=== PATIENT | female | born 1960 | race Caucasian/White ===

== ENCOUNTER 2016-08-24 07:17 | Inpatient (IN) | payer MEDICARE, BC ==
[~2016-08-24] VITALS: Ht 165.1 cm; Wt 105.0 kg
[2016-08-24] VITALS (8 sets, daily range): BP systolic 145–194; BP diastolic 75–90; PULSE 83–110; RESP 17–25; TEMP 98–98.5; O2SAT 92–99
[~2016-08-24 07:17] MED LIST: ALLO100T PO; AMLO5TAB22 PO; CINA30 PO; EZET10 PO; FOSR1000 CHEW; FURO10S PO; LEVEMIR SQ; LISI-363 PO; METO100T PO; NOVOLOGP2 SQ; SIMV40 PO; SULF500T35 PO
[2016-08-24] MEDS ORDERED: SODIUM CHLOR 0.9% 1000 ML INJ 1,000 ML IV ONE (08:09)
[2016-08-24] MEDS ORDERED: CUSTODIOL HTK IRR SOLN 2,000 ML IRRIGATION SCH (08:15)
[2016-08-24] MEDS ORDERED: MYCOPHENOLATE MOFETIL 500 MG TAB PO SCH (08:15)
[2016-08-24] MEDS ORDERED: SODIUM CHLOR 0.9% IV SCH (08:15)
[2016-08-24] MEDS ORDERED: ceFAZolin 2 GM PREMIX 50 ML IV SCH (08:15)
[2016-08-24] MEDS ORDERED: ANTITHYMOCYTE GLOB IV SCH (08:15)
--- NOTE | 2016-08-24 08:23 | HHI.HP ---
History of Present Illness [facility] Primary Care Physician Non-Staff Admission Diagnosis End Stage Renal Disease Diagnoses: History of Present Illness 56 yo female with ESRD from DM and HTN; Complications of her diabetes include gastropathy, enteropathy, and peripheral neuropathy; She hemodialyzes via a RUE AVF; She is here for a possible kidney transplant Review of Systems Constitutional: DENIES: Diaphoretic episodes, Fatigue, Fever, Weight gain, Weight loss, Chills, Dizziness, Change in appetite, Night Sweats Endocrine: DENIES: Abnorml menstrual pattern, Heat/cold intolerance, Polydipsia , Polyuria, Polyphagia Eyes: DENIES: Blurred vision, Diplopia, Eye inflammation, Eye pain, Vision loss , Photosensitivity, Double Vision Ears, nose, mouth, throat: DENIES: Tinnitus, Hearing loss, Vertigo, Nasal discharge, Oral lesions, Throat pain, Hoarseness, Ear Pain, Running Nose, Epistaxis, Sinus Pain, Toothache, Odynophagia Respiratory: DENIES: Apneas, Cough, Snoring, Wheezing, Hemoptysis, Sputum production, Shortness of breath Cardiovascular: DENIES: Chest pain, Palpitations, Syncope, Dyspnea on Exertion , PND, Lower Extremity Edema, Orthopnea, Claudication Gastrointestinal: DENIES: Abdominal pain, Black stools, Bloody stools, Constipation, Diarrhea, Nausea, Vomiting, Difficulty Swallowing, Anorexia Genitourinary: DENIES: Abnormal vaginal bleeding, Dysmenorrhea, Dyspareunia, Sexual dysfunction, Urinary frequency, Urinary incontinence, Urgency, Hematuria , Dysuria, Nocturia, Vaginal discharge Musculoskeletal: DENIES: Joint pain, Muscle aches, Stiffness, Joint Swelling, Back pain, Neck pain Integumentary: DENIES: Abnormal pigmentation, Pruritus, Rash, Nail changes, Breast masses, Breast skin changes, Nipple discharge Hematologic/lymphatic: DENIES: Bruising, Lymphadenopathy Immunologic/allergic: DENIES: Eczema, Urticaria Neurologic: DENIES: Abnormal gait, Headache, Localized weakness, Paresthesias, Seizures, Speech Problems, Tremor, Poor Balance Psychiatric: DENIES: Anxiety, Confusion, Mood changes, Depression, Hallucinations, Agitation, Suicidal Ideation, Homicidal Ideation, Delusions Past Family Social History Allergies: Uncoded Allergies: Tape (Allergy, 08/24/16) Past Medical History Obstructive Sleep Apnea, uses CPAP at home hiatal hernia hip and knee arthritis hx of CHF hx of pneumonia gastritis Past Surgical History PD cath x 2 in 2013 C sexn 1993 Reported Medications ASA (stopped 2 weeks ago) Insulin Simvastatin Aleve (last dose 2 days ago) Family History Father with ESRD Social History < 30 pack year smoker Physical Exam Vital Signs BP 194/90 (did not take AM meds) HR 90 Afebrile Physical Exam GENERAL: This is a well-developed patient, in no apparent distress. SKIN: No rashes, ecchymoses or lesions. Cool and dry. HEAD: Atraumatic. Normocephalic. No temporal or scalp tenderness. EYES: Pupils equal round and reactive. Extraocular motions intact. No scleral icterus. No injection or drainage. ENT: Nose without bleeding, purulent drainage or septal hematoma. Airway patent. NECK: Trachea midline. No JVD or lymphadenopathy. Supple, nontender, no meningeal signs. CARDIOVASCULAR: Regular rate and rhythm without murmurs, gallops, or rubs. RESPIRATORY: Clear to auscultation. Breath sounds equal bilaterally. No wheezes , rales, or rhonchi. GASTROINTESTINAL: Abdomen soft, non-tender, protuberant. All incisions well healed, no hernias. No hepato-splenomegaly, or palpable masses. No guarding. MUSCULOSKELETAL: Extremities without clubbing, cyanosis, or edema. No joint tenderness, effusion, or edema noted. NEUROLOGICAL: Awake and alert. Motor and sensory grossly within normal limits.Normal speech. Assessment and Plan Assessment and Plan Pending labs, ok for transplant this AM. She denied exposure to or symptoms of acute illnesses. I mentioned the increased risk of wound complications, including infection, fluid collections, and delayed healing as a result of her pannus. I explained the nature of the high risk for the donor. She and her family understand and agree to proceed with the transplant. Alvaro Patten MD August 24, 2016 08:23
[2016-08-24] MEDS ORDERED: BUPIVACAINE HCL PF 0.5% 30 ML VIAL ONE (08:50)
[2016-08-24] MEDS ORDERED: methylPREDNISolone SOD SUCC 125 MG/2 ML VIAL ONE (08:50)
[2016-08-24] MEDS ORDERED: LIDOCAINE HCL 2% 50 ML VIAL ONE (08:50)
[2016-08-24] MEDS ORDERED: SODIUM BICARBONATE 8.4% INJ 50 ML ONE (08:50)
[2016-08-24] MEDS ORDERED: HEPARIN SODIUM - IV 10,000 UNITS/10 ML VIAL ONE (08:50)
[2016-08-24] MEDS ORDERED: diphenhydrAMINE HCL 50 MG/ML VIAL ONE (08:50)
[2016-08-24] MEDS ORDERED: ceFAZolin INJ 1,000 MG VIAL ONE (08:50)
[2016-08-24] MEDS ORDERED: MINERAL OIL 10 ML VIAL ONE (08:51)
[2016-08-24] MEDS ORDERED: PAPAVERINE INJ 60 MG/2 ML VIAL ONE (08:51)
[2016-08-24] MEDS: ceFAZolin INJ 1,000 MG VIAL ONE ×2 (09:12→10:20)
[2016-08-24] MEDS ORDERED: PROPOFOL 200 MG/20 ML AMP IV ONE (09:24)
[2016-08-24] MEDS ORDERED: [UNRECOGNIZED DRUG - OTHER] IV ONE (09:24)
[2016-08-24] MEDS ORDERED: PHENYLEPH/NS 1000 MCG/10 ML SYR IV ONE (09:24)
[2016-08-24] MEDS ORDERED: ePHEDrine/NS 25 MG/5 ML SYR IV ONE (09:24)
[2016-08-24] MEDS ORDERED: CISATRACURIUM BESYLATE 200 MG/20 ML VIAL IV ONE (09:24)
[2016-08-24] MEDS ORDERED: ONDANSETRON HCL 4 MG/2 ML VIAL IV PUSH ONE (09:24)
[2016-08-24] MEDS ORDERED: CALCIUM CHLORIDE 10% SOLN 1 GRAM/10 ML SYR IV ONE (09:24)
[2016-08-24] MEDS ORDERED: DEXTROSE 5% IV ONE (09:24)
[2016-08-24 09:34] LABS: AUTOMATED NEUTROPHIL # 7.4 TH/MM3 (1.8-7.7); BASOPHIL % 0.5 % (0.0-2.0); EOSINOPHIL # 0.2 TH/MM3 (0-0.4); EOSINOPHIL % 2.3 % (0.0-4.0); HEMATOCRIT 31.2 % (35.0-46.0); HEMO FLAGS DIFF FINAL; LYMPH % 18.8 % (9.0-44.0); MEAN CELL VOLUME 97.6 FL (80.0-100.0); MEAN CORPUSCULAR HEMOGLOBIN 31.5 PG (27.0-34.0); MEAN CORPUSCULAR HGB CONC 32.3 % (32.0-36.0); MONO % 8.7 % (0.0-8.0); NEUT % 69.7 % (16.0-70.0); PLATELET COUNT 294 TH/MM3 (150-450); RED BLOOD COUNT 3.19 MIL/MM3 (4.00-5.30); RED CELL DISTRIBUTION WIDTH 14.7 % (11.6-17.2); WHITE BLOOD COUNT 10.7 TH/MM3 (4.0-11.0)
[2016-08-24 09:44] LABS: APTT (PATIENT) 25.3 SEC (24.3-30.1); PROTHROMBIN TIME - PATIENT 10.9 SEC (9.8-11.6)
[2016-08-24 10:03] LABS: ALKALINE PHOSPHATASE 161 U/L (45-117); ALT (GPT) 15 U/L (10-53); ANION GAP 13 MEQ/L (5-15); AST (GOT) 16 U/L (15-37); BICARBONATE 27.7 MEQ/L (21.0-32.0); BLOOD UREA NITROGEN 45 MG/DL (7-18); CHLORIDE 100 MEQ/L (98-107); GLOMERULAR FILTRATION RATE 4 ML/MIN (>89); POTASSIUM 4.5 MEQ/L (3.5-5.1); SODIUM (NA) 141 MEQ/L (136-145); TOTAL BILIRUBIN ADULT 0.3 MG/DL (0.2-1.0)
[2016-08-24] MEDS ORDERED: SODIUM CHLORIDE 0.9% IRRIGATION ONE (10:15)
[2016-08-24] MEDS ORDERED: BACITRACIN IRRIGATION ONE (10:15)
[2016-08-24] MEDS ORDERED: IRR IRRIGATION ONE (10:15)
--- NOTE | 2016-08-24 10:21 | RADRPT ---
EXAM DATE/TIME: 08/24/2016 10:08 [facility] COMPARISON: No previous studies available for comparison. INDICATIONS : Evaluate for pneumonia, pneumothorax, or communicable disease. Pre-op, kidney transplant. MEDICAL HISTORY : Renal disease, end stage. Congestive heart failure. SURGICAL HISTORY : Dialysis catheter ENCOUNTER: Initial ACUITY: 1 day PAIN SCORE: 0/10 LOCATION: Bilateral chest FINDINGS: A single AP erect view of the chest was obtained it demonstrates mild cardiomegaly. There is mild str eaky opacity in left perihilar region with no focal consolidation or effusion. There is a metal stent catheter in place projected over the right scapula. There are multiple overlying electrocardiogram l william. The bony thorax is otherwise intact. CONCLUSION: 1. Mild cardiomegaly 2. Minimal streaky opacity in the left perihilar region with no definite pulmonary edema. Alon Rosales MD on August 24, 2016 at 10:18 Board Certified Radiologist. This report was verified electronically.
[2016-08-24] MEDS ORDERED: ACETAMINOPHEN 1000 MG/100 ML VIAL IV ONE (10:25)
[2016-08-24] MEDS ORDERED: fentaNYL CITRATE 250 MCG/5 ML AMP ONE ×2 (10:25→18:34)
[2016-08-24] MEDS ORDERED: MIDAZOLAM HCL 5 MG/5 ML VIAL ONE (10:25)
[2016-08-24] MEDS ORDERED: FAMOTIDINE 20 MG/2 ML VIAL ONE (10:26)
[2016-08-24] MEDS ORDERED: HYDROmorphone HCL PF 2 MG/ML VIAL ONE (10:26)
[2016-08-24] MEDS ORDERED: ceFAZolin INJ 1,000 MG VIAL IV ONE (14:22)
[2016-08-24] MEDS ORDERED: PROPOFOL 1000 MG/100 ML INJ 100 ML ONE (17:28)
--- NOTE | 2016-08-24 17:40 | PD.OP ---
Operative Report Date of Surgery: August 24, 2016 Preoperative Diagnosis: (1) ESRD (end stage renal disease) on dialysis Postoperative Diagnosis: (1) ESRD (end stage renal disease) on dialysis Procedure: Diseased Donor Kidney Transplant Anesthesia: GETA Local with Lidocaine, Marcaine Surgeon: Alvaro Patten Fitness Management Director(s): Valeriano Operation and Findings: INDICATIONS FOR THE PROCEDURE The patient is a 56-year-old female with end-stage renal disease from Diabetes and Hypertension. She is here to receive a donor kidney transplant. INTRAOPERATIVE FINDINGS 1. Morbid obesity with large overhanging pannus 2. Normal relationship between the internal iliac artery and the left external iliac vein. 3. Round ligament identified and divided 4. Previous Pfannenstiel incisions in line with intended Transplant incision 5. Fibrotic tissue on medial aspect of incision 6. Dense adhesions in musculofascial layers of median abdominal wall and tissue surrounding external iliac vessels DESCRIPTION OF THE PROCEDURE The patient received prophylactic intravenous antibiotics followed by inhalational and intravenous anesthetic agents prior to endotracheal intubation. She had previously received Solu-Medrol and Thymoglobulin for induction. She was then positioned, prepped and draped in a sterile fashion. After local anesthesia with Marcaine and Lidocaine was infiltrated into the intended incision site, a right lower quadrant hockey stick incision was then performed in order to avoid an ischemic skin pedicle, with division of the external and internal oblique muscles and division of the lateral edge of the rectus. En route, the inferior epigastrics were divided, but the round ligament was identified, isolated and ligated. Once the peritoneum was visualized, it was mobilized medially so as to expose the retroperitoneum. A Bookwalter retractor was placed for optimal exposure. The lymphatics in the tissue overlying the iliac vessels were carefully dissected and ligated using silk ties and surgical clips. A Satinsky clamp was placed on the external iliac vein and a longitudinal venotomy was performed. The renal vein to the external iliac vein and anastomosis was performed using a continuous 5-0 Prolene suture. Similarly, two angled pedicle clamps were used to vascularly isolate the external iliac artery. An arteriotomy was performed using dual punches from a 4-0 arterial punch. The arterial anastomosis was performed using continuous 6-0 Prolene suture. Prior to completion of each anastomosis, the vessels were irrigated with heparinized saline. With completion of the arterial anastomosis, the vascular clamps are released with a good perfusion of allograft. The bladder was then filled with antibiotic solution and the mucosa was exposed for implantation. The ureter was trimmed to size, spatulated, and with the mucosa opened, a ureteroneocystostomy was performed using a continuous 6-0 PDS suture. The anastomosis was then placed under vascularized tissue using the runner suture. Hemostasis in the dissected area was achieved. Urine was not yet produced by the allograft prior to implantation of the ureter. A 19-Qatari Francis drain was placed in the wound cavity and the incision was then closed using a two-layered closure with #1 PDS in the superficial layer and #1 Prolene in the deep layer. The skin was approximated using ricarda with intermittent 3-0 nylon vertical mattress sutures. There were no complications during the case and the patient was brought to PACU intubated in HD stable condition. Alvaro Patten MD August 24, 2016 17:40
[2016-08-24] MEDS ORDERED: AMLO5TAB2 PO (17:44)
[2016-08-24] MEDS ORDERED: LISI40TA PO (17:44)
[2016-08-24] MEDS ORDERED: NOVOLOGP2 SQ (17:44)
[2016-08-24] MEDS ORDERED: METO100T PO (17:44)
[2016-08-24] MEDS ORDERED: CINA30 PO (17:44)
[2016-08-24] MEDS ORDERED: ZETI10TA5 PO (17:44)
[2016-08-24] MEDS ORDERED: SULF500T3 PO (17:44)
[2016-08-24] MEDS ORDERED: FOSR1000 CHEW (17:44)
[2016-08-24] MEDS ORDERED: ALLO100T PO (17:44)
[2016-08-24] MEDS ORDERED: SIMV40TA PO (17:44)
[2016-08-24] MEDS ORDERED: LEVEMIR SQ (17:44)
[2016-08-24] MEDS ORDERED: FURO40TA PO (17:44)
[2016-08-24] MEDS ORDERED: NALOXONE HCL 0.4 MG/ML AMP IV PRN (17:45)
[2016-08-24] MEDS ORDERED: diphenhydrAMINE HCL 25 MG CAP PO PRN (17:45)
[2016-08-24] MEDS ORDERED: MORPHINE SULFATE 30 MG/30 ML PCA IV SCH (17:45)
[2016-08-24] MEDS ORDERED: GLUCAGON 1 MG/ML VIAL OTHER PRN (17:45)
[2016-08-24] MEDS ORDERED: DEXTROSE 50% IN WATER 50 ML VIAL(D50) IV PRN (17:45)
[2016-08-24] MEDS ORDERED: ONDANSETRON INJ 8 MG in DEXTROSE 5% IN WATER INJ 50 ML IV PRN ×2 (17:45)
[2016-08-24] MEDS ORDERED: diphenhydrAMINE HCL 50 MG/ML VIAL IV PRN (17:45)
[2016-08-24] MEDS ORDERED: LABETALOL HCL 100 MG/20 ML VIAL ONE (18:02)
[2016-08-24] MEDS ORDERED: DO NOT ADM ANY ANTICOAGULANT DRUGS PRN (18:10)
[2016-08-24] MEDS: DEXT 5%-NACL 0.45% 1000 ML INJ 1,000 ML IV SCH ×2 (18:20→20:32)
[2016-08-24 18:23] LABS: AUTOMATED NEUTROPHIL # 15.3 TH/MM3 (1.8-7.7); BASOPHIL # 0.1 TH/MM3 (0-0.2); BASOPHIL % 0.4 % (0.0-2.0); HEMATOCRIT 29.4 % (35.0-46.0); HEMO FLAGS DIFF FINAL; LYMPH % 0.3 % (9.0-44.0); MEAN CELL VOLUME 99.3 FL (80.0-100.0); MEAN CORPUSCULAR HEMOGLOBIN 31.8 PG (27.0-34.0); MONO % 1.2 % (0.0-8.0); NEUT % 98.1 % (16.0-70.0); PLATELET COUNT 236 TH/MM3 (150-450); RED BLOOD COUNT 2.96 MIL/MM3 (4.00-5.30); RED CELL DISTRIBUTION WIDTH 14.7 % (11.6-17.2); WHITE BLOOD COUNT 15.6 TH/MM3 (4.0-11.0)
[2016-08-24] MEDS ORDERED: *morphine SULFATE 8 MG/ML PERIprocedure ONLY ONE (18:24)
--- NOTE | 2016-08-24 18:30 | PD.CONS ---
HPI Service Nephrology Consult Requested By Dr. Patten Reason for Consult Kidney transplant Primary Care Physician Non-Staff History of Present Illness Patient is a 56-year-old female with history of end-stage renal disease, diabetes, hypertension who received the kidney transplant earlier , patient is passing small amount of urine, she was extubated and placed on oxygen she denies any chest pains or shortness of breath. Her last dialysis was on Wednesday. Review of Systems Constitutional: COMPLAINS OF: Fatigue Gastrointestinal: COMPLAINS OF: Abdominal pain Past Family Social History Allergies: Uncoded Allergies: Tape (Allergy, Unknown, 08/24/16) Past Medical History Hypertension Diabetes End-stage renal disease Failed the peritoneal dialysis Hyperlipidemia Obstructive Sleep Apnea, uses CPAP at home Hiatal hernia Hips knee arthritis CHF Pneumonia Past Surgical History PD catheter placement and removal 2 AV fistula right arm Reported Medications Reported Meds & Active Scripts Active Reported Allopurinol 100 Mg Tab 100 Mg PO DAILY Sensipar (Cinacalcet) 30 Mg Tab 30 Mg PO BID Amlodipine (Amlodipine Besylate) 5 Mg Tab 5 Mg PO DAILY Zetia (Ezetimibe) 10 Mg Tab 10 Mg PO DAILY Furosemide 40 Mg Tab 40 Mg PO BID Novolog Inj (Insulin Aspart) 1,000 Unit/10 Ml Vial 20 Units SQ TID Levemir Inj (Insulin Detemir) 1,000 unit/ 10 ML Vial 40 Units SQ DIRECTED Do not mix with any other Insulin. Fosrenol (Lanthanum Carbonate) 1,000 Mg Tab 1,000 Mg CHEW TIDPC Lisinopril 40 Mg Tab 40 Mg PO DAILY Metoprolol Tartrate 100 Mg Tab 100 Mg PO BID Simvastatin 40 Mg Tab 40 Mg PO HS Sulfasalazine 500 Mg Tab 500 Mg PO Q12HR Active Ordered Medications Current Medications Medications (Trade) Dose Ordered Sig/Lynsey Route Start Time Stop Time Status Last Admin Sodium Chloride 1,000 ml @ 40 mls/hr Q24H ONCE IV 08/24/16 08:09 08/25/16 08:08 08/24/16 08:09 Dextrose/Sodium Chloride 1,000 ml @ 40 mls/hr Q24H IV 08/24/16 17:42 UNV (1/2 NS 1000 ml Inj) 1,000 ml @ 0 mls/hr Q0M IV 08/24/16 17:42 UNV Mycophenolate Mofetil 1000 mg 1,000 mg BID@06,18 PO 08/25/16 06:00 UNV (Cellcept Inj/ D5W 150 ml Inj) 150 ml @ 75 mls/hr BID@ IV 08/25/16 06:00 UNV (Mycostatin Liq) 5 ml TID@,, SWISH-SWAL 08/24/16 21:00 UNV (Bactrim Ds 800-160 Mg) 1 tab MoWeFr@ PO 08/26/16 09:00 UNV Valganciclovir 900 mg 900 mg DAILY PO 08/25/16 09:00 UNV (Ancef Inj/NS Inj) 100 ml @ 200 mls/hr Q8H IV 08/24/16 17:45 08/25/16 02:14 UNV (Protonix Inj) 40 mg DAILY IV PUSH 08/25/16 09:00 UNV (Tums Chew) 500 mg BID@, CHEW 08/25/16 09:00 UNV (Colace) 100 mg BID PO 08/24/16 21:00 UNV (Dulcolax Ec) 10 mg UNSCH PRN PO 08/27/16 17:45 08/27/16 17:46 UNV (Dulcolax Supp) 10 mg UNSCH PRN RECTAL 08/27/16 17:45 08/27/16 17:46 UNV Ondansetron HCl 4 mg 4 mg Q6H PRN IV 08/24/16 17:45 UNV (Zofran Inj/D5W Inj) 54 ml @ 200 mls/hr Q6H PRN IV 08/24/16 17:45 UNV (Benadryl) 25 mg Q6H PRN PO 08/24/16 17:45 UNV (Benadryl Inj) 25 mg Q6H PRN IV 08/24/16 17:45 UNV (Narcan Inj) 0.4 mg UNSCH PRN IV 08/24/16 17:45 UNV (Morphine 1 Mg/ ml [employer]) 30 mg UNSCH IV 08/24/16 17:45 UNV [employer] Dosage Infused (Pha) 1 Q8HR .XX 08/24/16 17:45 UNV (D50w (Vial) Inj) 50 ml UNSCH PRN IV 08/24/16 17:45 UNV (Glucagon Inj) 1 mg UNSCH PRN OTHER 08/24/16 17:45 UNV Family History Noncontributory Social History Denies smoking or alcohol use Physical Exam Vital Signs Vital Signs Date Time Temp Pulse Resp B/P Pulse Ox O2 Delivery O2 Flow Rate FiO2 08/24/16 18:07 99 50 08/24/16 17:50 98 50 08/24/16 09:30 83 08/24/16 09:00 98.5 85 17 194/90 98 Physical Exam GENERAL: Well-nourished, well-developed patient. SKIN: Warm and dry. HEAD: Normocephalic. EYES: No scleral icterus. No injection or drainage. NECK: Supple, trachea midline. No JVD or lymphadenopathy. CARDIOVASCULAR: Regular rate and rhythm without murmurs, gallops, or rubs. RESPIRATORY: Breath sounds equal bilaterally. No accessory muscle use. GASTROINTESTINAL: Abdomen soft, non-tender, nondistended. EXTREMITIES: No cyanosis, or edema. AV fistula right arm NEUROLOGICAL: Awake, alert, and oriented x 3. Non-focal. Laboratory Laboratory Tests Test 08/24/16 08/24/16 09:00 18:05 White Blood Count 10.7 15.6 Red Blood Count 3.19 2.96 Hemoglobin 10.0 9.4 Hematocrit 31.2 29.4 Mean Corpuscular Volume 97.6 99.3 Mean Corpuscular Hemoglobin 31.5 31.8 Mean Corpuscular Hemoglobin 32.3 32.0 Concent Red Cell Distribution Width 14.7 14.7 Platelet Count 294 236 Mean Platelet Volume 9.7 9.6 Neutrophils (%) (Auto) 69.7 98.1 Lymphocytes (%) (Auto) 18.8 0.3 Monocytes (%) (Auto) 8.7 1.2 Eosinophils (%) (Auto) 2.3 0.0 Basophils (%) (Auto) 0.5 0.4 Neutrophils # (Auto) 7.4 15.3 Lymphocytes # (Auto) 2.0 0.0 Monocytes # (Auto) 0.9 0.2 Eosinophils # (Auto) 0.2 0.0 Basophils # (Auto) 0.0 0.1 CBC Comment DIFF FINAL DIFF FINAL Differential Comment Prothrombin Time 10.9 Prothromb Time International 1.0 Ratio Activated Partial 25.3 Thromboplast Time Sodium Level 141 Potassium Level 4.5 Chloride Level 100 Carbon Dioxide Level 27.7 Anion Gap 13 Blood Urea Nitrogen 45 Creatinine 9.20 Estimat Glomerular Filtration 4 Rate Random Glucose 78 Calcium Level 8.8 Total Bilirubin 0.3 Aspartate Amino Transf 16 (AST/SGOT) Alanine Aminotransferase 15 (ALT/SGPT) Alkaline Phosphatase 161 Total Protein 7.7 Albumin 3.3 Blood Type A POSITIVE Antibody Screen NEGATIVE Crossmatch Leukocyte-Reduced Red Blood Cells Blood Bank Comment Result Diagram: 08/24/16 1805 08/24/16 0900 Imaging Last Impressions Chest X-Ray 08/24/16 0000 Signed Impressions: Service Date/Time: Wednesday, August 24, 2016 10:08 - CONCLUSION: 1. Mild cardiomegaly 2. Minimal streaky opacity in the left perihilar region with no definite pulmonary edema. Alon Rosales MD Assessment and Plan Problem List: (1) ESRD (end stage renal disease) on dialysis Plan: Patient has received for a cadaveric kidney transplant and recovering, her blood pressure is stable she is extubated placed on oxygen she is tolerating it well making progress small amount of urine is coming out of the Hou catheter will continue to monitor her while she is in the hospital Follow labs in the a.m. (2) Hypertension Plan: Continue monitor place her on hydralazine as needed (3) Diabetes Plan: Continue monitoring on sliding scale insulin Miles Alvarez MD August 24, 2016 18:30
[2016-08-24 18:44] LABS: BICARBONATE 22.4 MEQ/L (21.0-32.0); MAGNESIUM 2.3 MG/DL (1.5-2.5); POTASSIUM 5.9 MEQ/L (3.5-5.1)
[2016-08-24] MEDS ORDERED: INSULIN HUMAN REGULAR 1,000 UNITS/10 ML VIAL ONE (18:55)
--- NOTE | 2016-08-24 19:21 | RADRPT ---
EXAM DATE/TIME: 08/24/2016 18:03 [facility] COMPARISON: CHEST SINGLE AP, August 24, 2016, 10:08. INDICATIONS : Central line placement. MEDICAL HISTORY : Renal disease, end stage. Congestive heart failure. SURGICAL HISTORY : Dialysis catheter ENCOUNTER: Subsequent ACUITY: 1 day PAIN SCORE: Non-responsive. LOCATION: Bilateral chest FINDINGS: Right central line in superior vena cava. Mild bilateral airspace disease slightly increased from ear lier examination. Finding may represent mild edema. Cardiomegaly CONCLUSION: 1. Slight increase in edema pattern. Right central line in superior vena cava without pneumothorax. Rudy Ansari MD on August 24, 2016 at 19:18 Board Certified Radiologist. This report was verified electronically.
[2016-08-24] MEDS: SODIUM CHLOR 0.45% 1000 ML INJ 1,000 ML IV SCH (20:32)
[2016-08-24] MEDS: DOCUSATE SODIUM 100 MG CAP PO SCH (21:00)
[2016-08-24] MEDS: NYSTATIN SUSP 500,000 U/5 ML CUP SWISH-SWAL SCH (21:23)
[2016-08-24] MEDS: INSULIN NovoLIN REGULAR SUPPLEMENTAL SCALE SQ SCH (21:30)
[2016-08-24] MEDS: PCA - TOTAL MG MORPHINE DELIVERED PER SHIFT SCH (22:00)
[2016-08-24 22:29] LABS: BLOOD GAS CARBOXYHEMOGLOBIN 1.4 % (0-4); BLOOD GAS HCO3 19 mmol/L (22-26); BLOOD GAS METHEMOGLOBIN 1.4 % (0-2); BLOOD GAS O2 HGB SATURATION 93 % (90-100); BLOOD GAS OXYGEN CONTENT 13.2 Vol % (12.0-20.0); BLOOD GAS PCO2 36 mmHg (38-42); BLOOD GAS PO2 94 mmHg (61-120); BLOOD GAS TOTAL HGB 9.9 G/DL (12.0-16.0); CRITICAL VALUE NO; FIO2 50 %; OXYGEN DEVICE BIPAP; TEMP CORR TO 98.6; VENT SETTINGS IPAP18/EPAP8/PS10
[2016-08-24 22:30] LABS: DRAW SITE LT RADIAL; NUMBER OF ARTERIAL PUNCTURES 1; STAT YES; ULNAR PULSE PRESENT
[2016-08-24] MEDS: RESP: ALBUTEROL 2.5 MG/IPRATROPIUM 0.5 MG NEB (PRN) INH (22:33)
--- NOTE | 2016-08-24 22:43 | PD.CONS ---
HPI Service Critical Care Medicine Consult Requested By [facility] Reason for Consult Hypoxemia respiratory failure Primary Care Physician Non-Staff History of Present Illness 56 y/o woman with longstanding diabetes and renal failure progressing to ESRD received a cadaveric kidney transplant today. Her breathing is mildly labored and has required increased FiO2 for maintenance of O2 sdat > 90%. She is on home CPAP for obstructive sleep apnea, and I suspect obesity hypoventilation syndrome. The kidney is functioning and fluid balance is slightly ahead. CXR is benign. Review of Systems ROS No chest pain but moderate SOB. Has incisional pain as expected. Past Family Social History Allergies: Uncoded Allergies: Tape (Allergy, Unknown, 08/24/16) Past Medical History Allergies: Uncoded Allergies: Tape (Allergy, Unknown, 08/24/16) Past Medical History Hypertension Diabetes End-stage renal disease Failed the peritoneal dialysis Hyperlipidemia Obstructive Sleep Apnea, uses CPAP at home Hiatal hernia Hips knee arthritis CHF Pneumonia Past Surgical History PD catheter placement and removal 2 AV fistula right arm Reported Medications Reported Meds & Active Scripts Active Reported Allopurinol 100 Mg Tab 100 Mg PO DAILY Sensipar (Cinacalcet) 30 Mg Tab 30 Mg PO BID Amlodipine (Amlodipine Besylate) 5 Mg Tab 5 Mg PO DAILY Zetia (Ezetimibe) 10 Mg Tab 10 Mg PO DAILY Furosemide 40 Mg Tab 40 Mg PO BID Novolog Inj (Insulin Aspart) 1,000 Unit/10 Ml Vial 20 Units SQ TID Levemir Inj (Insulin Detemir) 1,000 unit/ 10 ML Vial 40 Units SQ DIRECTED Do not mix with any other Insulin. Fosrenol (Lanthanum Carbonate) 1,000 Mg Tab 1,000 Mg CHEW TIDPC Lisinopril 40 Mg Tab 40 Mg PO DAILY Metoprolol Tartrate 100 Mg Tab 100 Mg PO BID Simvastatin 40 Mg Tab 40 Mg PO HS Sulfasalazine 500 Mg Tab 500 Mg PO Q12HR Physical Exam Vital Signs Vital Signs Date Time Temp Pulse Resp B/P Pulse Ox O2 Delivery O2 Flow Rate FiO2 08/24/16 22:00 22 08/24/16 20:29 22 08/24/16 20:24 18 08/24/16 19:37 98.3 98 22 145/75 92 08/24/16 19:15 96 19 135/64 96 Nasal Cannula 2 08/24/16 19:15 08/24/16 19:00 98 08/24/16 19:00 98.1 97 19 140/65 97 Nasal Cannula 2 08/24/16 18:45 93 19 135/62 96 Nasal Cannula 4 08/24/16 18:30 92 18 125/60 99 Nasal Cannula 4 08/24/16 18:15 91 18 135/61 97 Bi-Pap 50 08/24/16 18:07 99 50 08/24/16 18:00 99 18 174/74 100 Mechanical Ventilator 08/24/16 17:50 98 50 08/24/16 17:45 98.7 89 22 109/53 100 Mechanical Ventilator 50 08/24/16 17:45 50 08/24/16 09:30 83 08/24/16 09:00 98.5 85 17 194/90 98 Physical Exam P 87, BP 130s - 140s / 60s - 70s, R 22, Sats 88% Head: Normal. Neck: Airway widely patent. Lungs: Clear, no wheezes or crackles. Mild tachypnea. Heart: RRR, NL S1S2, No m,r. Neck veins are full. Abdomen: Large, soft. Minimal lower guarding. Extremities: Warm, well perfused. Neuro: Sleepy but easily alert and responsive conversant. Moves 4 limbs to command. O X 3. Laboratory Laboratory Tests Test 08/24/16 08/24/16 08/24/16 09:00 18:05 22:00 White Blood Count 10.7 15.6 Red Blood Count 3.19 2.96 Hemoglobin 10.0 9.4 Hematocrit 31.2 29.4 Mean Corpuscular Volume 97.6 99.3 Mean Corpuscular Hemoglobin 31.5 31.8 Mean Corpuscular Hemoglobin 32.3 32.0 Concent Red Cell Distribution Width 14.7 14.7 Platelet Count 294 236 Mean Platelet Volume 9.7 9.6 Neutrophils (%) (Auto) 69.7 98.1 Lymphocytes (%) (Auto) 18.8 0.3 Monocytes (%) (Auto) 8.7 1.2 Eosinophils (%) (Auto) 2.3 0.0 Basophils (%) (Auto) 0.5 0.4 Neutrophils # (Auto) 7.4 15.3 Lymphocytes # (Auto) 2.0 0.0 Monocytes # (Auto) 0.9 0.2 Eosinophils # (Auto) 0.2 0.0 Basophils # (Auto) 0.0 0.1 CBC Comment DIFF FINAL DIFF FINAL Differential Comment Prothrombin Time 10.9 Prothromb Time International 1.0 Ratio Activated Partial 25.3 Thromboplast Time Sodium Level 141 141 Potassium Level 4.5 5.9 Chloride Level 100 105 Carbon Dioxide Level 27.7 22.4 Anion Gap 13 14 Blood Urea Nitrogen 45 43 Creatinine 9.20 8.65 Estimat Glomerular Filtration 4 5 Rate Random Glucose 78 177 Calcium Level 8.8 8.0 Total Bilirubin 0.3 Aspartate Amino Transf 16 (AST/SGOT) Alanine Aminotransferase 15 (ALT/SGPT) Alkaline Phosphatase 161 Total Protein 7.7 Albumin 3.3 Blood Type A POSITIVE Antibody Screen NEGATIVE Crossmatch Leukocyte-Reduced Red Blood Cells Blood Bank Comment Phosphorus Level 6.3 Magnesium Level 2.3 Blood Gas Puncture Site LT RADIAL Blood Gas Patient Temperature 98.6 Blood Gas HCO3 19 Blood Gas Base Excess -6.0 Blood Gas Oxygen Saturation 93 Arterial Blood pH 7.34 Arterial Blood Partial 36 Pressure CO2 Arterial Blood Partial 94 Pressure O2 Arterial Blood Oxygen Content 13.2 Arterial Blood 1.4 Carboxyhemoglobin Arterial Blood Methemoglobin 1.4 Blood Gas Hemoglobin 9.9 Oxygen Delivery Device BIPAP Blood Gas Ventilator Setting IPAP18/EPAP8/PS10 Blood Gas Inspired Oxygen 50 Result Diagram: 08/24/16180408/24/161804 Assessment and Plan Assessment and Plan Assessment: 1. Hypoxemic Respiratory Failure 2. S/P cadaveric renal transplant for ESRD. 3. DM, Type 2 4. Obesity. Plan: 1. BiPAP 18/5. 2. Confirm no CO2 retention. 3. Minimal analgesia. 4. CXR a.m. 5. Follow I&O closely. Overall impression: Patient is critically ill following renal transplant. Her hypoxemia is compounded by body habitus and analgesia. Though on home CPAP she is requiring BiPAP NIV now and may well require intubation and mechanical ventilation. By neck veins she is full but we'll err on that side considering the importance of renal perfusion. I don't want to resort to diuretics at this time but we may need to decrease total iv fluid. Critical care 44 mins Ezekiel Schuler MD August 24, 2016 22:43
[2016-08-25] VITALS (16 sets, daily range): BP systolic 108–137; BP diastolic 54–82; PULSE 85–105; RESP 20–23; TEMP 97.9–99; O2SAT 92–96
[2016-08-25] MEDS ORDERED: LABETALOL HCL 100 MG/20 ML VIAL ONE (00:22)
[2016-08-25] MEDS: LABETALOL HCL 100 MG/20 ML VIAL IV PUSH PRN (01:04)
[2016-08-25] MEDS: RESP: ALBUTEROL 2.5 MG/IPRATROPIUM 0.5 MG NEB (PRN) INH ×3 (04:10→21:20)
[2016-08-25 05:48] LABS: BICARBONATE 21.6 MEQ/L (21.0-32.0); POTASSIUM 5.9 MEQ/L (3.5-5.1)
[2016-08-25 05:50] LABS: AUTOMATED NEUTROPHIL # 22.9 TH/MM3 (1.8-7.7); BASOPHIL # 0.1 TH/MM3 (0-0.2); BASOPHIL % 0.6 % (0.0-2.0); EOSINOPHIL % 0.1 % (0.0-4.0); HEMATOCRIT 27.4 % (35.0-46.0); HEMO FLAGS DIFF FINAL; LYMPH % 0.3 % (9.0-44.0); LYMPHOCYTE # 0.1 TH/MM3 (1.0-4.8); MEAN CELL VOLUME 99.1 FL (80.0-100.0); MEAN CORPUSCULAR HEMOGLOBIN 32.4 PG (27.0-34.0); MEAN CORPUSCULAR HGB CONC 32.7 % (32.0-36.0); MONO % 2.6 % (0.0-8.0); NEUT % 96.4 % (16.0-70.0); PLATELET COUNT 231 TH/MM3 (150-450); RED BLOOD COUNT 2.76 MIL/MM3 (4.00-5.30); RED CELL DISTRIBUTION WIDTH 14.8 % (11.6-17.2); WHITE BLOOD COUNT 23.8 TH/MM3 (4.0-11.0)
[2016-08-25] MEDS: MYCOPHENOLATE MOFETIL INJ 1,000 MG in DEXTROSE 5% IN WATE 150 ML INJ 150 ML IV SCH ×4 (06:00→16:17)
[2016-08-25] MEDS: PCA - TOTAL MG MORPHINE DELIVERED PER SHIFT SCH ×3 (06:00→22:00)
[2016-08-25] MEDS: MYCOPHENOLATE MOFETIL 500 MG TAB PO SCH ×2 (06:04→17:07)
[2016-08-25] MEDS: INSULIN NovoLIN REGULAR SUPPLEMENTAL SCALE SQ SCH ×4 (06:14→20:39)
[2016-08-25] MEDS: NYSTATIN SUSP 500,000 U/5 ML CUP SWISH-SWAL SCH ×3 (08:29→20:35)
[2016-08-25] MEDS: CALCIUM CARBONATE 500 MG CHEWABLE TAB CHEW SCH ×2 (08:30→16:06)
[2016-08-25] MEDS: DOCUSATE SODIUM 100 MG CAP PO SCH ×2 (08:32→20:35)
[2016-08-25] MEDS: PANTOPRAZOLE SODIUM 40 MG VIAL IV PUSH SCH (08:32)
--- NOTE | 2016-08-25 08:41 | HHI.PR ---
Subjective Remarks Sleeping , but easily awakened this AM. On CPAP mask, sats over 95%; after awakwening, c/o dry mouth and thirst; denies incisional discomfort, responds appropriately to questions, interacting well with staff. Objective Vital Signs Date Time Temp Pulse Resp B/P Pulse Ox O2 Delivery O2 Flow Rate FiO2 08/25/16 07:39 98.9 96 20 108/54 94 08/25/16 07:00 93 Bi-Pap 45 08/25/16 07:00 96 08/25/16 06:00 25 08/25/16 04:03 93 45 08/25/16 03:32 99.0 105 22 125/59 95 08/25/16 03:18 95 Bi-Pap 45 08/25/16 03:18 103 08/25/16 00:36 96 45 08/24/16 23:24 106 08/24/16 23:24 94 Bi-Pap 45 08/24/16 23:24 98.0 110 25 161/77 98 08/24/16 22:00 22 08/24/16 21:57 93 45 08/24/16 21:45 95 Bi-Pap 50 08/24/16 20:29 22 08/24/16 20:24 18 08/24/16 20:00 92 Nasal Cannula 5.00 08/24/16 19:37 98.3 98 22 145/75 92 08/24/16 19:15 96 19 135/64 96 Nasal Cannula 2 08/24/16 19:15 08/24/16 19:00 98 08/24/16 19:00 98.1 97 19 140/65 97 Nasal Cannula 2 08/24/16 18:45 93 19 135/62 96 Nasal Cannula 4 08/24/16 18:30 92 18 125/60 99 Nasal Cannula 4 08/24/16 18:15 91 18 135/61 97 Bi-Pap 50 08/24/16 18:07 99 50 08/24/16 18:00 99 18 174/74 100 Mechanical Ventilator 08/24/16 17:50 98 50 08/24/16 17:45 98.7 89 22 109/53 100 Mechanical Ventilator 50 08/24/16 17:45 50 08/24/16 09:30 83 08/24/16 09:00 98.5 85 17 194/90 98 I/O 508/24/16 08/24/16 08/25/16 08/25/16 08/25/16 07:00 15:00 23:00 07:00 15:00 23:00 Intake Total 3647 ml 505 ml Output Total 782 ml 265 ml Balance 2865 ml 240 ml Intake IV Total 447 ml 505 ml Other 3200 ml Output Urine Total 462 ml 225 ml Drainage Total 20 ml 40 ml Estimated Blood Loss 300 ml Result Diagram: 08/25/16 04508/25/16 045 Objective Remarks HN; dry mucous membranes Abd; non-distended; dressing with dry soilage Drain: serosang drainage Ext: mild edema Assessment and Plan Assessment and Plan Recovering well. A-line d/c'd last night. Starting to produce urine, but may require dialysis today; ok to start on ice chips and water; Will sit up in bed or possibly OOB to chair by end of day. Alvaro Patten MD August 25, 2016 08:41
[2016-08-25] MEDS ORDERED: SODIUM CHLOR 0.9% 1000 ML INJ 1,000 ML IV PRN ×2 (10:09)
[2016-08-25] MEDS ORDERED: NITROGLYCERIN 0.4 MG SL 25 TABS/BTL SL PRN (10:15)
[2016-08-25] MEDS ORDERED: MANNITOL 12.5 GM/50 ML VIAL IV PRN (10:15)
[2016-08-25] MEDS ORDERED: ALBUMIN HUMAN 25% 25 GM/100 ML BAGP IV PRN (10:15)
[2016-08-25] MEDS ORDERED: diphenhydrAMINE HCL 50 MG CAP PO ONE (10:15)
[2016-08-25] MEDS ORDERED: ACETAMINOPHEN 325 MG TAB PO ONE (10:15)
[2016-08-25] MEDS ORDERED: methylPREDNISolone SOD SUCC 125 MG/2 ML VIAL IV PUSH ONE (10:15)
[2016-08-25] MEDS ORDERED: diphenhydrAMINE HCL 25 MG CAP PO PRN (10:15)
[2016-08-25] MEDS ORDERED: THYMOGLOBULIN ANAPYLAXIS KIT MISC XX PRN (10:15)
[2016-08-25] MEDS ORDERED: ONDANSETRON HCL 4 MG/2 ML VIAL IV PRN (10:15)
--- NOTE | 2016-08-25 10:36 | HHI.NPPN ---
Subjective History of Present Illness Hx of kidney transplant 08/24/16 Interval History stable Review of Systems General Constitutional: Fatigue Objective Data Data 08/24/16 08/25/16 18:59 06:59 Intake Total 3200 ml 952 ml Output Total 550 ml 497 ml Balance 2650 ml 455 ml Intake IV Total 952 ml Other 3200 ml Output Urine Total 250 ml 437 ml Drainage Total 60 ml Estimated Blood Loss 300 ml Vital Signs Date Time Temp Pulse Resp B/P Pulse Ox O2 Delivery O2 Flow Rate FiO2 08/25/16 09:00 95 Nasal Cannula 5.00 08/25/16 08:38 96 Nasal Cannula 6.00 08/25/16 08:00 96 Nasal Cannula 4.00 08/25/16 07:39 98.9 96 20 108/54 94 08/25/16 07:00 93 Bi-Pap 45 08/25/16 07:00 96 08/25/16 06:00 25 08/25/16 04:03 93 45 08/25/16 03:32 99.0 105 22 125/59 95 08/25/16 03:18 95 Bi-Pap 45 08/25/16 03:18 103 08/25/16 00:36 96 45 08/24/16 23:24 106 08/24/16 23:24 94 Bi-Pap 45 08/24/16 23:24 98.0 110 25 161/77 98 08/24/16 22:00 22 08/24/16 21:57 93 45 08/24/16 21:45 95 Bi-Pap 50 08/24/16 20:29 22 08/24/16 20:24 18 08/24/16 20:00 92 Nasal Cannula 5.00 08/24/16 19:37 98.3 98 22 145/75 92 08/24/16 19:15 96 19 135/64 96 Nasal Cannula 2 08/24/16 19:15 08/24/16 19:00 98 08/24/16 19:00 98.1 97 19 140/65 97 Nasal Cannula 2 08/24/16 18:45 93 19 135/62 96 Nasal Cannula 4 08/24/16 18:30 92 18 125/60 99 Nasal Cannula 4 08/24/16 18:15 91 18 135/61 97 Bi-Pap 50 08/24/16 18:07 99 50 08/24/16 18:00 99 18 174/74 100 Mechanical Ventilator 08/24/16 17:50 98 50 08/24/16 17:45 98.7 89 22 109/53 100 Mechanical Ventilator 50 08/24/16 17:45 50 -: 08/25/16 0452 08/25/16 0452 Physical Exam General Appearance: Well Developed Neck Neck Exam: Neck Supple Pulmonary Resp Exam: Clear Bilaterally, Breath Sounds Equal Cardiology CV Exam: Regular, Normal Sinus Rhythm Gastrointestinal/Abdomen GI Exam: Soft GI Remarks surgical incision clean dressing Extremeties Extremities Exam: No Edema Assessment/Plan Problem List: (1) ESRD (end stage renal disease) on dialysis Plan: Patient has received for a cadaveric kidney transplant and recovering, hemodialysis planned this afternoon Thymoglobulin to be given follow labs K 5.9 to be corrected with HD monitor labs BP l lower change Labetalol parameters (2) Hypertension Plan: Continue monitor (3) Diabetes Plan: Continue monitoring on sliding scale insulin Miles Alvarez MD August 25, 2016 10:36
[2016-08-25] MEDS ORDERED: SODIUM CHLORID 0.9% IV-CENTRAL ONE (12:00)
[2016-08-25] MEDS ORDERED: ANTITHYMOCYTE GLOB IV-CENTRAL ONE (12:00)
--- NOTE | 2016-08-25 12:39 | MP ---
cc: ALVARO PATTEN MD DATE OF SURGERY 08/24/2016 PREOPERATIVE DIAGNOSIS End-stage renal disease. POSTOPERATIVE DIAGNOSIS End-stage renal disease. PROCEDURE PERFORMED donor kidney allograft back-table preparation. SURGEON Fabien Patten MD [employer] Rachel Edward RN PROCEDURE The allograft was removed from its preservative solution for examination and transferred to the dissecting basin. Care was used to ensure the allograft was fully submerged in the cold preservative solution. 4-0 Silk Stay sutures were placed on the corners of the vein as well as the aortic patch. The ureter was exposed by retracting perpendicular to the Stay Sutures. Excess fat was trimmed in the regions of the cortex of the kidney. Exposed vessels near the exposed lymphatics from the hilum were ligated with 3-0 Silk. The tissue pedicle to the inferior portion of the ureter was preserved and trimmed to size using sharp dissection and ligature. The hilar dissection proceeded with separation of the artery and the vein followed by dissecting off excess adventitial and lymphatic tissue surrounding the cava and the renal vein. This was done for exposure without undue skeletonization of the renal vein. Similar process was used to identify, dissect and expose the renal artery. Once fully both vascular structures were tested for leaks. Once the vessels were tested with no leaks confirmed, the graft was then returned to the preservative solution until the need for surgical anastomosis on the operating field. A sizeable wedge biopsy was performed on the kidney during evaluation. The defect was closed using a vein patch to provide some structural support to the #6 Prolene continuous sutures that were used to close the defect. In essence they were used as vein pledgets on each side and the closure. In addition, a 45-mm vascular stapler was used to perform a venoplasty on the caval cuff in order to fashion and extend the right renal vein. Alvaro Patten MD R[facility]/WERNER /9:40 AM /12:35 PM [facility]ITALSalvatore
[2016-08-25] MEDS ORDERED: EPINEPHrine HCL (1:10,000) 1 MG/10 ML SYRINGE ONE (13:05)
[2016-08-25] MEDS ORDERED: HYDROCORTISONE SOD SUCCINATE 100 MG VIAL ONE (13:06)
[2016-08-25] MEDS: GELATIN 12 MM/7 MM FOAM TOP PRN (13:08)
[2016-08-25] MEDS: SODIUM CHLOR 0.9% 1000 ML INJ 1,000 ML IV PRN (13:08)
[2016-08-25] MEDS: EPOETIN ALFA 10,000 UNITS/ML VIAL IV PRN (13:09)
--- NOTE | 2016-08-25 15:10 | EKG ---
Date Performed: 08/24/2016 Time Performed: 18:12:23 PTAGE: 56 years EKG: Sinus rhythm POSSIBLE LEFT ATRIAL ENLARGEMENT BORDERLINE ECG Compared to prior tracing no significant change PREVIOUS TRACING : 08/24/2016 09.00 DOCTOR: Mono Martinez Interpretating Date/Time 08/25/2016 15:09:19
--- NOTE | 2016-08-25 15:10 | EKG ---
Date Performed: 08/24/2016 Time Performed: 09:00:20 PTAGE: 56 years EKG: Sinus rhythm . Possible left atrial abnormality Poor R wave progression - probable normal variant Borderline ECG NO PREVIOUS TRACING DOCTOR: Mono Martinez Interpretating Date/Time 08/25/2016 15:09:04
--- NOTE | 2016-08-25 20:28 | HHI.CCPN ---
Subjective Remarks/Hospital Course Hospital Course: 56 y/o woman with longstanding diabetes and renal failure progressing to ESRD received a cadaveric kidney transplant today. Her breathing is mildly labored and has required increased FiO2 for maintenance of O2 sdat > 90%. She is on home CPAP for obstructive sleep apnea, and I suspect obesity hypoventilation syndrome. The kidney is functioning and fluid balance is slightly ahead. CXR is benign. Subjective: 08/25: doing well, on BiPAP. being dialyzed on my evaluation. uop > 600cc/12h. Objective Vital Signs Date Time Temp Pulse Resp B/P Pulse Ox O2 Delivery O2 Flow Rate FiO2 08/25/16 19:32 97.9 96 22 137/67 94 08/25/16 19:32 Nasal Cannula 6.00 Humidified 08/25/16 07:00 45 Intake and Output 08/24/16 08/24/16 08/24/16 07:59 15:59 23:59 Intake Total 3647 ml Output Total 782 ml Balance 2865 ml Result Diagram: 08/25/16 0452 08/25/16 0452 Other Results Laboratory Tests Test 08/24/16 22:00 Blood Gas Puncture Site LT RADIAL Blood Gas Patient Temperature 98.6 Blood Gas HCO3 19 mmol/L (22-26) Blood Gas Base Excess -6.0 mmol/L (-2-2) Blood Gas Oxygen Saturation 93 % (90-100) Arterial Blood pH 7.34 (7.380-7.420) Arterial Blood Partial 36 mmHg (38-42) Pressure CO2 Arterial Blood Partial 94 mmHg Pressure O2 (61-120) Arterial Blood Oxygen Content 13.2 Vol % (12.0-20.0) Arterial Blood 1.4 % (0-4) Carboxyhemoglobin Arterial Blood Methemoglobin 1.4 % (0-2) Blood Gas Hemoglobin 9.9 G/DL (12.0-16.0) Oxygen Delivery Device BIPAP Blood Gas Ventilator Setting IPAP18/EPAP8/PS10 Blood Gas Inspired Oxygen 50 % Objective Remarks Head: Normal. Neck: Airway widely patent. Lungs: Clear, no wheezes or crackles. Mild tachypnea. Heart: RRR, NL S1S2, No m,r. Neck veins are full. Abdomen: Large, soft. Minimal lower guarding. Extremities: Warm, well perfused. Neuro: RASS -1. arousable. Moves 4 limbs to command. O X 3. A/P Assessment and Plan Assessment: 1. pulmonary insufficiency 2. S/P cadaveric renal transplant for ESRD. 3. DM, Type 2 4. Obesity. 5. Delayed Graft Function 6. Hyperkalemia 7. BC Plan: 1. BiPAP 18/5 nightly for BC 2. Minimal analgesia. 3. Follow I&O closely. 4. AM BMP. Overall impression: Clinically improving. awaiting full return of graft function, but uop is adequate. continue nightly BiPAP for BC. would anticipate her continuing to improve on pathway. Robert Stahl MD August 25, 2016 20:28
[2016-08-26] VITALS (18 sets, daily range): BP systolic 125–158; BP diastolic 69–75; PULSE 81–109; RESP 17–30; TEMP 97.9–101.8; O2SAT 89–97
[2016-08-26 04:28] LABS: AUTOMATED NEUTROPHIL # 13.6 TH/MM3 (1.8-7.7); BASOPHIL # 0.1 TH/MM3 (0-0.2); BASOPHIL % 0.8 % (0.0-2.0); EOSINOPHIL % 0.3 % (0.0-4.0); HEMATOCRIT 26.4 % (35.0-46.0); HEMO FLAGS DIFF FINAL; LYMPH % 0.4 % (9.0-44.0); LYMPHOCYTE # 0.1 TH/MM3 (1.0-4.8); MEAN CELL VOLUME 97.9 FL (80.0-100.0); MEAN CORPUSCULAR HEMOGLOBIN 31.6 PG (27.0-34.0); MEAN CORPUSCULAR HGB CONC 32.3 % (32.0-36.0); MONO % 2.2 % (0.0-8.0); NEUT % 96.3 % (16.0-70.0); PLATELET COUNT 181 TH/MM3 (150-450); RED CELL DISTRIBUTION WIDTH 14.5 % (11.6-17.2); WHITE BLOOD COUNT 14.1 TH/MM3 (4.0-11.0)
[2016-08-26 04:57] LABS: BICARBONATE 27.2 MEQ/L (21.0-32.0); MAGNESIUM 2.1 MG/DL (1.5-2.5); POTASSIUM 4.6 MEQ/L (3.5-5.1)
[2016-08-26] MEDS: MYCOPHENOLATE MOFETIL 500 MG TAB PO SCH ×2 (05:44→17:30)
[2016-08-26] MEDS: INSULIN NovoLIN REGULAR SUPPLEMENTAL SCALE SQ SCH ×5 (05:45→21:40)
[2016-08-26] MEDS: PCA - TOTAL MG MORPHINE DELIVERED PER SHIFT SCH ×3 (05:49→22:00)
[2016-08-26] MEDS: MYCOPHENOLATE MOFETIL INJ 1,000 MG in DEXTROSE 5% IN WATE 150 ML INJ 150 ML IV SCH ×4 (05:50→17:30)
[2016-08-26] MEDS ORDERED: DEXTROSE 50% IN WATER 50 ML VIAL(D50) IV PUSH PRN (06:00)
[2016-08-26] MEDS: RESP: ALBUTEROL 2.5 MG/IPRATROPIUM 0.5 MG NEB (PRN) INH (07:51)
[2016-08-26] MEDS: SULFAMETHOXAZOLE-TRIMETHOPRIM DS 800-160 MG TAB PO SCH (08:37)
[2016-08-26] MEDS: DOCUSATE SODIUM 100 MG CAP PO SCH ×2 (08:37→21:34)
[2016-08-26] MEDS: CALCIUM CARBONATE 500 MG CHEWABLE TAB CHEW SCH ×2 (08:37→16:12)
[2016-08-26] MEDS: NYSTATIN SUSP 500,000 U/5 ML CUP SWISH-SWAL SCH ×3 (08:37→21:34)
[2016-08-26] MEDS: PANTOPRAZOLE SODIUM 40 MG VIAL IV PUSH SCH (08:37)
[2016-08-26] MEDS: INSULIN DETEMIR 100 UNITS/ML VIAL SQ SCH (08:39)
--- NOTE | 2016-08-26 08:40 | HHI.PR ---
Subjective Remarks Easily arousable this AM, sitting up in bed. On BiPAP mask, sats over 95% was trialed on O2 MC and FM but sats dropped and became tachycardic so returned to BiPAP; tolerated ice chips, denies incisional discomfort, responds appropriately to questions, interacting well with staff. received dialysis yesterday with removal of 1L Objective Vital Signs Date Time Temp Pulse Resp B/P Pulse Ox O2 Delivery O2 Flow Rate FiO2 08/26/16 07:53 99.1 105 20 142/74 89 08/26/16 07:52 94 50 08/26/16 07:48 91 Bi-Pap 50 08/26/16 07:42 87 Simple Mask 10.00 08/26/16 07:28 85 Simple Mask 6.00 08/26/16 07:20 89 Nasal Cannula 6.00 08/26/16 05:49 21 08/26/16 04:00 93 08/26/16 03:41 95 08/26/16 03:41 95 Nasal Cannula 6.00 Humidified 08/26/16 03:41 98.2 91 21 148/72 95 08/26/16 02:15 95 50 08/25/16 23:41 98.9 97 23 125/63 95 08/25/16 23:41 95 Bi-Pap 60 08/25/16 23:41 97 08/25/16 22:00 22 08/25/16 21:58 92 50 08/25/16 21:21 92 Nasal Cannula 6.00 08/25/16 19:32 97.9 96 22 137/67 94 08/25/16 19:32 94 Nasal Cannula 6.00 Humidified 08/25/16 19:00 96 08/25/16 16:00 98.4 93 20 129/82 94 08/25/16 16:00 96 Nasal Cannula 5.00 08/25/16 15:00 85 08/25/16 13:47 20 08/25/16 11:37 96 Nasal Cannula 5.00 08/25/16 11:36 99.0 91 20 115/57 94 08/25/16 11:00 91 08/25/16 09:00 95 Nasal Cannula 5.00 08/25/16 08:38 96 Nasal Cannula 6.00 I/O 08/25/16 08/25/16 08/25/16 08/26/16 08/26/1608/26/17 07:00 15:00 23:00 07:00 15:00 23:00 Intake Total 505 ml 1404 ml 743 ml Output Total 265 ml 1123 ml 188 ml Balance 240 ml 281 ml 555 ml Intake Oral 480 ml 100 ml IV Total 505 ml 924 ml 643 ml Output Urine Total 225 ml 113 ml 178 ml Drainage Total 40 ml 10 ml 10 ml Hemodialysis 1000 ml # Bowel Movements 0 0 Result Diagram: 08/26/1640908/26/16409 Objective Remarks HN; moist mucous membranes Abd; non-distended; incision C/D/I with ricarda in place, no drainage; mild tenderness to deep palpation Drain: serosang drainage Ext: mild edema Assessment and Plan Assessment and Plan Doing well. Urine output about 20 cc/hr, ok to start on Clear diet; OOB to chair 2X's day. will monitor respiratory status and check CXR, redress wound to keep dry and get ultrasound to r/o fluid collection Alvaro Patten MD August 26, 2016 08:40
--- NOTE | 2016-08-26 09:41 | RADRPT ---
EXAM DATE/TIME: 08/26/2016 08:55 [facility] COMPARISON: CHEST SINGLE AP, August 24, 2016, 18:03. INDICATIONS : Short of breath. MEDICAL HISTORY : Renal disease, end stage. Congestive heart failure. SURGICAL HISTORY : Dialysis catheter ENCOUNTER: Subsequent ACUITY: 3 days PAIN SCORE: Non-responsive. LOCATION: Bilateral chest FINDINGS: A single view of the chest demonstrates cardiomegaly with bibasilar airspace disease. Right jugular c entral line in stable position. Osseous structures are intact. CONCLUSION: Cardiomegaly with interval development of bibasilar airspace disease. Dannie Lynn MD on August 26, 2016 at 9:38 Board Certified Radiologist. This report was verified electronically.
--- NOTE | 2016-08-26 11:29 | RADRPT ---
EXAM DATE/TIME: 08/26/2016 10:16 [facility] COMPARISON: No previous studies available for comparison. INDICATIONS : Perinephric wound collection. MEDICAL HISTORY : Hypertension. Sleep apnea. Hiatal hernia. Renal disease. Diabetes. CHF. SURGICAL HISTORY : section. Right kidney transplant. ENCOUNTER: Initial ACUITY: 1 day PAIN SCORE: 0/10 LOCATION: Right lower quadrant MEASUREMENTS: TRANSPLANT KIDNEY: 10.9 x 5.4 x 5.5 cm LOCATION: Right lower quadrant. ARCUATE ARTERIES RESISTIVE INDEX: Upper - 0.7 Mid - 0.7 Lower - 0.7 MAIN RENAL ARTERY VELOCITY: (cm/sec): 105.8 MAIN RENAL VEIN: Patent EXTERNAL ILIAC ARTERY VELOCITY (cm/sec): 127.3 * NORMAL DOPPLER FINDINGS Arcuate arteries - RI = 0.6 - 0.8 Renal artery = under 200 cm/sec Renal vein = May be monophasic with continuous flow or demonstrate some pulsatility with cardiac cycl e FINDINGS: Tiny fluid collection in the subcutaneous tissues deep to the incision site measuring about 5 x 1.5 c m (long axis by short axis). TRANSPLANT KIDNEY: Normal cortical thickness and echotexture. No hydronephrosis, stone, or mass. Minimal fluid adjacent to the lateral aspect of the transplant kidney. URINARY BLADDER: Decompressed CONCLUSION: Small subcutaneous fluid collection and minimal peritransplant fluid. Andrés Anderson MD on August 26, 2016 at 11:22 Board Certified Radiologist. This report was verified electronically.
[2016-08-26] MEDS: ACETAMINOPHEN 325 MG TAB PO PRN (11:34)
--- NOTE | 2016-08-26 13:58 | HHI.NPPN ---
Subjective History of Present Illness Hx of kidney transplant 08/24/16 Additional Remarks has fever and shortness of breath post Thymoglobulin Review of Systems General Constitutional: Fatigue Respiratory Lungs: SOB Objective Data Data 08/25/16 08/26/16 19:00 07:00 Intake Total 1404 ml 743 ml Output Total 1123 ml 188 ml Balance 281 ml 555 ml Intake Oral 480 ml 100 ml IV Total 924 ml 643 ml Output Urine Total 113 ml 178 ml Drainage Total 10 ml 10 ml Hemodialysis 1000 ml # Bowel Movements 0 0 Vital Signs Date Time Temp Pulse Resp B/P Pulse Ox O2 Delivery O2 Flow Rate FiO2 08/26/16 13:20 95 Partial Non-Rebreather 10.00 08/26/16 13:03 92 Venturi Mask 6.00 50 08/26/16 12:20 98 Bi-Pap 50 08/26/16 12:02 100.2 08/26/16 11:40 101.8 109 30 125/69 92 08/26/16 11:40 95 Bi-Pap 60 08/26/16 11:00 107 08/26/16 10:22 91 Bi-Pap 60 08/26/16 10:00 90 Nasal Cannula 6.00 08/26/16 07:53 99.1 105 20 142/74 89 08/26/16 07:52 94 50 08/26/16 07:48 91 Bi-Pap 50 08/26/16 07:42 87 Simple Mask 10.00 08/26/16 07:28 85 Simple Mask 6.00 08/26/16 07:20 89 Nasal Cannula 6.00 08/26/16 07:00 109 08/26/16 05:49 21 08/26/16 04:00 93 08/26/16 03:41 95 08/26/16 03:41 95 Nasal Cannula 6.00 Humidified 08/26/16 03:41 98.2 91 21 148/72 95 08/26/16 02:15 95 50 08/25/16 23:41 98.9 97 23 125/63 95 08/25/16 23:41 95 Bi-Pap 60 08/25/16 23:41 97 08/25/16 22:00 22 08/25/16 21:58 92 50 08/25/16 21:21 92 Nasal Cannula 6.00 08/25/16 19:32 97.9 96 22 137/67 94 08/25/16 19:32 94 Nasal Cannula 6.00 Humidified 08/25/16 19:00 96 08/25/16 16:00 98.4 93 20 129/82 94 08/25/16 16:00 96 Nasal Cannula 5.00 08/25/16 15:00 85 -: 08/26/16 0410 08/26/16 0410 Physical Exam General Appearance: Well Developed Neck Neck Exam: Neck Supple Pulmonary Resp Exam: Decreased Bases Cardiology CV Exam: Regular, Normal Sinus Rhythm Gastrointestinal/Abdomen GI Exam: Soft GI Remarks surgical incision clean dressing Extremeties Extremities Exam: No Edema Assessment/Plan Problem List: (1) ESRD (end stage renal disease) on dialysis Plan: Patient has received for a cadaveric kidney transplant and recovering, Thymoglobulin postponed due to fever, SOB give SoluMedrol start Prograf 5 mg q 12 follow labs K better post dialysis UOP Low give Bumex 3 mg IV today monitor labs BP may need more dialysis as DGF (2) Hypertension Plan: Continue monitor (3) Diabetes Plan: Continue monitoring on sliding scale insulin Miles Alvarez MD August 26, 2016 13:57
[2016-08-26] MEDS ORDERED: methylPREDNISolone SOD SUCC 125 MG/2 ML VIAL IV PUSH ONE (14:00)
[2016-08-26] MEDS ORDERED: BUMETANIDE INJ 1 MG/4 ML VIAL IV PUSH ONE (14:00)
[2016-08-26] MEDS: DEXT 5%-NACL 0.45% 1000 ML INJ 1,000 ML IV SCH (17:28)
[2016-08-26] MEDS: TACROLIMUS 5 MG CAP PO SCH (17:47)
--- NOTE | 2016-08-26 19:33 | HHI.CCPN ---
Subjective Remarks/Hospital Course Hospital Course: 56 y/o woman with longstanding diabetes and renal failure progressing to ESRD received a cadaveric kidney transplant today. Her breathing is mildly labored and has required increased FiO2 for maintenance of O2 sdat > 90%. She is on home CPAP for obstructive sleep apnea, and I suspect obesity hypoventilation syndrome. The kidney is functioning and fluid balance is slightly ahead. CXR is benign. Subjective: 08/25: doing well, on BiPAP. being dialyzed on my evaluation. uop > 600cc/12h. 08/26: uop much less than yesterday. net+. delayed graft function. on partial NRB on my evaluation. not tachypneic or in distress. sitting in chair. patient states she is using I.S. Objective Vital Signs Date Time Temp Pulse Resp B/P Pulse Ox O2 Delivery O2 Flow Rate FiO2 08/26/16 15:08 98.4 100 24 142/73 97 08/26/16 15:08 Partial Non-Rebreather 10.00 08/26/16 13:03 50 Intake and Output 08/25/16 08/25/16 08/26/16 08:00 16:00 00:00 Intake Total 505 ml 1404 ml Output Total 265 ml 1000 ml 123 ml Balance 240 ml -1000 ml 1281 ml Result Diagram: 08/26/16 0410 08/26/16 0410 Objective Remarks Head: Normal. Neck: Airway widely patent. Lungs: not labored or tachypneic. partial NRB. spo2 94%. Heart: RRR, Neck veins are full. Abdomen: Large, soft. Minimal lower guarding. Extremities: Warm, well perfused. Neuro: RASS 0. Moves 4 limbs to command. O X 3. A/P Assessment and Plan Assessment: 1. pulmonary insufficiency 2. S/P cadaveric renal transplant for ESRD. 3. DM, Type 2 4. Obesity. 5. Delayed Graft Function 6. Hyperkalemia 7. BC 8. intravascular volume overload Plan: 1. BiPAP 18/5 nightly for BC 2. Minimal analgesia. 3. Follow I&O closely. 4. AM BMP. 5. agree with bumex iv 6. may require repeat HD if volume overload still a problem 7. will allow renal to guide fluids, but would recommend minimizing further iv fluids. Overall impression: volume overloaded, delayed graft function. pulmonary function tenuous given BC and volume overload. close monitoring. agree with remaining in CVICU. Robert Stahl MD August 26, 2016 19:33
[2016-08-26] MEDS: LABETALOL HCL 100 MG/20 ML VIAL IV PUSH PRN (21:34)
[2016-08-27] VITALS (11 sets, daily range): BP systolic 142–163; BP diastolic 78–86; PULSE 72–88; RESP 16–23; TEMP 97.7–97.9; O2SAT 90–99
[2016-08-27] MEDS: INSULIN NovoLIN REGULAR SUPPLEMENTAL SCALE SQ SCH ×5 (03:16→21:33)
[2016-08-27 05:21] LABS: AUTOMATED NEUTROPHIL # 12.5 TH/MM3 (1.8-7.7); BASOPHIL # 0.1 TH/MM3 (0-0.2); BASOPHIL % 0.4 % (0.0-2.0); HEMATOCRIT 24.1 % (35.0-46.0); HEMO FLAGS DIFF FINAL; LYMPH % 0.6 % (9.0-44.0); LYMPHOCYTE # 0.1 TH/MM3 (1.0-4.8); MEAN CELL VOLUME 97.4 FL (80.0-100.0); MEAN CORPUSCULAR HEMOGLOBIN 31.9 PG (27.0-34.0); MEAN CORPUSCULAR HGB CONC 32.7 % (32.0-36.0); MONO % 1.8 % (0.0-8.0); NEUT % 97.2 % (16.0-70.0); PLATELET COUNT 154 TH/MM3 (150-450); RED BLOOD COUNT 2.48 MIL/MM3 (4.00-5.30); RED CELL DISTRIBUTION WIDTH 14.8 % (11.6-17.2); WHITE BLOOD COUNT 12.9 TH/MM3 (4.0-11.0)
[2016-08-27 05:50] LABS: BICARBONATE 25.7 MEQ/L (21.0-32.0); MAGNESIUM 2.3 MG/DL (1.5-2.5); POTASSIUM 5.3 MEQ/L (3.5-5.1)
[2016-08-27] MEDS: PCA - TOTAL MG MORPHINE DELIVERED PER SHIFT SCH ×2 (06:00→15:00)
[2016-08-27] MEDS: MYCOPHENOLATE MOFETIL INJ 1,000 MG in DEXTROSE 5% IN WATE 150 ML INJ 150 ML IV SCH ×4 (06:00→18:00)
[2016-08-27] MEDS: MYCOPHENOLATE MOFETIL 500 MG TAB PO SCH ×2 (06:17→18:17)
[2016-08-27] MEDS: TACROLIMUS 5 MG CAP PO SCH ×2 (06:17→18:16)
[2016-08-27] MEDS: LABETALOL HCL 100 MG/20 ML VIAL IV PUSH PRN ×2 (07:21→21:31)
--- NOTE | 2016-08-27 08:40 | HHI.PR ---
Subjective Remarks More awake this AM, sitting up in bed. On BiPAP mask, sats over 95%. Tolerating clears, denies incisional discomfort, responds appropriately to questions, interacting well with staff. Had single febrile episode after Thymoglobulin, d/c 'd and started on Tacrolimus, Solumedrol included. UO remains about 20 cc/h. Tolerated OOB to chair well. Objective Vital Signs Date Time Temp Pulse Resp B/P Pulse Ox O2 Delivery O2 Flow Rate FiO2 08/27/16 07:43 98 Partial Rebreather 15.00 08/27/16 06:00 12 08/27/16 03:23 74 08/27/16 03:23 99 Bi-Pap 70 08/27/16 03:23 97.9 74 23 142/78 96 08/27/16 03:14 98 70 08/27/16 03:00 99 85 08/26/16 23:53 95 100 08/26/16 23:08 99 Bi-Pap 70 08/26/16 23:08 81 08/26/16 23:08 98.0 81 21 141/75 96 08/26/16 22:00 22 08/26/16 21:35 96 Non-Rebreather 15.00 08/26/16 21:20 96 08/26/16 19:21 94 Partial Non-Rebreather 15.00 08/26/16 19:21 97.9 94 17 158/70 93 08/26/16 19:00 94 08/26/16 15:08 98.4 100 24 142/73 97 08/26/16 15:08 97 Partial Non-Rebreather 10.00 08/26/16 15:00 100 08/26/16 14:12 94 Non-Rebreather 15.00 08/26/16 14:00 26 08/26/16 13:20 95 Partial Non-Rebreather 10.00 08/26/16 13:03 92 Venturi Mask 6.00 50 08/26/16 12:20 98 Bi-Pap 50 08/26/16 12:02 100.2 08/26/16 11:40 101.8 109 30 125/69 92 08/26/16 11:40 95 Bi-Pap 60 08/26/16 11:00 107 08/26/16 10:22 91 Bi-Pap 60 08/26/16 10:00 90 Nasal Cannula 6.00 I/O 08/26/16 08/26/16 08/26/16 08/27/16 08/27/16 08/27/16 07:00 15:00 23:00 07:00 15:00 23:00 Intake Total 743 ml 885 ml 960 ml Output Total 188 ml 160 ml 340 ml Balance 555 ml 725 ml 620 ml Intake Oral 100 ml 240 ml 240 ml IV Total 643 ml 645 ml 720 ml Output Urine Total 178 ml 135 ml 300 ml Drainage Total 10 ml 25 ml 40 ml # Bowel Movements 0 0 0 Result Diagram: 08/27/16 0446 08/27/16 0446 Imaging Last Impressions Renal Ultrasound 08/26/16 0000 Signed Impressions: Service Date/Time: Friday, August 26, 2016 10:16 - CONCLUSION: Small subcutaneous fluid collection and minimal peritransplant fluid. Andrés Anderson MD Chest X-Ray 08/26/16 0000 Signed Impressions: Service Date/Time: Friday, August 26, 2016 08:55 - CONCLUSION: Cardiomegaly with interval development of bibasilar airspace disease. Dannie Lynn MD Objective Remarks HN; moist mucous membranes Abd; non-distended; incision dry drainage, with ricarda in place, Drain: serosang drainage Ext: mild edema Medications and IVs received Bumex last night Assessment and Plan Assessment and Plan Handled well. Urine output about 20 cc/hr, remain on Clear diet; OOB to ambulate 2X's day. will continue to monitor respiratory status; CXR with no pulmonary edema; redress wound q 2 days to keep dry; ultrasound shows minimal fluid collection under wound, good allograft perfusion; Continue in ICU due to respiratory needs, will probably need dialysis again today Alvaro Patten MD August 27, 2016 08:40
[2016-08-27] MEDS: PANTOPRAZOLE SODIUM 40 MG VIAL IV PUSH SCH (09:05)
[2016-08-27] MEDS: DOCUSATE SODIUM 100 MG CAP PO SCH ×2 (09:06→21:30)
[2016-08-27] MEDS: CALCIUM CARBONATE 500 MG CHEWABLE TAB CHEW SCH ×2 (09:06→17:16)
[2016-08-27] MEDS: NYSTATIN SUSP 500,000 U/5 ML CUP SWISH-SWAL SCH ×3 (09:06→21:30)
[2016-08-27] MEDS: INSULIN DETEMIR 100 UNITS/ML VIAL SQ SCH (09:07)
[2016-08-27] MEDS: ONDANSETRON HCL 4 MG/2 ML VIAL IV PRN (09:11)
[2016-08-27] MEDS ORDERED: THYMOGLOBULIN ANAPYLAXIS KIT MISC XX PRN (10:30)
--- NOTE | 2016-08-27 10:30 | HHI.NPPN ---
Subjective History of Present Illness Hx of kidney transplant 08/24/16 Additional Remarks doing better Review of Systems General Constitutional: Fatigue Respiratory Lungs: SOB Objective Data Data 08/26/16 08/27/16 19:00 07:00 Intake Total 885 ml 960 ml Output Total 160 ml 340 ml Balance 725 ml 620 ml Intake Oral 240 ml 240 ml IV Total 645 ml 720 ml Output Urine Total 135 ml 300 ml Drainage Total 25 ml 40 ml # Bowel Movements 0 0 Vital Signs Date Time Temp Pulse Resp B/P Pulse Ox O2 Delivery O2 Flow Rate FiO2 08/27/16 07:43 98 Partial Rebreather 15.00 08/27/16 07:10 97.9 72 18 163/86 97 08/27/16 07:10 72 08/27/16 07:10 97 Partial Non-Rebreather 15.00 08/27/16 06:00 12 08/27/16 03:23 74 08/27/16 03:23 99 Bi-Pap 70 08/27/16 03:23 97.9 74 23 142/78 96 08/27/16 03:14 98 70 08/27/16 03:00 99 85 08/26/16 23:53 95 100 08/26/16 23:08 99 Bi-Pap 70 08/26/16 23:08 81 08/26/16 23:08 98.0 81 21 141/75 96 08/26/16 22:00 22 08/26/16 21:35 96 Non-Rebreather 15.00 08/26/16 21:20 96 08/26/16 19:21 94 Partial Non-Rebreather 15.00 08/26/16 19:21 97.9 94 17 158/70 93 08/26/16 19:00 94 08/26/16 15:08 98.4 100 24 142/73 97 08/26/16 15:08 97 Partial Non-Rebreather 10.00 08/26/16 15:00 100 08/26/16 14:12 94 Non-Rebreather 15.00 08/26/16 14:00 26 08/26/16 13:20 95 Partial Non-Rebreather 10.00 08/26/16 13:03 92 Venturi Mask 6.00 50 08/26/16 12:20 98 Bi-Pap 50 08/26/16 12:02 100.2 08/26/16 11:40 101.8 109 30 125/69 92 08/26/16 11:40 95 Bi-Pap 60 08/26/16 11:00 107 -: 08/27/16 0446 08/27/16445 Physical Exam General Appearance: Well Developed Neck Neck Exam: Neck Supple Pulmonary Resp Exam: Decreased Bases Cardiology CV Exam: Regular, Normal Sinus Rhythm Gastrointestinal/Abdomen GI Exam: Soft GI Remarks surgical incision clean dressing Extremeties Extremities Exam: No Edema Assessment/Plan Problem List: (1) ESRD (end stage renal disease) on dialysis Plan: Patient has received for a cadaveric kidney transplant and recovering, Thymoglobulin today, SOB give SoluMedrol start Prograf 5 mg q 12 follow labs dialysis today UOP Low monitor labs BP DGF continue to monitor (2) Hypertension Plan: Continue monitor (3) Diabetes Plan: Continue monitoring on sliding scale insulin Miles Alvarez MD August 27, 2016 10:30
[2016-08-27] MEDS ORDERED: methylPREDNISolone SOD SUCC 125 MG/2 ML VIAL IV PUSH ONE (11:30)
[2016-08-27] MEDS ORDERED: diphenhydrAMINE HCL 50 MG CAP PO ONE (11:30)
[2016-08-27] MEDS ORDERED: ACETAMINOPHEN 325 MG TAB PO ONE (11:30)
[2016-08-27] MEDS ORDERED: ANTITHYMOCYTE GLOB IV-CENTRAL ONE (12:00)
[2016-08-27] MEDS ORDERED: SODIUM CHLORID 0.9% IV-CENTRAL ONE (12:00)
--- NOTE | 2016-08-27 13:25 | HHI.CCPN ---
Subjective Remarks/Hospital Course Hospital Course: 56 y/o woman with longstanding diabetes and renal failure progressing to ESRD received a cadaveric kidney transplant today. Her breathing is mildly labored and has required increased FiO2 for maintenance of O2 sdat > 90%. She is on home CPAP for obstructive sleep apnea, and I suspect obesity hypoventilation syndrome. The kidney is functioning and fluid balance is slightly ahead. CXR is benign. Subjective: 08/25: doing well, on BiPAP. being dialyzed on my evaluation. uop > 600cc/12h. 08/26: uop much less than yesterday. net+. delayed graft function. on partial NRB on my evaluation. not tachypneic or in distress. sitting in chair. patient states she is using I.S. 08/27: uop still borderline. on partial NRB overnight but now on NC o2. plan for HD today per nephrology. very volume overloaded. may need to consider d/c 1:1 replacement. Objective Vital Signs Date Time Temp Pulse Resp B/P Pulse Ox O2 Delivery O2 Flow Rate FiO2 08/27/16 11:47 90 Nasal Cannula 6.00 08/27/16 11:00 97.9 73 18 143/79 08/27/16 03:23 70 Intake and Output 08/26/16 08/26/16 08/27/16 08:00 16:00 00:00 Intake Total 743 ml 885 ml Output Total 188 ml 160 ml Balance 555 ml 725 ml Result Diagram: 08/27/16 0446 08/27/16 0446 Objective Remarks Head: Normal. Neck: Airway widely patent. Lungs: not labored or tachypneic. partial NRB. spo2 94%. Heart: RRR, Neck veins are full. Abdomen: Large, soft. Minimal lower guarding. Extremities: Warm, well perfused. Neuro: RASS 0. Moves 4 limbs to command. O X 3. A/P Assessment and Plan Assessment: 1. pulmonary insufficiency 2. S/P cadaveric renal transplant for ESRD. 3. DM, Type 2 4. Obesity. 5. Delayed Graft Function 6. Hyperkalemia 7. BC 8. intravascular volume overload Plan: 1. prn nightly BiPAP 2. Minimal analgesia. 3. Follow I&O closely. 4. AM BMP. 5. per transplant nephrology, HD today. 6. will allow renal to guide fluids, but would recommend minimizing further iv fluids. Overall impression: volume overloaded, delayed graft function. pulmonary function slowly improving. close monitoring. could consider downgrade to [facility]IC in near future. Robert Stahl MD August 27, 2016 13:25
[2016-08-27] MEDS: EPOETIN ALFA 10,000 UNITS/ML VIAL IV PRN (13:42)
[2016-08-27] MEDS: GELATIN 12 MM/7 MM FOAM TOP PRN (13:42)
[2016-08-27] MEDS: SODIUM CHLOR 0.9% 1000 ML INJ 1,000 ML IV PRN (13:42)
[2016-08-27] MEDS ORDERED: BISACODYL EC 5 MG TABEC PO PRN (17:45)
[2016-08-27] MEDS ORDERED: BISACODYL 10 MG SUPP RECTAL PRN (17:45)
[2016-08-27] MEDS: DEXT 5%-NACL 0.45% 1000 ML INJ 1,000 ML IV SCH (18:16)
[2016-08-27] MEDS: RESP: ALBUTEROL 2.5 MG/IPRATROPIUM 0.5 MG NEB (PRN) INH (21:41)
[2016-08-28] VITALS (12 sets, daily range): BP systolic 131–167; BP diastolic 63–87; PULSE 76–106; RESP 16–22; TEMP 98–101.4; O2SAT 91–98
[2016-08-28] MEDS: INSULIN NovoLIN REGULAR SUPPLEMENTAL SCALE SQ SCH ×5 (03:00→21:00)
[2016-08-28 05:45] LABS: AUTOMATED NEUTROPHIL # 4.4 TH/MM3 (1.8-7.7); BASOPHIL % 0.8 % (0.0-2.0); EOSINOPHIL % 0.2 % (0.0-4.0); HEMATOCRIT 26.1 % (35.0-46.0); HEMO FLAGS DIFF FINAL; LYMPH % 0.5 % (9.0-44.0); MEAN CELL VOLUME 96.8 FL (80.0-100.0); MEAN CORPUSCULAR HEMOGLOBIN 31.5 PG (27.0-34.0); MEAN CORPUSCULAR HGB CONC 32.5 % (32.0-36.0); MONO % 4.2 % (0.0-8.0); NEUT % 94.3 % (16.0-70.0); PLATELET COUNT 167 TH/MM3 (150-450); RED BLOOD COUNT 2.69 MIL/MM3 (4.00-5.30); RED CELL DISTRIBUTION WIDTH 14.5 % (11.6-17.2); WHITE BLOOD COUNT 4.7 TH/MM3 (4.0-11.0)
[2016-08-28] MEDS: TACROLIMUS 5 MG CAP PO SCH ×2 (05:57→18:08)
[2016-08-28] MEDS: MYCOPHENOLATE MOFETIL INJ 1,000 MG in DEXTROSE 5% IN WATE 150 ML INJ 150 ML IV SCH ×2 (05:57)
[2016-08-28] MEDS: MYCOPHENOLATE MOFETIL 500 MG TAB PO SCH (05:57)
[2016-08-28 06:04] LABS: BICARBONATE 30.1 MEQ/L (21.0-32.0); POTASSIUM 4.4 MEQ/L (3.5-5.1)
--- NOTE | 2016-08-28 08:21 | HHI.PR ---
Subjective Remarks Much more awake this AM, sitting up in chair. Overnight on BiPAP mask, sats over 95%, on NC to eat. Tolerating clears, wants more to eat, denies incisional discomfort, responds appropriately to questions, interacting well with staff. No febrile episode overnight. UO remains about 20 cc/h, after yesterday's dialysis of 3L. Tolerated ambulation well. Objective Vital Signs Date Time Temp Pulse Resp B/P Pulse Ox O2 Delivery O2 Flow Rate FiO2 08/28/16 07:30 98.2 90 20 167/85 91 08/28/16 07:29 90 08/28/16 07:28 91 Partial Non-Rebreather 70 08/28/16 07:17 95 Partial Rebreather 15.00 08/28/16 04:00 96 Non-Rebreather 100 08/28/16 04:00 76 08/28/16 04:00 98.1 76 18 160/87 96 08/28/16 00:05 96 70 08/28/16 00:00 90 08/28/16 00:00 98.0 89 16 161/82 98 08/28/16 00:00 94 Bi-Pap 70 08/27/16 22:03 97 Partial Rebreather 15.00 08/27/16 21:52 98 Venturi Mask 8.00 50 08/27/16 20:00 97.8 88 18 156/80 94 08/27/16 20:00 94 Non-Rebreather 100 08/27/16 20:00 88 08/27/16 15:00 80 08/27/16 15:00 97.7 80 16 147/82 92 08/27/16 15:00 92 Partial Non-Rebreather 15.00 08/27/16 15:00 18 08/27/16 11:47 90 Nasal Cannula 6.00 08/27/16 11:00 97.9 73 18 143/79 92 08/27/16 11:00 92 Nasal Cannula 6.00 08/27/16 11:00 73 I/O 08/27/16 08/27/16 08/27/16 08/28/16 08/28/16 08/28/16 07:00 15:00 23:00 07:00 15:00 23:00 Intake Total 960 ml 2662 ml 1261 ml Output Total 340 ml 3207 ml 157 ml Balance 620 ml -545 ml 1104 ml Intake Oral 240 ml 1480 ml 640 ml IV Total 720 ml 1182 ml 621 ml Output Urine Total 300 ml 177 ml 157 ml Drainage Total 40 ml 30 ml Hemodialysis 3000 ml # Bowel Movements 0 0 0 Result Diagram: 08/28/1652408/28/16524 Objective Remarks HN; moist mucous membranes Abd; non-distended; incision dry drainage, with ricarda in place, Drain: serosang drainage Ext: mild edema MS; A&A X3 Assessment and Plan Assessment and Plan Afebrile overnight with Thymo.. Advance to full liquid diet; OOB to ambulate 4X' s day. will continue to monitor respiratory status; Continue in ICU due to respiratory , but improving needs, will monitor UO rate. Tolerating PO analgesics well. Alvaro Patten MD August 28, 2016 08:21
[2016-08-28] MEDS: SODIUM CHLORIDE 0.9% FLUSH 10 ML FLUSH IV FLUSH PRN (08:40)
[2016-08-28] MEDS: NYSTATIN SUSP 500,000 U/5 ML CUP SWISH-SWAL SCH ×3 (09:05→21:41)
[2016-08-28] MEDS: PANTOPRAZOLE SODIUM 40 MG VIAL IV PUSH SCH (09:05)
[2016-08-28] MEDS: DOCUSATE SODIUM 100 MG CAP PO SCH ×2 (09:05→21:00)
[2016-08-28] MEDS: CALCIUM CARBONATE 500 MG CHEWABLE TAB CHEW SCH ×2 (09:05→16:00)
[2016-08-28] MEDS: SULFAMETHOXAZOLE-TRIMETHOPRIM DS 800-160 MG TAB PO SCH (09:06)
[2016-08-28] MEDS: INSULIN DETEMIR 100 UNITS/ML VIAL SQ SCH (09:07)
--- NOTE | 2016-08-28 11:03 | HHI.NPPN ---
Subjective History of Present Illness Hx of kidney transplant 08/24/16 Additional Remarks c/o nausea Review of Systems General Constitutional: Fatigue Objective Data Data 08/27/16 08/28/16 19:00 07:00 Intake Total 2662 ml 1261 ml Output Total 3207 ml 157 ml Balance -545 ml 1104 ml Intake Oral 1480 ml 640 ml IV Total 1182 ml 621 ml Output Urine Total 177 ml 157 ml Drainage Total 30 ml Hemodialysis 3000 ml # Bowel Movements 0 0 Vital Signs Date Time Temp Pulse Resp B/P Pulse Ox O2 Delivery O2 Flow Rate FiO2 08/28/16 07:30 98.2 90 20 167/85 91 08/28/16 07:29 90 08/28/16 07:28 91 Partial Non-Rebreather 70 08/28/16 07:17 95 Partial Rebreather 15.00 08/28/16 04:00 96 Non-Rebreather 100 08/28/16 04:00 76 08/28/16 04:00 98.1 76 18 160/87 96 08/28/16 00:05 96 70 08/28/16 00:00 90 08/28/16 00:00 98.0 89 16 161/82 98 08/28/16 00:00 94 Bi-Pap 70 08/27/16 22:03 97 Partial Rebreather 15.00 08/27/16 21:52 98 Venturi Mask 8.00 50 08/27/16 20:00 97.8 88 18 156/80 94 08/27/16 20:00 94 Non-Rebreather 100 08/27/16 20:00 88 08/27/16 15:00 80 08/27/16 15:00 97.7 80 16 147/82 92 08/27/16 15:00 92 Partial Non-Rebreather 15.00 08/27/16 15:00 18 08/27/16 11:47 90 Nasal Cannula 6.00 -: 08/28/16 0525 08/28/16 0525 Physical Exam General Appearance: Well Developed Neck Neck Exam: Neck Supple Pulmonary Resp Exam: Decreased Bases Cardiology CV Exam: Regular, Normal Sinus Rhythm Gastrointestinal/Abdomen GI Exam: Soft GI Remarks surgical incision clean dressing Extremeties Extremities Exam: No Edema Assessment/Plan Problem List: (1) ESRD (end stage renal disease) on dialysis Plan: Patient has received for a cadaveric kidney transplant and recovering, Prograf 5 mg q 12 and CellCept 1000 mg q 12 follow labs UOP Low monitor labs BP DGF continue to monitor (2) Hypertension Plan: Continue monitor (3) Diabetes Plan: Continue monitoring on sliding scale insulin was high earlier Miles Alvarez MD August 28, 2016 11:03
[2016-08-28] MEDS: DEXT 5%-NACL 0.45% 1000 ML INJ 1,000 ML IV SCH (13:05)
[2016-08-28] MEDS: hydrALAZINE HCL 20 MG/ML VIAL IV PUSH PRN (14:13)
[2016-08-28] MEDS: ACETAMINOPHEN 325 MG TAB PO PRN ×2 (15:07→21:41)
--- NOTE | 2016-08-28 15:21 | PHATRASOAP ---
Date/Time: 08/28/16 1519 Pharmacist daily assessment of kidney transplant patient: Pharmacist daily assessment of kidney transplant patient: S: Post op renal transplant day #4 O: Ht: 5 ft 7 in Wt: 103.7 kg Allergies: NKA SCR = 6.51 A: Vitals: BP = 160s/80s Electrolytes: Na= 136, K=4.4, Ca=7.9, Phosphorus=6.7, Mg=2 Albumin = 3.3 WBC=4.7 H/H=8.5/26.1 QM=948 EXZ=971 mL BM = None Tacrolimus level 08/27=4.6 Hospital Medications: Thymoglobulin 4.4 mg/kg as 3 divided doses since admission) Cellcept 1000 mg po bid Prograf 5 mg po BID Valganciclovir 900 mg po daily Insulin Accuchecks ACHS AND AT 3am Calcium 500 mg po bid Percocet 5mg po q6h prn Home Medications: Zocor 40mg po hs Nocolog 20sq tid Levemir 40mg qd Norvasc 5mg daily Sulfasalazine 500mg bid Lopressor 100mg bid Allopurinol 100mg daily -Patient had received 3 doses of Thymoglobulin with total dose to date 4.4 mg/kg reflected with appropriate drop in WBC. -BG remains elevated over past 24 hours,might benefit from elevating levmir dose to 20mg sq daily - H/H stabilized , previous drop might be dilutional since patient had continued IV fluid and is having oral liquids as well. -No bowel movement yet, might need to administer dulcolax suppository. - Pain is well controlled with Percocet. P: -Continue Cellcept /tacrolimus / Valganciclovir /bactrim -Monitor and reassess H/H. -Might consider administering dulcolax. -Encourage ambulation Pharmacist: Moy GargD Signature on file Consulting Physician:
--- NOTE | 2016-08-28 15:23 | PHATRANEDU ---
Date/Time: 08/28/16 1522 Pharmacist Patient Education: Education on medication compliance: Counseled patient on the crucial importance of compliance with all her medication especially her anti-rejection medication. Educated patient on the different frequency of her different medication and how to take her medication in regards to meals to minimize side effects and maximize benefits. Education on medication side effects: Counseled on various side effects of her anti-rejection and anti-infective medications: Educated patient on the tendency of anti-rejection medications to increase her blood pressure and blood sugars, educated patient to continue to monitor blood pressure and notify physician if she noticed increase in blood pressure above her normal value. Educated patients on side effects associated with Tacrolimus, Mycophenolate. Moreover educated patient of side effects of Bactrim, Valganciclovir and Nystatin. Educated patient on the action plan needed when any side effects occurs. Education on signs and symptoms of rejection/ Infection: Educated patient on different signs and symptoms of rejection that include: -Decreased urine output. -A temperature above 100* F (37.8* C). -Tenderness in the area of your new kidney. -Bloody or foul smelling urine. -Flu-like feelings. -Weight gain (more than 5 pounds in two days). Educated patient on signs and symptoms of infection that include: -A fever above 100* F (37.8* C). -Drainage or bad odor of drainage from your surgical scar. -Burning when you pass your urine. -A cold or cough that will not go away. -Flu-like feelings. Action plan needed in situation of rejection Infection or medications side effects: Educated patient on need to contact his physician if he noticed any of the above symptoms. Educated patient to follow with his physician on time for labs and follow ups. Pharmacist: Moy Hilliard PharmD Signature on file Pharmacist: Moy Hilliard PharmD Signature on file
[2016-08-28] MEDS: MYCOPHENOLATE SODIUM 360 MG DELAYED RELEASE TAB PO SCH (18:08)
--- NOTE | 2016-08-28 21:33 | HHI.CCPN ---
Subjective Remarks/Hospital Course Hospital Course: 56 y/o woman with longstanding diabetes and renal failure progressing to ESRD received a cadaveric kidney transplant today. Her breathing is mildly labored and has required increased FiO2 for maintenance of O2 sdat > 90%. She is on home CPAP for obstructive sleep apnea, and I suspect obesity hypoventilation syndrome. The kidney is functioning and fluid balance is slightly ahead. CXR is benign. Subjective: 08/25: doing well, on BiPAP. being dialyzed on my evaluation. uop > 600cc/12h. 08/26: uop much less than yesterday. net+. delayed graft function. on partial NRB on my evaluation. not tachypneic or in distress. sitting in chair. patient states she is using I.S. 08/27: uop still borderline. on partial NRB overnight but now on NC o2. plan for HD today per nephrology. very volume overloaded. may need to consider d/c 1:1 replacement. 08/28: made 300cc urine today. still intermittently on high fio2. feels more comfortable. Objective Vital Signs Date Time Temp Pulse Resp B/P Pulse Ox O2 Delivery O2 Flow Rate FiO2 08/28/16 21:26 96 Partial Rebreather 15.00 08/28/16 15:09 50 08/28/16 15:09 104 08/28/16 15:08 101.4 21 160/63 Intake and Output 08/27/16 08/27/16 08/28/16 08:00 16:00 00:00 Intake Total 960 ml 2662 ml Output Total 340 ml 3000 ml 207 ml Balance 620 ml -3000 ml 2455 ml Result Diagram: 08/28/16 0525 08/28/16 0525 Objective Remarks Head: Normal. Neck: Airway widely patent. Lungs: not labored or tachypneic. partial NRB. spo2 92%. Heart: RRR, Neck veins are full. Abdomen: Large, soft. minimally tender. Extremities: Warm, well perfused. Neuro: RASS 0. Moves 4 limbs to command. O X 3. A/P Assessment and Plan Assessment: 1. pulmonary insufficiency 2. S/P cadaveric renal transplant for ESRD. 3. DM, Type 2 4. Obesity. 5. Delayed Graft Function 6. Hyperkalemia 7. BC 8. intravascular volume overload Plan: 1. prn nightly BiPAP 2. Minimal analgesia. 3. Follow I&O closely. 4. AM BMP. 5. per transplant nephrology, HD today. 6. will allow renal to guide fluids, but still recommend minimizing further iv fluids, and may need to consider a net negative fluid balance to improve oxygenation. Overall impression: volume overloaded, delayed graft function. Robert Stahl MD August 28, 2016 21:33
[2016-08-29] VITALS (11 sets, daily range): BP systolic 124–179; BP diastolic 51–90; PULSE 88–98; RESP 18; TEMP 98.1–98.9; O2SAT 96–99
[2016-08-29] MEDS: INSULIN NovoLIN REGULAR SUPPLEMENTAL SCALE SQ SCH ×5 (03:00→21:00)
[2016-08-29 05:51] LABS: AUTOMATED NEUTROPHIL # 7.8 TH/MM3 (1.8-7.7); BASOPHIL % 0.4 % (0.0-2.0); EOSINOPHIL % 0.2 % (0.0-4.0); HEMATOCRIT 25.9 % (35.0-46.0); LYMPH % 0.6 % (9.0-44.0); MEAN CELL VOLUME 96.3 FL (80.0-100.0); MEAN CORPUSCULAR HEMOGLOBIN 32.5 PG (27.0-34.0); MEAN CORPUSCULAR HGB CONC 33.7 % (32.0-36.0); MONO % 1.8 % (0.0-8.0); PLATELET COUNT 160 TH/MM3 (150-450); RED BLOOD COUNT 2.69 MIL/MM3 (4.00-5.30); RED CELL DISTRIBUTION WIDTH 14.8 % (11.6-17.2); WHITE BLOOD COUNT 8.1 TH/MM3 (4.0-11.0)
[2016-08-29 05:56] LABS: HEMO FLAGS AUTO DIFF
[2016-08-29 06:15] LABS: MAGNESIUM 1.9 MG/DL (1.5-2.5); POTASSIUM 4.1 MEQ/L (3.5-5.1)
[2016-08-29] MEDS: MYCOPHENOLATE SODIUM 360 MG DELAYED RELEASE TAB PO SCH ×2 (06:33→17:11)
[2016-08-29] MEDS: TACROLIMUS 5 MG CAP PO SCH ×2 (06:34→17:11)
[2016-08-29 07:29] LABS: BANDS 17 % (0-6); CORRECTED NUCLEATED RBC 1 /100 WBC (0-0); MYELOCYTES 1 % (0-0); NEUTROPHIL # MANUAL DIFF 7.9 TH/MM3 (1.8-7.7); POLYS (SEG NEUTROPHILS) 80 % (16-70); WBC DIFF SAMPLE 100
[2016-08-29 07:30] LABS: PLATELET ESTIMATE SMEAR NORMAL (NORMAL); PLATELET MORPHOLOGY NORMAL (NORMAL); SCAN/DIFF FINAL DIFF MANUAL
--- NOTE | 2016-08-29 07:55 | HHI.PR ---
Subjective Remarks Awake and on bedside commode this AM,. Overnight on BiPAP after some dips in sats. Febrile overnight, with episodes of vomiting and diarrhea. Tolerated fulls but not much PO intake. Continues to deny incisional discomfort, responds appropriately to questions, interacting well with staff. UO decreased to 10-15 cc/h, ambulated only once.Reports that 2 nights ago, she did not get much sleep , and was very fatigued yesterday.. She was up in a chair but was not very active. Also, she states she gets nauseated when taking pills on an empty stomach. lastly, she normally has runny stools at home, and takes an Imodium every morning, and PRN later in each day. Objective Vital Signs Date Time Temp Pulse Resp B/P Pulse Ox O2 Delivery O2 Flow Rate FiO2 08/29/16 03:00 97 Non-Rebreather 15.00 08/29/16 03:00 90 08/29/16 03:00 98.9 96 18 124/51 97 08/28/16 23:00 99.3 96 18 131/66 98 08/28/16 23:00 98 Non-Rebreather 15.00 08/28/16 23:00 96 08/28/16 21:26 96 Partial Rebreather 15.00 08/28/16 19:00 106 08/28/16 19:00 100.6 106 18 149/72 94 08/28/16 19:00 94 Non-Rebreather 15.00 08/28/16 15:09 91 Venturi Mask 6.00 50 08/28/16 15:09 104 08/28/16 15:08 101.4 91 21 160/63 91 08/28/16 11:03 98.2 87 22 159/66 91 08/28/16 11:03 87 08/28/16 11:02 91 Nasal Cannula 6.00 I/O 08/28/16 08/28/16 08/28/16 08/29/16 08/29/16 08/29/16 07:00 15:00 23:00 07:00 15:00 23:00 Intake Total 1261 ml 780 ml 973 ml Output Total 157 ml 399 ml 144 ml Balance 1104 ml 381 ml 829 ml Intake Oral 640 ml 200 ml 328 ml IV Total 621 ml 580 ml 645 ml Output Urine Total 157 ml 149 ml 104 ml Emesis 200 ml Drainage Total 50 ml 40 ml # Bowel Movements 0 2 1 Result Diagram: 08/29/16 0520 08/29/16 0520 Other Results Laboratory Tests Test 08/29/16 05:20 White Blood Count 8.1 Red Blood Count 2.69 Hemoglobin 8.7 Hematocrit 25.9 Mean Corpuscular Volume 96.3 Mean Corpuscular Hemoglobin 32.5 Mean Corpuscular Hemoglobin 33.7 Concent Red Cell Distribution Width 14.8 Platelet Count 160 Mean Platelet Volume 10.1 Neutrophils (%) (Auto) 97.0 Lymphocytes (%) (Auto) 0.6 Monocytes (%) (Auto) 1.8 Eosinophils (%) (Auto) 0.2 Basophils (%) (Auto) 0.4 Neutrophils # (Auto) 7.8 Lymphocytes # (Auto) 0.0 Monocytes # (Auto) 0.1 Eosinophils # (Auto) 0.0 Basophils # (Auto) 0.0 CBC Comment AUTO DIFF Sodium Level 138 Potassium Level 4.1 Chloride Level 98 Carbon Dioxide Level 27.0 Anion Gap 13 Blood Urea Nitrogen 63 Creatinine 7.47 Estimat Glomerular Filtration 6 Rate Random Glucose 114 Calcium Level 7.7 Phosphorus Level 6.1 Magnesium Level 1.9 Date/Time Procedure Status Source Growth 08/28/16 20:25 Aerobic Blood Culture Received Blood Peripheral Pending 08/28/16 20:25 Anaerobic Blood Culture Received Blood Peripheral Pending Objective Remarks HN; moist mucous membranes Abd; non-distended; incision clean, dry, intact; no seeping of fluid;ricarda in place; no erythema, no fullness or tenderness, no fluctuance Drain: serous drainage Ext: mild edema MS; A&A X3 Hou: clear carmela urine Assessment and Plan Assessment and Plan Febrile episode occured midafternoon, possibly due to atelectasis when OOB with poor inspiratory effort. WIll provide snack prior to administering PO meds; Will restart Imodium once cultures and C Diff results back. Return to full liquid diet; OOB to ambulate 4X's day. will continue to monitor respiratory status; Continue in ICU due to respiratory and shifting fluids. Alvaro Patten MD August 29, 2016 07:54
[2016-08-29] MEDS: DOCUSATE SODIUM 100 MG CAP PO SCH ×2 (08:12→21:00)
[2016-08-29] MEDS: CALCIUM CARBONATE 500 MG CHEWABLE TAB CHEW SCH ×2 (08:12→16:58)
[2016-08-29] MEDS: PANTOPRAZOLE SODIUM 40 MG VIAL IV PUSH SCH (08:12)
[2016-08-29] MEDS: INSULIN DETEMIR 100 UNITS/ML VIAL SQ SCH (08:13)
[2016-08-29] MEDS: NYSTATIN SUSP 500,000 U/5 ML CUP SWISH-SWAL SCH ×3 (08:13→22:54)
[2016-08-29 08:42] LABS: BACTERIA, URINE MANY /hpf; BLOOD, URINE MOD (NEG); GLUCOSE,URINE 150 mg/dL (NEG); GRANULAR CAST, URINE 2 /lpf; KETONE, URINE NEG (NEG); NITRITE,URINE NEG (NEG); SQUAMOUS EPITHELIAL CELL URINE 3 /hpf (0-5); TRANSITIONAL EPI CELLS, URINE <1 /hpf; URINE COLOR YELLOW (YELLW/STRAW)
[2016-08-29 08:47] LABS: COMMENT (UR) CULTURE INDICATED; CULTURE IF INDICATED CULTURE INDICATED
[2016-08-29 11:49] LABS: C. DIFF EPI 027 PRESUMPTIVE NEGATIVE (NEGATIVE); C. DIFF TOXIN PCR NEGATIVE (NEGATIVE)
--- NOTE | 2016-08-29 13:09 | HHI.CCPN ---
Subjective Remarks/Hospital Course Hospital Course: 56 y/o woman with longstanding diabetes and renal failure progressing to ESRD received a cadaveric kidney transplant today. Her breathing is mildly labored and has required increased FiO2 for maintenance of O2 sdat > 90%. She is on home CPAP for obstructive sleep apnea, and I suspect obesity hypoventilation syndrome. The kidney is functioning and fluid balance is slightly ahead. CXR is benign. Subjective: 08/25: doing well, on BiPAP. being dialyzed on my evaluation. uop > 600cc/12h. 08/26: uop much less than yesterday. net+. delayed graft function. on partial NRB on my evaluation. not tachypneic or in distress. sitting in chair. patient states she is using I.S. 08/27: uop still borderline. on partial NRB overnight but now on NC o2. plan for HD today per nephrology. very volume overloaded. may need to consider d/c 1:1 replacement. 08/28: made 300cc urine today. still intermittently on high fio2. feels more comfortable. 08/29: Walked in baca X 2. OK on 6 liters but requires NRBM when sleeping. BiPAP prn. Objective Vital Signs Date Time Temp Pulse Resp B/P Pulse Ox O2 Delivery O2 Flow Rate FiO2 08/29/16 11:17 97 Nasal Cannula 6.00 08/29/16 11:16 98.4 95 18 164/75 08/28/16 15:09 50 Intake and Output 08/28/16 08/28/16 08/29/16 08:00 16:00 00:00 Intake Total 1261 ml 780 ml Output Total 157 ml 399 ml Balance 1104 ml 381 ml Result Diagram: 08/29/16 0520 08/29/16 0520 Objective Remarks Head: Normal. Neck: Airway widely patent. Lungs: not labored or tachypneic. partial NRB. spo2 92-93%. Heart: RRR, Neck veins remain full. Abdomen: Large, soft. minimally tender. BS active. Extremities: Warm, well perfused. Neuro: Moves 4 limbs to command. O X 3. Walks with assistance. A/P Assessment and Plan Assessment: 1. pulmonary insufficiency 2. S/P cadaveric renal transplant for ESRD. 3. DM, Type 2 4. Obesity. 5. Delayed Graft Function 6. Hyperkalemia 7. BC 8. intravascular volume overload Plan: 1. prn nightly BiPAP 2. Minimal analgesia. 3. Follow I&O closely. 4. AM BMP. 5. per transplant nephrology, HD today. Overall impression: Volume overloaded, delayed graft function. May benefit from removing some fluid. Ezekiel Schuler MD August 29, 2016 13:09
--- NOTE | 2016-08-29 13:30 | HHI.NPPN ---
Subjective History of Present Illness Hx of kidney transplant 08/24/16 Additional Remarks c/o nausea had diarrhea and fever yesterday c diff negative Review of Systems General Constitutional: Fatigue Objective Data Data 08/28/16 08/29/16 19:00 07:00 Intake Total 780 ml 973 ml Output Total 399 ml 144 ml Balance 381 ml 829 ml Intake Oral 200 ml 328 ml IV Total 580 ml 645 ml Output Urine Total 149 ml 104 ml Emesis 200 ml Drainage Total 50 ml 40 ml # Bowel Movements 2 1 Vital Signs Date Time Temp Pulse Resp B/P Pulse Ox O2 Delivery O2 Flow Rate FiO2 08/29/16 11:17 97 Nasal Cannula 6.00 08/29/16 11:16 98.4 95 18 164/75 97 08/29/16 11:00 95 08/29/16 09:23 96 Nasal Cannula 6.00 08/29/16 08:10 98 Nasal Cannula 6.00 08/29/16 07:56 98 Non-Rebreather 15.00 08/29/16 07:52 98.1 91 18 171/82 98 08/29/16 07:00 91 08/29/16 03:00 97 Non-Rebreather 15.00 08/29/16 03:00 90 08/29/16 03:00 98.9 96 18 124/51 97 08/28/16 23:00 99.3 96 18 131/66 98 08/28/16 23:00 98 Non-Rebreather 15.00 08/28/16 23:00 96 08/28/16 21:26 96 Partial Rebreather 15.00 08/28/16 19:00 106 08/28/16 19:00 100.6 106 18 149/72 94 08/28/16 19:00 94 Non-Rebreather 15.00 08/28/16 15:09 91 Venturi Mask 6.00 50 08/28/16 15:09 104 08/28/16 15:08 101.4 91 21 160/63 91 -: 08/29/16 0520 08/29/16 0520 Microbiology 08/28/16 Aerobic Blood Culture - Preliminary, Resulted NO GROWTH IN 1 DAY 08/28/16 Anaerobic Blood Culture - Preliminary, Resulted NO GROWTH IN 1 DAY 08/28/16 Aerobic Blood Culture - Preliminary, Resulted NO GROWTH IN 1 DAY 08/28/16 Anaerobic Blood Culture - Preliminary, Resulted NO GROWTH IN 1 DAY 08/29/16 , Received Pending 08/29/16 Urine Culture, Received Pending Physical Exam General Appearance: Well Developed Neck Neck Exam: Neck Supple Pulmonary Resp Exam: Decreased Bases Cardiology CV Exam: Regular, Normal Sinus Rhythm Gastrointestinal/Abdomen GI Exam: Soft GI Remarks surgical incision clean dressing Extremeties Extremities Exam: No Edema Assessment/Plan Problem List: (1) ESRD (end stage renal disease) on dialysis Plan: Patient has received for a cadaveric kidney transplant and recovering, Prograf 5 mg q 12 and Myfortic 720 mg q 12 follow labs UOP Low had episode of fever went away Tacrolimus level 9.7 diarrhea better changed to Myfortic on hemodialysis 1.5 L UF today DGF continue to monitor (2) Hypertension Plan: Continue monitor (3) Diabetes Plan: Continue monitoring on sliding scale insulin was high earlier Miles Alvarez MD August 29, 2016 13:30
[2016-08-29] MEDS: ACETAMINOPHEN 325 MG TAB PO PRN (15:17)
[2016-08-29] MEDS: LOPERAMIDE HCL 2 MG CAP PO PRN (15:17)
[2016-08-29] MEDS: EPOETIN ALFA 10,000 UNITS/ML VIAL IV PRN (15:44)
[2016-08-29] MEDS: DEXT 5%-NACL 0.45% 1000 ML INJ 1,000 ML IV SCH (17:12)
[2016-08-29] MEDS: RESP: ALBUTEROL 2.5 MG/IPRATROPIUM 0.5 MG NEB (PRN) INH (21:14)
[2016-08-29] MEDS: LABETALOL HCL 100 MG/20 ML VIAL IV PUSH PRN (22:54)
[2016-08-29] MEDS: SODIUM CHLORIDE 0.9% FLUSH 10 ML FLUSH IV FLUSH PRN (22:55)
[2016-08-30] VITALS (13 sets, daily range): BP systolic 152–163; BP diastolic 68–77; PULSE 81–98; RESP 18; TEMP 98.3–98.7; O2SAT 90–97
[2016-08-30] MEDS: INSULIN NovoLIN REGULAR SUPPLEMENTAL SCALE SQ SCH ×5 (03:00→21:00)
[2016-08-30] MEDS: oxyCODONE/ACETAMINOPHEN 5 MG/325 MG TAB PO PRN ×2 (04:26→18:05)
[2016-08-30 04:42] LABS: AUTOMATED NEUTROPHIL # 10.6 TH/MM3 (1.8-7.7); BASOPHIL # 0.1 TH/MM3 (0-0.2); BASOPHIL % 0.6 % (0.0-2.0); EOSINOPHIL # 0.1 TH/MM3 (0-0.4); EOSINOPHIL % 0.7 % (0.0-4.0); HEMATOCRIT 26.4 % (35.0-46.0); LYMPH % 0.3 % (9.0-44.0); MEAN CELL VOLUME 96.3 FL (80.0-100.0); MEAN CORPUSCULAR HEMOGLOBIN 31.6 PG (27.0-34.0); MEAN CORPUSCULAR HGB CONC 32.8 % (32.0-36.0); MONO % 1.4 % (0.0-8.0); PLATELET COUNT 180 TH/MM3 (150-450); RED BLOOD COUNT 2.74 MIL/MM3 (4.00-5.30); RED CELL DISTRIBUTION WIDTH 14.3 % (11.6-17.2); WHITE BLOOD COUNT 10.9 TH/MM3 (4.0-11.0)
[2016-08-30 04:45] LABS: HEMO FLAGS AUTO DIFF
[2016-08-30 05:10] LABS: BICARBONATE 28.7 MEQ/L (21.0-32.0); MAGNESIUM 1.9 MG/DL (1.5-2.5); POTASSIUM 4.1 MEQ/L (3.5-5.1)
[2016-08-30] MEDS: MYCOPHENOLATE SODIUM 360 MG DELAYED RELEASE TAB PO SCH ×2 (06:19→17:36)
[2016-08-30] MEDS: TACROLIMUS 5 MG CAP PO SCH ×2 (06:19→17:35)
[2016-08-30] MEDS: INSULIN DETEMIR 100 UNITS/ML VIAL SQ SCH (08:37)
[2016-08-30] MEDS: CALCIUM CARBONATE 500 MG CHEWABLE TAB CHEW SCH ×2 (08:37→15:56)
[2016-08-30] MEDS: NYSTATIN SUSP 500,000 U/5 ML CUP SWISH-SWAL SCH ×3 (08:37→21:22)
[2016-08-30] MEDS: PANTOPRAZOLE SODIUM 40 MG VIAL IV PUSH SCH (08:38)
[2016-08-30] MEDS: DOCUSATE SODIUM 100 MG CAP PO SCH ×2 (08:38→21:00)
[2016-08-30 08:41] LABS: BANDS 8 % (0-6); EOSINOPHILS 1 % (0-4); MYELOCYTES 1 % (0-0); NEUTROPHIL # MANUAL DIFF 10.4 TH/MM3 (1.8-7.7); POLYS (SEG NEUTROPHILS) 86 % (16-70); WBC DIFF SAMPLE 100
[2016-08-30 08:43] LABS: PLATELET ESTIMATE SMEAR NORMAL (NORMAL); PLATELET MORPHOLOGY NORMAL (NORMAL); SCAN/DIFF FINAL DIFF MANUAL
--- NOTE | 2016-08-30 09:04 | HHI.PR ---
Subjective Remarks In chair eating breakfast this AM,. Afebrile overnight, with no episodes of vomiting or diarrhea. Imodium started yesterday. Tolerating fulls well. No c/o incisional discomfort, responds appropriately to questions, interacting well with staff. UO increased to 20-40 cc/h, ambulated four times. Clearing sinuses well. Objective Vital Signs Date Time Temp Pulse Resp B/P Pulse Ox O2 Delivery O2 Flow Rate FiO2 08/30/16 07:46 98.6 98 18 152/70 97 08/30/16 07:41 98 Partial Non-Rebreather 15.00 08/30/16 07:00 81 08/30/16 05:30 20 08/30/16 04:40 95 Venturi Mask 6.00 50 08/30/16 03:00 98.4 98 18 161/76 97 08/30/16 03:00 97 Non-Rebreather 15.00 08/30/16 03:00 91 08/29/16 23:00 98 08/29/16 23:00 98 Non-Rebreather 15.00 08/29/16 23:00 98.6 98 18 170/82 97 08/29/16 21:14 96 Non-Rebreather 15.00 08/29/16 19:00 97 08/29/16 19:00 99 Non-Rebreather 15.00 08/29/16 19:00 98.7 97 18 179/80 99 08/29/16 16:17 18 08/29/16 15:33 98 Partial Non-Rebreather 15.00 08/29/16 15:32 98.6 95 18 157/90 98 08/29/16 15:00 88 08/29/16 11:17 97 Nasal Cannula 6.00 08/29/16 11:16 98.4 95 18 164/75 97 08/29/16 11:00 95 08/29/16 09:23 96 Nasal Cannula 6.00 I/O 08/29/16 08/29/16 08/29/16 08/30/16 08/30/16 08/30/16 07:00 15:00 23:00 07:00 15:00 23:00 Intake Total 973 ml 1680 ml 954 ml Output Total 144 ml 1680 ml 186 ml Balance 829 ml 0 ml 768 ml Intake Oral 328 ml 1200 ml 310 ml IV Total 645 ml 480 ml 644 ml Output Urine Total 104 ml 150 ml 166 ml Drainage Total 40 ml 30 ml 20 ml Hemodialysis 1500 ml # Bowel Movements 1 1 0 Result Diagram: 08/30/1641908/30/16419 Objective Remarks HN; moist mucous membranes Abd; non-distended; dressing clean, dry, intact; no seeping of fluid; no fullness or tenderness, no fluctuance Drain: serous drainage Ext: mild edema MS; A&A X3 Hou: clear carmela urine Assessment and Plan Assessment and Plan Afebrile for over 24 hrs. Keep on full liquid diet; OOB to ambulate 4X's again today. Renal function improving; Continue in ICU until Hou out and adequate autoregulation of fluids. Alvaro Patten MD August 30, 2016 09:03
[2016-08-30] MEDS: LOPERAMIDE HCL 2 MG CAP PO PRN (09:15)
[2016-08-30] MEDS: ACETAMINOPHEN 325 MG TAB PO PRN (10:09)
--- NOTE | 2016-08-30 13:41 | HHI.NPPN ---
Subjective History of Present Illness Hx of kidney transplant 08/24/16 Additional Remarks c/o tiredness Review of Systems General Constitutional: Fatigue Objective Data Data 08/29/16 08/30/16 19:00 07:00 Intake Total 1680 ml 954 ml Output Total 1680 ml 186 ml Balance 0 ml 768 ml Intake Oral 1200 ml 310 ml IV Total 480 ml 644 ml Output Urine Total 150 ml 166 ml Drainage Total 30 ml 20 ml Hemodialysis 1500 ml # Bowel Movements 1 0 Vital Signs Date Time Temp Pulse Resp B/P Pulse Ox O2 Delivery O2 Flow Rate FiO2 08/30/16 11:15 94 Nasal Cannula 6.00 08/30/16 11:13 98.4 93 18 158/74 90 08/30/16 11:00 93 08/30/16 09:59 94 Nasal Cannula 6.00 08/30/16 07:46 98.6 98 18 152/70 97 08/30/16 07:41 98 Partial Non-Rebreather 15.00 08/30/16 07:00 81 08/30/16 05:30 20 08/30/16 04:40 95 Venturi Mask 6.00 50 08/30/16 03:00 98.4 98 18 161/76 97 08/30/16 03:00 97 Non-Rebreather 15.00 08/30/16 03:00 91 08/29/16 23:00 98 08/29/16 23:00 98 Non-Rebreather 15.00 08/29/16 23:00 98.6 98 18 170/82 97 08/29/16 21:14 96 Non-Rebreather 15.00 08/29/16 19:00 97 08/29/16 19:00 99 Non-Rebreather 15.00 08/29/16 19:00 98.7 97 18 179/80 99 08/29/16 16:17 18 08/29/16 15:33 98 Partial Non-Rebreather 15.00 08/29/16 15:32 98.6 95 18 157/90 98 08/29/16 15:00 88 -: 08/30/16 0420 08/30/16 0420 Physical Exam General Appearance: Well Developed Neck Neck Exam: Neck Supple Pulmonary Resp Exam: Decreased Bases Cardiology CV Exam: Regular, Normal Sinus Rhythm Gastrointestinal/Abdomen GI Exam: Soft GI Remarks surgical incision clean dressing Extremeties Extremities Exam: No Edema Assessment/Plan Problem List: (1) ESRD (end stage renal disease) on dialysis Plan: Patient has received for a cadaveric kidney transplant and recovering, Prograf 5 mg q 12 and Myfortic 720 mg q 12 follow labs Tacrolimus 6 UOP slowly improving try to get Hou out diarrhea stopped changed to Myfortic on hemodialysis 1.5 L UF yesterday DGF continue to monitor (2) Hypertension Plan: Continue monitor (3) Diabetes Plan: Continue monitoring on sliding scale insulin was high earlier Miles Alvarez MD August 30, 2016 13:41
--- NOTE | 2016-08-30 17:53 | HHI.CCPN ---
Subjective Remarks/Hospital Course Hospital Course: 56 y/o woman with longstanding diabetes and renal failure progressing to ESRD received a cadaveric kidney transplant today. Her breathing is mildly labored and has required increased FiO2 for maintenance of O2 sdat > 90%. She is on home CPAP for obstructive sleep apnea, and I suspect obesity hypoventilation syndrome. The kidney is functioning and fluid balance is slightly ahead. CXR is benign. Subjective: 08/25: doing well, on BiPAP. being dialyzed on my evaluation. uop > 600cc/12h. 08/26: uop much less than yesterday. net+. delayed graft function. on partial NRB on my evaluation. not tachypneic or in distress. sitting in chair. patient states she is using I.S. 08/27: uop still borderline. on partial NRB overnight but now on NC o2. plan for HD today per nephrology. very volume overloaded. may need to consider d/c 1:1 replacement. 08/28: made 300cc urine today. still intermittently on high fio2. feels more comfortable. 08/29: Walked in baca X 2. OK on 6 liters but requires NRBM when sleeping. BiPAP prn. 08/30: Walked again today. Breathing comfortably. Objective Vital Signs Date Time Temp Pulse Resp B/P Pulse Ox O2 Delivery O2 Flow Rate FiO2 08/30/16 16:12 93 Nasal Cannula 3.00 08/30/16 15:26 98.7 86 18 163/77 08/30/16 04:40 50 Intake and Output 08/29/16 08/29/16 08/30/16 08:00 16:00 00:00 Intake Total 973 ml 1680 ml Output Total 144 ml 1680 ml Balance 829 ml 0 ml Result Diagram: 08/30/16 0420 08/30/16 0420 Other Results Microbiology Date/Time Procedure Status Source Growth 08/29/16 07:34 - Final Complete Stool Stool NO ENTERIC PATHOGENS DETECTED BY PCR... Objective Remarks Head: Normal. Neck: Airway widely patent. Lungs: Not labored or tachypneic. Good air movement. spo2 92-93%. 6L Heart: RRR, No JVD. Abdomen: Large, soft. BS active. Extremities: Warm, well perfused. Neuro: Moves 4 limbs to command. O X 3. Walks with assistance. Conversant. A/P Assessment and Plan Assessment: 1. Pulmonary insufficiency 2. S/P cadaveric renal transplant for ESRD. 3. DM, Type 2 4. Obesity. 5. Delayed Graft Function 6. Hyperkalemia 7. BC Plan: 1. prn nightly BiPAP 2. Minimize analgesia. 3. Follow I&O closely. 4. AM BMP. 5. per transplant nephrology HD. Overall impression: Stable, will sign off. Please call if needed. Ezekiel Schuler MD August 30, 2016 17:53
[2016-08-30] MEDS: RESP: ALBUTEROL 2.5 MG/IPRATROPIUM 0.5 MG NEB (PRN) INH (21:15)
[2016-08-31] VITALS (9 sets, daily range): BP systolic 141–183; BP diastolic 65–83; PULSE 79–94; RESP 18; TEMP 97.9–98.6; O2SAT 91–100
[2016-08-31] MEDS: INSULIN NovoLIN REGULAR SUPPLEMENTAL SCALE SQ SCH ×5 (03:00→21:35)
[2016-08-31 04:18] LABS: AUTOMATED NEUTROPHIL # 12.6 TH/MM3 (1.8-7.7); BASOPHIL # 0.1 TH/MM3 (0-0.2); BASOPHIL % 0.5 % (0.0-2.0); EOSINOPHIL # 0.1 TH/MM3 (0-0.4); EOSINOPHIL % 0.8 % (0.0-4.0); HEMATOCRIT 25.3 % (35.0-46.0); HEMO FLAGS AUTO DIFF; LYMPH % 0.2 % (9.0-44.0); MEAN CELL VOLUME 96.4 FL (80.0-100.0); MEAN CORPUSCULAR HEMOGLOBIN 31.4 PG (27.0-34.0); MEAN CORPUSCULAR HGB CONC 32.6 % (32.0-36.0); MONO % 1.4 % (0.0-8.0); NEUT % 97.1 % (16.0-70.0); PLATELET COUNT 212 TH/MM3 (150-450); RED BLOOD COUNT 2.62 MIL/MM3 (4.00-5.30); RED CELL DISTRIBUTION WIDTH 14.4 % (11.6-17.2)
[2016-08-31 04:40] LABS: BICARBONATE 26.3 MEQ/L (21.0-32.0); MAGNESIUM 1.9 MG/DL (1.5-2.5); POTASSIUM 3.8 MEQ/L (3.5-5.1)
[2016-08-31 05:09] LABS: BANDS 4 % (0-6); EOSINOPHILS 2 % (0-4); METAMYELOCYTES 1 % (0-1); NEUTROPHIL # MANUAL DIFF 12.5 TH/MM3 (1.8-7.7); POLYS (SEG NEUTROPHILS) 91 % (16-70); SCAN/DIFF FINAL DIFF MANUAL; WBC DIFF SAMPLE 100
[2016-08-31 05:10] LABS: DOHLE BODIES PRESENT (NONE SEEN); PLATELET ESTIMATE SMEAR NORMAL (NORMAL); PLATELET MORPHOLOGY NORMAL (NORMAL)
[2016-08-31] MEDS: MYCOPHENOLATE SODIUM 360 MG DELAYED RELEASE TAB PO SCH ×2 (05:44→17:54)
[2016-08-31] MEDS: oxyCODONE/ACETAMINOPHEN 5 MG/325 MG TAB PO PRN (05:44)
[2016-08-31] MEDS: TACROLIMUS 5 MG CAP PO SCH (05:44)
[2016-08-31] MEDS: INSULIN DETEMIR 100 UNITS/ML VIAL SQ SCH (08:44)
[2016-08-31] MEDS: PANTOPRAZOLE SODIUM 40 MG VIAL IV PUSH SCH (08:45)
[2016-08-31] MEDS: DOCUSATE SODIUM 100 MG CAP PO SCH ×2 (08:45→21:28)
[2016-08-31] MEDS: NYSTATIN SUSP 500,000 U/5 ML CUP SWISH-SWAL SCH ×3 (08:45→21:27)
[2016-08-31] MEDS: CALCIUM CARBONATE 500 MG CHEWABLE TAB CHEW SCH ×2 (08:45→16:24)
[2016-08-31] MEDS: SULFAMETHOXAZOLE-TRIMETHOPRIM DS 800-160 MG TAB PO SCH (08:45)
--- NOTE | 2016-08-31 08:45 | HHI.PR ---
Subjective Remarks In chair this AM, c/o L middle toe pain, Afebrile overnight, with no episodes of vomiting or diarrhea.Continues to tolerate fulls well, asking for more food. No c/o incisional discomfort, responds appropriately to questions, interacting well with staff. UO increased, ambulated three or four times. O2 sats > 95% on RA. Objective Vital Signs Date Time Temp Pulse Resp B/P Pulse Ox O2 Delivery O2 Flow Rate FiO2 08/31/16 07:20 98.4 81 18 156/71 91 08/31/16 07:19 90 Nasal Cannula 4.00 08/31/16 07:00 79 08/31/16 07:00 22 08/31/16 03:00 94 Nasal Cannula 4.00 08/31/16 03:00 97.9 92 18 141/65 94 08/31/16 03:00 94 08/30/16 23:00 92 08/30/16 23:00 91 Nasal Cannula 4.00 08/30/16 23:00 98.4 92 18 161/77 91 08/30/16 21:15 94 Nasal Cannula 4.00 08/30/16 19:00 87 08/30/16 19:00 98.3 87 18 154/68 92 08/30/16 19:00 92 Nasal Cannula 4.00 08/30/16 16:12 93 Nasal Cannula 3.00 08/30/16 15:28 92 Nasal Cannula 6.00 08/30/16 15:26 98.7 86 18 163/77 97 08/30/16 15:00 86 08/30/16 11:15 94 Nasal Cannula 6.00 08/30/16 11:13 98.4 93 18 158/74 90 08/30/16 11:00 93 08/30/16 09:59 94 Nasal Cannula 6.00 I/O 08/30/16 08/30/16 08/30/16 08/31/16 08/31/16 08/31/16 07:00 15:00 23:00 07:00 15:00 23:00 Intake Total 954 ml 1615 ml 1182 ml Output Total 186 ml 345 ml 950 ml Balance 768 ml 1270 ml 232 ml Intake Oral 310 ml 1200 ml 240 ml IV Total 644 ml 415 ml 942 ml Output Urine Total 166 ml 335 ml 930 ml Drainage Total 20 ml 10 ml 20 ml # Bowel Movements 0 0 0 Result Diagram: 08/31/1634908/31/16349 Objective Remarks HN; moist mucous membranes Abd; non-distended; incision clean, dry, intact; no seeping of fluid; no fullness or tenderness, no fluctuance, no erythema Drain: minimal serous drainage Ext: mild edema; L middle toe w/ slight swelling, none erythematous, tender to touch and movement, non-discolored MS; A&A X3 Hou: clear carmela urine Assessment and Plan Assessment and Plan Afebrile overnight. Advance to soft diet; OOB to ambulate 4X's again today. Renal function improving; Check x ray of toe, else appears to be gout flare up as cuase of WBC elev. May likely need corticosteroids as NSAIDS and colchicine may present with renal toxicities.Transfer to CICU when Hou out. Alvaro Patten MD August 31, 2016 08:45
--- NOTE | 2016-08-31 09:51 | RADRPT ---
EXAM DATE/TIME: 08/31/2016 08:32 [facility] COMPARISON: No previous studies available for comparison. INDICATIONS : Left foot, 1st-5th toes pain. MEDICAL HISTORY : Gout. SURGICAL HISTORY : None. ENCOUNTER: Initial ACUITY: 4 - 6 days PAIN SCORE: 7/10 LOCATION: Left foot FINDINGS: 2 views of the left foot demonstrate no fracture or dislocation. Lisfranc joint appears intact. No si gnificant degenerative changes are present. There is an enthesophyte at the plantar aspect of the fermin caneus. Clips are present along the medial aspect of the left mid foot. There is relatively diffuse s oft tissue swelling most prominent medially and dorsally. CONCLUSION: Dorsal and medial foot soft tissue swelling. No acute osseous abnormality is identified. Surgical cli ps are present along the medial aspect of the midfoot. Andrés Sidhu MD on August 31, 2016 at 9:47 Board Certified Radiologist. This report was verified electronically.
[2016-08-31] MEDS: SODIUM CHLOR 0.45% 1000 ML INJ 1,000 ML IV SCH (09:54)
[2016-08-31] MEDS: ONDANSETRON HCL 4 MG/2 ML VIAL IV PRN (09:54)
--- NOTE | 2016-08-31 13:25 | HHI.NPPN ---
Subjective History of Present Illness Hx of kidney transplant 08/24/16 Additional Remarks c/o left foot pain at bases and middle toe Review of Systems General Constitutional: Fatigue Objective Data Data 08/30/16 08/31/16 19:00 07:00 Intake Total 1615 ml 1182 ml Output Total 345 ml 950 ml Balance 1270 ml 232 ml Intake Oral 1200 ml 240 ml IV Total 415 ml 942 ml Output Urine Total 335 ml 930 ml Drainage Total 10 ml 20 ml # Bowel Movements 0 0 Vital Signs Date Time Temp Pulse Resp B/P Pulse Ox O2 Delivery O2 Flow Rate FiO2 08/31/16 11:21 94 Nasal Cannula 4.00 08/31/16 11:18 98.2 92 18 163/76 93 08/31/16 11:00 83 08/31/16 07:20 98.4 81 18 156/71 91 08/31/16 07:19 90 Nasal Cannula 4.00 08/31/16 07:00 79 08/31/16 07:00 22 08/31/16 03:00 94 Nasal Cannula 4.00 08/31/16 03:00 97.9 92 18 141/65 94 08/31/16 03:00 94 08/30/16 23:00 92 08/30/16 23:00 91 Nasal Cannula 4.00 08/30/16 23:00 98.4 92 18 161/77 91 08/30/16 21:15 94 Nasal Cannula 4.00 08/30/16 19:00 87 08/30/16 19:00 98.3 87 18 154/68 92 08/30/16 19:00 92 Nasal Cannula 4.00 08/30/16 16:12 93 Nasal Cannula 3.00 08/30/16 15:28 92 Nasal Cannula 6.00 08/30/16 15:26 98.7 86 18 163/77 97 08/30/16 15:00 86 -: 08/31/16 0350 08/31/16 0350 Physical Exam General Appearance: Well Developed Neck Neck Exam: Neck Supple Pulmonary Resp Exam: Decreased Bases Cardiology CV Exam: Regular, Normal Sinus Rhythm Gastrointestinal/Abdomen GI Exam: Soft GI Remarks surgical incision clean dressing Extremeties Extremities Exam: Moderate Edema Assessment/Plan Problem List: (1) ESRD (end stage renal disease) on dialysis Plan: Patient has received for a cadaveric kidney transplant and recovering, Prograf 5 mg q 12 and Myfortic 720 mg q 12 follow labs Tacrolimus 5.8 inc dose to 6 mg q 12 UOP improving try to get Hou out DGF continue to monitor Pain left foot due to old pin buried in her foot causing edema d/w Dr. Patten use Keflex 500 mg q 8 (2) Hypertension Plan: Continue monitor (3) Diabetes Plan: Continue monitoring on sliding scale insulin was high earlier Miles Alvarez MD August 31, 2016 13:25
[2016-08-31] MEDS: CEPHALEXIN MONOHYDRATE 500 MG CAP PO SCH ×2 (14:40→21:27)
[2016-08-31] MEDS: TACROLIMUS 1 MG CAP PO SCH (17:54)
[2016-08-31] MEDS: cloNIDine HCL 0.1 MG TAB PO PRN (21:27)
[2016-09-01] VITALS (13 sets, daily range): BP systolic 130–176; BP diastolic 60–72; PULSE 81–99; RESP 16–25; TEMP 98.1–98.5; O2SAT 94–100
[2016-09-01] MEDS ORDERED: SODIUM CHLOR 0.45% 1000 ML INJ 1,000 ML IV SCH (00:45)
[2016-09-01] MEDS: INSULIN NovoLIN REGULAR SUPPLEMENTAL SCALE SQ SCH ×6 (03:00→21:32)
[2016-09-01 05:27] LABS: AUTOMATED NEUTROPHIL # 7.6 TH/MM3 (1.8-7.7); BASOPHIL # 0.1 TH/MM3 (0-0.2); BASOPHIL % 0.9 % (0.0-2.0); EOSINOPHIL # 0.2 TH/MM3 (0-0.4); EOSINOPHIL % 2.5 % (0.0-4.0); HEMATOCRIT 22.7 % (35.0-46.0); LYMPH % 0.9 % (9.0-44.0); LYMPHOCYTE # 0.1 TH/MM3 (1.0-4.8); MEAN CELL VOLUME 95.2 FL (80.0-100.0); MEAN CORPUSCULAR HEMOGLOBIN 31.9 PG (27.0-34.0); MEAN CORPUSCULAR HGB CONC 33.5 % (32.0-36.0); MONO % 1.4 % (0.0-8.0); NEUT % 94.3 % (16.0-70.0); PLATELET COUNT 233 TH/MM3 (150-450); RED BLOOD COUNT 2.39 MIL/MM3 (4.00-5.30); RED CELL DISTRIBUTION WIDTH 14.3 % (11.6-17.2); WHITE BLOOD COUNT 8.1 TH/MM3 (4.0-11.0)
[2016-09-01 05:34] LABS: BICARBONATE 26.8 MEQ/L (21.0-32.0); MAGNESIUM 1.8 MG/DL (1.5-2.5); POTASSIUM 3.8 MEQ/L (3.5-5.1)
[2016-09-01 05:39] LABS: HEMO FLAGS AUTO DIFF
[2016-09-01] MEDS: CEPHALEXIN MONOHYDRATE 500 MG CAP PO SCH ×3 (06:09→21:26)
[2016-09-01] MEDS: MYCOPHENOLATE SODIUM 360 MG DELAYED RELEASE TAB PO SCH ×2 (06:09→18:13)
[2016-09-01] MEDS: TACROLIMUS 1 MG CAP PO SCH ×2 (06:10→18:13)
[2016-09-01 07:46] LABS: PLATELET ESTIMATE SMEAR NORMAL (NORMAL); PLATELET MORPHOLOGY ENLARGED (NORMAL); SCAN/DIFF AUTO DIFF CONFIRMED
[2016-09-01] MEDS: INSULIN DETEMIR 100 UNITS/ML VIAL SQ SCH (09:00)
[2016-09-01] MEDS: NYSTATIN SUSP 500,000 U/5 ML CUP SWISH-SWAL SCH ×3 (09:13→21:25)
[2016-09-01] MEDS: DOCUSATE SODIUM 100 MG CAP PO SCH ×2 (09:13→21:25)
[2016-09-01] MEDS: CALCIUM CARBONATE 500 MG CHEWABLE TAB CHEW SCH ×2 (09:13→16:37)
--- NOTE | 2016-09-01 09:13 | HHI.PR ---
Subjective Remarks Hou removed this AM, Afebrile overnight, started on ABx; had BM and voided this morning, standing up without assistance.no episodes of vomiting, tolerating diet well.No c/o incisional discomfort, responds appropriately to questions, interacting well with staff. UO much increased, ambulated three or four times. O2 sats irregular, on O2 NC; Will check a Walk Test, transfer out of CVICU, d/c replacement IVF's Objective Vital Signs Date Time Temp Pulse Resp B/P Pulse Ox O2 Delivery O2 Flow Rate FiO2 09/01/16 07:24 94 Nasal Cannula 4.00 09/01/16 07:00 Nasal Cannula 4.00 09/01/16 07:00 86 09/01/16 07:00 98.3 86 18 159/63 09/01/16 04:15 96 Nasal Cannula 6.00 09/01/16 04:00 86 Nasal Cannula 4.00 09/01/16 04:00 90 09/01/16 04:00 98.2 90 18 150/72 96 09/01/16 00:00 92 09/01/16 00:00 95 Nasal Cannula 4.00 09/01/16 00:00 92 18 155/67 08/31/16 22:06 Nasal Cannula 4.00 08/31/16 20:00 94 08/31/16 20:00 100 Nasal Cannula 4.00 08/31/16 20:00 98.1 94 18 183/83 100 08/31/16 16:00 98.6 92 18 168/78 94 08/31/16 16:00 92 Nasal Cannula 4.00 08/31/16 15:00 90 08/31/16 11:21 94 Nasal Cannula 4.00 08/31/16 11:18 98.2 92 18 163/76 93 08/31/16 11:00 83 I/O 08/31/16 08/31/16 08/31/16 09/01/16 09/01/16 09/01/16 07:00 15:00 23:00 07:00 15:00 23:00 Intake Total 1182 ml 2720 ml 2019 ml Output Total 950 ml 1650 ml 1610 ml Balance 232 ml 1070 ml 409 ml Intake Oral 240 ml 1080 ml 480 ml IV Total 942 ml 1640 ml 1539 ml Output Urine Total 930 ml 1640 ml 1610 ml Drainage Total 20 ml 10 ml # Bowel Movements 0 1 0 Result Diagram: 09/01/16 0500 09/01/16 0500 Objective Remarks HN; moist mucous membranes Abd; non-distended; incision clean, dry, intact; no seeping of fluid; no fullness or tenderness, no fluctuance, no erythema Drain: minimal serous drainage Ext: mild edema; L middle toe w/ slight swelling, none erythematous, tender to touch and movement, non-discolored MS; A&A X3 Hou: clear carmela urine Assessment and Plan Assessment and Plan Afebrile overnight. Advance to soft diet; OOB to ambulate 4X's again today. Renal function improving; Check x ray of toe, else appears to be gout flare up as cuase of WBC elev. May likely need corticosteroids as NSAIDS and colchicine may present with renal toxicities.Transfer to CICU when Hou out. Alvaro Patten MD September 01, 2016 09:13
[2016-09-01] MEDS: PANTOPRAZOLE SODIUM 40 MG VIAL IV PUSH SCH (09:14)
[2016-09-01] MEDS: cloNIDine HCL 0.1 MG TAB PO PRN (09:48)
[2016-09-01] MEDS: hydrALAZINE HCL 20 MG/ML VIAL IV PUSH PRN (10:39)
--- NOTE | 2016-09-01 11:47 | HHI.NPPN ---
Subjective History of Present Illness Hx of kidney transplant 08/24/16 Additional Remarks c/o abdominal distension Review of Systems General Constitutional: Fatigue Objective Data Data 08/31/16 09/01/16 19:00 07:00 Intake Total 2720 ml 2019 ml Output Total 1650 ml 1610 ml Balance 1070 ml 409 ml Intake Oral 1080 ml 480 ml IV Total 1640 ml 1539 ml Output Urine Total 1640 ml 1610 ml Drainage Total 10 ml # Bowel Movements 1 0 Vital Signs Date Time Temp Pulse Resp B/P Pulse Ox O2 Delivery O2 Flow Rate FiO2 09/01/16 11:08 98.1 95 16 137/60 97 09/01/16 11:08 95 09/01/16 11:08 3.00 09/01/16 09:46 3.00 09/01/16 07:24 94 Nasal Cannula 4.00 09/01/16 07:00 Nasal Cannula 4.00 09/01/16 07:00 86 09/01/16 07:00 98.3 86 18 159/63 09/01/16 04:15 96 Nasal Cannula 6.00 09/01/16 04:00 86 Nasal Cannula 4.00 09/01/16 04:00 90 09/01/16 04:00 98.2 90 18 150/72 96 09/01/16 00:00 92 09/01/16 00:00 95 Nasal Cannula 4.00 09/01/16 00:00 92 18 155/67 08/31/16 22:06 Nasal Cannula 4.00 08/31/16 20:00 94 08/31/16 20:00 100 Nasal Cannula 4.00 08/31/16 20:00 98.1 94 18 183/83 100 08/31/16 16:00 98.6 92 18 168/78 94 08/31/16 16:00 92 Nasal Cannula 4.00 08/31/16 15:00 90 -: 09/01/16 0500 09/01/16 0500 Physical Exam General Appearance: Well Developed Neck Neck Exam: Neck Supple Pulmonary Resp Exam: Decreased Bases Cardiology CV Exam: Regular, Normal Sinus Rhythm Gastrointestinal/Abdomen GI Exam: Soft, Distended GI Remarks surgical incision clean dressing Extremeties Extremities Exam: Moderate Edema Assessment/Plan Problem List: (1) ESRD (end stage renal disease) on dialysis Plan: Patient has received for a cadaveric kidney transplant and recovering, move to floor possible dc in 1 day off hemodialysis Prograf 6 mg q 12 and Myfortic 720 mg q 12 follow labs Tacrolimus pnd UOP improving try to get Hou out DGF improved Pain left foot due to old pin buried in her foot causing edema on Keflex 500 mg q 8 improved (2) Hypertension Plan: Continue monitor was high given Hydralazine resume Metoprolol and Norvasc I will continue with Sensipar as well (3) Diabetes Plan: Continue monitoring on sliding scale insulin was high earlier Miles Alvarez MD September 01, 2016 11:47
[2016-09-01] MEDS: amLODIPine BESYLATE 5 MG TAB PO SCH (13:42)
[2016-09-01] MEDS: METOPROLOL TARTRATE 100 MG TAB PO SCH ×2 (13:42→21:26)
[2016-09-01] MEDS: oxyCODONE/ACETAMINOPHEN 5 MG/325 MG TAB PO PRN (18:19)
[2016-09-01] MEDS: CINACALCET HYDROCHLORIDE 30 MG TAB PO SCH (21:26)
[2016-09-02] VITALS (19 sets, daily range): BP systolic 148–159; BP diastolic 67–72; PULSE 71–85; RESP 16–19; TEMP 97.9–99; O2SAT 97–100
[2016-09-02] MEDS: INSULIN NovoLIN REGULAR SUPPLEMENTAL SCALE SQ SCH ×4 (03:00→17:43)
[2016-09-02] MEDS: MYCOPHENOLATE SODIUM 360 MG DELAYED RELEASE TAB PO SCH ×2 (06:09→17:38)
[2016-09-02] MEDS: TACROLIMUS 1 MG CAP PO SCH ×2 (06:09→17:38)
[2016-09-02] MEDS: CEPHALEXIN MONOHYDRATE 500 MG CAP PO SCH ×2 (06:09→14:24)
[2016-09-02 06:56] LABS: AUTOMATED NEUTROPHIL # 7.5 TH/MM3 (1.8-7.7); BASOPHIL # 0.1 TH/MM3 (0-0.2); BASOPHIL % 0.8 % (0.0-2.0); EOSINOPHIL # 0.2 TH/MM3 (0-0.4); HEMATOCRIT 25.1 % (35.0-46.0); LYMPH % 2.8 % (9.0-44.0); LYMPHOCYTE # 0.2 TH/MM3 (1.0-4.8); MEAN CELL VOLUME 96.3 FL (80.0-100.0); MEAN CORPUSCULAR HEMOGLOBIN 31.5 PG (27.0-34.0); MEAN CORPUSCULAR HGB CONC 32.8 % (32.0-36.0); MONO % 1.4 % (0.0-8.0); PLATELET COUNT 300 TH/MM3 (150-450); RED BLOOD COUNT 2.61 MIL/MM3 (4.00-5.30); RED CELL DISTRIBUTION WIDTH 14.1 % (11.6-17.2); WHITE BLOOD COUNT 8.2 TH/MM3 (4.0-11.0)
[2016-09-02 07:04] LABS: HEMO FLAGS AUTO DIFF
[2016-09-02 07:06] LABS: ALT (GPT) 8 U/L (10-53); ANION GAP 13 MEQ/L (5-15); AST (GOT) 20 U/L (15-37); BICARBONATE 25.4 MEQ/L (21.0-32.0); BLOOD UREA NITROGEN 45 MG/DL (7-18); CHLORIDE 97 MEQ/L (98-107); GLOMERULAR FILTRATION RATE 9 ML/MIN (>89); MAGNESIUM 1.9 MG/DL (1.5-2.5); POTASSIUM 3.6 MEQ/L (3.5-5.1); SODIUM (NA) 135 MEQ/L (136-145)
[2016-09-02 07:08] LABS: ALKALINE PHOSPHATASE 85 U/L (45-117); TOTAL BILIRUBIN ADULT 0.4 MG/DL (0.2-1.0)
[2016-09-02 08:03] LABS: PLATELET ESTIMATE SMEAR NORMAL (NORMAL); PLATELET MORPHOLOGY ENLARGED (NORMAL); SCAN/DIFF AUTO DIFF CONFIRMED
--- NOTE | 2016-09-02 08:36 | HHI.DS ---
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, enteropathy, and peripheral neuropathy; She hemodialyzes via a RUE AVF; She is here for a possible kidney transplant CBC/BMP: 09/02/16 0540 09/02/16 0540 Significant Findings Laboratory Tests Test 08/31/16 09/01/16 09/02/16 03:50 05:00 05:40 White Blood Count 13.0 TH/MM3 (4.0-11.0) Red Blood Count 2.62 MIL/MM3 2.39 MIL/MM3 2.61 MIL/MM3 (4.00-5.30) (4.00-5.30) (4.00-5.30) Hemoglobin 8.2 GM/DL 7.6 GM/DL 8.2 GM/DL (11.6-15.3) (11.6-15.3) (11.6-15.3) Hematocrit 25.3 % 22.7 % 25.1 % (35.0-46.0) (35.0-46.0) (35.0-46.0) Neutrophils (%) (Auto) 97.1 % 94.3 % 92.0 % (16.0-70.0) (16.0-70.0) (16.0-70.0) Lymphocytes (%) (Auto) 0.2 % 0.9 % 2.8 % (9.0-44.0) (9.0-44.0) (9.0-44.0) Neutrophils # (Auto) 12.6 TH/MM3 (1.8-7.7) Lymphocytes # (Auto) 0.0 TH/MM3 0.1 TH/MM3 0.2 TH/MM3 (1.0-4.8) (1.0-4.8) (1.0-4.8) Neutrophils % (Manual) 91 % (16-70) Neutrophils # (Manual) 12.5 TH/MM3 (1.8-7.7) Dohle Bodies PRESENT (NONE SEEN) Sodium Level 135 MEQ/L 135 MEQ/L (136-145) (136-145) Chloride Level 96 MEQ/L 97 MEQ/L 97 MEQ/L (98-107) (98-107) (98-107) Blood Urea Nitrogen 46 MG/DL (7-18) 45 MG/DL (7-18) 45 MG/DL (7-18) Creatinine 6.12 MG/DL 5.49 MG/DL 4.93 MG/DL (0.50-1.00) (0.50-1.00) (0.50-1.00) Estimat Glomerular Filtration 7 ML/MIN (>89) 8 ML/MIN (>89) 9 ML/MIN (>89) Rate Random Glucose 126 MG/DL (74-106) Phosphorus Level 5.3 MG/DL 5.1 MG/DL (2.5-4.9) (2.5-4.9) Platelet Morphology Comment ENLARGED ENLARGED (NORMAL) (NORMAL) Calcium Level 8.2 MG/DL (8.5-10.1) Alanine Aminotransferase 8 U/L (10-53) (ALT/SGPT) Total Protein 6.2 GM/DL (6.4-8.2) Albumin 2.3 GM/DL (3.4-5.0) PE at Discharge HN; moist mucous membranes Abd; non-distended; incision clean, dry, intact; minimal seeping of fluid; no fullness or tenderness, no fluctuance, no erythema Drain: minimal serous drainage Ext: mild edema; no toe swelling MS; A&A X3 Hou: clear carmela urine Hospital Course Recovered well from Anesthesia, but easily fatigued from previous travel and lack of sleep; Oxygen dependant throughout day due to fluid retention; required slow BiPAP wean due to DGF of allograft, with dialysis to assist on fluid management. Diarrhea controlled to maintain stable Tacrolimus levels. Francis drain output monitored subsequent to removal of Hou. Pt Condition on Discharge: Good Discharge Disposition: Discharge Home Discharge Instructions DIET: Follow Instructions for: Diabetic Diet, Soft Diet, High Protein Diet Activities you can perform: Regular-No Restrictions, Weight Bearing as Miranda, Shower Only-No Bath Activities to avoid: Contact Sports, Lifting/Bending, Strenuous Activity, Bathing, Driving Additional Activity Instructio: Keep incision dry with towels or feminine pads. Need to void no later that every two hours Monitor Francis drain output every 4 hours, [facility] if > 15 cc every 4 hr Alvaro Patten MD September 02, 2016 08:36
[2016-09-02] MEDS: DOCUSATE SODIUM 100 MG CAP PO SCH (08:45)
[2016-09-02] MEDS: METOPROLOL TARTRATE 100 MG TAB PO SCH (08:45)
[2016-09-02] MEDS: CINACALCET HYDROCHLORIDE 30 MG TAB PO SCH (08:45)
[2016-09-02] MEDS: SULFAMETHOXAZOLE-TRIMETHOPRIM DS 800-160 MG TAB PO SCH (08:45)
[2016-09-02] MEDS: PANTOPRAZOLE SODIUM 40 MG VIAL IV PUSH SCH (08:45)
[2016-09-02] MEDS: amLODIPine BESYLATE 5 MG TAB PO SCH (08:45)
[2016-09-02] MEDS: CALCIUM CARBONATE 500 MG CHEWABLE TAB CHEW SCH ×2 (08:46→17:38)
[2016-09-02] MEDS: INSULIN DETEMIR 100 UNITS/ML VIAL SQ SCH (08:46)
[2016-09-02] MEDS: NYSTATIN SUSP 500,000 U/5 ML CUP SWISH-SWAL SCH ×2 (08:46→14:24)
[2016-09-02] MEDS: ACETAMINOPHEN 325 MG TAB PO PRN (08:56)
[2016-09-02] MEDS ORDERED: EZETIMIBE 10 MG TAB PO SCH (09:00)
[2016-09-02] MEDS ORDERED: VALG450 PO (13:05)
[2016-09-02] MEDS ORDERED: Calcium Carbonate Chew CHEW (13:05)
[2016-09-02] MEDS ORDERED: TACR1CAP PO (13:05)
[2016-09-02] MEDS ORDERED: PROT40TA PO (13:05)
[2016-09-02] MEDS ORDERED: OXYC1TAB63 PO (13:05)
[2016-09-02] MEDS ORDERED: NYST1000 SWISH-SWAL (13:05)
[2016-09-02] MEDS ORDERED: MYCO360 PO (13:05)
[2016-09-02] MEDS ORDERED: SULF1TAB23 PO (13:05)
[2016-09-02] MEDS ORDERED: OXYGENDME NAS.CANULA (13:05)
--- NOTE | 2016-09-02 13:08 | HHI.NPPN ---
Subjective History of Present Illness Hx of kidney transplant 08/24/16 Additional Remarks Doing well Review of Systems General Constitutional: Fatigue Objective Data Data 09/01/16 09/02/16 19:00 07:00 Intake Total 940 ml 240 ml Output Total 1550 ml 885 ml Balance -610 ml -645 ml Intake Oral 940 ml 240 ml Output Urine Total 1500 ml 850 ml Drainage Total 50 ml 35 ml # Bowel Movements 2 1 Vital Signs Date Time Temp Pulse Resp B/P Pulse Ox O2 Delivery O2 Flow Rate FiO2 09/02/16 12:00 73 09/02/16 11:27 98 Nasal Cannula 2.00 09/02/16 11:00 72 09/02/16 11:00 97.9 71 19 159/72 98 09/02/16 10:43 17 09/02/16 10:04 98 Nasal Cannula 2.00 09/02/16 10:00 74 09/02/16 09:00 78 09/02/16 08:00 82 09/02/16 07:50 83 09/02/16 07:30 99.0 82 19 159/72 100 09/02/16 07:30 100 Nasal Cannula 2.00 Humidified 09/02/16 06:00 81 09/02/16 05:00 76 09/02/16 04:00 74 09/02/16 03:00 97 Nasal Cannula 2.00 09/02/16 03:00 98.6 81 16 148/67 98 09/02/16 03:00 82 09/02/16 02:00 77 09/02/16 01:00 80 09/02/16 00:00 85 09/01/16 23:30 94 Nasal Cannula 2.00 09/01/16 23:30 98.5 88 16 130/60 94 09/01/16 23:00 83 09/01/16 22:00 88 09/01/16 21:00 86 09/01/16 20:21 97 Nasal Cannula 3.00 09/01/16 20:00 82 09/01/16 19:45 98.4 81 16 149/70 100 09/01/16 19:45 100 Nasal Cannula 5.00 Humidified 09/01/16 19:00 82 09/01/16 15:00 84 09/01/16 15:00 98.4 99 25 176/72 97 09/01/16 15:00 97 Nasal Cannula 5.00 Humidified -: 09/02/16 0540 09/02/16539 Physical Exam General Appearance: Well Developed Neck Neck Exam: Neck Supple Pulmonary Resp Exam: Clear Bilaterally Cardiology CV Exam: Regular, Normal Sinus Rhythm Gastrointestinal/Abdomen GI Exam: Soft, Bowel Sounds Present GI Remarks surgical incision clean dressing Extremeties Extremities Exam: Trace Edema Assessment/Plan Problem List: (1) ESRD (end stage renal disease) on dialysis Plan: Patient has received for a cadaveric kidney transplant and recovering, dc today Prograf 6 mg q 12 and Myfortic 720 mg q 12 follow labs cr 4.93 Tacrolimus 6 mg q 12 UOP improving try to get Hou out d/w dr. Patten tacrolimus 7.4 yesterday and 9.9 today (2) Hypertension Plan: Continue monitor was high given Hydralazine resume Metoprolol and Norvasc I will continue with Sensipar as well (3) Diabetes Plan: Continue monitoring on sliding scale insulin was high earlier Miles Alvarez MD September 02, 2016 13:08
[2016-09-02] MEDS ORDERED: [UNRECOGNIZED DRUG - OTHER] (13:16)
[2016-09-02] MEDS ORDERED: [UNRECOGNIZED DRUG - OTHER] NAS.CANULA (13:53)
== END 2016-09-02 18:14 | disposition home or self-care (01) | DRG 652 ==
LOC: HCIN 08:07 → HCVR 19:32 → HCIN 09-01 14:36
PROVIDERS: ADMIT Surgery; ATTEND Surgery
PROC: 5A09357 Assistance with Respiratory Ventilation, Less than 24 Consecutive Hours, Continuous Positive Airway Pressure (ICD-10-PCS; 2016-08-24)
PROC: 0TY00Z0 Transplantation of Right Kidney, Allogeneic, Open Approach (ICD-10-PCS; principal; 2016-08-24 10:42)
PROC: 5A1D60Z (ICD-10-PCS; 2016-08-25)
DX: E11.22 Type 2 diabetes mellitus with diabetic chronic kidney disease (principal); J96.91 Respiratory failure, unspecified with hypoxia; I13.2 Hypertensive heart and chronic kidney disease with heart failure and with stage 5 chronic kidney disease, or end stage renal disease; E66.2 Morbid (severe) obesity with alveolar hypoventilation; J98.11 Atelectasis; T84.84XA Pain due to internal orthopedic prosthetic devices, implants and grafts, initial encounter; N18.6 End stage renal disease; E11.42 Type 2 diabetes mellitus with diabetic polyneuropathy; K31.9 Disease of stomach and duodenum, unspecified; I50.9 Heart failure, unspecified; E65 Localized adiposity; K66.0 Peritoneal adhesions (postprocedural) (postinfection); E78.5 Hyperlipidemia, unspecified; M16.10 Unilateral primary osteoarthritis, unspecified hip; M17.10 Unilateral primary osteoarthritis, unspecified knee; E87.5 Hyperkalemia; R50.9 Fever, unspecified; R19.7 Diarrhea, unspecified; R11.2 Nausea with vomiting, unspecified; Y83.4 Other reconstructive surgery as the cause of abnormal reaction of the patient, or of later complication, without mention of misadventure at the time of the procedure; Z68.38 Body mass index [BMI] 38.0-38.9, adult; Z79.4 Long term (current) use of insulin; Z87.891 Personal history of nicotine dependence; Z99.2 Dependence on renal dialysis
CPT/HCPCS: 36430; 36600; 71010; 73620; 76776; 80048; 80053; 80197; 81001; 82805; 82948; 83735; 84100; 85007; 85025; 85027; 85610; 85730; 86850; 86900; 86901; 86920; 87040; 87086; 87493; 87506; 88305; 90935; 93005; 94002; 94003; 94150; 94620; 94640; 94664; 96374; C9113; J0131; J0171; J0360; J0690; J1170; J1200; J1644; J1720; J1815; J2250; J2270; J2370; J2405; J2440; J2930; J3010; J7030; J7040; J7507; J7511; J7517; J7518; P9016; Q0163; Q4081

== ENCOUNTER → 2016-09-28 | Outpatient (CLI) | payer MEDICARE, BC ==
[~2016-09-28] MED LIST changes: -ALLO100T PO; +AMLO5TAB2 PO; -AMLO5TAB22 PO; +Calcium Carbonate Chew CHEW; -EZET10 PO; -FOSR1000 CHEW; -FURO10S PO; -LISI-363 PO; +MYCO360 PO; +NYST1000 SWISH-SWAL; +OXYC1TAB63 PO; +OXYGENDME NAS.CANULA; +PROT40TA PO; -SIMV40 PO; +SIMV40TA PO; +SULF1TAB23 PO; -SULF500T35 PO; +TACR1CAP PO; +VALG450 PO; +ZETI10TA5 PO; +[UNRECOGNIZED DRUG - OTHER] NAS.CANULA
--- NOTE | 2016-09-28 15:21 | RADRPT ---
EXAM DATE/TIME: 09/28/2016 12:27 [facility] COMPARISON: US KIDNEY / TRANSPLANT, August 26, 2016, 10:16. INDICATIONS : Follow up for history of fluid collection. MEDICAL HISTORY : Hypertension. Sleep apnea. Hiatal hernia. Renal disease. Diabetes. SURGICAL HISTORY : Renal transplant. ENCOUNTER: Subsequent ACUITY: 1 month PAIN SCORE: 6/10 LOCATION: Right lower quadrant AREA EVALUATED: Right lower quadrant renal transplant and incision site. FINDINGS: The previously described small subcutaneous fluid collection noted just deep to the incision site has enlarged in the interval now measuring 7.4 x 12.1 x 1.8 cm in comparison to a 5.22 x 1.4 cm on prior exam. Trace free fluid adjacent to the right lower quadrant transplant kidney which appears unchange d. Transplanted right lower quadrant kidney demonstrates blood flow without significant hydronephrosi s. CONCLUSION: 1. Interval enlargement of arden-incisional subcutaneous fluid collection now measuring 7.4 x 12.1 x 1 .8 cm in comparison to 5.2 x 1.4 cm on prior exam. 2. Stable trace right lower quadrant transplant kidney perinephric fluid. Nasir Mariscal MD on September 28, 2016 at 15:13 Board Certified Radiologist. This report was verified electronically.
== END ==
LOC: HRAD 12:02
PROVIDERS: ATTEND Surgery
DX: N18.9 Chronic kidney disease, unspecified (principal); Z94.0 Kidney transplant status
CPT/HCPCS: 76705

== ENCOUNTER 2016-10-05 12:36 | Inpatient (IN) | payer MEDICARE, BC ==
[2016-10-05] VITALS (12 sets, daily range): BP systolic 148–151; BP diastolic 74–81; PULSE 78–100; RESP 16–17; TEMP 98–98.1; O2SAT 99–100
[2016-10-05] MEDS: SODIUM CHLOR 0.9% 1000 ML INJ 1,000 ML IV SCH ×2 (13:08→23:55)
[2016-10-05] MEDS ORDERED: BISACODYL 10 MG SUPP RECTAL PRN (13:15)
[2016-10-05] MEDS ORDERED: SODIUM CHLORIDE 0.9% FLUSH 10 ML FLUSH IV FLUSH PRN (13:15)
[2016-10-05] MEDS ORDERED: SENNOSIDES 8.6 MG TAB PO PRN (13:15)
[2016-10-05] MEDS ORDERED: LACTULOSE SYRUP 20 GM/30 ML CUP PO PRN (13:15)
[2016-10-05] MEDS ORDERED: ZOLPIDEM TARTRATE 5 MG TAB PO PRN (13:15)
[2016-10-05] MEDS ORDERED: ACETAMINOPHEN 325 MG TAB PO PRN (13:15)
[2016-10-05] MEDS ORDERED: MAGNESIUM HYDROXIDE SUSP 30 ML CUP PO PRN (13:15)
[2016-10-05] MEDS ORDERED: NALOXONE HCL 0.4 MG/ML AMP IV PRN (13:15)
--- NOTE | 2016-10-05 13:33 | HHI.HP ---
HPI Service Transplant Medicine Primary Care Physician Non-Staff Admission Diagnosis Acute renal failure status post kidney transplant Diagnoses: (1) Acute renal failure Diagnosis: Principal (2) S/P kidney transplant Diagnosis: Secondary (3) Diabetes Diagnosis: Secondary (4) Hypertension Diagnosis: Secondary Chief Complaint: Abdominal pain, surgical wound International Travel<30 Days: No Contact w/Intl Traveler<30days: No Known Affected Area: No History of Present Illness Patient is a 56-year-old female who received a cadaveric kidney transplant in Aug 24 2016 #postoperative course was complicated by partial wound dehiscence and fluid collection, patient has increased pain over the weekend and her appetite is low, she began with the these complaint to the clinic and found to have acute renal failure with elevation in the creatinine, a wound culture showed light growth of Enterococcus faecalis and she has been admitted for further care in the hospital. She denies any fever or chills she does have low appetite and has nausea present. Review of Systems Constitutional: COMPLAINS OF: Fatigue Gastrointestinal: COMPLAINS OF: Abdominal pain, Nausea Psychiatric: COMPLAINS OF: Anxiety Past Family Social History Past Medical History Kidney transplant ESRD Anemia Diabetes Hypertension CHF Past Surgical History Recent kidney transplant surgery in August 2016 AV fistula PD catheter 2 in 2013 Reported Medications Reported Meds & Active Scripts Active [O2 Concentrator] Liter NORMA.CANULA CONTINUOUS PRN 2L/min via nasal Cannula continous Tacrolimus 1 Mg Cap 6 Mg PO Q12H Oxygen (O2) Device 2 Liter NORMA.CANULA CONTINUOUS PRN Oxygen Concentrator Portable Gaseous 2 L/min via Nasal Canula Continuous For 99 months Protonix (Pantoprazole Sodium) 40 Mg Tab 40 Mg PO DAILY Valcyte (Valganciclovir) 450 Mg Tab 900 Mg PO DAILY 30 Days Sulfamethoxazole-Trimethoprim 800-160 Mg Tab 1 Tab PO MOWEFR@09 30 Days Oxycodone-Acetaminophen 5-325 mg Tab 1 Tab PO Q6H PRN Nystatin Liq 100,000 unit/ml Susp 5 Ml SWISH-SWAL TID@,,21 30 Days Myfortic (Mycophenolate Sodium) 360 Mg Tab 720 Mg PO BID@06,18 30 Days [Calcium Carbonate Chew] 500 MG Chew 500 Mg CHEW BID@,16 Reported Sensipar (Cinacalcet) 30 Mg Tab 30 Mg PO BID Amlodipine (Amlodipine Besylate) 5 Mg Tab 5 Mg PO DAILY Zetia (Ezetimibe) 10 Mg Tab 10 Mg PO DAILY Novolog Inj (Insulin Aspart) 1,000 Unit/10 Ml Vial 20 Units SQ TID Levemir Inj (Insulin Detemir) 1,000 unit/ 10 ML Vial 40 Units SQ DIRECTED Do not mix with any other Insulin. Metoprolol Tartrate 100 Mg Tab 100 Mg PO BID Simvastatin 40 Mg Tab 40 Mg PO HS Allergies: Uncoded Allergies: Tape (Allergy, Unknown, 08/24/16) Active Ordered Medications Current Medications Medications (Trade) Dose Ordered Sig/Lynsey Route Start Time Stop Time Status Last Admin (NS 1000 ml Inj) 1,000 ml @ 150 mls/hr Q6H40M IV 10/05/16 13:08 (NS Flush) 2 ml UNSCH PRN IV FLUSH 10/05/16 13:15 (NS Flush) 2 ml BID IV FLUSH 10/05/16 21:00 (Tylenol) 650 mg Q4H PRN PO 10/05/16 13:15 UNV (Zofran Inj) 4 mg Q6H PRN IVP 10/05/16 13:15 (Ambien) 5 mg HS PRN PO 10/05/16 13:15 (Narcan Inj) 0.4 mg UNSCH PRN IV 10/05/16 13:15 UNV (Jaquelin-Colace) 1 tab BID PO 10/05/16 21:00 (Milk Of Magnesia Liq) 30 ml Q12H PRN PO 10/05/16 13:15 UNV (Senokot) 17.2 mg Q12H PRN PO 10/05/16 13:15 (Dulcolax Supp) 10 mg DAILY PRN RECTAL 10/05/16 13:15 (Lactulose Liq) 30 ml DAILY PRN PO 10/05/16 13:15 UNV (Norvasc) 5 mg DAILY PO 10/06/16 09:00 UNV (Zetia) 10 mg DAILY PO 10/06/16 09:00 (NovoLOG INJ) 20 units TID SQ 10/05/16 18:00 UNV (Levemir Inj) 40 units HS SQ 10/05/16 21:00 UNV (Lopressor) 100 mg BID PO 10/05/16 21:00 (Myfortic Dr) 720 mg BID@06,18 PO 10/05/16 18:00 UNV (Mycostatin Liq) 5 ml TID@,, SWISH-SWAL 10/05/16 21:00 UNV (Percocet 5-325 Mg) 1 tab Q6H PRN PO 10/05/16 13:15 UNV (Protonix) 40 mg DAILY PO 10/06/16 09:00 UNV (Bactrim Ds 800-160 Mg) 1 tab MoWeFr@09 PO 10/07/16 09:00 UNV (Prograf) 6 mg Q12H PO 10/05/16 13:15 UNV (Valcyte) 900 mg DAILY PO 10/06/16 09:00 UNV Non-Formulary Medication 40 mg HS PO 10/05/16 21:00 UNV Non-Formulary Medication 500 mg BID@09,16 CHEW 10/05/16 16:00 UNV Family History Noncontributory Social History Denies smoking or alcohol use Physical Exam Vital Signs Vital Signs Date Time Temp Pulse Resp B/P Pulse Ox O2 Delivery O2 Flow Rate FiO2 10/05/16 18:00 92 10/05/16 15:00 98.0 17 151/81 100 Vital signs stable Physical Exam GENERAL: This is a well-nourished, well-developed patient, in no apparent distress. SKIN: No rashes, ecchymoses or lesions. Cool and dry. HEAD: Atraumatic. Normocephalic. No temporal or scalp tenderness. EYES: Pupils equal round and reactive. Extraocular motions intact. No scleral icterus. No injection or drainage. ENT: Nose without bleeding, purulent drainage or septal hematoma. Throat without erythema, tonsillar hypertrophy or exudate. Uvula midline. Airway patent. NECK: Trachea midline. No JVD or lymphadenopathy. Supple, nontender, no meningeal signs. CARDIOVASCULAR: Regular rate and rhythm without murmurs, gallops, or rubs. RESPIRATORY: Clear to auscultation. Breath sounds equal bilaterally. No wheezes , rales, or rhonchi. GASTROINTESTINAL: Abdomen soft, there is an open wound on the right lower abdomen with slight drainage ricarda in place it is tender to touch MUSCULOSKELETAL: Extremities without clubbing, cyanosis, or edema. No joint tenderness, effusion, or edema noted. No calf tenderness. Negative Homans sign bilaterally. NEUROLOGICAL: Awake and alert. Cranial nerves II through XII intact. Motor and sensory grossly within normal limits. Five out of 5 muscle strength in all muscle groups. Normal speech. Assessment and Plan Problem List: (1) Acute renal failure Status: Acute Plan: I will hydrate her and cover her with the antibiotics if necessary , the wound culture as well as light growth of Enterococcus faecalis could be a skin contaminant, I will repeat her kidney ultrasound followed this, follow labs, followed Prograf and its level Rule out rejection (2) S/P kidney transplant Status: Acute Plan: Complications include the delayed wound healing (3) Diabetes Status: Acute Plan: Continue to monitor (4) Hypertension Status: Acute Plan: Follow blood glucose Physician Certification 2 Midnight Certification Type: Admission for Inpatient Services Order for Inpatient Services The services are ordered in accordance with Medicare regulations or non- Medicare payer requirements, as applicable. In the case of services not specified as inpatient-only, they are appropriately provided as inpatient services in accordance with the 2-midnight benchmark. Estimated LOS (days): 3 3 days is the estimated time the patient will need to remain in the hospital, assuming treatment plan goals are met and no additional complications. Post-Hospital Plan: Home Problem Qualifiers (1) Acute renal failure: Qualified Code: N17.9 - Acute renal failure, unspecified acute renal failure type (2) Diabetes: Miles Alvarez MD Oct 05, 2016 13:33
[2016-10-05] MEDS ORDERED: DEXTROSE 50% IN WATER 50 ML VIAL(D50) IV PRN (13:45)
[2016-10-05] MEDS ORDERED: GLUCAGON 1 MG/ML VIAL OTHER PRN (13:45)
[2016-10-05] MEDS: oxyCODONE/ACETAMINOPHEN 5 MG/325 MG TAB PO PRN (14:20)
[2016-10-05] MEDS: TACROLIMUS 1 MG CAP PO SCH (16:00)
[2016-10-05] MEDS: INSULIN ASPART SUPPLEMENTAL SCALE SQ SCH ×2 (16:00→20:59)
[2016-10-05] MEDS: CALCIUM CARBONATE 500 MG CHEWABLE TAB CHEW SCH (17:32)
[2016-10-05] MEDS: MYCOPHENOLATE SODIUM 360 MG DELAYED RELEASE TAB PO SCH (17:32)
[2016-10-05] MEDS: INSULIN ASPART 1,000 UNITS/10 ML VIAL SQ SCH (17:35)
[2016-10-05] MEDS: MORPHINE SULFATE 4 MG/ML INJ IV PUSH PRN (17:52)
[2016-10-05 17:53] LABS: BLOOD, URINE NEG (NEG); COMMENT (UR) CULT NOT INDICATED; CULTURE IF INDICATED CULT NOT INDICATED; GLUCOSE,URINE 1000 mg/dL (NEG); HYALINE CAST, URINE 1 /lpf (RARE); KETONE, URINE NEG (NEG); NITRITE,URINE NEG (NEG); PH, URINE 5.5 (5.0-8.5); SQUAMOUS EPITHELIAL CELL URINE 5 /hpf (0-5); URINE COLOR YELLOW (YELLW/STRAW)
--- NOTE | 2016-10-05 18:25 | RADRPT ---
EXAM DATE/TIME: 10/05/2016 15:22 [facility] COMPARISON: US KIDNEY / TRANSPLANT, August 26, 2016, 10:16. INDICATIONS : ARF post transplant. MEDICAL HISTORY : Hypertension. Hiatal hernia. Renal disease. Diabetes. Anxiety. SURGICAL HISTORY : Renal transplant. Orthopedic surgery. ENCOUNTER: Initial ACUITY: 2 months PAIN SCORE: 8/10 LOCATION: Right lower quadrant MEASUREMENTS: TRANSPLANT KIDNEY: 9.9 x 4.6 x 5.1 cm LOCATION: Right lower quadrant. ARCUATE ARTERIES RESISTIVE INDEX: Upper - 0.7 Mid - 0.8 Lower - 0.8 MAIN RENAL ARTERY VELOCITY: (cm/sec): 197.2 MAIN RENAL VEIN: Patent EXTERNAL ILIAC ARTERY VELOCITY (cm/sec): 125.2 * NORMAL DOPPLER FINDINGS Arcuate arteries - RI = 0.6 - 0.8 Renal artery = under 200 cm/sec Renal vein = May be monophasic with continuous flow or demonstrate some pulsatility with cardiac cycl e FINDINGS: TRANSPLANT KIDNEY: Normal cortical thickness and echotexture. No hydronephrosis, stone, or mass. No peritransplant flu id collection. URINARY BLADDER: Not imaged. CONCLUSION: No evidence of hydronephrosis. Doppler parameters are within normal limits. Dominguez Tena MD on October 05, 2016 at 18:20 Board Certified Radiologist. This report was verified electronically.
[2016-10-05] MEDS: SODIUM CHLORIDE 0.9% FLUSH 10 ML FLUSH IV FLUSH SCH (20:57)
[2016-10-05] MEDS: DOCUSATE SODIUM 50 MG/SENNA 8.6 MG TAB PO SCH (20:58)
[2016-10-05] MEDS: METOPROLOL TARTRATE 100 MG TAB PO SCH (20:58)
[2016-10-05] MEDS: NYSTATIN SUSP 500,000 U/5 ML CUP SWISH-SWAL SCH (20:58)
[2016-10-05] MEDS: PRAVASTATIN SOD 80 MG TAB PO SCH (20:58)
[2016-10-05] MEDS: INSULIN DETEMIR 100 UNITS/ML VIAL SQ SCH (20:59)
[2016-10-06] VITALS (26 sets, daily range): BP systolic 138–159; BP diastolic 73–81; PULSE 74–98; RESP 16–17; TEMP 98–98.5; O2SAT 99–100
[2016-10-06] MEDS: oxyCODONE/ACETAMINOPHEN 5 MG/325 MG TAB PO PRN ×3 (03:09→21:17)
[2016-10-06] MEDS: TACROLIMUS 1 MG CAP PO SCH ×2 (04:13→16:02)
[2016-10-06] MEDS: MORPHINE SULFATE 4 MG/ML INJ IV PUSH PRN ×3 (04:14→16:49)
[2016-10-06 04:36] LABS: AUTOMATED NEUTROPHIL # 5.1 TH/MM3 (1.8-7.7); BASOPHIL # 0.2 TH/MM3 (0-0.2); BASOPHIL % 2.6 % (0.0-2.0); EOSINOPHIL # 0.1 TH/MM3 (0-0.4); EOSINOPHIL % 1.9 % (0.0-4.0); HEMATOCRIT 28.4 % (35.0-46.0); LYMPH % 12.5 % (9.0-44.0); LYMPHOCYTE # 0.9 TH/MM3 (1.0-4.8); MEAN CORPUSCULAR HEMOGLOBIN 31.6 PG (27.0-34.0); MEAN CORPUSCULAR HGB CONC 32.2 % (32.0-36.0); MONO % 10.7 % (0.0-8.0); NEUT % 72.3 % (16.0-70.0); PLATELET COUNT 314 TH/MM3 (150-450); RED CELL DISTRIBUTION WIDTH 16.7 % (11.6-17.2)
[2016-10-06 04:40] LABS: HEMO FLAGS AUTO DIFF
[2016-10-06 05:34] LABS: ALKALINE PHOSPHATASE 159 U/L (45-117); ALT (GPT) 10 U/L (10-53); ANION GAP 10 MEQ/L (5-15); AST (GOT) 9 U/L (15-37); BICARBONATE 21.1 MEQ/L (21.0-32.0); BLOOD UREA NITROGEN 21 MG/DL (7-18); CHLORIDE 107 MEQ/L (98-107); GLOMERULAR FILTRATION RATE 28 ML/MIN (>89); MAGNESIUM 1.5 MG/DL (1.5-2.5); POTASSIUM 4.2 MEQ/L (3.5-5.1); SODIUM (NA) 138 MEQ/L (136-145); TOTAL BILIRUBIN ADULT 0.2 MG/DL (0.2-1.0)
[2016-10-06] MEDS: MYCOPHENOLATE SODIUM 360 MG DELAYED RELEASE TAB PO SCH ×2 (06:09→17:03)
[2016-10-06] MEDS: ONDANSETRON HCL 4 MG/2 ML VIAL IVP PRN ×2 (06:09→18:07)
[2016-10-06] MEDS: SODIUM CHLOR 0.9% 1000 ML INJ 1,000 ML IV SCH ×3 (06:10→23:17)
[2016-10-06] MEDS: INSULIN ASPART SUPPLEMENTAL SCALE SQ SCH ×4 (06:12→21:00)
[2016-10-06 07:20] LABS: ACANTHOCYTES OCC (NORMAL); BANDS 1 % (0-6); BASOPHILS 5 % (0-2); EOSINOPHILS 2 % (0-4); MYELOCYTES 1 % (0-0); NEUTROPHIL # MANUAL DIFF 4.8 TH/MM3 (1.8-7.7); POLYS (SEG NEUTROPHILS) 66 % (16-70); SCAN/DIFF FINAL DIFF MANUAL; WBC DIFF SAMPLE 100
[2016-10-06] MEDS: INSULIN ASPART 1,000 UNITS/10 ML VIAL SQ SCH ×3 (08:39→17:09)
[2016-10-06] MEDS: NYSTATIN SUSP 500,000 U/5 ML CUP SWISH-SWAL SCH ×2 (08:40→11:53)
[2016-10-06] MEDS: CALCIUM CARBONATE 500 MG CHEWABLE TAB CHEW SCH ×2 (08:40→16:02)
[2016-10-06] MEDS: amLODIPine BESYLATE 5 MG TAB PO SCH (08:40)
[2016-10-06] MEDS: METOPROLOL TARTRATE 100 MG TAB PO SCH ×2 (08:41→21:12)
[2016-10-06] MEDS: PANTOPRAZOLE SOD 40 MG DELAYED RELEASE TAB PO SCH (08:41)
[2016-10-06] MEDS: EZETIMIBE 10 MG TAB PO SCH (08:42)
[2016-10-06] MEDS: DOCUSATE SODIUM 50 MG/SENNA 8.6 MG TAB PO SCH ×2 (08:42→21:12)
[2016-10-06] MEDS: SODIUM CHLORIDE 0.9% FLUSH 10 ML FLUSH IV FLUSH SCH ×2 (08:43→21:00)
--- NOTE | 2016-10-06 14:47 | HHI.NPPN ---
Subjective History of Present Illness S/P Kidney Txp with wound dehiscence and pain ARF Review of Systems General Constitutional: Fatigue Objective Data Data 10/05/16 10/06/16 19:00 07:00 Intake Total 600 ml 2165 ml Output Total 200 ml 1250 ml Balance 400 ml 915 ml Intake Oral 450 ml 480 ml IV Total 150 ml 1685 ml Output Urine Total 200 ml 1250 ml # Voids 1 # Bowel Movements 0 Vital Signs Date Time Temp Pulse Resp B/P Pulse Ox O2 Delivery O2 Flow Rate FiO2 10/06/16 14:00 77 10/06/16 13:00 84 10/06/16 12:00 79 10/06/16 11:00 98.1 77 17 155/79 100 10/06/16 11:00 78 10/06/16 10:00 79 10/06/16 09:00 74 10/06/16 08:00 76 10/06/16 07:30 98.0 79 17 149/77 100 10/06/16 07:00 81 10/06/16 06:00 81 10/06/16 05:00 82 10/06/16 04:00 82 10/06/16 03:00 98.2 83 16 138/73 99 10/06/16 03:00 83 10/06/16 02:00 86 10/06/16 01:00 81 10/06/16 00:00 98.4 81 16 151/74 100 10/06/16 00:00 80 10/05/16 23:00 78 10/05/16 22:00 84 10/05/16 21:00 100 10/05/16 20:00 98.1 97 16 148/74 99 10/05/16 20:00 98 10/05/16 19:00 92 10/05/16 18:00 92 10/05/16 17:00 82 10/05/16 16:00 80 10/05/16 15:00 98.0 82 17 151/81 100 10/05/16 15:00 80 -: 10/06/16 0310 10/06/16 0310 Additional Information FK 10.5 Physical Exam General Appearance: Well Developed, Well Nourished Neck Neck Exam: Neck Supple Pulmonary Resp Exam: Clear Bilaterally, Breath Sounds Equal Cardiology CV Exam: Regular, Normal Sinus Rhythm Gastrointestinal/Abdomen GI Exam: Soft, Non-Tender, Bowel Sounds Present GI Remarks Abdominal surgical wound has clean opening superior aspect Extremeties Extremities Exam: No Edema Assessment/Plan Problem List: (1) S/P kidney transplant Plan: Cr declined to 1.8 with IVF continue to hydrate US kidney negative maintained on Tacrolimus 6 mg bid and Myfortic 720 mg bid dc Nystatin pain is controlled on MS follow labs arrange Vacuum dressing dc plans for tomorrow 1540 pm nurse reports V tach asymptomatic Few beats and resolved given Mg SO4 start ASA check CPK/Troponin (2) Hypertension Plan: stable (3) Diabetes Plan: maintained (4) Acute renal failure Plan: resolved with hydration Problem Qualifiers (1) Diabetes: (2) Acute renal failure: Qualified Code: N17.9 - Acute renal failure, unspecified acute renal failure type Miles Alvarez MD Oct 06, 2016 14:47
[2016-10-06] MEDS ORDERED: ASPIRIN EC 81 MG TABEC PO ONE (15:45)
[2016-10-06] MEDS ORDERED: MAGNESIUM SULFATE 1 GM PREMIX 100 ML IV SCH (16:00)
[2016-10-06 17:34] LABS: CREATINE KINASE 32 U/L (26-192)
[2016-10-06] MEDS: INSULIN DETEMIR 100 UNITS/ML VIAL SQ SCH (21:11)
[2016-10-06] MEDS: PRAVASTATIN SOD 80 MG TAB PO SCH (21:12)
[2016-10-06] MEDS: MAGNESIUM OXIDE 400 MG TAB PO SCH (21:12)
[2016-10-06 23:05] LABS: CREATINE KINASE 32 U/L (26-192)
[2016-10-07] VITALS (28 sets, daily range): BP systolic 145–179; BP diastolic 72–94; PULSE 76–96; RESP 12–20; TEMP 97.8–99.1; O2SAT 97–100
[2016-10-07] MEDS: MORPHINE SULFATE 4 MG/ML INJ IV PUSH PRN ×2 (04:46→22:52)
[2016-10-07] MEDS: MYCOPHENOLATE SODIUM 360 MG DELAYED RELEASE TAB PO SCH ×2 (05:35→17:03)
[2016-10-07] MEDS: TACROLIMUS 1 MG CAP PO SCH ×2 (05:36→16:00)
[2016-10-07] MEDS: INSULIN ASPART SUPPLEMENTAL SCALE SQ SCH ×4 (06:32→21:00)
[2016-10-07 06:45] LABS: AUTOMATED NEUTROPHIL # 5.2 TH/MM3 (1.8-7.7); BASOPHIL # 0.2 TH/MM3 (0-0.2); BASOPHIL % 2.3 % (0.0-2.0); EOSINOPHIL # 0.1 TH/MM3 (0-0.4); EOSINOPHIL % 1.8 % (0.0-4.0); HEMATOCRIT 25.5 % (35.0-46.0); LYMPHOCYTE # 0.9 TH/MM3 (1.0-4.8); MEAN CELL VOLUME 97.6 FL (80.0-100.0); MEAN CORPUSCULAR HGB CONC 32.8 % (32.0-36.0); MONO % 9.5 % (0.0-8.0); NEUT % 73.4 % (16.0-70.0); PLATELET COUNT 296 TH/MM3 (150-450); RED BLOOD COUNT 2.61 MIL/MM3 (4.00-5.30); RED CELL DISTRIBUTION WIDTH 16.6 % (11.6-17.2); WHITE BLOOD COUNT 7.1 TH/MM3 (4.0-11.0)
[2016-10-07 06:53] LABS: HEMO FLAGS AUTO DIFF
[2016-10-07 07:17] LABS: BICARBONATE 21.4 MEQ/L (21.0-32.0); MAGNESIUM 1.6 MG/DL (1.5-2.5); POTASSIUM 4.6 MEQ/L (3.5-5.1)
[2016-10-07] MEDS: CALCIUM CARBONATE 500 MG CHEWABLE TAB CHEW SCH ×2 (08:10→16:00)
[2016-10-07] MEDS: ASPIRIN EC 81 MG TABEC PO SCH (08:10)
[2016-10-07] MEDS: SODIUM CHLORIDE 0.9% FLUSH 10 ML FLUSH IV FLUSH SCH ×2 (08:10→22:51)
[2016-10-07] MEDS: PANTOPRAZOLE SOD 40 MG DELAYED RELEASE TAB PO SCH (08:11)
[2016-10-07] MEDS: METOPROLOL TARTRATE 100 MG TAB PO SCH ×2 (08:11→22:50)
[2016-10-07] MEDS: MAGNESIUM OXIDE 400 MG TAB PO SCH ×2 (08:11→22:51)
[2016-10-07] MEDS: amLODIPine BESYLATE 5 MG TAB PO SCH (08:11)
[2016-10-07] MEDS: INSULIN ASPART 1,000 UNITS/10 ML VIAL SQ SCH ×3 (08:12→17:05)
[2016-10-07] MEDS: EZETIMIBE 10 MG TAB PO SCH (08:13)
[2016-10-07] MEDS: ONDANSETRON HCL 4 MG/2 ML VIAL IVP PRN (08:14)
[2016-10-07] MEDS: DOCUSATE SODIUM 50 MG/SENNA 8.6 MG TAB PO SCH ×2 (08:23→22:51)
[2016-10-07 08:35] LABS: BANDS 1 % (0-6); BASOPHILS 3 % (0-2); EOSINOPHILS 3 % (0-4); MYELOCYTES 1 % (0-0); NEUTROPHIL # MANUAL DIFF 5.4 TH/MM3 (1.8-7.7); PLATELET ESTIMATE SMEAR NORMAL (NORMAL); PLATELET MORPHOLOGY NORMAL (NORMAL); POLYS (SEG NEUTROPHILS) 74 % (16-70); SCAN/DIFF FINAL DIFF MANUAL; WBC DIFF SAMPLE 100
[2016-10-07] MEDS ORDERED: SULFAMETHOXAZOLE-TRIMETHOPRIM DS 800-160 MG TAB PO SCH (09:00)
[2016-10-07] MEDS: SODIUM CHLOR 0.9% 1000 ML INJ 1,000 ML IV SCH ×4 (11:10→23:31)
[2016-10-07] MEDS: oxyCODONE/ACETAMINOPHEN 5 MG/325 MG TAB PO PRN ×2 (11:15→22:51)
[2016-10-07] MEDS ORDERED: MIDAZOLAM HCL 5 MG/5 ML VIAL ONE (12:54)
[2016-10-07] MEDS ORDERED: fentaNYL CITRATE 250 MCG/5 ML AMP ONE (12:55)
--- NOTE | 2016-10-07 14:47 | HHI.NPPN ---
Subjective History of Present Illness S/P Kidney Txp with wound dehiscence and pain ARF Additional Remarks had V tach yesterday short run no symptoms Review of Systems General Constitutional: Fatigue Objective Data Data 10/06/16 10/07/16 19:00 07:00 Intake Total 1700 ml 1280 ml Output Total 1200 ml 1200 ml Balance 500 ml 80 ml Intake Oral 600 ml 240 ml IV Total 1100 ml 1040 ml Output Urine Total 1200 ml 1200 ml # Bowel Movements 0 Vital Signs Date Time Temp Pulse Resp B/P Pulse Ox O2 Delivery O2 Flow Rate FiO2 10/07/16 13:00 80 10/07/16 12:00 80 10/07/16 11:04 98.3 80 18 148/78 98 10/07/16 11:00 86 10/07/16 10:00 79 10/07/16 09:00 80 10/07/16 08:19 97.8 78 18 179/94 100 10/07/16 08:00 78 10/07/16 07:00 78 10/07/16 06:00 79 10/07/16 05:00 77 10/07/16 04:00 76 10/07/16 03:00 78 10/07/16 03:00 98.6 80 12 147/77 100 10/07/16 02:00 81 10/07/16 01:00 82 10/07/16 00:00 82 10/06/16 23:00 98.5 82 16 143/76 100 10/06/16 23:00 80 10/06/16 22:00 86 10/06/16 21:00 98 10/06/16 20:00 80 10/06/16 20:00 98.0 85 16 159/81 100 10/06/16 19:00 84 10/06/16 18:00 83 10/06/16 17:12 79 10/06/16 16:00 79 10/06/16 15:01 98.2 80 17 151/81 100 10/06/16 15:00 83 -: 10/07/16 0440 10/07/16 0440 Physical Exam General Appearance: Well Developed, Well Nourished Neck Neck Exam: Neck Supple Pulmonary Resp Exam: Clear Bilaterally, Breath Sounds Equal Cardiology CV Exam: Regular, Normal Sinus Rhythm Gastrointestinal/Abdomen GI Exam: Soft, Non-Tender, Bowel Sounds Present GI Remarks Abdominal surgical wound has clean opening superior aspect Extremeties Extremities Exam: No Edema Assessment/Plan Problem List: (1) S/P kidney transplant Plan: Cr declined to 1.7 with IVF continue to hydrate FK 6.1 US kidney negative maintained on Tacrolimus 6 mg bid and Myfortic 720 mg bid Mg 1.6 pain is controlled on MS V tach asymptomatic yesterday no recurrence Mg was given Troponin neg follow labs arrange dressing wound care advice against Vacuum Dr. Patten to address this dc plans for tomorrow 1454 PM Nurse reports another episode of V Tach looked at strip 14 beat it do not look a V Tach on strip she was moving she was in bathroom,no CP, No symptoms I have checked her CPK/Troponin all negative may get Cardiology to see her (2) Hypertension Plan: stable (3) Diabetes Plan: maintained (4) Acute renal failure Plan: resolved with hydration Problem Qualifiers (1) Diabetes: (2) Acute renal failure: Qualified Code: N17.9 - Acute renal failure, unspecified acute renal failure type Miles Alvarez MD Oct 07, 2016 14:47
--- NOTE | 2016-10-07 14:55 | PD.WCN.NOT ---
Wound Consult Description: Patient seen on [facility] for evaluation of wound to R lower abdomen. Patient is s/p Kidney Transplant. Removed ABD pad dressing and packing strip in place to reveal R lower Abdominal surgical wound.Open wound measures 1.8cm x 1cm x 6.2cm. Periwound noted with ricarda at 3 o'clock but is otherwise unremarkable. Wound is a dehisced surgical wound. 13 ricarda noted starting at 3 o'clock and extending to medial abdomen. Also to assessed 1 suture and 3 steri strips in between ricarda. Small amount of serous drainage noted from incision line with ricarda to medial abdomen. Wound bed that is visible to open wound on R lower abdomen presents with ~ 70% red granulation tissue and ~30% adipose tissue . Unable to assess wound bed at the base due to depth. Wound has minimal active sero-sanguinous drainage that is without odor.Cleansed open wound with 30 cc normal saline irrigation and slightly moistened 1 inch plain packing strip. Loosely packed wound with saline moistened plain packing strip and covered with dry 4x4 gauze and ABD pad. Skin prep applied to periwound and arden incision line before applying dry 4 x4 gauze over oozing incision line. Secured ABD pad with paper tape. Communicated with: JULIO Chand [facility] Recommendation: Please continue dressing changes as ordered by Doctor Patten. Do not recommend wound VAC at this time due to wound location, and measurements Philomena Warren [facility] Oct 07, 2016 14:55
--- NOTE | 2016-10-07 18:16 | MB ---
cc: COLETTE MILLER DATE OF CONSULTATION 10/07/2016 REASON FOR CONSULTATION Cardiac consultation performed on 10/07/2016. INDICATION Ventricular tachycardia. HISTORY OF THE PRESENT ILLNESS This is a very nice 56-year-old -[place] female with history of diabetes, hypertension, CHF. She had received a cadaveric kidney transplant back on August 24 of this year, had a postoperative course complicated by partial wound dehiscence. She ended up growing out Enterococcus faecalis out of the wound and was admitted to hospital. She had acute renal failure upon initial presentation, was given IV hydration, antibiotic therapy. She had a couple strips noted by the nurse with wide complex tachycardia and we are consulted for consideration of ventricular tachycardia. The patient was asymptomatic. PAST MEDICAL HISTORY 1. Kidney transplant. 2. End-stage renal disease. 3. Diabetes. 4. Hypertension. 5. Congestive heart failure. MEDICATIONS Reported: 1. Sensipar. 2. Amlodipine. 3. Zetia. 4. NovoLog. 5. Levemir. 6. Metoprolol. 7. Simvastatin. ALLERGIES TAPE. REVIEW OF SYSTEMS A 12 point review of symptoms was performed and negative unless otherwise noted in the history of present illness. SOCIAL HISTORY Denies alcohol, tobacco or drug use. FAMILY HISTORY Denies any family history of early coronary artery disease or sudden cardia . PHYSICAL EXAMINATION VITAL SIGNS: Temperature is 98, pulse is 80, blood pressure 148/78 mmHg. GENERAL: Alert and oriented times three, no acute distress. HEENT: Examination shows pupils reactive to light and accommodation. Extraocular movements are intact. NECK: No elevation or jugular venous distention. No thyromegaly. No lymphadenopathy. No carotid bruits. LUNGS: Clear to auscultation bilaterally. CARDIOVASCULAR: Regular rate and rhythm without murmurs, rubs, or gallops. ABDOMEN: Nontender, nondistended. Good bowel sounds. No hepatosplenomegaly. EXTREMITIES: No clubbing, cyanosis, or edema. Good peripheral pulses. NEUROLOGICAL: Cranial nerves intact. Motor strengths are grossly intact. LABORATORY DATA WBC 7.1, hemoglobin 8.4, platelet count 296. Sodium 143, potassium 4.6. ASSESSMENT 1. Wide complex tachycardia. 2. Acute renal failure. 3. Status post cadaveric kidney transplant. 4. Hypertension. 5. Diabetes. PLAN Telemetry strip reviewed. There is a 6-beat run of wide complex tachycardia on October 06, at 1533 that does look consistent with ventricular tachycardia. Otherwise there is underlying sinus rhythm. There is also noted on October 07 at 1122 that there was what looked like a wide complex tachycardia, but it is clearly artifact due to the fact that QRS march through. The patient is asymptomatic through both. There is slight electrolyte abnormality which I suspect is a major contributing factor. This should increase after . We will check an ejection fraction with a 2-D echocardiogram. We will monitor telemetry for any recurrence. She is already on metoprolol, we will continue with that. No need for any ischemic workup at this point given her renal issues, I would not want to unnecessarily proceed with any invasive strategy due to risk of contrast-induced nephropathy. If she has any recurrence after electrolyte correction then we may need to consider a Lexiscan. MD ENRIQUE Richards/RYLEY /4:14 PM /5:56 PM
[2016-10-07] MEDS: INSULIN DETEMIR 100 UNITS/ML VIAL SQ SCH (21:00)
[2016-10-07] MEDS: PRAVASTATIN SOD 80 MG TAB PO SCH (22:50)
[2016-10-08] VITALS (16 sets, daily range): BP systolic 152–167; BP diastolic 76–89; PULSE 70–90; RESP 16–18; TEMP 97–99.3; O2SAT 98–100
[2016-10-08] MEDS: TACROLIMUS 1 MG CAP PO SCH (05:00)
[2016-10-08 06:10] LABS: AUTOMATED NEUTROPHIL # 5.1 TH/MM3 (1.8-7.7); BASOPHIL # 0.2 TH/MM3 (0-0.2); BASOPHIL % 3.2 % (0.0-2.0); EOSINOPHIL # 0.2 TH/MM3 (0-0.4); EOSINOPHIL % 2.4 % (0.0-4.0); HEMATOCRIT 26.2 % (35.0-46.0); HEMO FLAGS DIFF FINAL; LYMPH % 11.9 % (9.0-44.0); LYMPHOCYTE # 0.8 TH/MM3 (1.0-4.8); MEAN CELL VOLUME 98.4 FL (80.0-100.0); MEAN CORPUSCULAR HEMOGLOBIN 31.9 PG (27.0-34.0); MEAN CORPUSCULAR HGB CONC 32.4 % (32.0-36.0); MONO % 7.7 % (0.0-8.0); NEUT % 74.8 % (16.0-70.0); PLATELET COUNT 291 TH/MM3 (150-450); RED BLOOD COUNT 2.67 MIL/MM3 (4.00-5.30); RED CELL DISTRIBUTION WIDTH 16.8 % (11.6-17.2); WHITE BLOOD COUNT 6.9 TH/MM3 (4.0-11.0)
[2016-10-08 06:26] LABS: ALKALINE PHOSPHATASE 140 U/L (45-117); ALT (GPT) 10 U/L (10-53); ANION GAP 9 MEQ/L (5-15); AST (GOT) 12 U/L (15-37); BICARBONATE 21.6 MEQ/L (21.0-32.0); BLOOD UREA NITROGEN 10 MG/DL (7-18); CHLORIDE 108 MEQ/L (98-107); GLOMERULAR FILTRATION RATE 37 ML/MIN (>89); MAGNESIUM 1.5 MG/DL (1.5-2.5); POTASSIUM 4.6 MEQ/L (3.5-5.1); SODIUM (NA) 139 MEQ/L (136-145); TOTAL BILIRUBIN ADULT 0.1 MG/DL (0.2-1.0)
[2016-10-08] MEDS: MYCOPHENOLATE SODIUM 360 MG DELAYED RELEASE TAB PO SCH (06:58)
[2016-10-08] MEDS: INSULIN ASPART SUPPLEMENTAL SCALE SQ SCH ×2 (07:04→10:57)
[2016-10-08] MEDS: SODIUM CHLOR 0.9% 1000 ML INJ 1,000 ML IV SCH (07:33)
[2016-10-08] MEDS: CALCIUM CARBONATE 500 MG CHEWABLE TAB CHEW SCH (08:00)
[2016-10-08] MEDS: amLODIPine BESYLATE 5 MG TAB PO SCH (08:00)
[2016-10-08] MEDS: MAGNESIUM OXIDE 400 MG TAB PO SCH (08:00)
[2016-10-08] MEDS: PANTOPRAZOLE SOD 40 MG DELAYED RELEASE TAB PO SCH (08:01)
[2016-10-08] MEDS: DOCUSATE SODIUM 50 MG/SENNA 8.6 MG TAB PO SCH (08:01)
[2016-10-08] MEDS: METOPROLOL TARTRATE 100 MG TAB PO SCH (08:01)
[2016-10-08] MEDS: ASPIRIN EC 81 MG TABEC PO SCH (08:02)
[2016-10-08] MEDS: SODIUM CHLORIDE 0.9% FLUSH 10 ML FLUSH IV FLUSH SCH (08:02)
[2016-10-08] MEDS: EZETIMIBE 10 MG TAB PO SCH (08:02)
[2016-10-08] MEDS: INSULIN ASPART 1,000 UNITS/10 ML VIAL SQ SCH ×2 (08:07→11:15)
--- NOTE | 2016-10-08 11:10 | PD.CARD.PN ---
Subjective Subjective Remarks no events tele reviewed Objective Medications Active Medications Fentanyl Citrate (fentaNYL INJ) 250 mcg STK-MED ONCE .ROUTE; Start 10/07/16 at 12 :55; Stop 10/07/16 at 12:56; Status DC Midazolam HCl (Versed Inj) 5 mg STK-MED ONCE .ROUTE; Start 10/07/16 at 12:54; Stop 10/07/16 at 12:55; Status DC Vital Signs / I&O Vital Signs Date Time Temp Pulse Resp B/P Pulse Ox O2 Delivery O2 Flow Rate FiO2 10/08/16 08:00 99.3 77 16 155/76 100 10/08/16 08:00 79 10/08/16 06:01 80 10/08/16 05:56 80 10/08/16 04:00 78 10/08/16 03:20 81 10/08/16 03:20 98.5 86 18 152/89 98 10/08/16 02:00 81 10/08/16 01:11 81 10/08/16 00:40 84 10/07/16 23:15 98.8 85 20 152/86 100 10/07/16 23:00 86 10/07/16 22:00 86 10/07/16 21:00 82 10/07/16 20:00 80 10/07/16 19:59 96 10/07/16 19:59 99.1 80 16 145/72 97 10/07/16 18:01 84 10/07/16 17:00 86 10/07/16 16:00 82 10/07/16 15:30 98.7 78 18 154/72 100 10/07/16 15:00 86 10/07/16 14:00 78 10/07/16 13:00 80 10/07/16 12:00 80 I/O 10/07/16 10/07/16 10/07/16 10/08/16 10/08/16 10/08/16 07:00 15:00 23:00 07:00 15:00 23:00 Intake Total 1280 ml 2032 ml 1327 ml Output Total 1200 ml 1400 ml 2400 ml Balance 80 ml 632 ml -1073 ml Intake Oral 240 ml 850 ml 360 ml IV Total 1040 ml 1182 ml 967 ml Output Urine Total 1200 ml 1400 ml 2400 ml # Voids 4 # Bowel Movements 0 0 Physical Exam GENERAL: SKIN: Warm and dry. HEAD: Normocephalic. EYES: No scleral icterus. No injection or drainage. NECK: Supple, trachea midline. No JVD or lymphadenopathy. CARDIOVASCULAR: Regular rate and rhythm without murmurs, gallops, or rubs. RESPIRATORY: Breath sounds equal bilaterally. No accessory muscle use. GASTROINTESTINAL: Abdomen soft, non-tender, nondistended. MUSCULOSKELETAL: No cyanosis, or edema. BACK: Nontender without obvious deformity. No CVA tenderness. Laboratory Laboratory Tests Test 10/08/16 04:53 White Blood Count 6.9 TH/MM3 Red Blood Count 2.67 MIL/MM3 Hemoglobin 8.5 GM/DL Hematocrit 26.2 % Mean Corpuscular Volume 98.4 FL Mean Corpuscular Hemoglobin 31.9 PG Mean Corpuscular Hemoglobin 32.4 % Concent Red Cell Distribution Width 16.8 % Platelet Count 291 TH/MM3 Mean Platelet Volume 9.2 FL Neutrophils (%) (Auto) 74.8 % Lymphocytes (%) (Auto) 11.9 % Monocytes (%) (Auto) 7.7 % Eosinophils (%) (Auto) 2.4 % Basophils (%) (Auto) 3.2 % Neutrophils # (Auto) 5.1 TH/MM3 Lymphocytes # (Auto) 0.8 TH/MM3 Monocytes # (Auto) 0.5 TH/MM3 Eosinophils # (Auto) 0.2 TH/MM3 Basophils # (Auto) 0.2 TH/MM3 CBC Comment DIFF FINAL Differential Comment Sodium Level 139 MEQ/L Potassium Level 4.6 MEQ/L Chloride Level 108 MEQ/L Carbon Dioxide Level 21.6 MEQ/L Anion Gap 9 MEQ/L Blood Urea Nitrogen 10 MG/DL Creatinine 1.46 MG/DL Estimat Glomerular Filtration 37 ML/MIN Rate Random Glucose 169 MG/DL Calcium Level 9.4 MG/DL Phosphorus Level 3.2 MG/DL Magnesium Level 1.5 MG/DL Total Bilirubin 0.1 MG/DL Aspartate Amino Transf 12 U/L (AST/SGOT) Alanine Aminotransferase 10 U/L (ALT/SGPT) Alkaline Phosphatase 140 U/L Total Protein 7.0 GM/DL Albumin 2.9 GM/DL Assessment and Plan Assessment and Plan NSVT - no recurrence. await 2d echo. cont bb Harry Farmer MD Oct 08, 2016 11:09
--- NOTE | 2016-10-08 14:51 | ECHRPT ---
Indication: Other cardiomyopathies CONCLUSIONS The left ventricular systolic function is normal with an estimated ejection fraction in the range of 55-60%. Wall thickness is measured at the upper limits of normal. Normal left ventricular size BP: 152 / 89 HR: 86 Rhythm: Sinus MEASUREMENTS (Male / Female) Normal Values Technical Quality:Fair 2D ECHO LV Diastolic Diameter PLAX 3.8 cm 4.2 - 5.9 / 3.9 - 5.3 cm LV Systolic Diameter PLAX 2.9 cm IVS Diastolic Thickness 1.1 cm 0.6 - 1.0 / 0.6 - 0.9 cm LVPW Diastolic Thickness 1.1 cm 0.6 - 1.0 / 0.6 - 0.9 cm LV Relative Wall Thickness 0.6 LVOT Diameter 2.0 cm M-MODE Aortic Root Diameter MM 2.4 cm LA Systolic Diameter MM 4.4 cm LA Ao Ratio MM 1.8 AV Cusp Separation MM 1.5 cm DOPPLER AV Peak Velocity 155.0 cm/s AV Peak Gradient 9.6 mmHg LVOT Peak Velocity 88.8 cm/s LVOT Peak Gradient 3.2 mmHg AV Area Cont Eq pk 1.8 cm Mitral E Point Velocity 92.8 cm/s Mitral A Point Velocity 116.0 cm/s Mitral E to A Ratio 0.8 LV E' Lateral Velocity 6.8 cm/s Mitral E to LV E' Lateral Ratio 13.6 LV E' Septal Velocity 5.7 cm/s Mitral E to LV E' Septal Ratio 16.4 TR Peak Velocity 346.0 cm/s TR Peak Gradient 47.9 mmHg PV Peak Velocity 114.0 cm/s PV Peak Gradient 5.2 mmHg FINDINGS LEFT VENTRICLE The left ventricular systolic function is normal with an estimated ejection fraction in the range of 55-60%. Wall thickness is measured at the upper limits of normal. Normal left ventricular size. There is mild tricuspid valve regurgitation. The estimated pulmonary arterial pressure is 58 mmHg. RIGHT VENTRICLE Normal right ventricular size and systolic function. LEFT ATRIUM The left atrial size is normal. RIGHT ATRIUM The right atrial size is normal. ATRIAL SEPTUM Normal atrial septal thickness without atrial level shunting by limited color doppler interrogation. AORTA The aortic root and proximal ascending aorta are normal in size on limited imaging. MITRAL VALVE Structurally normal mitral valve. No mitral valve stenosis or regurgitation. AORTIC VALVE Trileaflet aortic valve. No aortic valve stenosis or regurgitation. TRICUSPID VALVE Structurally normal tricuspid valve. There is mild tricuspid valve regurgitation. The estimated pulmonary arterial pressure is 58 mmHg. PULMONARY VALVE The pulmonary valve is not well visualized. VESSELS The inferior vena cava is normal in size. PERICARDIUM No pericardial effusion. Harry Farmer MD, FACC (Electronically Signed) Final Date:08 October 2016 14:50
--- NOTE | 2016-10-08 15:35 | HHI.FF ---
Face to Face Verification Diagnosis: (1) S/P kidney transplant Home Health Nursing Order: Wound care and dressing changes Instructions: NEED DRESSING CHANGES CLEAN WITH NS ABDOMINAL WOUND AND APPLY STERILE DRESSING DAILY I have seen patient Teagan Hackett on 10/08/16. My clinical findings support the need for the requested home health care services because: Deconditioned w/ increased weakness I certify that my clinical findings support that this patient is homebound because: Post-op weakness (WOUND ABDOMEN) Miles Alvarez MD Oct 08, 2016 15:35
[2016-10-08] MEDS ORDERED: TACR1 PO (15:36)
[2016-10-08] MEDS ORDERED: AMLO5 PO (15:36)
[2016-10-08] MEDS ORDERED: ASPI-99 PO (15:36)
[2016-10-08] MEDS ORDERED: VALG450 PO (15:36)
--- NOTE | 2016-10-08 15:40 | HHI.DS ---
Discharge Summary Admission Date Oct 05, 2016 at 12:41 Admitting Diagnosis Acute renal failure status post kidney transplant (1) Acute renal failure Diagnosis: Principal Plan: I will hydrate her and cover her with the antibiotics if necessary , the wound culture as well as light growth of Enterococcus faecalis could be a skin contaminant, I will repeat her kidney ultrasound followed this, follow labs, followed Prograf and its level Rule out rejection (2) S/P kidney transplant Diagnosis: Secondary Plan: Complications include the delayed wound healing (3) Diabetes Diagnosis: Secondary Plan: Continue to monitor (4) Hypertension Diagnosis: Secondary Plan: Follow blood glucose Brief History Patient is a 56-year-old female who received a cadaveric kidney transplant in Aug 24 2016 #postoperative course was complicated by partial wound dehiscence and fluid collection, patient has increased pain over the weekend and her appetite is low, she began with the these complaint to the clinic and found to have acute renal failure with elevation in the creatinine, a wound culture showed light growth of Enterococcus faecalis and she has been admitted for further care in the hospital. She denies any fever or chills she does have low appetite and has nausea present. CBC/BMP: 10/08/16 0453 10/08/16 0453 Significant Findings Laboratory Tests Test 10/05/16 10/06/16 10/06/16 10/06/16 17:04 03:10 16:41 21:38 Urine Glucose (UA) 1000 mg/dL (NEG) Red Blood Count 2.90 MIL/MM3 (4.00-5.30) Hemoglobin 9.2 GM/DL (11.6-15.3) Hematocrit 28.4 % (35.0-46.0) Neutrophils (%) (Auto) 72.3 % (16.0-70.0) Monocytes (%) (Auto) 10.7 % (0.0-8.0) Basophils (%) (Auto) 2.6 % (0.0-2.0) Lymphocytes # (Auto) 0.9 TH/MM3 (1.0-4.8) Monocytes % 11 % (0-8) Basophils % 5 % (0-2) Myelocytes 1 % (0-0) Acanthocytes OCC (NORMAL) Blood Urea Nitrogen 21 MG/DL (7-18) Creatinine 1.84 MG/DL (0.50-1.00) Estimat Glomerular Filtration 28 ML/MIN (>89) Rate Random Glucose 170 MG/DL (74-106) Aspartate Amino Transf 9 U/L (15-37) (AST/SGOT) Alkaline Phosphatase 159 U/L (45-117) Albumin 2.8 GM/DL (3.4-5.0) Troponin I LESS THAN 0.02 LESS THAN 0.02 NG/ML NG/ML (0.02-0.05) (0.02-0.05) Test 10/07/16 10/08/16 04:40 04:53 Red Blood Count 2.61 MIL/MM3 2.67 MIL/MM3 (4.00-5.30) (4.00-5.30) Hemoglobin 8.4 GM/DL 8.5 GM/DL (11.6-15.3) (11.6-15.3) Hematocrit 25.5 % 26.2 % (35.0-46.0) (35.0-46.0) Neutrophils (%) (Auto) 73.4 % 74.8 % (16.0-70.0) (16.0-70.0) Monocytes (%) (Auto) 9.5 % (0.0-8.0) Basophils (%) (Auto) 2.3 % (0.0-2.0) 3.2 % (0.0-2.0) Lymphocytes # (Auto) 0.9 TH/MM3 0.8 TH/MM3 (1.0-4.8) (1.0-4.8) Neutrophils % (Manual) 74 % (16-70) Basophils % 3 % (0-2) Myelocytes 1 % (0-0) Chloride Level 113 MEQ/L 108 MEQ/L (98-107) (98-107) Creatinine 1.78 MG/DL 1.46 MG/DL (0.50-1.00) (0.50-1.00) Estimat Glomerular Filtration 30 ML/MIN (>89) 37 ML/MIN (>89) Rate Random Glucose 157 MG/DL 169 MG/DL (74-106) (74-106) Calcium Level 8.3 MG/DL (8.5-10.1) Total Bilirubin 0.1 MG/DL (0.2-1.0) Aspartate Amino Transf 12 U/L (15-37) (AST/SGOT) Alkaline Phosphatase 140 U/L (45-117) Albumin 2.9 GM/DL (3.4-5.0) PE at Discharge GENERAL: Well-nourished, well-developed patient. SKIN: Warm and dry. HEAD: Normocephalic. EYES: No scleral icterus. No injection or drainage. NECK: Supple, trachea midline. No JVD or lymphadenopathy. CARDIOVASCULAR: Regular rate and rhythm without murmurs, gallops, or rubs. RESPIRATORY: Breath sounds equal bilaterally. No accessory muscle use. GASTROINTESTINAL: Abdomen soft, non-tender, nondistended. EXTREMITIES: No cyanosis, or edema. NEUROLOGICAL: Awake, alert, and oriented x 3. Non-focal. Hospital Course She was hydrated and had improved renal functions developed short asymptomatic V Tach , next day an artifact noted, Cardiology consulted she had ECHO showed TR and moderate Pulmonary artery pressure increase, follow up as out patient, Amlodipine increased to [address] Farmer help was appreciated. US transplant Kidney did not showed fluid collection, case d/w Dr. Patten. Pt Condition on Discharge: Good Discharge Disposition: Discharge Home Discharge Instructions DIET: Follow Instructions for: Diabetic Diet Additional Diet Instructions: low salt diet Activities you can perform: Weight Bearing as Miranda Activities to Avoid: Bathing, Shower, Driving Other Activity Instructions: use wet towels to clean New Medications: Amlodipine (Norvasc) 5 Mg Tab 5 MG PO BID HTN Days 30 Ref [address] (Adult Aspirin EC Low Strength) 81 Mg Tabec 81 MG PO DAILY bLOOD THIN #30 Ref 6 TAB Tacrolimus (Prograf) 1 Mg Cap 6 MG PO Q12H txp #60 Ref 5 CAP Valganciclovir (Valcyte) 450 Mg Tab 450 MG PO DAILY txp #30 Ref 5 TAB Continued Medications: Ezetimibe (Zetia) 10 Mg Tab 10 MG PO DAILY Ref 0 TAB Insulin Aspart Inj (Novolog Inj) 1,000 Unit/10 Ml Vial 20 UNITS SQ TID Blood Sugar Management Ref 0 ML Insulin Detemir Inj (Levemir Inj) 1,000 unit/ 10 ML Vial 40 UNITS SQ DIRECTED Do not mix with any other Insulin. Blood Sugar Management Ref 0 VIAL Metoprolol Tartrate (Metoprolol Tartrate) 100 Mg Tab 100 MG PO BID Ref 0 TAB Mycophenolate (Myfortic) 360 Mg Tab 720 MG PO BID@06,18 TXP Days 30 Ref 11 TAB Oxycodone-Acetaminophen (Oxycodone-Acetaminophen) 5-325 mg Tab 1 TAB PO Q6H PRN PAIN SCALE 1 TO 10 #30 TAB Pantoprazole (Protonix) 40 Mg Tab 40 MG PO DAILY Reflux #30 Ref 0 TAB Simvastatin (Simvastatin) 40 Mg Tab 40 MG PO HS Cholesterol Management Ref 0 TAB Sulfamethoxazole-Trimethoprim (Sulfamethoxazole-Trimethoprim) 800-160 Mg Tab 1 TAB PO MoWeFr@09 TXP Days 30 Ref 5 TAB ([Calcium Carbonate Chew]) 500 MG CHEW 500 MG CHEW BID@09,16 bone #60 Ref 3 TAB.CHEW Discontinued Medications: Amlodipine (Amlodipine) 5 Mg Tab 5 MG PO DAILY Blood Pressure Management Ref 0 TAB Cinacalcet (Sensipar) 30 Mg Tab 30 MG PO BID Ref 0 TAB Nystatin Liq (Nystatin Liq) 100,000 unit/ml Susp 5 ML SWISH-SWAL TID@09,13,21 TXP Days 30 BOTTLE Tacrolimus (Tacrolimus) 1 Mg Cap 6 MG PO Q12H Prevent Transplant Reject #60 Ref 0 CAP Valganciclovir (Valcyte) 450 Mg Tab 900 MG PO DAILY TXP Days 30 Ref 3 TAB Miles Alvarez MD Oct 08, 2016 15:40
[2016-10-08] MEDS ORDERED: amLODIPine BESYLATE 5 MG TAB PO SCH (21:00)
[2016-10-08] MEDS ORDERED: MAGNESIUM OXIDE 400 MG TAB PO SCH (21:00)
== END 2016-10-08 16:12 | disposition home health service (06) | DRG 683 ==
LOC: HCIN 12:41
PROVIDERS: ADMIT Internal Medicine Nephrology; ATTEND Internal Medicine Nephrology
DX: N17.9 Acute kidney failure, unspecified (principal); T81.31XA Disruption of external operation (surgical) wound, not elsewhere classified, initial encounter; I47.2 Ventricular tachycardia; Z94.0 Kidney transplant status; I13.2 Hypertensive heart and chronic kidney disease with heart failure and with stage 5 chronic kidney disease, or end stage renal disease; I07.1 Rheumatic tricuspid insufficiency; N18.9 Chronic kidney disease, unspecified; E11.22 Type 2 diabetes mellitus with diabetic chronic kidney disease; I50.9 Heart failure, unspecified; Z79.4 Long term (current) use of insulin
CPT/HCPCS: 76776; 76937; 80048; 80053; 80197; 81001; 82550; 82948; 83735; 84100; 84484; 85007; 85025; 85027; 93306; J1815; J2250; J2270; J2405; J3010; J3475; J7030; J7507; J7518

== ENCOUNTER 2016-12-31 12:38 | Observation (INO) | payer MEDICARE, BC ==
[2016-12-31] VITALS (11 sets, daily range): BP systolic 138–189; BP diastolic 68–83; PULSE 80–102; RESP 16–20; TEMP 98.5–99.3; O2SAT 97–100
[~2016-12-31] VITALS: Ht 165.1 cm; Wt 89.4 kg
[~2016-12-31 12:38] MED LIST changes: +AMLO5 PO; -AMLO5TAB2 PO; +ASPI-99 PO; -CINA30 PO; -NYST1000 SWISH-SWAL; +TACR1 PO; -TACR1CAP PO
[2016-12-31] MEDS ORDERED: SODIUM CHLORIDE 0.9% FLUSH 10 ML FLUSH IV FLUSH PRN (14:45)
[2016-12-31] MEDS ORDERED: NALOXONE HCL 0.4 MG/ML AMP IV PUSH PRN (14:45)
[2016-12-31] MEDS ORDERED: ONDANSETRON HCL 4 MG/2 ML VIAL IVP PRN (14:45)
--- NOTE | 2016-12-31 15:12 | HHI.HP ---
[facility] Service [place] [facility] Primary Care Physician Unknown Admission Diagnosis Diagnoses: Chief Complaint: Fevers and chills. Lower abdominal discomfort. Travel History International Travel<30 Days: No Contact w/Intl Traveler <30 Da: No Traveled to Known Affected Are: No History of Present Illness 56-year-old female with a history of insulin-dependent diabetes mellitus , hypertension, end-stage renal disease status post kidney transplant in August 2016, chronic anemia who was seen by Dr. Eugene De La Vega at the outpatient transplant clinic and presented with one-day history of lower abdominal pain and cramps along with fevers and chills. She denies having associated diarrhea with these symptoms. She has not had any nausea or vomiting. She reports no symptoms of dysuria frequency urgency nor any hematuria. She states that she had a recent travel on vacation in [facility] and has been eating out more often. In addition, she continues to take her immunosuppressant although may have different timings due to the 3 hour difference in Ish during the past week. She reports no complete or chest pain or shortness of breath. Review of Systems Constitutional: COMPLAINS OF: Fever, Chills, DENIES: Fatigue, Change in appetite Endocrine: DENIES: Heat/cold intolerance Eyes: DENIES: Blurred vision, Eye pain, Vision loss Ears, nose, mouth, throat: DENIES: Hearing loss, Nasal discharge, Throat pain, Ear Pain, Sinus Pain Respiratory: DENIES: Cough, Shortness of breath Cardiovascular: DENIES: Chest pain, Palpitations, Dyspnea on Exertion, Lower Extremity Edema Gastrointestinal: COMPLAINS OF: Abdominal pain, DENIES: Black stools, Bloody stools, Constipation, Diarrhea, Nausea, Vomiting, Difficulty Swallowing, Anorexia Genitourinary: DENIES: Dysuria Musculoskeletal: DENIES: Joint pain, Muscle aches, Stiffness Integumentary: DENIES: Rash Hematologic/lymphatic: DENIES: Bruising, Lymphadenopathy Immunologic/allergic: DENIES: Eczema Neurologic: DENIES: Headache, Localized weakness, Paresthesias Psychiatric: DENIES: Anxiety, Depression, Suicidal Ideation Past Family Social History Past Medical History End-stage renal disease with kidney transplant in August 2016 Chronic anemia Diabetes mellitus, insulin-dependent hypertension congestive heart failure Past Surgical History Kidney transplant AV fistula PD catheter Reported Medications Amlodipine 5 mg by mouth twice a day Aspirin 81 mg by mouth daily prednisone 5 mg by mouth daily regular insulin 30 units subcutaneous before every meal 3 times a day Long-acting insulin 50 units subcutaneous daily at bedtime Add metoprolol 100 minutes by mouth twice a day Myfortic 720 mg by mouth twice a day Percocet 5/325 one by mouth every 6 hours when necessary for pain Prilosec 20 mg by mouth daily Simvastatin 40 mg by mouth daily Bactrim 1 tablet Wednesday Prograf 7 mg by mouth twice a day Tums as needed Allergies: Uncoded Allergies: Tape (Allergy, Unknown, 08/24/16) Family History Mother hypertension, diabetes End-stage renal disease Physical Exam Vital Signs Vital Signs Date Time Temp Pulse Resp B/P (MAP) Pulse Ox O2 Delivery O2 Flow Rate FiO2 12/31/16 13:30 98.9 88 20 189/82 (117) 100 Physical Exam GENERAL: This is a well-nourished, well-developed patient, in no apparent distress. SKIN: No rashes, ecchymoses or lesions. Cool and dry. HEAD: Atraumatic. Normocephalic. No temporal or scalp tenderness. EYES: Pupils equal round and reactive. Extraocular motions intact. No scleral icterus. No injection or drainage. ENT: Nose without bleeding, purulent drainage or septal hematoma. Throat without erythema, tonsillar hypertrophy or exudate. Uvula midline. Airway patent. NECK: Trachea midline. No JVD or lymphadenopathy. Supple, nontender, no meningeal signs. CARDIOVASCULAR: Regular rate and rhythm RESPIRATORY: Clear to auscultation. Breath sounds equal bilaterally. No wheezes , rales, or rhonchi. GASTROINTESTINAL: Abdomen soft, suprapubic and left lower quadrant tenderness with no rebound guarding normoactive bowel sounds, nondistended. No hepato- splenomegaly, or palpable masses. No guarding. Right lower quadrant surgical scar MUSCULOSKELETAL: Extremities without clubbing, cyanosis, or edema. No joint tenderness, effusion, or edema noted. No calf tenderness. Negative Homans sign bilaterally. NEUROLOGICAL: Awake and alert to person place time and situation. Cranial nerves II through XII intact. Motor and sensory grossly within normal limits. Five out of 5 muscle strength in all muscle groups. Normal speech. Caprini VTE Risk Assessment Caprini VTE Risk Assessment: Mod/High Risk (score >= 2) Caprini Risk Assessment Model Point Value = 1 Point Value = 2 Point Value = 3 Point Value = 5 Age 41-60 Minor surgery BMI > 25 kg/m2 Swollen legs Varicose veins or History of unexplained or recurrent spontaneous Oral contraceptives or hormone replacement Sepsis (< 1 month) Serious lung disease, including pneumonia (< 1 month) Abnormal pulmonary function Acute myocardial infarction Congestive heart failure (< 1 month) History of inflammatory bowel disease Medical patient at bed rest Age 61-74 Arthroscopic surgery Major open surgery (> 45 min) Laparoscopic surgery (> 45 min) Malignancy Confined to bed (> 72 hours) Immobilizing plaster cast Central venous access Age >= 75 History of VTE Family history of VTE Factor V Leiden Prothrombin [id number] Lupus anticoagulant Anticardiolipin antibodies Elevated serum homocysteine Heparin-induced thrombocytopenia Other congenital or acquired thrombophilia Stroke (< 1 month) Elective arthroplasty Hip, pelvis, or leg fracture Acute spinal cord injury (< 1 month) Prophylaxis Regimen Total Risk Factor Score Risk Level Prophylaxis Regimen 0-1 Low Early ambulation 2 Moderate Order ONE of the following: *Sequential Compression Device (SCD) *Heparin 5000 units SQ BID 3-4 Higher Order ONE of the following medications: *Heparin 5000 units SQ TID *Enoxaparin/Lovenox 40 mg SQ daily (WT < 150 kg, CrCl > 30 mL/min) *Enoxaparin/Lovenox 30 mg SQ daily (WT < 150 kg, CrCl > 10-29 mL/min) *Enoxaparin/Lovenox 30 mg SQ BID (WT < 150 kg, CrCl > 30 mL/min) AND/OR *Sequential Compression Device (SCD) 5 or more Highest Order ONE of the following medications: *Heparin 5000 units SQ TID (Preferred with Epidurals) *Enoxaparin/Lovenox 40 mg SQ daily (WT < 150 kg, CrCl > 30 mL/min) *Enoxaparin/Lovenox 30 mg SQ daily (WT < 150 kg, CrCl > 10-29 mL/min) *Enoxaparin/Lovenox 30 mg SQ BID (WT < 150 kg, CrCl > 30 mL/min) AND *Sequential Compression Device (SCD) Assessment and Plan Assessment and Plan 1. Lower abdominal pain in a patient with a history of being on immunosuppressants due to kidney transplant this time placed in observation for further evaluation workup after rule out underlying infection. Urinalysis has been negative. Renal ultrasound has been negative for any abscess or fluid collection. Discussed with Dr. De La Vega, transplant surgeon who recommended CT abdomen pelvis. He did advise if CT abdomen pelvis is negative to consider discharge to home in the morning if patient continues tolerate by mouth with continue outpatient workup and follow-up. 2. Diabetes mellitus, insulin-dependent - continue with home basal insulin, sliding scale insulin for now until oral intake is consistent to restart scheduled before meals Regular Insulin. 3. History of end-stage renal disease status post kidney transplant back in August 2016resume immunosuppressants, tacrolimus levels slightly low, will consult Dr. Alvarez nephrology for evaluation to determine if an immunosuppressant dosing needs to be adjusted. 4. Hypertension, essential resume home antihypertensives, 5. DVT prophylaxis- heparin Traci Gregg MD Dec 31, 2016 15:12
[2016-12-31] MEDS ORDERED: DEXTROSE 50% IN WATER 50 ML VIAL(D50) IV PUSH PRN (15:15)
[2016-12-31] MEDS ORDERED: GLUCAGON 1 MG/ML VIAL OTHER PRN (15:15)
--- NOTE | 2016-12-31 15:41 | RADRPT ---
EXAM DATE/TIME: 12/31/2016 14:08 [facility] COMPARISON: US KIDNEY / TRANSPLANT, October 05, 2016, 15:22. INDICATIONS : Hydronephrosis. MEDICAL HISTORY : Hypertension. Hernia, hiatal. Sleep apnea. Renal disease. Diabetes. Anxiety. SURGICAL HISTORY : Right kidney transplant. Orthopedic surgery. ENCOUNTER: Subsequent ACUITY: 4-6 months PAIN SCORE: 0/10 LOCATION: Right lower quadrant MEASUREMENTS: TRANSPLANT KIDNEY: 12.4 x 6.6 x 6.1 cm LOCATION: Right lower quadrant. PREVIOUS ULTRASOUND: Oct 05 2016 PREVIOUS ARCUATE ARTERIES INDEX: Upper - 0.7 Mid - 0.8 Lower - 0.8 ARCUATE ARTERIES RESISTIVE INDEX: Upper - 0.7 Mid - 0.7 Lower - 0.7 RA/EIA Ratio: 1.0 MAIN RENAL ARTERY VELOCITY: (cm/sec): 150 MAIN RENAL VEIN: Patent EXTERNAL ILIAC ARTERY VELOCITY (cm/sec): 155 * NORMAL DOPPLER FINDINGS Arcuate arteries - RI = 0.6 - 0.8 Renal artery = under 200 cm/sec Renal vein = May be monophasic with continuous flow or demonstrate some pulsatility with cardiac cycl e FINDINGS: TRANSPLANT KIDNEY: Normal cortical thickness and echotexture. Mild prominence of renal pelvis. No boris hydronephrosis, stone, or mass. No peritransplant fluid collection. URINARY BLADDER: Within normal limits given the degree of distension. CONCLUSION: Mild prominence of renal pelvis, similar to the prior study of 10/05/2016. Otherwise wi thin normal limits. Jerardo Hillman MD on December 31, 2016 at 15:37 Board Certified Radiologist. This report was verified electronically.
[2016-12-31] MEDS ORDERED: AMLO5TAB2 PO (15:53)
[2016-12-31] MEDS ORDERED: PRED5TAB PO (15:53)
[2016-12-31] MEDS ORDERED: ZOFR4TAB PO (15:53)
[2016-12-31] MEDS ORDERED: MULT1TAB46 PO (15:53)
[2016-12-31] MEDS ORDERED: LOPE-1 PO (15:53)
[2016-12-31] MEDS ORDERED: K-PHTAB PO (15:53)
[2016-12-31] MEDS ORDERED: TUMS500C CHEW (15:53)
[2016-12-31] MEDS ORDERED: CINA30 PO (15:53)
[2016-12-31] MEDS ORDERED: MYCO360 PO (15:53)
[2016-12-31] MEDS ORDERED: ATOR40TA16 PO (15:53)
[2016-12-31] MEDS ORDERED: TACR1 PO (15:53)
[2016-12-31] MEDS ORDERED: PRIL20TA2 PO (15:53)
[2016-12-31] MEDS ORDERED: BACT400T PO (15:53)
[2016-12-31] MEDS ORDERED: ASPI-110 PO (15:53)
[2016-12-31] MEDS ORDERED: GEMF600T PO (15:53)
[2016-12-31] MEDS ORDERED: MAGN400T PO (15:53)
[2016-12-31] MEDS ORDERED: COLA100C PO (15:53)
[2016-12-31] MEDS ORDERED: INSU0.2I (15:53)
[2016-12-31] MEDS ORDERED: PERC5TAB12 PO (15:53)
[2016-12-31] MEDS ORDERED: METO100T PO (15:53)
[2016-12-31] MEDS ORDERED: OXYBXL5 PO (15:53)
[2016-12-31] MEDS ORDERED: oxyCODONE/ACETAMINOPHEN 5 MG/325 MG TAB PO PRN (16:30)
[2016-12-31] MEDS ORDERED: ONDANSETRON ODT 4 MG TAB PO PRN (16:30)
[2016-12-31] MEDS: INSULIN NovoLIN REGULAR SUPPLEMENTAL SCALE SQ SCH ×2 (17:00→21:00)
[2016-12-31] MEDS ORDERED: DIATRIZOATE MEGLUM/DIATRIZOATE SOD 9 ML CUP PO ONE (18:00)
[2016-12-31] MEDS: HEPARIN SODIUM - SQ 10,000 UNITS/ML VIAL SQ SCH (18:04)
--- NOTE | 2016-12-31 19:46 | PD.CONS ---
HPI Service Nephrology Consult Requested By Dr. Gregg Reason for Consult Kidney transplant recipient Primary Care Physician Unknown History of Present Illness Patient is a 56-year-old obese female with history of kidney transplant in August 2016 her postoperative course was complicated by wound dehiscence since this healed to over time with secondary intention she has been doing well, she has a recent trip to [place] and came back with the lower abdominal cramps and was admitted under observation. Kidney ultrasound showed mild prominence which is not different from previous ultrasound, her UA did not show UTI creatinine is at baseline around 1.5 Review of Systems Constitutional: COMPLAINS OF: Fatigue, Fever Gastrointestinal: COMPLAINS OF: Abdominal pain, Nausea Psychiatric: COMPLAINS OF: Anxiety Past Family Social History Allergies: Uncoded Allergies: Tape (Allergy, Unknown, 08/24/16) Past Medical History Diabetes Hypertension ESRD Obesity Kidney transplant Secondary hyperparathyroidism Anemia Past Surgical History AV fistula Kidney transplant in August 2016 PD catheter 2 in 2013 Reported Medications Reported Meds & Active Scripts Active Oxygen (O2) Device 2 Liter NORMA.CANULA CONTINUOUS PRN Oxygen Concentrator Portable Gaseous 2 L/min via Nasal Canula Continuous For 99 months Reported Sensipar (Cinacalcet) 30 Mg Tab 30 Mg PO DAILY Soliqua 100/33 100-33 Unt-Mcg/ml (Insulin Glargine-Lixisenatide) 100 Unit-33 Mcg /Ml (3 Ml) Inj Zofran (Ondansetron HCl) 4 Mg Tab 4 Mg PO Q12HR PRN Percocet (Oxycodone-Acetaminophen) 5-325 mg Tab 1 Tab PO Q6H PRN Imodium A-D (Loperamide HCl) 2 Mg Capsule 2 Mg PO DIRECTED PRN One capsule after each loose stool. Not to exceed 8 tablets per day. Colace (Docusate Sodium) 100 Mg Capsule 100 Mg PO BID Ditropan XL 24 HR (Oxybutynin Chloride) 5 Mg Tab 5 Mg PO DAILY Gemfibrozil 600 Mg Tab 600 Mg PO BID 1200, 0000 Take 30 minutes prior to breakfast and dinner. Atorvastatin (Atorvastatin Calcium) 40 Mg Tab 40 Mg PO HS Aspirin 81 (Aspirin) 81 Mg Tabdr 81 Mg PO DAILY Metoprolol Tartrate 100 Mg Tab 100 Mg PO BID 1200, 0000 Amlodipine (Amlodipine Besylate) 5 Mg Tab 5 Mg PO BID 1200, 0000 Tums (Calcium Carbonate (Antacid)) 500 Mg Chew 500 Mg CHEW BID K-Phos (Potassium Phosphate Monobasic) 500 Mg Tab 500 Mg PO BID Magnesium Oxide 400 Mg Tab 2 Tab PO BID Multi Vitamin Daily (Multiple Vitamin) 1 Tab Tab 1 Tab PO DAILY Prilosec (Omeprazole Magnesium) 20 Mg Tab 2 Cap PO BID Bactrim (Sulfamethoxazole-Trimethoprim) 400-80 Mg Tab 1 Tab PO M,W,F Prednisone 5 Mg Tab 5 Mg PO DAILY Myfortic (Mycophenolate Sodium) 360 Mg Tab 360 Mg PO BID Prograf (Tacrolimus) 1 Mg Cap 7 Mg PO BID Metoprolol Tartrate 100 Mg Tab 100 Mg PO BID Active Ordered Medications Current Medications Medications (Trade) Dose Ordered Sig/Lynsey Route Start Time Stop Time Status Last Admin (NS Flush) 2 ml UNSCH PRN IV FLUSH 12/31/16 14:45 (NS Flush) 2 ml BID IV FLUSH 12/31/16 21:00 (Zofran Inj) 4 mg Q6H PRN IVP 12/31/16 14:45 (Heparin Inj) 5,000 units Q12H SQ 12/31/16 15:00 12/31/16 18:04 (Narcan Inj) 0.4 mg UNSCH PRN IV PUSH 12/31/16 14:45 (D50w (Vial) Inj) 50 ml UNSCH PRN IV PUSH 12/31/16 15:15 (Glucagon Inj) 1 mg UNSCH PRN OTHER 12/31/16 15:15 (NovoLIN R SUPPLEMENTAL SCALE) 1 ACHS SLIDING SCALE SQ 12/31/16 17:00 (Norvasc) 5 mg BID PO 12/31/16 21:00 (Ecotrin Ec) 81 mg DAILY PO 01/01/17 09:00 (Lipitor) 40 mg HS PO 12/31/16 21:00 (Tums Chew) 500 mg BID CHEW 12/31/16 21:00 (Sensipar) 30 mg DAILY PO 01/01/17 09:00 (Colace) 100 mg BID PO 12/31/16 21:00 (Lopid) 600 mg BID PO 12/31/16 21:00 (Mag-Ox) 800 mg BID PO 12/31/16 21:00 (Lopressor) 100 mg BID PO 12/31/16 21:00 (Myfortic Dr) 360 mg BID PO 12/31/16 21:00 (Percocet 5-325 Mg) 1 tab Q6H PRN PO 12/31/16 16:30 (K-Phos) 500 mg DAILY PO 01/01/17 09:00 (Deltasone) 5 mg DAILY PO 01/01/17 09:00 (Prograf) 7 mg BID PO 12/31/16 21:00 (Theragran) 1 tab DAILY PO 01/01/17 09:00 (Protonix) 40 mg BID PO 12/31/16 21:00 (Zofran Odt) 4 mg Q12HR PRN PO 12/31/16 16:30 (Detrol La) 2 mg DAILY PO 01/01/17 09:00 Family History Noncontributory Social History Denies smoking or alcohol use Physical Exam Vital Signs Vital Signs Date Time Temp Pulse Resp B/P (MAP) Pulse Ox O2 Delivery O2 Flow Rate FiO2 12/31/16 13:30 98.9 88 20 189/82 (117) 100 Physical Exam GENERAL: Well-nourished, well-developed patient. SKIN: Warm and dry. HEAD: Normocephalic. EYES: No scleral icterus. No injection or drainage. NECK: Supple, trachea midline. No JVD or lymphadenopathy. CARDIOVASCULAR: Regular rate and rhythm without murmurs, gallops, or rubs. RESPIRATORY: Breath sounds equal bilaterally. No accessory muscle use. GASTROINTESTINAL: Abdomen soft, non-tender, nondistended. EXTREMITIES: No cyanosis, or edema. NEUROLOGICAL: Awake, alert, and oriented x 3. Non-focal. Imaging Last Impressions Renal Ultrasound 12/31/16 0000 Signed Impressions: Service Date/Time: December 14:08 - CONCLUSION: Mild prominence of renal pelvis, similar to the prior study of 10/05/2016. Otherwise within normal limits. Jerardo Hillman MD Assessment and Plan Problem List: (1) S/P kidney transplant ICD Codes: Z94.0 - Kidney transplant status Status: Acute Plan: Kidney functional baseline ultrasound did not reveal the cause of abdominal pain Monitor while in the hospital Continue with Prograf 7 mg twice a day, prednisone 5 mg daily Myfortic twice a day (2) Abdominal pain ICD Codes: R10.9 - Unspecified abdominal pain Plan: Continue to monitor (3) Hypertension ICD Codes: I10 - Essential (primary) hypertension Status: Acute Plan: Add hydralazine 25 mg 3 times a day (4) Diabetes ICD Codes: E11.9 - Type 2 diabetes mellitus without complications Status: Acute Plan: Monitor Problem Qualifiers (1) Diabetes: Miles Alavrez MD Dec 31, 2016 19:46
[2016-12-31] MEDS: SODIUM CHLORIDE 0.9% FLUSH 10 ML FLUSH IV FLUSH SCH (21:00)
[2016-12-31] MEDS: DOCUSATE SODIUM 100 MG CAP PO SCH (21:00)
[2016-12-31] MEDS ORDERED: ATORVASTATIN 40 MG TAB PO SCH (21:00)
[2016-12-31] MEDS: amLODIPine BESYLATE 5 MG TAB PO SCH (21:41)
[2016-12-31] MEDS: GEMFIBROZIL 600 MG TAB PO SCH (21:42)
[2016-12-31] MEDS: CALCIUM CARBONATE 500 MG CHEWABLE TAB CHEW SCH (21:42)
[2016-12-31] MEDS: TACROLIMUS 1 MG CAP PO SCH (21:43)
[2016-12-31] MEDS: MAGNESIUM OXIDE 400 MG TAB PO SCH (21:43)
[2016-12-31] MEDS: PANTOPRAZOLE SOD 40 MG DELAYED RELEASE TAB PO SCH (21:43)
[2016-12-31] MEDS: MYCOPHENOLATE SODIUM 360 MG DELAYED RELEASE TAB PO SCH (21:43)
[2016-12-31] MEDS: METOPROLOL TARTRATE 100 MG TAB PO SCH (21:43)
[2016-12-31] MEDS: hydrALAZINE HCL 25 MG TAB PO SCH (21:44)
--- NOTE | 2016-12-31 22:19 | RADRPT ---
EXAM DATE/TIME: 12/31/2016 21:27 [facility] COMPARISON: US KIDNEY / TRANSPLANT, December 31, 2016, 14:08. INDICATIONS : Abdominal pain status post kidney transplant. ORAL CONTRAST: Prescribed oral contrast ingested. RADIATION DOSE: 15.39 CTDIvol (mGy) MEDICAL HISTORY : Hypertension. Diabetes mellitus type 2. SURGICAL HISTORY : Renal transplant. ENCOUNTER: Initial ACUITY: 1 day PAIN SCALE: 8/10 LOCATION: Left abdomen TECHNIQUE: Volumetric scanning of the abdomen and pelvis was performed. Using automated exposure control and ad justment of the mA and/or kV according to patient size, radiation dose was kept as low as reasonably achievable to obtain optimal diagnostic quality images. DICOM format image data is available electro nically for review and comparison. FINDINGS: LOWER LUNGS: The visualized lower lungs are clear. LIVER: Homogeneous density without lesion. There is no dilation of the biliary tree. No calcified gallston es. SPLEEN: Normal size without lesion. PANCREAS: Within normal limits. KIDNEYS: Atrophic [place] kidneys. There is a transplant in the right iliac fossa. There is some patchy calcifi cation in the vascular anastomosis area. No hydronephrosis seen. No perinephric or other fluid collec tions are demonstrated. ADRENAL GLANDS: Within normal limits. VASCULAR: There is no aortic aneurysm. BOWEL/MESENTERY: The stomach, small bowel, and colon demonstrate no acute abnormality. There is no free intraperitone al air or fluid. ABDOMINAL WALL: Within normal limits. RETROPERITONEUM: There is no lymphadenopathy. BLADDER: No wall thickening or mass. REPRODUCTIVE: Multiple small calcified uterine fibroids are noted. INGUINAL: There is no lymphadenopathy or hernia. MUSCULOSKELETAL: Within normal limits for patient age. CONCLUSION: No hydronephrosis/hydroureter, fluid collection or other acute abnormality of the renal transplant in the right iliac fossa. Atrophic [place] kidneys and uterine fibroids. Otherwise normal noncontrast CT appearance of the rest of the abdomen and pelvis. Andrés Chandler MD on December 31, 2016 at 22:15 Board Certified Radiologist. This report was verified electronically.
[2017-01-01] VITALS (8 sets, daily range): BP systolic 121–149; BP diastolic 58–66; PULSE 75–85; RESP 16; TEMP 98.5–98.6; O2SAT 97–100
[2017-01-01] MEDS: HEPARIN SODIUM - SQ 10,000 UNITS/ML VIAL SQ SCH (03:03)
[2017-01-01] MEDS: hydrALAZINE HCL 25 MG TAB PO SCH (06:09)
[2017-01-01] MEDS: INSULIN NovoLIN REGULAR SUPPLEMENTAL SCALE SQ SCH (08:00)
[2017-01-01 08:05] LABS: BICARBONATE 23.8 MEQ/L (21.0-32.0); POTASSIUM 4.2 MEQ/L (3.5-5.1)
[2017-01-01] MEDS: PANTOPRAZOLE SOD 40 MG DELAYED RELEASE TAB PO SCH (08:43)
[2017-01-01] MEDS: amLODIPine BESYLATE 5 MG TAB PO SCH (08:44)
[2017-01-01] MEDS: GEMFIBROZIL 600 MG TAB PO SCH (08:44)
[2017-01-01] MEDS: MYCOPHENOLATE SODIUM 360 MG DELAYED RELEASE TAB PO SCH (08:44)
[2017-01-01] MEDS: METOPROLOL TARTRATE 100 MG TAB PO SCH (08:45)
[2017-01-01] MEDS: SODIUM CHLORIDE 0.9% FLUSH 10 ML FLUSH IV FLUSH SCH (08:46)
[2017-01-01] MEDS: CALCIUM CARBONATE 500 MG CHEWABLE TAB CHEW SCH (08:46)
[2017-01-01] MEDS: MAGNESIUM OXIDE 400 MG TAB PO SCH (08:46)
[2017-01-01] MEDS: TACROLIMUS 1 MG CAP PO SCH (08:46)
[2017-01-01] MEDS: DOCUSATE SODIUM 100 MG CAP PO SCH (08:47)
--- NOTE | 2017-01-01 08:51 | HHI.PR ---
Subjective Remarks Patient states that she had a good night. No fevers or chills. States that abdominal pain improved and gone. She has no active abdominal pain this time. Objective Vitals Vital Signs Date Time Temp Pulse Resp B/P (MAP) Pulse Ox O2 Delivery O2 Flow Rate FiO2 01/01/17 06:00 75 01/01/17 05:00 78 01/01/17 04:00 80 01/01/17 03:00 98.6 85 16 149/66 (93) 97 01/01/17 03:00 85 01/01/17 02:00 85 01/01/17 01:00 83 01/01/17 00:00 82 12/31/16 23:00 99.3 98 16 138/68 (91) 97 12/31/16 23:00 98 12/31/16 22:00 102 12/31/16 21:00 86 12/31/16 20:00 88 12/31/16 20:00 98.5 92 16 165/83 (110) 100 12/31/16 19:00 90 12/31/16 18:00 82 12/31/16 17:00 88 12/31/16 16:00 90 12/31/16 15:00 80 12/31/16 14:00 82 12/31/16 13:30 98.9 88 20 189/82 (117) 100 12/31/16 13:30 80 I/O 12/31/16 12/31/16 12/31/16 01/01/17 01/01/17 01/01/17 07:00 15:00 23:00 07:00 15:00 23:00 Intake Total 1436 ml Output Total 400 ml Balance 1036 ml Intake Oral 1436 ml Output Urine Total 400 ml # Voids 2 # Bowel Movements 3 Result Diagram: 01/01/17 0633 Other Results Item Value Date Time Bedside Blood Glucose 174 mg/dl 12/31/16 2100 Imaging Last Impressions Renal Ultrasound 12/31/16 0000 Signed Impressions: Service Date/Time: December 14:08 - CONCLUSION: Mild prominence of renal pelvis, similar to the prior study of 10/05/2016. Otherwise within normal limits. Jerardo Hillman MD Abdomen/Pelvis CT 12/31/16 0000 Signed Impressions: Service Date/Time: December 21:27 - CONCLUSION: No hydronephrosis/hydroureter, fluid collection or other acute abnormality of the renal transplant in the right iliac fossa. Atrophic [place] kidneys and uterine fibroids. Otherwise normal noncontrast CT appearance of the rest of the abdomen and pelvis. Andrés Chandler MD Objective Remarks GENERAL: This is a well-nourished, well-developed patient, in no apparent distress. CARDIOVASCULAR: Regular rate and rhythm RESPIRATORY: Clear to auscultation. Breath sounds equal bilaterally. No wheezes , rales, or rhonchi. GASTROINTESTINAL: Abdomen soft, non-tender, nondistended. Normal active bowel sounds MUSCULOSKELETAL: Extremities without clubbing, cyanosis, or edema. NEURO: Alert & Oriented x4 to person, place, time, situation. Moves all ext x4 A/P Assessment and Plan 1. Lower abdominal pain in a patient with a history of being on immunosuppressants due to kidney transplant - Urinalysis has been negative. No fevers overnight. Renal ultrasound has been negative for any abscess or fluid collection. Discussed with Dr. De La Vega, transplant surgeon who recommended CT abdomen pelvis which showed no acute findings.. Hr discharge to home today in follow-up with primary care physician which she has appointment with next Wednesday and . 2. Diabetes mellitus, insulin-dependent - overall fair control. Continue with home insulin regimen. 3. History of end-stage renal disease status post kidney transplant back in August 2016 resume immunosuppressants, tacrolimus levels to be adjusted by Dr. Alvarez nephrology and primary care physician 4. Hypertension, essential resume home antihypertensives, overall adequately controlled. 5. DVT prophylaxis- heparin Discharge Planning Discharge patient to home Condition on discharge: Improved Diabetic Diet as tolerated Ad Luzma activity No new Rx written: Follow-up with primary care physician Follow-up with Traci Rios MD Jan 01, 2017 08:51
[2017-01-01] MEDS ORDERED: CINACALCET HYDROCHLORIDE 30 MG TAB PO SCH (09:00)
[2017-01-01] MEDS ORDERED: POTASSIUM PHOSPHATE MONOBASIC 500 MG TAB PO SCH (09:00)
[2017-01-01] MEDS ORDERED: MULTIVITAMIN TAB PO SCH (09:00)
[2017-01-01] MEDS ORDERED: TOLTERODINE TARTRATE 2 MG CAP LA PO SCH (09:00)
[2017-01-01] MEDS ORDERED: predniSONE 5 MG TAB PO SCH (09:00)
[2017-01-01] MEDS ORDERED: ASPIRIN EC 81 MG TABEC PO SCH (09:00)
[2017-01-01] MEDS ORDERED: INFLUENZA VIRUS VACCINE (QUADRIVALENT) 0.5 ML SYR IM ONE (10:00)
== END 2017-01-01 09:11 | disposition home or self-care (01) ==
LOC: HCIN 12:40
PROVIDERS: ADMIT Family Medicine; ATTEND Family Medicine
DX: R10.30 Lower abdominal pain, unspecified (principal); I13.2 Hypertensive heart and chronic kidney disease with heart failure and with stage 5 chronic kidney disease, or end stage renal disease; N18.6 End stage renal disease; I50.9 Heart failure, unspecified; D63.1 Anemia in chronic kidney disease; E11.22 Type 2 diabetes mellitus with diabetic chronic kidney disease; N25.81 Secondary hyperparathyroidism of renal origin; Z79.4 Long term (current) use of insulin; Z94.0 Kidney transplant status
CPT/HCPCS: 36415; 74176; 76776; 76937; 80048; 80053; 80197; 81001; 82948; 83735; 84100; 85025; 87799; 96372; G0378; G0463; J1644; J7507; J7512; J7518; Q9963; 99211

== ENCOUNTER 2017-06-07 02:29 | Inpatient (IN) | payer MEDICARE, BC ==
[~2017-06-07] VITALS: Ht 165.1 cm; Wt 112.1 kg
[~2017-06-07 02:29] MED LIST changes: -AMLO5 PO; +AMLO5TAB2 PO; -ASPI-99 PO; +ASPI1TAB57 PO; +ATOR40TA16 PO; +BACT400T PO; +CINA30 PO; +COLA100C5 PO; -Calcium Carbonate Chew CHEW; +GEMF600T PO; +INSU0.2I; +K-PHTAB PO; -LEVEMIR SQ; +LOPE-1 PO; +MAGN400T PO; +MULT1TAB46 PO; -NOVOLOGP2 SQ; +OXYBXL5 PO; -OXYC1TAB63 PO; +PERC5TAB12 PO; +PRED5TAB PO; +PRIL20TA2 PO; -PROT40TA PO; -SIMV40TA PO; -SULF1TAB23 PO; +TUMS500C CHEW; -VALG450 PO; -ZETI10TA5 PO; +ZOFR4TAB PO; -[UNRECOGNIZED DRUG - OTHER] NAS.CANULA
[2017-06-08] VITALS (9 sets, daily range): BP systolic 106–161; BP diastolic 53–73; PULSE 71–84; RESP 16–20; TEMP 97.4–98.4; O2SAT 93–100
[2017-06-08] MEDS ORDERED: NALOXONE HCL 0.4 MG/ML AMP IV PUSH PRN (01:15)
[2017-06-08] MEDS ORDERED: ACETAMINOPHEN 325 MG TAB PO PRN (01:15)
[2017-06-08] MEDS ORDERED: SODIUM CHLORIDE 0.9% FLUSH 10 ML FLUSH IV FLUSH PRN (01:15)
[2017-06-08] MEDS ORDERED: RESP: ALBUTEROL 2.5 MG/IPRATROPIUM 0.5 MG NEB (PRN) NEB (01:30)
[2017-06-08] MEDS ORDERED: GLUCAGON 1 MG/ML VIAL OTHER PRN (01:30)
[2017-06-08] MEDS ORDERED: DEXTROSE 50% IN WATER 50 ML VIAL(D50) IV PUSH PRN (01:30)
[2017-06-08] MEDS ORDERED: CEFE2INJ2 IV (02:17)
[2017-06-08] MEDS ORDERED: HUMALOG SQ (02:17)
[2017-06-08] MEDS ORDERED: MAPA325T PO (02:17)
[2017-06-08] MEDS ORDERED: VANC1000P IV (02:17)
[2017-06-08] MEDS ORDERED: METR5INJ IV (02:17)
[2017-06-08] MEDS ORDERED: CALC500C16 CHEW (02:17)
[2017-06-08] MEDS ORDERED: LANTUS2P SQ (02:17)
[2017-06-08] MEDS ORDERED: LISI40TA PO (02:17)
[2017-06-08] MEDS ORDERED: HYDR-4107 (02:17)
[2017-06-08] MEDS ORDERED: CALC600T4 PO (02:17)
[2017-06-08] MEDS ORDERED: [UNRECOGNIZED DRUG - OTHER] (02:17)
--- NOTE | 2017-06-08 02:50 | HHI.HP ---
[facility]Staff Admission Diagnosis Right multilobular pneumonia . Diagnoses: (1) Pneumonia (2) S/P kidney transplant Chief Complaint: Shortness of breath, fever, diarrhea Travel History International Travel<30 Days: No Contact w/Intl Traveler <30 Da: No History of Present Illness Mrs. Hackett is a 57-year-old female status post kidney transplant by Dr. Cuenca in August 2016, diabetes mellitus, hypertension, pancreatitis, dyslipidemia, and congestive heart failure who presented to [facility] in [place] for evaluation of fever, shortness of breath, and diarrhea with abdominal pain. She was concerned that her body was rejecting the kidney prompting her emergency room visit. She was found to have right multilobular pneumonia on imaging and was admitted. She was treated with Zosyn and vancomycin initially and changed to cefepime, vancomycin, and Flagyl IV due to concerns regarding nephrotoxicity of combination treatment with Zosyn and vancomycin. She was transferred to [facility] at the request of kidney transplant physician Dr. Haynes for further evaluation and treatment of her pneumonia. The patient is seen in her hospital room. She states that she's had some shortness of breath that has been chronic over the past year that seemed to worsen in the past few weeks. She states when she developed fever on , she became concerned and called her kidney transplant physician's office staff who recommended she go to a local emergency room for evaluation. She reports she was also having some diarrhea and abdominal pain which has since resolved. Her last episode of diarrhea occurred 06/06/2017. She states she was being evaluated for tuberculosis at the other hospital but that nobody was reading the test over the weekend and she was unsure what the result was. Currently, she denies chills, fever, chest pain, cough, nausea, vomiting, diarrhea, and abdominal pain. Review of Systems Except as stated in HPI: all other systems reviewed are Neg Past Family Social History Past Medical History status post kidney transplant by Dr. Cuenca in August 2016, type 2 diabetes mellitus, hypertension, pancreatitis, dyslipidemia, BC on CPAP at home and congestive heart failure . Past Surgical History Kidney transplant August 2016 AV fistula PD catheter placement x 2 in 2013 1993 . Reported Medications Reported Meds & Active Scripts Active Oxygen (O2) Device 2 Liter NORMA.CANULA CONTINUOUS PRN Oxygen Concentrator Portable Gaseous 2 L/min via Nasal Canula Continuous For 99 months Reported Calcium Carbonate (Antacid) 500 Mg Chew 500 Mg CHEW DAILY PRN Calcium Carbonate 1,500 Mg Tab 500 Mg PO BID 1,500 mg calcium carbonate (600 mg elemental calcium) Hydrocodone-Acetaminophen 5-300 Mg Tab 1 Tab Q6HR PRN Mapap (Acetaminophen) 325 Mg Tab 650 Mg PO Q4-6H PRN Vancomycin Inj (Vancomycin HCl) 1 Gram Inj 1.25 Gm IV DAILY Metro IV 500 mg/100 ml (Metronidazole/Sodium Chloride) 500 Mg/100 Ml Piggyback 500 Mg IV Q8HR [metroni] Cefepime Inj (Cefepime HCl) 2 Gm/100 Ml Bagp 2 Gm IV Q12H Humalog Inj (Insulin Human Lispro) 1,000 Unit/10 Ml Vial 2-12 Units SQ ACHS Max dose at bedtime:( )units; sugars < 70,(0)units; sugars 150-199,(2)units; sugars 200-249,(4)units; sugars 250-299,(7)units; sugars 300-349,(10)units; sugars more than 349,(12)units. Lisinopril 40 Mg Tab 40 Mg PO DAILY Lantus Inj (Insulin Glargine) 1,000 Unit/10 Ml Vial 20 Units SQ HS Sensipar (Cinacalcet) 30 Mg Tab 30 Mg PO DAILY Soliqua 100/33 100-33 Unt-Mcg/ml (Insulin Glargine-Lixisenatide) 100 Unit-33 Mcg /Ml (3 Ml) Inj Zofran (Ondansetron HCl) 4 Mg Tab 4 Mg PO Q6HR PRN Percocet (Oxycodone-Acetaminophen) 5-325 mg Tab 1 Tab PO Q6H PRN Imodium A-D (Loperamide HCl) 2 Mg Capsule 2 Mg PO DIRECTED PRN One capsule after each loose stool. Not to exceed 8 tablets per day. Colace (Docusate Sodium) 100 Mg Capsule 100 Mg PO BID Ditropan XL 24 HR (Oxybutynin Chloride) 5 Mg Tab 5 Mg PO DAILY Gemfibrozil 600 Mg Tab 600 Mg PO BID 1200, 0000 Take 30 minutes prior to breakfast and dinner. Atorvastatin (Atorvastatin Calcium) 40 Mg Tab 40 Mg PO HS Aspirin 81 (Aspirin) 81 Mg Tabdr 81 Mg PO DAILY Metoprolol Tartrate 100 Mg Tab 100 Mg PO BID 1200, 0000 Amlodipine (Amlodipine Besylate) 5 Mg Tab 5 Mg PO BID 1200, 0000 Tums (Calcium Carbonate (Antacid)) 500 Mg Chew 500 Mg CHEW BID K-Phos (Potassium Phosphate Monobasic) 500 Mg Tab 500 Mg PO BID Magnesium Oxide 400 Mg Tab 2 Tab PO BID Multi Vitamin Daily (Multiple Vitamin) 1 Tab Tab 1 Tab PO DAILY Prilosec (Omeprazole Magnesium) 20 Mg Tab 2 Cap PO BID Bactrim (Sulfamethoxazole-Trimethoprim) 400-80 Mg Tab 1 Tab PO M,W,F Prednisone 5 Mg Tab 5 Mg PO Q48HR Myfortic (Mycophenolate Sodium) 360 Mg Tab 360 Mg PO BID Prograf (Tacrolimus) 1 Mg Cap 7 Mg PO Q12HR Metoprolol Tartrate 100 Mg Tab 50 Mg PO BID . Allergies: Uncoded Allergies: Tape (Allergy, Unknown, 08/24/16) Family History Mother with hypertension and diabetes End-stage renal disease . Social History Tobacco: < 30 pack year former smoker; quit in 2006 Physical Exam Vital Signs Vital Signs Date Time Temp Pulse Resp B/P (MAP) Pulse Ox O2 Delivery O2 Flow Rate FiO2 06/08/17 01:00 97.6 75 16 120/57 (78) 98 Physical Exam GENERAL: This is an obese female patient, in no apparent distress. SKIN: No rashes. Cool and dry. HEAD: Atraumatic. Normocephalic. EYES: No scleral icterus. No injection or drainage. ENT: Nose without bleeding, purulent drainage. NECK: Trachea midline. No JVD. CARDIOVASCULAR: Regular rate and rhythm without murmurs, gallops, or rubs. Left lower extremity with some generalized edema - patient reports this is chronic. RESPIRATORY: Clear to auscultation. Breath sounds equal bilaterally. No wheezes , rales, or rhonchi. GASTROINTESTINAL: Abdomen soft, non-tender, nondistended. No guarding. MUSCULOSKELETAL: Extremities without clubbing, cyanosis. No calf tenderness. NEUROLOGICAL: Awake and alert. Motor and sensory grossly within normal limits. Normal speech. . Imaging 06/04/2017: Chest x-ray shows unchanged cardiomegaly and no acute cardiopulmonary abnormality on 06/04/2017. 06/04/2017: CT abdomen/pelvis with contrast showed at least 2 irregular shaped lung nodules with a perivascular distribution as well as pleural based area of consolidation in the right lower lobe. There was concern for multifocal infection with possibility of septic emboli with a differential including metastatic disease. There were no acute intra-abdominal or intrapelvic findings. Diverticulosis without diverticulitis. Multiple calcified and noncalcified uterine fibroids. A CT of the chest was recommended for further evaluation but I am unable to locate the results of such a study despite extensive review of the medical records sent from [facility] . Caprini VTE Risk Assessment Caprini VTE Risk Assessment: Mod/High Risk (score >= 2) Caprini Risk Assessment Model Point Value = 1 Point Value = 2 Point Value = 3 Point Value = 5 Age 41-60 Minor surgery BMI > 25 kg/m2 Swollen legs Varicose veins or History of unexplained or recurrent spontaneous Oral contraceptives or hormone replacement Sepsis (< 1 month) Serious lung disease, including pneumonia (< 1 month) Abnormal pulmonary function Acute myocardial infarction Congestive heart failure (< 1 month) History of inflammatory bowel disease Medical patient at bed rest Age 61-74 Arthroscopic surgery Major open surgery (> 45 min) Laparoscopic surgery (> 45 min) Malignancy Confined to bed (> 72 hours) Immobilizing plaster cast Central venous access Age >= 75 History of VTE Family history of VTE Factor V Leiden Prothrombin [id number] Lupus anticoagulant Anticardiolipin antibodies Elevated serum homocysteine Heparin-induced thrombocytopenia Other congenital or acquired thrombophilia Stroke (< 1 month) Elective arthroplasty Hip, pelvis, or leg fracture Acute spinal cord injury (< 1 month) Prophylaxis Regimen Total Risk Factor Score Risk Level Prophylaxis Regimen 0-1 Low Early ambulation 2 Moderate Order ONE of the following: *Sequential Compression Device (SCD) *Heparin 5000 units SQ BID 3-4 Higher Order ONE of the following medications: *Heparin 5000 units SQ TID *Enoxaparin/Lovenox 40 mg SQ daily (WT < 150 kg, CrCl > 30 mL/min) *Enoxaparin/Lovenox 30 mg SQ daily (WT < 150 kg, CrCl > 10-29 mL/min) *Enoxaparin/Lovenox 30 mg SQ BID (WT < 150 kg, CrCl > 30 mL/min) AND/OR *Sequential Compression Device (SCD) 5 or more Highest Order ONE of the following medications: *Heparin 5000 units SQ TID (Preferred with Epidurals) *Enoxaparin/Lovenox 40 mg SQ daily (WT < 150 kg, CrCl > 30 mL/min) *Enoxaparin/Lovenox 30 mg SQ daily (WT < 150 kg, CrCl > 10-29 mL/min) *Enoxaparin/Lovenox 30 mg SQ BID (WT < 150 kg, CrCl > 30 mL/min) AND *Sequential Compression Device (SCD) Assessment and Plan Problem List: (1) Pneumonia ICD Code: J18.9 - Pneumonia, unspecified organism (2) S/P kidney transplant ICD Code: Z94.0 - Kidney transplant status Status: Acute Assessment and Plan Mrs. Hackett is a 57-year-old female status post kidney transplant by Dr. Cuenca in August 2016, diabetes mellitus, hypertension, pancreatitis, dyslipidemia, and congestive heart failure who presented to [facility] in [place] for evaluation of fever, shortness of breath, and diarrhea with abdominal pain. She was concerned that her body was rejecting the kidney prompting her emergency room visit. She was found to have right multilobular pneumonia on imaging and was admitted. She was treated with Zosyn and vancomycin initially and changed to cefepime, vancomycin, and Flagyl IV due to concerns regarding nephrotoxicity of combination treatment with Zosyn and vancomycin. She was transferred to [facility] at the request of kidney transplant physician Dr. Haynes for further evaluation and treatment of her pneumonia. Pneumonia - right lower lobe multilobular pneumonia - Continue IV Vancomycin with pharmacy consult for therapeutic dosing and monitoring, IV Cefepime, and IV Flagyl - repeat CXR today as recommended by Dr. Haynes 06/04/2017: Chest x-ray shows unchanged cardiomegaly and no acute cardiopulmonary abnormality on 06/04/2017. 06/04/2017: CT abdomen/pelvis with contrast showed at least 2 irregular shaped lung nodules with a perivascular distribution as well as pleural based area of consolidation in the right lower lobe. There was concern for multifocal infection with possibility of septic emboli with a differential including metastatic disease. There were no acute intra-abdominal or intrapelvic findings. Diverticulosis without diverticulitis. Multiple calcified and noncalcified uterine fibroids. A CT of the chest was recommended for further evaluation but I am unable to locate the results of such a study despite extensive review of the medical records sent from [facility] - If patient did not have a dedicated chest CT as recommended at [facility], we should obtain one s/p renal transplant - consult Dr. Haynes - per RN, Dr. Haynes adjusting immunosuppressant therapy - will defer to his expertise TB being ruled out per patient, nurses, and paramedics - patient being moved to negative airflow room on airborne precautions - consult infectious disease - appreciate assistance - obtain records from [facility] re: EDWARD, TB testing, and possible chest CT - order written Diabetes Mellitus - Accu-Cheks before meals and at bedtime with low-dose NovoLog sliding scale coverage - Hypoglycemia protocol - Monitor trends and blood glucose readings and adjust treatments as indicated DVT prophylaxis - Heparin 5000 subq q8h . Discussed Condition With patient, RN, laundry housekeeper, Dr. Wyatt . Physician Certification 2 Midnight Certification Type: Admission for Inpatient Services Order for Inpatient Services The services are ordered in accordance with Medicare regulations or non- Medicare payer requirements, as applicable. In the case of services not specified as inpatient-only, they are appropriately provided as inpatient services in accordance with the 2-midnight benchmark. Estimated LOS (days): 3 days is the estimated time the patient will need to remain in the hospital, assuming treatment plan goals are met and no additional complications. Post-Hospital Plan: Not yet determined Piedad Saha Jun 08, 2017 02:50
[2017-06-08] MEDS ORDERED: CEFEPIME 2000 MG VIAL IV SCH (03:00)
[2017-06-08 03:12] LABS: AUTOMATED NEUTROPHIL # 6.5 TH/MM3 (1.8-7.7); BASOPHIL # 0.1 TH/MM3 (0-0.2); BASOPHIL % 0.9 % (0.0-2.0); EOSINOPHIL # 0.3 TH/MM3 (0-0.4); EOSINOPHIL % 2.9 % (0.0-4.0); HEMATOCRIT 37.6 % (35.0-46.0); HEMOGLOBIN 12.7 GM/DL (11.6-15.3); LYMPH % 14.9 % (9.0-44.0); LYMPHOCYTE # 1.4 TH/MM3 (1.0-4.8); MEAN CELL VOLUME 89.9 FL (80.0-100.0); MEAN CORPUSCULAR HEMOGLOBIN 30.4 PG (27.0-34.0); MEAN CORPUSCULAR HGB CONC 33.8 % (32.0-36.0); MEAN PLATELET VOLUME 9.6 FL (7.0-11.0); MONO % 10.7 % (0.0-8.0); NEUT % 70.6 % (16.0-70.0); PLATELET COUNT 347 TH/MM3 (150-450); RED BLOOD COUNT 4.18 MIL/MM3 (4.00-5.30); WHITE BLOOD COUNT 9.2 TH/MM3 (4.0-11.0)
[2017-06-08] MEDS ORDERED: Vancomycin Consult Pharmacy 1 EA OTHER SCH (03:15)
[2017-06-08 03:30] LABS: ALKALINE PHOSPHATASE 89 U/L (45-117); TOTAL BILIRUBIN ADULT 0.2 MG/DL (0.2-1.0); TOTAL PROTEIN 7.2 GM/DL (6.4-8.2)
[2017-06-08 03:31] LABS: ALBUMIN 2.8 GM/DL (3.4-5.0); ALT (GPT) 17 U/L (10-53); AST (GOT) 23 U/L (15-37); BICARBONATE 20.3 MEQ/L (21.0-32.0); BLOOD UREA NITROGEN 19 MG/DL (7-18); CALCIUM 8.8 MG/DL (8.5-10.1); CHLORIDE 112 MEQ/L (98-107); CREATININE 1.02 MG/DL (0.50-1.00); GLOMERULAR FILTRATION RATE 68 ML/MIN (>89); GLUCOSE,RANDOM 210 MG/DL (74-106); SODIUM (NA) 141 MEQ/L (136-145)
[2017-06-08] MEDS: CEFEPIME 2000 MG/NS 100 ML IV SCH ×4 (05:08→16:00)
[2017-06-08] MEDS: METRONIDAZOLE 500 MG/100 ML ISONTONIC SOLN IV SCH ×3 (05:08→22:30)
[2017-06-08] MEDS ORDERED: METRONIDAZOLE IV SCH (06:00)
[2017-06-08] MEDS ORDERED: [UNRECOGNIZED DRUG - OTHER] IV SCH (06:00)
[2017-06-08] MEDS: oxyCODONE/ACETAMINOPHEN 5 MG/325 MG TAB PO PRN ×2 (06:03→22:27)
[2017-06-08] MEDS ORDERED: VANCOMYCIN INJ 1,750 MG in SODIUM CHLORID 0.9% 500 ML INJ 500 ML IV ONE (07:00)
[2017-06-08] MEDS: GEMFIBROZIL 600 MG TAB PO SCH ×2 (08:11→22:28)
[2017-06-08] MEDS: METOPROLOL TARTRATE 100 MG TAB PO SCH ×2 (08:11→22:27)
[2017-06-08] MEDS: amLODIPine BESYLATE 5 MG TAB PO SCH ×2 (08:12→22:27)
[2017-06-08] MEDS: LISINOPRIL 20 MG TAB PO SCH (08:12)
[2017-06-08] MEDS: HEPARIN SODIUM - SQ 10,000 UNITS/ML VIAL SQ SCH ×2 (08:12→17:15)
[2017-06-08] MEDS: MULTIVITAMIN TAB PO SCH (08:12)
[2017-06-08] MEDS: ASPIRIN EC 81 MG TABEC PO SCH (08:12)
[2017-06-08] MEDS: CINACALCET HYDROCHLORIDE 30 MG TAB PO SCH (08:31)
[2017-06-08] MEDS: SODIUM CHLORIDE 0.9% FLUSH 10 ML FLUSH IV FLUSH SCH ×2 (08:33→21:00)
[2017-06-08] MEDS ORDERED: predniSONE 5 MG TAB PO SCH (09:00)
--- NOTE | 2017-06-08 09:19 | RADRPT ---
EXAM DATE/TIME: 06/08/2017 08:56 [facility] COMPARISON: CHEST SINGLE AP, August 26, 2016, 8:55. INDICATIONS : Shortness of breath, fever, and cough. MEDICAL HISTORY : Hypertension. Hernia, hiatal. Sleep apnea. Renal disease. Diabetes. Anxiety. SURGICAL HISTORY : Right kidney transplant. Orthopedic surgery. ENCOUNTER: Initial ACUITY: 4 - 6 days PAIN SCORE: 0/10 LOCATION: Bilateral chest FINDINGS: PA and lateral views of the chest demonstrate the lungs to be symmetrically aerated without evidence of mass, infiltrate or effusion. The previously noted bibasilar infiltrates have completely resolved. The cardiomediastinal contours are unremarkable. Osseous structures are intact. There is a vascular stent overlying the right shoulder area. CONCLUSION: No focal or acute pulmonary infiltrates. Cam Avendano MD on June 08, 2017 at 9:17 Board Certified Radiologist. This report was verified electronically.
[2017-06-08] MEDS: INSULIN ASPART SUPPLEMENTAL SCALE SQ SCH ×4 (10:31→22:32)
--- NOTE | 2017-06-08 10:38 | PD.CONS ---
History of Present Illness Service Transplant Surgery Consult Requested By Hospitalist Service Reason for Consult Post transplant patient with fever, dyspnea on admission Primary Care Physician Non-Staff Diagnoses: History of Present Illness 57 yof s/p DDKT in 08/2016, admitted to [facility] this past Wednesday with fever, chills, dyspnea . Also had some mild right sided abd pain. There was concern for multilobar pneumonia. She was started on vanc/zosyn, then changed to montemayor.cefapime, and flagyl. She did have some diarrhea on admit, which she says she has had intermittently (infrequently) at times. No diarrhea since 06/06/16. BS were initially in the 300s. Have since been slightly improved. Transferred to our facility last night, at least in part, due to her post- transplant status.She feels better. Breathing is better. No coughing. Denies abd pain at this time. Voiding well. Review of Systems Except as stated in HPI: all other systems reviewed are Neg Denies any complaints at the time of my evaluation. Past Family Social History Allergies: Uncoded Allergies: Tape (Allergy, Unknown, 08/24/16) Past Medical History Includes: Dm, Htn, pancreatitis, dyslipidemia, CHF Past Surgical History Includes: Kidney transplantation 08/2016, AV fistula, PD cath x 2 in 2013, C section in 1993 Family History Includes: mother-Htn, DM, CKD Social History <30 pack year (1 pack q 2-3 days from age [age], quit for a few years, started again, then , quit 2006) Physical Exam Vital Signs Vital Signs Date Time Temp Pulse Resp B/P (MAP) Pulse Ox O2 Delivery O2 Flow Rate FiO2 06/08/17 08:25 97.4 82 18 133/63 (86) 93 06/08/17 02:00 75 06/08/17 01:00 97.6 75 16 120/57 (78) 98 06/08/17 00:00 98.4 77 18 129/71 (90) 100 Physical Exam GENERAL: This is a well-nourished obese, well-developed patient, in no apparent distress. SKIN: No rashes, ecchymoses or lesions. Cool and dry. HEAD: Atraumatic. Normocephalic. No temporal or scalp tenderness. EYES: Pupils equal round and reactive. Extraocular motions intact. No scleral icterus. No injection or drainage. ENT: Nose without bleeding, purulent drainage or septal hematoma. Throat without erythema, tonsillar hypertrophy or exudate. Uvula midline. Airway patent. NECK: Trachea midline. No JVD or lymphadenopathy. Supple, nontender, no meningeal signs. CARDIOVASCULAR: Regular rate and rhythm without murmurs, gallops, or rubs. RESPIRATORY: Clear to auscultation. Breath sounds equal bilaterally. No wheezes , rales, or rhonchi. GASTROINTESTINAL: Abdomen soft, non-tender, nondistended. No hepato-splenomegaly , or palpable masses. No guarding. Well healed scars. No incisional or inguinal hernias appreciated. MUSCULOSKELETAL: Extremities without clubbing, cyanosis, or edema. No joint tenderness, effusion, or edema noted. No calf tenderness. Negative Homans sign bilaterally. palpable DP/PT pulses bilaterally NEUROLOGICAL: Awake and alert. Cranial nerves II through XII intact. Motor and sensory grossly within normal limits. Five out of 5 muscle strength in all muscle groups. Normal speech. Laboratory Laboratory Tests Test 06/08/17 02:52 White Blood Count 9.2 Red Blood Count 4.18 Hemoglobin 12.7 Hematocrit 37.6 Mean Corpuscular Volume 89.9 Mean Corpuscular Hemoglobin 30.4 Mean Corpuscular Hemoglobin Concent 33.8 Red Cell Distribution Width 14.0 Platelet Count 347 Mean Platelet Volume 9.6 Neutrophils (%) (Auto) 70.6 Lymphocytes (%) (Auto) 14.9 Monocytes (%) (Auto) 10.7 Eosinophils (%) (Auto) 2.9 Basophils (%) (Auto) 0.9 Neutrophils # (Auto) 6.5 Lymphocytes # (Auto) 1.4 Monocytes # (Auto) 1.0 Eosinophils # (Auto) 0.3 Basophils # (Auto) 0.1 CBC Comment DIFF FINAL Differential Comment Blood Urea Nitrogen 19 Creatinine 1.02 Random Glucose 210 Total Protein 7.2 Albumin 2.8 Calcium Level 8.8 Alkaline Phosphatase 89 Aspartate Amino Transf (AST/SGOT) 23 Alanine Aminotransferase (ALT/SGPT) 17 Total Bilirubin 0.2 Sodium Level 141 Potassium Level 4.4 Chloride Level 112 Carbon Dioxide Level 20.3 Anion Gap 9 Estimat Glomerular Filtration Rate 68 Result Diagram: 06/08/17 0252 06/08/17 0252 Assessment and Plan Problem List: (1) S/P kidney transplant ICD Codes: Z94.0 - Kidney transplant status Status: Acute (2) Pneumonia ICD Codes: J18.9 - Pneumonia, unspecified organism (3) COPD (chronic obstructive pulmonary disease) ICD Codes: J44.9 - Chronic obstructive pulmonary disease, unspecified Status: Acute Assessment and Plan Patient s/p DDKT on 08/24/2016. Admitted to [facility] on 2017 with fever, chills, and dyspnea, along with some diarrhea and ? abd pain. There was concern for multifocal pneumonia on her imaging studies and she was started on antibiotics. She was also noted to have hyperglycemia, which hasimproved with insulin coverage. She was transferred to our facility last evening. Currently denies any acute c/o. Her CXR and abd/pelvis CT were reviewed with our radiology department, who noted some right basilar infiltrate on the CT scan and some mild pulm congestion on the CXR on the images that were sent with her. Will await input from ID re antibiosis. CXR pending. Prograf level pending. Patient had an echocardiogram done in [place], will see if we can obtain results.Will also see if we can obtain results of quantiferon. Henrry Haynes Jr., MD Jun 08, 2017 10:38
--- NOTE | 2017-06-08 10:48 | HHI.PR ---
Subjective Remarks PAtient denies cp/sob. Deneis cough Afebrile. Objective Vitals Vital Signs Date Time Temp Pulse Resp B/P (MAP) Pulse Ox O2 Delivery O2 Flow Rate FiO2 06/08/17 08:25 97.4 82 18 133/63 (86) 93 06/08/17 02:00 75 06/08/17 01:00 97.6 75 16 120/57 (78) 98 06/08/17 00:00 98.4 77 18 129/71 (90) 100 Result Diagram: 06/08/17 0252 06/08/17 0252 Imaging Last Impressions Chest X-Ray 06/08/17 0000 Signed Impressions: Service Date/Time: Thursday, June 08, 2017 08:56 - CONCLUSION: No focal or acute pulmonary infiltrates. Cam Avendano MD Objective Remarks AAox3 NAD Clear lungs S1S2 (+) RRR, no MRG Abdomen soft, nt, nd no edema in extremities Procedures none Medications and IVs Current Medications Medications (Trade) Dose Ordered Sig/Lynsey Route Start Time Stop Time Status Last Admin (NS Flush) 2 ml UNSCH PRN IV FLUSH 06/08/17 01:15 (NS Flush) 2 ml BID IV FLUSH 06/08/17 09:00 (Tylenol) 650 mg Q4H PRN PO 06/08/17 01:15 (Heparin Inj) 5,000 units Q8H SQ 06/08/17 09:00 06/08/17 08:12 (Narcan Inj) 0.4 mg UNSCH PRN IV PUSH 06/08/17 01:15 (Duoneb Neb) 1 ampule Q4HR NEB PRN NEB 06/08/17 01:30 (D50w (Vial) Inj) 50 ml UNSCH PRN IV PUSH 06/08/17 01:30 (Glucagon Inj) 1 mg UNSCH PRN OTHER 06/08/17 01:30 (NovoLOG SUPPLEMENTAL SCALE) 1 ACHS SLIDING SCALE SQ 06/08/17 08:00 06/08/17 10:31 (Norvasc) 5 mg BID PO 06/08/17 09:00 06/08/17 08:12 (Ecotrin Ec) 81 mg DAILY PO 06/08/17 09:00 06/08/17 08:12 (Lipitor) 40 mg HS PO 06/08/17 21:00 (Sensipar) 30 mg DAILY PO 06/08/17 09:00 06/08/17 08:31 (Lopid) 600 mg BID PO 06/08/17 09:00 06/08/17 08:11 (Lantus Inj) 20 units HS SQ 06/08/17 21:00 (Lopressor) 50 mg BID PO 06/08/17 09:00 06/08/17 08:11 (Percocet 5-325 Mg) 1 tab Q6H PRN PO 06/08/17 03:00 06/08/17 06:03 (Deltasone) 5 mg Q48H PO 06/08/17 09:00 06/08/17 08:11 (Prinivil) 40 mg DAILY PO 06/08/17 09:00 06/08/17 08:12 (Theragran) 1 tab DAILY PO 06/08/17 09:00 06/08/17 08:12 Pharmacy Profile Note 0 ml @ 0 mls/hr UNSCH OTHER 06/08/17 03:15 Cefepime HCl 2000 mg/Sodium Chloride 100 ml @ 200 mls/hr Q12H IV 06/08/17 04:00 06/08/17 05:08 Metronidazole 100 ml @ 100 mls/hr Q8H IV 06/08/17 06:00 06/08/17 05:08 (Myfortic Dr) 360 mg BID@18 PO 06/08/17 18:00 (Prograf) 5 mg DAILY@,18 PO 06/08/17 18:00 (Prograf) 2 mg DAILY@18 PO 06/08/17 18:00 (Pneumovax-23 Inj) 25 mcg ONCE ONCE IM 06/09/17 10:00 06/09/17 10:01 (NovoLOG INJ) 5 units TIDAC SQ 06/08/17 12:00 Vancomycin HCl 1750 mg/Sodium Chloride 517.5 ml @ 250 mls/hr Q18H IV 06/09/17 00:00 Miscellaneous Information SPECIFIC LAB TO BE DRAWN:VANCOMYCIN TROUGH DATE TO... ONCE ONCE .XX 06/10/17 11:45 06/10/17 11:46 Magnesium Sulfate/ Dextrose 100 ml @ 100 mls/hr Q1H IV 06/08/17 13:00 06/08/17 14:59 A/P Problem List: (1) Pneumonia ICD Code: J18.9 - Pneumonia, unspecified organism (2) S/P kidney transplant ICD Code: Z94.0 - Kidney transplant status Status: Acute Assessment and Plan Mrs. Hackett is a 57-year-old female status post kidney transplant by Dr. Cuenca in August 2016, diabetes mellitus, hypertension, pancreatitis, dyslipidemia, and congestive heart failure who presented to [facility] in [place] for evaluation of fever, shortness of breath, and diarrhea with abdominal pain. She was concerned that her body was rejecting the kidney prompting her emergency room visit. She was found to have right multilobular pneumonia on imaging and was admitted. She was treated with Zosyn and vancomycin initially and changed to cefepime, vancomycin, and Flagyl IV due to concerns regarding nephrotoxicity of combination treatment with Zosyn and vancomycin. She was transferred to [facility] at the request of kidney transplant physician Dr. Haynes for further evaluation and treatment of her pneumonia. Pneumonia -Right lower lobe pneumonia as per documentation. -Recent being treated with IV vancomycin and IV cefepime as well as IV Flagyl and previous hospital. 06/04/2017: Chest x-ray shows unchanged cardiomegaly and no acute cardiopulmonary abnormality on 06/04/2017. 06/04/2017: CT abdomen/pelvis with contrast showed at least 2 irregular shaped lung nodules with a perivascular distribution as well as pleural based area of consolidation in the right lower lobe. There was concern for multifocal infection with possibility of septic emboli with a differential including metastatic disease. There were no acute intra-abdominal or intrapelvic findings. Diverticulosis without diverticulitis. Multiple calcified and noncalcified uterine fibroids. A CT of the chest was recommended for further evaluation but I am unable to locate the results of such a study despite extensive review of the medical records sent from [facility] 06/08 repeat chest x-ray shows no acute cardiopulmonary disease. ID consulted. We'll await recommendations regarding oral antibiotics to be discharge home. s/p renal transplant - consult Dr. Haynes - per RN, Dr. Haynes adjusting immunosuppressant therapy - will defer to his expertise 06/08 discussed the case with Dr. Haynes. Tacrolimus level therapeutic at 3.4. Continue tacrolimus and myrbetriq per Dr. Haynes's recommendations. He stated the patient may be able to be discharge on his levels to be followed as an outpatient. TB being ruled out per patient, nurses, and paramedics - patient being moved to negative airflow room on airborne precautions - consult infectious disease - appreciate assistance - obtain records from [facility] [place] re: [place]WARD, TB testing, and possible chest CT - order written 06/08 the patient has TB. Chest x-ray obtained on is normal. I will discontinue airborne precautions. Diabetes Mellitus - Accu-Cheks before meals and at bedtime with low-dose NovoLog sliding scale coverage - Hypoglycemia protocol - Monitor trends and blood glucose readings and adjust treatments as indicated 06/08 blood sugar still severely elevated in the 300's range. Patient currently on Lantus however patient states that she was using Levemir and would like to switch to Levemir. I will discontinue Lantus and start on Levemir 10 units subcutaneous twice a day. I will also add a prandial insulin 5 units 3 times a day before meals, continue SSI with insulin NovoLog and monitor Accu-Cheks. Insulin glargine to be adjusted to keep blood sugars below 180. clinical educator consulted. DVT prophylaxis - Heparin 5000 subq q8h Discharge Planning Possible DC in 1-2 days pending stabilization of blood sugars. Lucas Jorgensen MD Jun 08, 2017 10:48
[2017-06-08 11:09] LABS: MAGNESIUM 1.6 MG/DL (1.5-2.5); PHOSPHORUS 2.7 MG/DL (2.5-4.9)
[2017-06-08] MEDS ORDERED: MYCOPHENOLATE SODIUM 360 MG DELAYED RELEASE TAB PO ONE (11:45)
[2017-06-08] MEDS ORDERED: TACROLIMUS 5 MG CAP PO ONE (12:00)
[2017-06-08] MEDS ORDERED: TACROLIMUS 1 MG CAP PO ONE (12:00)
[2017-06-08] MEDS: MAGNESIUM SULFATE 1 GM PREMIX 100 ML IV SCH ×2 (13:07→14:27)
--- NOTE | 2017-06-08 13:47 | PD.ID.CON ---
History of Present Illness Service ID Consult Requested By Dr Freeman Reason for Consult PNA Primary Care Physician Non-Staff Diagnoses: History of Present Illness 57 yof s/p DDKT in 08/2016, admitted to [facility] this past Wednesday with fever, chills, dyspnea . Also had some mild right sided abd pain. She has abdominal scan done that showed lower lobe PNA and ? cavoitary lesions She has no cough Had some diarrhea. She was started on vanc/zosyn, then changed to montemayor.cefapime , and flagyl. She did have some diarrhea on admit, which she says she has had intermittently (infrequently) at times. No diarrhea since 06/06/16. BS were initially in the 300s. Have since been slightly improved. Transferred to our facility last night, at least in part, due to her post-transplant status.She feels normal now. Afebrile, stable vitals Normal WBC Creatinint down to 1.02 Breathing is better. No coughing. Denies abd pain at this time. Voiding well. Luciana holley, CP and SOB, on RA Her imaging was discussed with Dr Avendano: no chest CT availbale from the other facility, just lower lung cuts from abd CT and CXR. Those images show infiltrates w/o cavitation CXR that was done today is actually negative Review of Systems Except as stated in HPI: all other systems reviewed are Neg Past Family Social History Allergies: Uncoded Allergies: Tape (Allergy, Unknown, 08/24/16) Past Medical History DM HTN ESRD Past Surgical History 08/2016 kidney transplant AV fistula brain surgery for benign lesion Active Ordered Medications Medications where reviewed in EMR antiregection feliciano: tacrolimus/mycophenolic acid Antibiotics Include: cefepime flagyl vancomycin Family History non contributory to current problem Social History remote light tobacco use no ETOH no drugs from [place]; denies other travel Physical Exam Vital Signs Vital Signs Date Time Temp Pulse Resp B/P (MAP) Pulse Ox O2 Delivery O2 Flow Rate FiO2 06/08/17 12:35 98.4 71 18 106/53 (70) 100 06/08/17 08:25 97.4 82 18 133/63 (86) 93 06/08/17 02:00 75 06/08/17 01:00 97.6 75 16 120/57 (78) 98 06/08/17 00:00 98.4 77 18 129/71 (90) 100 Physical Exam CONSTITUTIONAL/GENERAL: This is a morbidly obese female patient, in no apparent distress. TUBES/LINES/DRAINS: Old AV fistula in plece w/o any signs of infection SKIN: No jaundice, rashes, or lesions. Skin temperature appropriate. Not diaphoretic. HEAD: Atraumatic. Normocephalic. EYES: Pupils equal and round and reactive. Extraocular motions intact. No scleral icterus. No injection or drainage. Fundi not examined. ENT: Hearing grossly normal. Nose without bleeding or purulent drainage. Throat without visible erythema, exudates, masses, or lesions. no oral thrush NECK: Trachea midline. Supple, nontender. CARDIOVASCULAR: Regular rate and rhythm without murmurs, gallops, or rubs. No JVD. Peripheral pulses symmetric. RESPIRATORY/CHEST: Symmetric, unlabored respirations. Clear to auscultation. Breath sounds equal bilaterally. No wheezes, rales, or rhonchi. GASTROINTESTINAL: Abdomen soft, non-tender, nondistended. No hepato-splenomegaly , or palpable masses. No guarding. Bowel sounds present. Scar in RLQ cw transplant sx, not tender to palpation GENITOURINARY: Without palpable bladder distension. MUSCULOSKELETAL: Extremities without clubbing, cyanosis, or edema. No joint tenderness or effusion noted. No calf tenderness. No mottling or clubbing. LYMPHATICS: No palpable cervical or supraclavicular adenopathy. NEUROLOGICAL: Awake and alert. Motor and sensory grossly within normal limits. Follows commands. Cognitively sharp. Moves all extremities. PSYCHIATRIC: No obvious anxiety/depression. no apparent hallucinations or other psychotic thought process. Laboratory Laboratory Tests Test 06/08/17 02:52 06/08/17 10:15 06/08/17 10:25 White Blood Count 9.2 Red Blood Count 4.18 Hemoglobin 12.7 Hematocrit 37.6 Mean Corpuscular Volume 89.9 Mean Corpuscular Hemoglobin 30.4 Mean Corpuscular Hemoglobin Concent 33.8 Red Cell Distribution Width 14.0 Platelet Count 347 Mean Platelet Volume 9.6 Neutrophils (%) (Auto) 70.6 Lymphocytes (%) (Auto) 14.9 Monocytes (%) (Auto) 10.7 Eosinophils (%) (Auto) 2.9 Basophils (%) (Auto) 0.9 Neutrophils # (Auto) 6.5 Lymphocytes # (Auto) 1.4 Monocytes # (Auto) 1.0 Eosinophils # (Auto) 0.3 Basophils # (Auto) 0.1 CBC Comment DIFF FINAL Differential Comment Blood Urea Nitrogen 19 Creatinine 1.02 Random Glucose 210 Total Protein 7.2 Albumin 2.8 Calcium Level 8.8 Alkaline Phosphatase 89 Aspartate Amino Transf (AST/SGOT) 23 Alanine Aminotransferase (ALT/SGPT) 17 Total Bilirubin 0.2 Sodium Level 141 Potassium Level 4.4 Chloride Level 112 Carbon Dioxide Level 20.3 Anion Gap 9 Estimat Glomerular Filtration Rate 68 Tacrolimus (Prograf) Level 3.4 Phosphorus Level 2.7 Magnesium Level 1.6 Result Diagram: 06/08/17 0252 06/08/17 0252 Imaging Last Impressions Chest X-Ray 06/08/17 0000 Signed Impressions: Service Date/Time: Thursday, June 08, 2017 08:56 - CONCLUSION: No focal or acute pulmonary infiltrates. Cam Avendano MD Assessment and Plan Assessment and Plan Acute febrile illness - resolved ? PNA - normal CXR Cavitarry lesions : not seen on available images by our radiologist Immunosuppressed, sp remnal allograft will get CT chest w/o contrast further recommendations per CT findings Discussed Condition With Pete Quesada and Tayla Mason MD Jun 08, 2017 13:47
[2017-06-08] MEDS: INSULIN ASPART 1,000 UNITS/10 ML VIAL SQ SCH ×2 (14:26→18:29)
[2017-06-08] MEDS: TACROLIMUS 1 MG CAP PO SCH (18:30)
[2017-06-08] MEDS: MYCOPHENOLATE SODIUM 360 MG DELAYED RELEASE TAB PO SCH (18:30)
[2017-06-08] MEDS: TACROLIMUS 5 MG CAP PO SCH (18:31)
--- NOTE | 2017-06-08 18:39 | RADRPT ---
EXAM DATE/TIME: 06/08/2017 17:47 [facility] COMPARISON: CT ABDOMEN & PELVIS W/O CONTRAST, December 31, 2016, 21:27. INDICATIONS : Pulmonary disease. RADIATION DOSE: 20.23 CTDIvol (mGy) MEDICAL HISTORY : Cardiovascular disease. Hypertension. SURGICAL HISTORY : Kidney transplant. ENCOUNTER: Initial ACUITY: 1 day PAIN SCALE: 0/10 LOCATION: Bilateral chest TECHNIQUE: Volumetric scanning of the chest was performed. Using automated exposure control and adjustment of t he mA and/or kV according to patient size, radiation dose was kept as low as reasonably achievable to obtain optimal diagnostic quality images. DICOM format image data is available electronically for r eview and comparison. Follow-up recommendations for detected pulmonary nodules are based at a minimum on nodule size and pa tient risk factors according to Fleischner Society Guidelines. FINDINGS: LUNGS: Abnormal. There are multiple masslike densities devoid of air bronchograms, most of which are locate d in the right lung. Areas of involvement include medial right midlung adjacent to the azygos vein m easuring 2.3 x 1.1 cm, posterior right midlung medially measuring 1 cm (image #19), right lower lung paraspinal measuring 10 mm (image #30), anterolateral right midlung measuring 6 mm (image #31), poste rior medial right lower lung new the pleural surface measuring 1.7 cm (image #39). In the left lung, there is an ill-defined opacity adjacent to the lingular bronchi measuring 1.3 cm (image #25), and t here is an ill-defined non-masslike opacity in the medial left upper lung (image #11). PLEURAE: There is no pleural thickening or pleural effusion. MEDIASTINUM: The heart and great vessels demonstrate no acute abnormality. There is no mediastinal or hilar lymph adenopathy. AXILLAE: Within normal limits. No lymphadenopathy. MUSCULOSKELETAL: Within normal limits for patient age. MISCELLANEOUS: Right subclavian stent. Diffuse enlargement of the thyroid. The visualized upper abdominal organs d emonstrate no acute abnormality. CONCLUSION: 1. There are multiple masslike opacities in the right lung measuring up to 1.6 cm in size, most of wh ich are devoid of air bronchograms. The appearance is nonspecific and differential considerations in clude multiple tumors and multifocal pneumonia. Recommend followup after treatment to assure resolut ion. 2. No evidence of mediastinal adenopathy. Dominguez Tena MD on June 08, 2017 at 18:31 Board Certified Radiologist. This report was verified electronically.
[2017-06-08] MEDS ORDERED: INSULIN DETEMIR 100 UNITS/ML VIAL SQ SCH (21:00)
[2017-06-08] MEDS ORDERED: INSULIN GLARGINE 1,000 UNITS/10 ML VIAL SQ SCH (21:00)
[2017-06-08] MEDS: ATORVASTATIN 40 MG TAB PO SCH (22:26)
[2017-06-09] VITALS (7 sets, daily range): BP systolic 109–156; BP diastolic 56–76; PULSE 71–82; RESP 20; TEMP 97.8–98.3; O2SAT 96–100
[2017-06-09] MEDS ORDERED: VANCOMYCIN INJ 1,750 MG in SODIUM CHLORID 0.9% 500 ML INJ 500 ML IV SCH ×2
[2017-06-09] MEDS: HEPARIN SODIUM - SQ 10,000 UNITS/ML VIAL SQ SCH ×3 (01:04→16:12)
[2017-06-09] MEDS: CEFEPIME 2000 MG/NS 100 ML IV SCH ×4 (05:18→16:11)
[2017-06-09] MEDS: TACROLIMUS 1 MG CAP PO SCH (06:23)
[2017-06-09] MEDS: TACROLIMUS 5 MG CAP PO SCH (06:23)
[2017-06-09] MEDS: METRONIDAZOLE 500 MG/100 ML ISONTONIC SOLN IV SCH (06:25)
[2017-06-09] MEDS: MYCOPHENOLATE SODIUM 360 MG DELAYED RELEASE TAB PO SCH ×2 (06:25→17:44)
[2017-06-09 08:16] LABS: BICARBONATE 20.5 MEQ/L (21.0-32.0); CALCIUM 8.6 MG/DL (8.5-10.1); CREATININE 1.22 MG/DL (0.50-1.00)
[2017-06-09] MEDS: LISINOPRIL 20 MG TAB PO SCH (09:00)
[2017-06-09] MEDS: amLODIPine BESYLATE 5 MG TAB PO SCH ×3 (09:00→21:27)
[2017-06-09] MEDS: METOPROLOL TARTRATE 100 MG TAB PO SCH ×2 (09:00→21:27)
[2017-06-09] MEDS: MULTIVITAMIN TAB PO SCH (09:29)
[2017-06-09] MEDS: ASPIRIN EC 81 MG TABEC PO SCH (09:30)
[2017-06-09] MEDS: CINACALCET HYDROCHLORIDE 30 MG TAB PO SCH (09:32)
[2017-06-09] MEDS: INSULIN ASPART SUPPLEMENTAL SCALE SQ SCH ×4 (09:33→21:37)
[2017-06-09] MEDS: SODIUM CHLORIDE 0.9% FLUSH 10 ML FLUSH IV FLUSH SCH ×2 (09:44→21:00)
[2017-06-09] MEDS: GEMFIBROZIL 600 MG TAB PO SCH ×2 (09:44→21:27)
[2017-06-09] MEDS ORDERED: PNEUMOCOCCAL POLYVALENT INJ 25 MCG/0.5 ML SYR IM ONE (10:00)
[2017-06-09 11:10] LABS: BASOPHIL # 0.1 TH/MM3 (0-0.2); BASOPHIL % 0.6 % (0.0-2.0); EOSINOPHIL # 0.3 TH/MM3 (0-0.4); EOSINOPHIL % 2.8 % (0.0-4.0); HEMATOCRIT 37.9 % (35.0-46.0); HEMOGLOBIN 12.7 GM/DL (11.6-15.3); LYMPH % 14.3 % (9.0-44.0); LYMPHOCYTE # 1.6 TH/MM3 (1.0-4.8); MEAN CORPUSCULAR HGB CONC 33.4 % (32.0-36.0); MEAN PLATELET VOLUME 9.4 FL (7.0-11.0); MONO % 8.5 % (0.0-8.0); MONOCYTE # 0.9 TH/MM3 (0-0.9); NEUT % 73.8 % (16.0-70.0); PLATELET COUNT 356 TH/MM3 (150-450); RED BLOOD COUNT 4.22 MIL/MM3 (4.00-5.30); RED CELL DISTRIBUTION WIDTH 14.4 % (11.6-17.2); WHITE BLOOD COUNT 10.8 TH/MM3 (4.0-11.0)
[2017-06-09 11:38] LABS: BICARBONATE 22.2 MEQ/L (21.0-32.0); CALCIUM 8.7 MG/DL (8.5-10.1); CREATININE 1.19 MG/DL (0.50-1.00); MAGNESIUM 1.9 MG/DL (1.5-2.5)
--- NOTE | 2017-06-09 12:55 | HHI.PR ---
Subjective Remarks The patient denies chest pain or shortness of breath. Denies abdominal pain, nausea vomiting. Noted creatinine went up slightly from 1.0-1.2. Afebrile Denies cough Objective Vitals Vital Signs Date Time Temp Pulse Resp B/P (MAP) Pulse Ox O2 Delivery O2 Flow Rate FiO2 06/09/17 11:43 97.9 80 20 156/76 (102) 99 06/09/17 10:55 71 06/09/17 07:43 97.8 72 20 109/56 (73) 97 06/09/17 05:48 98.2 73 20 120/58 (78) 100 06/09/17 01:41 98.1 71 20 138/63 (88) 100 06/08/17 21:53 97.5 79 20 161/73 (102) 100 06/08/17 19:36 84 06/08/17 16:58 73 06/08/17 16:24 98.1 80 18 125/71 (89) 100 I/O 06/08/17 06/08/17 06/08/17 06/09/17 06/09/17 06/09/17 07:00 15:00 23:00 07:00 15:00 23:00 # Voids 1 1 Result Diagram: 06/09/17 1050 06/09/17 1050 Imaging Last Impressions Chest X-Ray 06/08/17 0000 Signed Impressions: Service Date/Time: Thursday, June 08, 2017 08:56 - CONCLUSION: No focal or acute pulmonary infiltrates. Cam Avendano MD Chest CT 06/08/17 0000 Signed Impressions: Service Date/Time: Thursday, June 08, 2017 17:47 - CONCLUSION: 1. There are multiple masslike opacities in the right lung measuring up to 1.6 cm in size, most of which are devoid of air bronchograms. The appearance is nonspecific and differential considerations include multiple tumors and multifocal pneumonia. Recommend followup after treatment to assure resolution. 2. No evidence of mediastinal adenopathy. Dominguez Tena MD Objective Remarks AAox3 NAD Clear lungs S1S2 (+) RRR, no MRG Abdomen soft, nt, nd no edema in extremities Procedures none Medications and IVs Current Medications Medications (Trade) Dose Ordered Sig/Lynsey Route Start Time Stop Time Status Last Admin (NS Flush) 2 ml UNSCH PRN IV FLUSH 06/08/17 01:15 (NS Flush) 2 ml BID IV FLUSH 06/08/17 09:00 06/09/17 09:44 (Tylenol) 650 mg Q4H PRN PO 06/08/17 01:15 (Heparin Inj) 5,000 units Q8H SQ 06/08/17 09:00 06/09/17 09:33 (Narcan Inj) 0.4 mg UNSCH PRN IV PUSH 06/08/17 01:15 (Duoneb Neb) 1 ampule Q4HR NEB PRN NEB 06/08/17 01:30 (D50w (Vial) Inj) 50 ml UNSCH PRN IV PUSH 06/08/17 01:30 (Glucagon Inj) 1 mg UNSCH PRN OTHER 06/08/17 01:30 (Norvasc) 5 mg BID PO 06/08/17 09:00 06/09/17 09:45 (Ecotrin Ec) 81 mg DAILY PO 06/08/17 09:00 06/09/17 09:30 (Lipitor) 40 mg HS PO 06/08/17 21:00 06/08/17 22:26 (Sensipar) 30 mg DAILY PO 06/08/17 09:00 06/09/17 09:32 (Lopid) 600 mg BID PO 06/08/17 09:00 06/09/17 09:44 (Lopressor) 50 mg BID PO 06/08/17 09:00 06/08/17 22:27 (Percocet 5-325 Mg) 1 tab Q6H PRN PO 06/08/17 03:00 06/08/17 22:27 (Deltasone) 5 mg Q48H PO 06/08/17 09:00 06/08/17 08:11 (Prinivil) 40 mg DAILY PO 06/08/17 09:00 06/08/17 08:12 (Theragran) 1 tab DAILY PO 06/08/17 09:00 06/09/17 09:29 Cefepime HCl 2000 mg/Sodium Chloride 100 ml @ 200 mls/hr Q12H IV 06/08/17 04:00 06/09/17 05:18 ([address]) 360 mg BID@06,18 PO 06/08/17 18:00 06/09/17 06:25 (Prograf) 5 mg DAILY@06,18 PO 06/08/17 18:00 06/09/17 06:23 (Prograf) 2 mg DAILY@,18 PO 06/08/17 18:00 06/09/17 06:23 (NovoLOG INJ) 10 units TIDAC SQ 06/09/17 12:00 (Levemir Inj) 17 units Q12HR SQ 06/09/17 21:00 (NovoLOG SUPPLEMENTAL SCALE) 1 ACHS SLIDING SCALE SQ 06/09/17 12:00 Sodium Chloride 1,000 ml @ 84 mls/hr [id number] IV 06/09/17 12:30 Urinary Catheter: No Vascular Central Line Catheter: No A/P Problem List: (1) Pneumonia ICD Code: J18.9 - Pneumonia, unspecified organism (2) S/P kidney transplant ICD Code: Z94.0 - Kidney transplant status Status: Acute Assessment and Plan Mrs. Hackett is a 57-year-old female status post kidney transplant by Dr. Cuenca in August 2016, diabetes mellitus, hypertension, pancreatitis, dyslipidemia, and congestive heart failure who presented to [facility] in [place] for evaluation of fever, shortness of breath, and diarrhea with abdominal pain. She was concerned that her body was rejecting the kidney prompting her emergency room visit. She was found to have right multilobular pneumonia on imaging and was admitted. She was treated with Zosyn and vancomycin initially and changed to cefepime, vancomycin, and Flagyl IV due to concerns regarding nephrotoxicity of combination treatment with Zosyn and vancomycin. She was transferred to [facility] at the request of kidney transplant physician Dr. Haynes for further evaluation and treatment of her pneumonia. Pneumonia -Right lower lobe pneumonia as per documentation. -Recent being treated with IV vancomycin and IV cefepime as well as IV Flagyl and previous hospital. 06/04/2017: Chest x-ray shows unchanged cardiomegaly and no acute cardiopulmonary abnormality on 06/04/2017. 06/04/2017: CT abdomen/pelvis with contrast showed at least 2 irregular shaped lung nodules with a perivascular distribution as well as pleural based area of consolidation in the right lower lobe. There was concern for multifocal infection with possibility of septic emboli with a differential including metastatic disease. There were no acute intra-abdominal or intrapelvic findings. Diverticulosis without diverticulitis. Multiple calcified and noncalcified uterine fibroids. A CT of the chest was recommended for further evaluation but I am unable to locate the results of such a study despite extensive review of the medical records sent from [facility] 06/08 repeat chest x-ray shows no acute cardiopulmonary disease. ID consulted. We'll await recommendations regarding oral antibiotics to be discharge home. 06/09 appreciate ID recommendations. Continue IV cefepime and IV Flagyl, discontinue IV vancomycin. CT of the chest ordered by infectious disease shows multiple masslike opacities in the right lung measuring up to 1.6 cm in size most of which are devoid of air bronchograms. Considerations include multiple tumors multifocal pneumonia. Will discuss it with infectious disease and consider pulmonology consultation. s/p renal transplant - consult Dr. Haynes - per RN, Dr. Haynes adjusting immunosuppressant therapy - will defer to his expertise 06/08 discussed the case with Dr. Haynes. Tacrolimus level therapeutic at 3.4. Continue tacrolimus and myrbetriq per Dr. Haynes's recommendations. 06/09 sustained a lengthy conversation with Dr. Haynes from transplant surgery. Creatinine went up from 1.0-1.2. We decided to start the patient on gentle maintenance IV fluids with normal saline at 84 mils per hour. Continue to monitor BUN/creatinine. We also discussed dosing the patient's tacrolimus at the time the patient usually gets at home which would be 11 AM and 11 PM. Tacrolimus levels be followed by Dr. Haynes. TB being ruled out per patient, nurses, and paramedics The patient had been originally been placed in epic precautions and negative airflow room. Chest x-ray obtained at this institution on 06/08 did not show any infiltrates or cavitary lesions. Airborne precautions were discontinued. Diabetes Mellitus with hyperglycemia - Accu-Cheks before meals and at bedtime with low-dose NovoLog sliding scale coverage - Hypoglycemia protocol - Monitor trends and blood glucose readings and adjust treatments as indicated -special education paraeducator consulted. 06/08 blood sugar still severely elevated in the 300's range. Patient currently on Lantus however patient states that she was using Levemir and would like to switch to Levemir. I will discontinue Lantus and start on Levemir 10 units subcutaneous twice a day. I will also add a prandial insulin 5 units 3 times a day before meals, continue SSI with insulin NovoLog and monitor Accu-Cheks. 3/7 blood sugar still severely elevated in the 300s range. I will increase the dose of Levemir to 17 units subcu twice daily and increase the prandial insulin from 5 units 3 times a day before meals to 10 units 3 times a day before meals. Continue SSI with insulin NovoLog and monitor Accu-Cheks. Check hemoglobin A1c. Hypertension Blood pressure seems to be overall stable. Continue metoprolol tartrate 50 mg p.o. twice daily, amlodipine 5 mg p.o. daily, lisinopril 40 mg p.o. daily. Continue to monitor vital signs. DVT prophylaxis - Heparin 5000 subq q8h Discharge Planning Possible DC in 1-2 days pending stabilization of blood sugars. Lucas Jorgensen MD Jun 09, 2017 12:55
[2017-06-09] MEDS: SODIUM CHLOR 0.9% 1000 ML INJ 1,000 ML IV SCH ×2 (13:05→13:06)
[2017-06-09] MEDS: INSULIN ASPART 1,000 UNITS/10 ML VIAL SQ SCH ×2 (13:05→17:44)
--- NOTE | 2017-06-09 15:56 | HHI.PR ---
Addendum to Inpatient Note Additional Information Pt seen today around 1430 full note to follow doing well AF ANC 8K Asymptomatic CVT chest dw radiologists; small infiltrates with nodular components creatinin mildly up conmt cefepime dc vanco, flagyl antiocipate dc on no abx if cont to do well fu WBC fu CT 2 wks dw Pete Quesada Green, Romana [place],Tayla Fletcher MD Jun 09, 2017 15:56
--- NOTE | 2017-06-09 16:18 | HHI.PR ---
Subjective Remarks Denies any dyspnea, cough, nausea, vomiting, diarrhea, or any symptomatology Objective Vital Signs Date Time Temp Pulse Resp B/P (MAP) Pulse Ox O2 Delivery O2 Flow Rate FiO2 06/09/17 13:45 79 06/09/17 11:43 97.9 80 20 156/76 (102) 99 06/09/17 10:55 71 06/09/17 07:43 97.8 72 20 109/56 (73) 97 06/09/17 05:48 98.2 73 20 120/58 (78) 100 06/09/17 01:41 98.1 71 20 138/63 (88) 100 06/08/17 21:53 97.5 79 20 161/73 (102) 100 06/08/17 19:36 84 06/08/17 16:58 73 06/08/17 16:24 98.1 80 18 125/71 (89) 100 I/O 06/08/17 06/08/17 06/08/17 06/09/17 06/09/17 06/09/17 07:00 15:00 23:00 07:00 15:00 23:00 Intake Total 480 ml Balance 480 ml Intake Oral 480 ml # Voids 1 1 2 Result Diagram: 06/09/17 1050 06/09/17 1050 Objective Remarks Resp-CTAB CV-S1S2 Abd-+ BS, soft, NT/ND Ext- Calves soft NT B. No peripheral edema Assessment and Plan Problem List: (1) S/P kidney transplant ICD Codes: Z94.0 - Kidney transplant status Status: Acute (2) Pneumonia ICD Codes: J18.9 - Pneumonia, unspecified organism (3) COPD (chronic obstructive pulmonary disease) ICD Codes: J44.9 - Chronic obstructive pulmonary disease, unspecified Status: Acute Assessment and Plan Patient s/p DDKT on 08/24/2016. Admitted to [facility] on 2017 with fever, chills, and dyspnea, along with some diarrhea and ? abd pain. There was concern for multifocal pneumonia on her imaging studies and she was started on antibiotics. She was also noted to have hyperglycemia, which hasimproved with insulin coverage. She was transferred to our facility last evening. Currently denies any acute c/o. Her CXR and abd/pelvis CT were reviewed with our radiology department, who noted some right basilar infiltrate on the CT scan and some mild pulm congestion on the CXR on the images that were sent with her. Today she has no complaints and clinically looks well. The repeat CT scan does show multiple small areas in the lung of unclear etiology (infiltrates- infectious vs reactive, vs nodules). Reviewed with radiologist. ID spoke with radiologist also. As patient is doing well clinically, considered finishing her current antibiotic regimen tomorrow, then repeating a CT scan in 2 weeks to assess if residual lesions are still present, Will also get input from pulmonology, then decide what our best course of action may be Another issue is her prograf administration. She reportedlty has been taking her prograf doses at noon and midnight for the last 2 months. She then has been taking her prograf at 2100 on the night before she has to do labs, then having her labs done at 0900 on the scheduled day. We discussed that this can make interpretaion of her prograf trough results. We will adjust her labs, so that her prograf trough is drawn around 1100, on the appropriate days, and will let her continue to take her meds as she currently is. We are collecting her prograf level this Am and in the AM, to ensure not supratherapeutic. Then will plan to follow her prograf levl and adjust her dosage as needed after she has had a few consistent doses. In regards to her BS, the hospitalist is currently working on determining the appropriate regimen. Appreciate his assistance. Henrry Haynes Jr., MD Jun 09, 2017 16:18
[2017-06-09 16:30] LABS: HEMOGLOBIN A1C 14.6 % (4.3-6.0)
[2017-06-09] MEDS: ATORVASTATIN 40 MG TAB PO SCH (21:27)
[2017-06-09] MEDS: INSULIN DETEMIR 100 UNITS/ML VIAL SQ SCH (21:38)
[2017-06-09] MEDS ORDERED: TACROLIMUS 1 MG CAP PO SCH (23:00)
--- NOTE | 2017-06-09 23:38 | HHI.IDPN ---
Subjective Subjective Remarks Pt seen today around 1430 this is a delayed entry doing well AF ANC 8K Asymptomatic denies abny cough, chest pain and fever CT chest dw radiologists; small infiltrates with nodular components creatinine mildly up Antibiotics cefepime Allergies: Uncoded Allergies: Tape (Allergy, Unknown, 08/24/16) Objective . Vital Signs Date Time Temp Pulse Resp B/P (MAP) Pulse Ox O2 Delivery O2 Flow Rate FiO2 06/09/17 16:25 98.3 82 20 145/67 (93) 96 06/09/17 13:45 79 06/09/17 11:43 97.9 80 20 156/76 (102) 99 06/09/17 10:55 71 06/09/17 07:43 97.8 72 20 109/56 (73) 97 06/09/17 05:48 98.2 73 20 120/58 (78) 100 06/09/17 01:41 98.1 71 20 138/63 (88) 100 06/09/17 06/09/17 06/10/17 15:00 23:00 07:00 Intake Total 480 ml Balance 480 ml Intake Oral 480 ml # Voids 2 . Laboratory Tests Test 06/08/17 02:52 06/09/17 10:50 White Blood Count 9.2 TH/MM3 10.8 TH/MM3 Red Blood Count 4.18 MIL/MM3 4.22 MIL/MM3 Hemoglobin 12.7 GM/DL 12.7 GM/DL Hematocrit 37.6 % 37.9 % Mean Corpuscular Volume 89.9 FL 90.0 FL Mean Corpuscular Hemoglobin 30.4 PG 30.0 PG Mean Corpuscular Hemoglobin Concent 33.8 % 33.4 % Red Cell Distribution Width 14.0 % 14.4 % Platelet Count 347 TH/MM3 356 TH/MM3 Mean Platelet Volume 9.6 FL 9.4 FL Neutrophils (%) (Auto) 70.6 % 73.8 % Lymphocytes (%) (Auto) 14.9 % 14.3 % Monocytes (%) (Auto) 10.7 % 8.5 % Eosinophils (%) (Auto) 2.9 % 2.8 % Basophils (%) (Auto) 0.9 % 0.6 % Neutrophils # (Auto) 6.5 TH/MM3 8.0 TH/MM3 Lymphocytes # (Auto) 1.4 TH/MM3 1.6 TH/MM3 Monocytes # (Auto) 1.0 TH/MM3 0.9 TH/MM3 Eosinophils # (Auto) 0.3 TH/MM3 0.3 TH/MM3 Basophils # (Auto) 0.1 TH/MM3 0.1 TH/MM3 CBC Comment DIFF FINAL AUTO DIFF Differential Comment AUTO DIFF CONFIRMED Laboratory Tests Test 06/08/17 02:52 06/08/17 10:25 06/09/17 07:36 06/09/17 10:50 Blood Urea Nitrogen 19 MG/DL 21 MG/DL 21 MG/DL Creatinine 1.02 MG/DL 1.22 MG/DL 1.19 MG/DL Random Glucose 210 MG/DL 223 MG/DL 291 MG/DL Total Protein 7.2 GM/DL Albumin 2.8 GM/DL Calcium Level 8.8 MG/DL 8.6 MG/DL 8.7 MG/DL Alkaline Phosphatase 89 U/L Aspartate Amino Transf (AST/SGOT) 23 U/L Alanine Aminotransferase (ALT/SGPT) 17 U/L Total Bilirubin 0.2 MG/DL Sodium Level 141 MEQ/L 140 MEQ/L 141 MEQ/L Potassium Level 4.4 MEQ/L 4.0 MEQ/L 3.8 MEQ/L Chloride Level 112 MEQ/L 111 MEQ/L 110 MEQ/L Carbon Dioxide Level 20.3 MEQ/L 20.5 MEQ/L 22.2 MEQ/L Anion Gap 9 MEQ/L 9 MEQ/L 9 MEQ/L Estimat Glomerular Filtration Rate 68 ML/MIN 55 ML/MIN 57 ML/MIN Phosphorus Level 2.7 MG/DL 3.0 MG/DL Magnesium Level 1.6 MG/DL 1.9 MG/DL Hemoglobin A1c 14.6 % Imaging Last Impressions Chest X-Ray 06/08/17 0000 Signed Impressions: Service Date/Time: Thursday, June 08, 2017 08:56 - CONCLUSION: No focal or acute pulmonary infiltrates. Cam Avendano MD Chest CT 06/08/17 0000 Signed Impressions: Service Date/Time: Thursday, June 08, 2017 17:47 - CONCLUSION: 1. There are multiple masslike opacities in the right lung measuring up to 1.6 cm in size, most of which are devoid of air bronchograms. The appearance is nonspecific and differential considerations include multiple tumors and multifocal pneumonia. Recommend followup after treatment to assure resolution. 2. No evidence of mediastinal adenopathy. Dominguez Tena MD Physical Exam CONSTITUTIONAL/GENERAL: This is a morbidly obese female patient, in no apparent distress. TUBES/LINES/DRAINS: Old AV fistula in plece w/o any signs of infection SKIN: No jaundice, rashes, or lesions. Skin temperature appropriate. Not diaphoretic. CARDIOVASCULAR: Regular rate and rhythm without murmurs, gallops, or rubs. No JVD. Peripheral pulses symmetric. RESPIRATORY/CHEST: Symmetric, unlabored respirations. Clear to auscultation. Breath sounds equal bilaterally. No wheezes, rales, or rhonchi. GASTROINTESTINAL: Abdomen soft, non-tender, nondistended. No hepato-splenomegaly , or palpable masses. No guarding. Bowel sounds present. MUSCULOSKELETAL: Extremities without clubbing, cyanosis, or edema. No joint tenderness or effusion noted. No calf tenderness. No mottling or clubbing. LYMPHATICS: No palpable cervical or supraclavicular adenopathy. NEUROLOGICAL: Awake and alert. Motor and sensory grossly within normal limits. Follows commands. Cognitively sharp. Moves all extremities. PSYCHIATRIC: No obvious anxiety/depression. no apparent hallucinations or other psychotic thought process. Assessment & Plan Remarks Assessment and Plan Acute febrile illness - resolved PNA - clinical resolution of symptoms, no longer inflitrates present on plain CXR, has infiltrates on CT - nodular lesions Immunosuppressed, sp remnal allograft Mild leukocytosis dc vanco, flagyl antiocipate dc on no abx if cont to do well - ohter option to treat up to 10-14 days (including already completed abx time) with empiric oral abx fu WBC fu CT 2 wks agree with pulmonary consult dw Pete Quesada Green, Tayla Mason MD Jun 09, 2017 23:38
[2017-06-10] MEDS: TACROLIMUS 5 MG CAP PO SCH ×3 (00:03→22:53)
[2017-06-10] MEDS: MYCOPHENOLATE SODIUM 360 MG DELAYED RELEASE TAB PO SCH ×3 (00:03→22:53)
[2017-06-10] MEDS: TACROLIMUS 1 MG CAP PO SCH ×3 (00:03→22:52)
[2017-06-10] MEDS: HEPARIN SODIUM - SQ 10,000 UNITS/ML VIAL SQ SCH ×3 (00:04→17:41)
[2017-06-10 00:13] VITALS: BP 176/77; PULSE 76; RESP 16; TEMP 99.1; O2SAT 100
[2017-06-10] MEDS: CEFEPIME 2000 MG/NS 100 ML IV SCH ×2 (04:14)
[2017-06-10 05:02] VITALS: BP 145/65; PULSE 80; PULSE 82; RESP 16; TEMP 98.7; O2SAT 100
[2017-06-10 05:48] LABS: AUTOMATED NEUTROPHIL # 8.1 TH/MM3 (1.8-7.7); BASOPHIL # 0.2 TH/MM3 (0-0.2); BASOPHIL % 1.5 % (0.0-2.0); EOSINOPHIL # 0.2 TH/MM3 (0-0.4); EOSINOPHIL % 2.2 % (0.0-4.0); HEMATOCRIT 39.4 % (35.0-46.0); HEMOGLOBIN 12.9 GM/DL (11.6-15.3); LYMPH % 11.7 % (9.0-44.0); LYMPHOCYTE # 1.3 TH/MM3 (1.0-4.8); MEAN CELL VOLUME 90.9 FL (80.0-100.0); MEAN CORPUSCULAR HEMOGLOBIN 29.7 PG (27.0-34.0); MEAN CORPUSCULAR HGB CONC 32.7 % (32.0-36.0); MONO % 9.8 % (0.0-8.0); MONOCYTE # 1.1 TH/MM3 (0-0.9); NEUT % 74.8 % (16.0-70.0); PLATELET COUNT 372 TH/MM3 (150-450); RED BLOOD COUNT 4.34 MIL/MM3 (4.00-5.30); RED CELL DISTRIBUTION WIDTH 14.6 % (11.6-17.2); WHITE BLOOD COUNT 10.9 TH/MM3 (4.0-11.0)
[2017-06-10 06:17] LABS: BICARBONATE 19.6 MEQ/L (21.0-32.0); CALCIUM 8.1 MG/DL (8.5-10.1); CREATININE 0.95 MG/DL (0.50-1.00); MAGNESIUM 1.7 MG/DL (1.5-2.5); PHOSPHORUS 3.3 MG/DL (2.5-4.9)
[2017-06-10 08:07] VITALS: BP 155/74; PULSE 87; RESP 19; TEMP 97.9; O2SAT 97
[2017-06-10] MEDS: amLODIPine BESYLATE 5 MG TAB PO SCH ×2 (08:10→22:51)
[2017-06-10] MEDS: MULTIVITAMIN TAB PO SCH (08:10)
[2017-06-10] MEDS: CINACALCET HYDROCHLORIDE 30 MG TAB PO SCH (08:11)
[2017-06-10] MEDS: ASPIRIN EC 81 MG TABEC PO SCH (08:11)
[2017-06-10] MEDS: SODIUM CHLORIDE 0.9% FLUSH 10 ML FLUSH IV FLUSH SCH ×2 (08:11→22:56)
[2017-06-10] MEDS: METOPROLOL TARTRATE 100 MG TAB PO SCH ×2 (08:11→22:49)
[2017-06-10] MEDS: LISINOPRIL 20 MG TAB PO SCH (08:11)
[2017-06-10] MEDS: GEMFIBROZIL 600 MG TAB PO SCH ×2 (08:11→22:54)
[2017-06-10] MEDS: INSULIN ASPART SUPPLEMENTAL SCALE SQ SCH ×4 (08:11→22:54)
[2017-06-10] MEDS: INSULIN ASPART 1,000 UNITS/10 ML VIAL SQ SCH ×3 (08:12→17:42)
[2017-06-10] MEDS: INSULIN DETEMIR 100 UNITS/ML VIAL SQ SCH ×2 (08:12→22:54)
[2017-06-10 08:49] LABS: BANDS 2 % (0-6); BASOPHILS 1 % (0-2); LYMPHOCYTES 12 % (9-44); MONOCYTES 8 % (0-8); MYELOCYTES 4 % (0-0); NEUTROPHIL # MANUAL DIFF 8.4 TH/MM3 (1.8-7.7); POLYS (SEG NEUTROPHILS) 71 % (16-70)
[2017-06-10] MEDS ORDERED: TACROLIMUS 5 MG CAP PO SCH (11:00)
[2017-06-10] MEDS ORDERED: PHARMACY ORDERED LAB ONE (11:45)
--- NOTE | 2017-06-10 12:12 | ECHRPT ---
Indication: CONCLUSIONS There is trace tricuspid valve regurgitation. The estimated pulmonary arterial pressure is 33 mmHg. BP: / HR: Rhythm: Technical Quality: FINDINGS TRICUSPID VALVE There is trace tricuspid valve regurgitation. The estimated pulmonary arterial pressure is 33 mmHg. Harry Farmer MD, FACC (Electronically Signed) Final Date:10 June 2017 18:31
[2017-06-10 12:26] VITALS: BP 125/64; PULSE 68; RESP 18; TEMP 97.9; O2SAT 97
[2017-06-10] MEDS: predniSONE 5 MG TAB PO SCH (12:28)
[2017-06-10] MEDS: oxyCODONE/ACETAMINOPHEN 5 MG/325 MG TAB PO PRN (12:28)
[2017-06-10] MEDS ORDERED: LEVEMIR SQ ×2 (12:40→15:50)
[2017-06-10] MEDS ORDERED: TACR1 PO (12:40)
[2017-06-10] MEDS ORDERED: NOVOLOGP2 SQ ×2 (12:40→15:50)
[2017-06-10] MEDS ORDERED: HUMALOG SQ (12:40)
[2017-06-10] MEDS ORDERED: MYCO360 PO (12:40)
[2017-06-10] MEDS ORDERED: PRED5TAB PO (12:40)
[2017-06-10] MEDS ORDERED: MAGN400T PO (12:40)
[2017-06-10] MEDS ORDERED: TUMS500C CHEW (12:40)
[2017-06-10] MEDS ORDERED: COLA100C5 PO (12:40)
--- NOTE | 2017-06-10 12:42 | HHI.DCPOC ---
Discharge Care Plan Diagnosis: (1) Uncontrolled diabetes mellitus (2) COPD (chronic obstructive pulmonary disease) (3) Pneumonia (4) Hypertension (5) S/P kidney transplant Goals to Promote Your Health * To prevent worsening of your condition and complications * To maintain your health at the optimal level Directions to Meet Your Goals Take your medications as prescribed Follow your dietary instruction Follow activity as directed Keep your appointments as scheduled Take your immunizations and boosters as scheduled If your symptoms worsen call your PCP, if no PCP go to Urgent Care Center or Emergency Room Smoking is Dangerous to Your Health. Avoid second hand smoke Call the 24-hour hour crisis hotline for domestic abuse at Lucas Jorgensen MD Jun 10, 2017 12:42
--- NOTE | 2017-06-10 13:41 | RADRPT ---
EXAM DATE/TIME: 06/10/2017 13:03 [facility] COMPARISON: CHEST PA & LAT, June 08, 2017, 8:56. INDICATIONS : Shortness of breath. DOSE: 8.1 mCi Tc99m MAA IV 1.4 mCi Tc99m DTPA aerosol MEDICAL HISTORY : Renal failure, acute. Hypertension. Congestive heart failure. SURGICAL HISTORY : Inguinal hernia repair. Brain surgery and kidney transplant. ENCOUNTER: Initial ACUITY: 1 day PAIN SCALE: 2/10 LOCATION: chest TECHNIQUE: Following five minutes of tidal breathing of DTPA aerosol, planar images of the lungs were performed in eight projections. The patient was then injected with MAA, and eight-view perfusion scan was perf ormed. FINDINGS: There is a homogeneous pattern of aerosol delivery to the periphery of both lungs. No focal ventilat ory defects are seen. The perfusion lung scan demonstrates a homogenous pattern of uptake in both lungs. No segmental or s ubsegmental defects are seen. CONCLUSION: Unremarkable VQ scan. This is a low probability for PE. Cam Avendano MD on June 10, 2017 at 13:39 Board Certified Radiologist. This report was verified electronically.
--- NOTE | 2017-06-10 13:56 | RADRPT ---
EXAM DATE/TIME: 06/10/2017 13:37 [facility] COMPARISON: CHEST PA & LAT, June 08, 2017, 8:56. CHEST SINGLE AP, August 26, 2016, 8:55. INDICATIONS : To comp VQ scan, Short of breath. MEDICAL HISTORY : Renal failure, acute. Hypertension. Congestive heart failure SURGICAL HISTORY : Inguinal hernia repair. Brain surgery and kidney transplant ENCOUNTER: Subsequent ACUITY: 1 day PAIN SCORE: 0/10 LOCATION: Bilateral chest FINDINGS: A single view of the chest demonstrates mild platelike atelectasis in both mid lung bertrand. Otherwise , no significant changes are seen compared to the prior study.. The cardiomediastinal contours are u nremarkable. Osseous structures are intact. CONCLUSION: Mild platelike atelectasis in the midlung bertrand bilaterally. Cam Avendano MD on June 10, 2017 at 13:53 Board Certified Radiologist. This report was verified electronically.
--- NOTE | 2017-06-10 15:24 | HHI.PR ---
Subjective Remarks Blood sugars improving Patient denies any complaints. Objective Vitals Vital Signs Date Time Temp Pulse Resp B/P (MAP) Pulse Ox O2 Delivery O2 Flow Rate FiO2 06/10/17 12:26 97.9 68 18 125/64 (84) 97 06/10/17 08:07 97.9 87 19 155/74 (101) 97 06/10/17 05:02 98.7 80 16 145/65 (91) 100 06/10/17 05:02 82 06/10/17 00:13 99.1 76 16 176/77 (110) 100 06/09/17 16:25 98.3 82 20 145/67 (93) 96 I/O 06/09/17 06/09/17 06/09/17 06/10/17 06/10/17 06/10/17 07:00 15:00 23:00 07:00 15:00 23:00 Intake Total 480 ml 1400 ml 480 ml Output Total 1000 ml Balance 480 ml 400 ml 480 ml Intake Oral 480 ml 1400 ml 480 ml Output Urine Total 1000 ml # Voids 1 2 2 # Bowel Movements 2 Result Diagram: 06/10/17 0531 06/10/17 0531 Imaging Last Impressions Lung Scan-VQ Nuclear Medicine 06/10/17 0000 Signed Impressions: Service Date/Time: June 13:03 - CONCLUSION: Unremarkable VQ scan. This is a low probability for PE. Cam Avendano MD Chest X-Ray 06/10/17 0000 Signed Impressions: Service Date/Time: June 13:37 - CONCLUSION: Mild platelike atelectasis in the midlung bertrand bilaterally. Cam Avendano MD Chest CT 06/08/17 0000 Signed Impressions: Service Date/Time: Thursday, June 08, 2017 17:47 - CONCLUSION: 1. There are multiple masslike opacities in the right lung measuring up to 1.6 cm in size, most of which are devoid of air bronchograms. The appearance is nonspecific and differential considerations include multiple tumors and multifocal pneumonia. Recommend followup after treatment to assure resolution. 2. No evidence of mediastinal adenopathy. Dominguez Tena MD Objective Remarks AAox3 NAD Clear lungs S1S2 (+) RRR, no MRG Abdomen soft, nt, nd no edema in extremities Procedures none Medications and IVs Current Medications Medications (Trade) Dose Ordered Sig/Lynsey Route Start Time Stop Time Status Last Admin (NS Flush) 2 ml UNSCH PRN IV FLUSH 06/08/17 01:15 (NS Flush) 2 ml BID IV FLUSH 06/08/17 09:00 06/09/17 09:44 (Tylenol) 650 mg Q4H PRN PO 06/08/17 01:15 (Heparin Inj) 5,000 units Q8H SQ 06/08/17 09:00 06/10/17 08:10 (Narcan Inj) 0.4 mg UNSCH PRN IV PUSH 06/08/17 01:15 (Duoneb Neb) 1 ampule Q4HR NEB PRN NEB 06/08/17 01:30 (D50w (Vial) Inj) 50 ml UNSCH PRN IV PUSH 06/08/17 01:30 (Glucagon Inj) 1 mg UNSCH PRN OTHER 06/08/17 01:30 (Norvasc) 5 mg BID PO 06/08/17 09:00 06/10/17 08:10 (Ecotrin Ec) 81 mg DAILY PO 06/08/17 09:00 06/10/17 08:11 (Lipitor) 40 mg HS PO 06/08/17 21:00 06/09/17 21:27 (Sensipar) 30 mg DAILY PO 06/08/17 09:00 06/10/17 08:11 (Lopid) 600 mg BID PO 06/08/17 09:00 06/10/17 08:11 (Lopressor) 50 mg BID PO 06/08/17 09:00 06/10/17 08:11 (Percocet 5-325 Mg) 1 tab Q6H PRN PO 06/08/17 03:00 06/10/17 12:28 (Prinivil) 40 mg DAILY PO 06/08/17 09:00 06/10/17 08:11 (Theragran) 1 tab DAILY PO 06/08/17 09:00 06/10/17 08:10 Cefepime HCl 2000 mg/Sodium Chloride 100 ml @ 200 mls/hr Q12H IV 06/08/17 04:00 06/10/17 04:14 (NovoLOG INJ) 10 units TIDAC SQ 06/09/17 12:00 06/10/17 12:28 (Levemir Inj) 17 units Q12HR SQ 06/09/17 21:00 06/10/17 08:12 (NovoLOG SUPPLEMENTAL SCALE) 1 ACHS SLIDING SCALE SQ 06/09/17 12:00 06/10/17 12:28 (Prograf) 5 mg BID@1200,2359 PO 06/09/17 23:59 06/10/17 12:27 (Prograf) 2 mg BID@1200,2359 PO 06/09/17 23:59 06/10/17 12:27 ([address]) 360 mg DAILY@1200 PO 06/10/17 12:00 06/10/17 12:28 ([address]) 360 mg DAILY@2359 PO 06/10/17 00:00 06/10/17 00:03 (Deltasone) 5 mg DAILY@1200 PO 06/10/17 12:00 06/10/17 12:28 A/P Problem List: (1) Pneumonia ICD Code: J18.9 - Pneumonia, unspecified organism (2) S/P kidney transplant ICD Code: Z94.0 - Kidney transplant status Status: Acute Assessment and Plan Mrs. Hackett is a 57-year-old female status post kidney transplant by Dr. Cuenca in August 2016, diabetes mellitus, hypertension, pancreatitis, dyslipidemia, and congestive heart failure who presented to [facility] in [place] for evaluation of fever, shortness of breath, and diarrhea with abdominal pain. She was concerned that her body was rejecting the kidney prompting her emergency room visit. She was found to have right multilobular pneumonia on imaging and was admitted. She was treated with Zosyn and vancomycin initially and changed to cefepime, vancomycin, and Flagyl IV due to concerns regarding nephrotoxicity of combination treatment with Zosyn and vancomycin. She was transferred to [facility] at the request of kidney transplant physician Dr. Haynes for further evaluation and treatment of her pneumonia. Pneumonia -Right lower lobe pneumonia as per documentation. -Recent being treated with IV vancomycin and IV cefepime as well as IV Flagyl and previous hospital. 06/04/2017: Chest x-ray shows unchanged cardiomegaly and no acute cardiopulmonary abnormality on 06/04/2017. 06/04/2017: CT abdomen/pelvis with contrast showed at least 2 irregular shaped lung nodules with a perivascular distribution as well as pleural based area of consolidation in the right lower lobe. There was concern for multifocal infection with possibility of septic emboli with a differential including metastatic disease. There were no acute intra-abdominal or intrapelvic findings. Diverticulosis without diverticulitis. Multiple calcified and noncalcified uterine fibroids. A CT of the chest was recommended for further evaluation but I am unable to locate the results of such a study despite extensive review of the medical records sent from [facility] 06/08 repeat chest x-ray shows no acute cardiopulmonary disease. ID consulted. We'll await recommendations regarding oral antibiotics to be discharge home. 06/09 appreciate ID recommendations. Continue IV cefepime and IV Flagyl, discontinue IV vancomycin. CT of the chest ordered by infectious disease shows multiple masslike opacities in the right lung measuring up to 1.6 cm in size most of which are devoid of air bronchograms. Considerations include multiple tumors multifocal pneumonia. Will discuss it with infectious disease and consider pulmonology consultation. 06/10 pulmonary consulted. Appreciate recommendations. Case was discussed with Dr. Malhotra who states that if echocardiogram and VQ scan are within normal limits and the patient could be discharged to follow-up with his primary care. CT of the chest will need to be done in 2 weeks to follow-up on possible nodules observed on CT of the chest. However, he stated that if CT of the chest is normal repeat CT scan as an outpatient then the patient would not need to follow-up with him. Discussed the case with Dr. Camarillo from infectious disease. Recommended Augmentin to complete a total treatment of antibiotics of 14 days. Continue IV cefepime for now. s/p renal transplant - consult Dr. Haynes - per RN, Dr. Haynes adjusting immunosuppressant therapy - will defer to his expertise 06/08 discussed the case with Dr. Haynes. Tacrolimus level therapeutic at 3.4. Continue tacrolimus and myrbetriq per Dr. Haynes's recommendations. 06/09 sustained a lengthy conversation with Dr. Haynes from transplant surgery. Creatinine went up from 1.0-1.2. We decided to start the patient on gentle maintenance IV fluids with normal saline at 84 mils per hour. Continue to monitor BUN/creatinine. We also discussed dosing the patient's tacrolimus at the time the patient usually gets at home which would be 12 AM and 12 PM. Tacrolimus levels be followed by Dr. Haynes. TB being ruled out per patient, nurses, and paramedics The patient had been originally been placed in epic precautions and negative airflow room. Chest x-ray obtained at this institution on 06/08 did not show any infiltrates or cavitary lesions. Airborne precautions were discontinued. Diabetes Mellitus with hyperglycemia - Accu-Cheks before meals and at bedtime with low-dose NovoLog sliding scale coverage - Hypoglycemia protocol - Monitor trends and blood glucose readings and adjust treatments as indicated -aircraft steel fabricator consulted. 06/08 blood sugar still severely elevated in the 300's range. Patient currently on Lantus however patient states that she was using Levemir and would like to switch to Levemir. I will discontinue Lantus and start on Levemir 10 units subcutaneous twice a day. I will also add a prandial insulin 5 units 3 times a day before meals, continue SSI with insulin NovoLog and monitor Accu-Cheks. 06/09 blood sugar still severely elevated in the 300s range. I will increase the dose of Levemir to 17 units subcu twice daily and increase the prandial insulin from 5 units 3 times a day before meals to 10 units 3 times a day before meals. Continue SSI with insulin NovoLog and monitor Accu-Cheks. Check hemoglobin A1c. 06/10 blood sugars with improved control however still elevated the 200s range. Increase Levemir to 20 units subcutaneously twice a day, increase prandial insulin to 12 units 3 times a day before meals. Hemoglobin A1c is 14.6, diabetes is uncontrolled. The patient will need to follow-up with an mobile application engineer as an outpatient. Hypertension Blood pressure seems to be overall stable. Continue metoprolol tartrate 50 mg p.o. twice daily, amlodipine 5 mg p.o. daily, lisinopril 40 mg p.o. daily. Continue to monitor vital signs. DVT prophylaxis - Heparin 5000 subq q8h Discharge Planning Pending complete to the echocardiogram results since the first 1 was limited and did not include pulmonary artery pressures. If echocardiogram is normal the patient may be discharged home to follow-up with Dr. Haynes from transplant surgery and Endocrinology as well as his PCP. Patient will need a follow-up CT scan in 3 weeks with his primary care or Dr. Haynes. If this is normal then the patient does not need to follow-up with pulmonology. Problem Qualifiers (1) Pneumonia: Qualified Codes: J18.9 - Pneumonia, unspecified organism Lucas Jorgensen MD Jun 10, 2017 15:24
--- NOTE | 2017-06-10 17:08 | HHI.PR ---
Subjective Remarks Denies any dyspnea, cough, nausea, vomiting, diarrhea, or any other symptomatology Objective Vital Signs Date Time Temp Pulse Resp B/P (MAP) Pulse Ox O2 Delivery O2 Flow Rate FiO2 06/10/17 12:26 97.9 68 18 125/64 (84) 97 06/10/17 08:07 97.9 87 19 155/74 (101) 97 06/10/17 05:02 98.7 80 16 145/65 (91) 100 06/10/17 05:02 82 06/10/17 00:13 99.1 76 16 176/77 (110) 100 I/O 06/09/17 06/09/17 06/09/17 06/10/17 06/10/17 06/10/17 07:00 15:00 23:00 07:00 15:00 23:00 Intake Total 480 ml 1400 ml 480 ml Output Total 1000 ml Balance 480 ml 400 ml 480 ml Intake Oral 480 ml 1400 ml 480 ml Output Urine Total 1000 ml # Voids 1 2 2 # Bowel Movements 2 Result Diagram: 06/10/1753006/10/17530 Objective Remarks Resp-CTAB CV- S1S2 Abd- + BS, soft, NT/ND Ext- Calves soft NT B. No peripheral edema Assessment and Plan Problem List: (1) S/P kidney transplant ICD Codes: Z94.0 - Kidney transplant status Status: Acute (2) Pneumonia ICD Codes: J18.9 - Pneumonia, unspecified organism (3) COPD (chronic obstructive pulmonary disease) ICD Codes: J44.9 - Chronic obstructive pulmonary disease, unspecified Status: Acute Assessment and Plan Patient s/p DDKT on 08/24/2016. Admitted to [facility] on 2017 with fever, chills, and dyspnea, along with some diarrhea and ? abd pain. There was concern for multifocal pneumonia on her imaging studies and she was started on antibiotics. She was also noted to have hyperglycemia, which hasimproved with insulin coverage. She was transferred to our facility last evening. Currently denies any acute c/o. Her CXR and abd/pelvis CT were reviewed with our radiology department, who noted some right basilar infiltrate on the CT scan and some mild pulm congestion on the CXR on the images that were sent with her. Today she has no complaints and clinically looks well. The repeat CT scan does show multiple small areas in the lung of unclear etiology (infiltrates- infectious vs reactive, vs nodules). Reviewed with radiologist. ID spoke with radiologist also. As patient is doing well clinically, considered finishing her current antibiotic regimen tomorrow, then repeating a CT scan in 2 weeks to assess if residual lesions are still present, Will also get input from pulmonology, then decide what our best course of action may be Patient seen by pulmonology in addition to other consultants. Appreciate input from all consultants. Echo and VQ scan done today. RVSP reportedly WNL. VQ scan low prob. Discussed case with Dr Mckeon last evening. Our decide plan was to recommend treatment with antibiosis for a total of 14 days. Augmentin Okay, At this point, okay with discharge plan as outlined by hospitalist (discharge with repeat chest ct scan in 3 weeks Problem Qualifiers (1) Pneumonia: Qualified Codes: J18.9 - Pneumonia, unspecified organism (2) COPD (chronic obstructive pulmonary disease): Qualified Codes: J44.9 - Chronic obstructive pulmonary disease, unspecified Henrry Haynes Jr., MD Jun 10, 2017 17:08
[2017-06-10 17:20] VITALS: BP 140/65; PULSE 75; RESP 18; TEMP 97.9; O2SAT 99
[2017-06-10 17:22] LABS: BASOPHIL # 0.1 TH/MM3 (0-0.2); BASOPHIL % 1.1 % (0.0-2.0); EOSINOPHIL # 0.1 TH/MM3 (0-0.4); EOSINOPHIL % 0.9 % (0.0-4.0); HEMATOCRIT 38.8 % (35.0-46.0); HEMOGLOBIN 12.8 GM/DL (11.6-15.3); LYMPH % 10.2 % (9.0-44.0); LYMPHOCYTE # 1.1 TH/MM3 (1.0-4.8); MEAN CELL VOLUME 91.5 FL (80.0-100.0); MEAN CORPUSCULAR HEMOGLOBIN 30.1 PG (27.0-34.0); MEAN CORPUSCULAR HGB CONC 32.9 % (32.0-36.0); MEAN PLATELET VOLUME 9.2 FL (7.0-11.0); MONOCYTE # 0.8 TH/MM3 (0-0.9); NEUT % 80.8 % (16.0-70.0); PLATELET COUNT 408 TH/MM3 (150-450); RED BLOOD COUNT 4.24 MIL/MM3 (4.00-5.30); RED CELL DISTRIBUTION WIDTH 14.6 % (11.6-17.2); WHITE BLOOD COUNT 11.1 TH/MM3 (4.0-11.0)
[2017-06-10 17:40] LABS: BICARBONATE 23.4 MEQ/L (21.0-32.0); CALCIUM 8.6 MG/DL (8.5-10.1); CREATININE 1.11 MG/DL (0.50-1.00); MAGNESIUM 1.7 MG/DL (1.5-2.5); PHOSPHORUS 3.1 MG/DL (2.5-4.9)
--- NOTE | 2017-06-10 17:41 | HHI.IDPN ---
Subjective Subjective Remarks Pt is doing really well Denies any complaints No fever slightly elevated ANC 8.1 K VQ and 2 D echo were done RVSP 33, VQ low prob Antibiotics cefepime Allergies: Uncoded Allergies: Tape (Allergy, Unknown, 08/24/16) Objective . Vital Signs Date Time Temp Pulse Resp B/P (MAP) Pulse Ox O2 Delivery O2 Flow Rate FiO2 06/10/17 17:20 97.9 75 18 140/65 (90) 99 06/10/17 12:26 97.9 68 18 125/64 (84) 97 06/10/17 08:07 97.9 87 19 155/74 (101) 97 06/10/17 05:02 98.7 80 16 145/65 (91) 100 06/10/17 05:02 82 06/10/17 00:13 99.1 76 16 176/77 (110) 100 06/10/17 06/10/17 06/11/17 15:00 23:00 07:00 Intake Total 480 ml Balance 480 ml Intake Oral 480 ml # Voids 2 # Bowel Movements 2 . Laboratory Tests Test 06/09/17 10:50 06/10/17 05:31 06/10/17 16:35 White Blood Count 10.8 TH/MM3 10.9 TH/MM3 11.1 TH/MM3 Red Blood Count 4.22 MIL/MM3 4.34 MIL/MM3 4.24 MIL/MM3 Hemoglobin 12.7 GM/DL 12.9 GM/DL 12.8 GM/DL Hematocrit 37.9 % 39.4 % 38.8 % Mean Corpuscular Volume 90.0 FL 90.9 FL 91.5 FL Mean Corpuscular Hemoglobin 30.0 PG 29.7 PG 30.1 PG Mean Corpuscular Hemoglobin Concent 33.4 % 32.7 % 32.9 % Red Cell Distribution Width 14.4 % 14.6 % 14.6 % Platelet Count 356 TH/MM3 372 TH/MM3 408 TH/MM3 Mean Platelet Volume 9.4 FL 9.0 FL 9.2 FL Neutrophils (%) (Auto) 73.8 % 74.8 % 80.8 % Lymphocytes (%) (Auto) 14.3 % 11.7 % 10.2 % Monocytes (%) (Auto) 8.5 % 9.8 % 7.0 % Eosinophils (%) (Auto) 2.8 % 2.2 % 0.9 % Basophils (%) (Auto) 0.6 % 1.5 % 1.1 % Neutrophils # (Auto) 8.0 TH/MM3 8.1 TH/MM3 9.0 TH/MM3 Lymphocytes # (Auto) 1.6 TH/MM3 1.3 TH/MM3 1.1 TH/MM3 Monocytes # (Auto) 0.9 TH/MM3 1.1 TH/MM3 0.8 TH/MM3 Eosinophils # (Auto) 0.3 TH/MM3 0.2 TH/MM3 0.1 TH/MM3 Basophils # (Auto) 0.1 TH/MM3 0.2 TH/MM3 0.1 TH/MM3 CBC Comment AUTO DIFF AUTO DIFF AUTO DIFF Differential Comment AUTO DIFF CONFIRMED FINAL DIFF MANUAL Differential Total Cells Counted 100 Neutrophils % (Manual) 71 % Band Neutrophils % 2 % Lymphocytes % 12 % Monocytes % 8 % Eosinophils % 2 % Basophils % 1 % Neutrophils # (Manual) 8.4 TH/MM3 Myelocytes 4 % Platelet Estimate NORMAL Platelet Morphology Comment NORMAL Red Cell Morphology Comment NORMAL Laboratory Tests Test 06/09/17 07:36 06/09/17 10:50 06/10/17 05:31 06/10/17 16:35 Blood Urea Nitrogen 21 MG/DL 21 MG/DL 17 MG/DL Creatinine 1.22 MG/DL 1.19 MG/DL 0.95 MG/DL Random Glucose 223 MG/DL 291 MG/DL 171 MG/DL Calcium Level 8.6 MG/DL 8.7 MG/DL 8.1 MG/DL Sodium Level 140 MEQ/L 141 MEQ/L 141 MEQ/L Potassium Level 4.0 MEQ/L 3.8 MEQ/L 4.0 MEQ/L Chloride Level 111 MEQ/L 110 MEQ/L 112 MEQ/L Carbon Dioxide Level 20.5 MEQ/L 22.2 MEQ/L 19.6 MEQ/L Anion Gap 9 MEQ/L 9 MEQ/L 9 MEQ/L Estimat Glomerular Filtration Rate 55 ML/MIN 57 ML/MIN 74 ML/MIN Phosphorus Level 3.0 MG/DL 3.3 MG/DL Magnesium Level 1.9 MG/DL 1.7 MG/DL Hemoglobin A1c 14.6 % Imaging Last Impressions Lung Scan-VQ Nuclear Medicine 06/10/17 0000 Signed Impressions: Service Date/Time: June 13:03 - CONCLUSION: Unremarkable VQ scan. This is a low probability for PE. Cam Avendano MD Chest X-Ray 06/10/17 0000 Signed Impressions: Service Date/Time: June 13:37 - CONCLUSION: Mild platelike atelectasis in the midlung bertrand bilaterally. Cam Avendano MD Chest CT 06/08/17 0000 Signed Impressions: Service Date/Time: Thursday, June 08, 2017 17:47 - CONCLUSION: 1. There are multiple masslike opacities in the right lung measuring up to 1.6 cm in size, most of which are devoid of air bronchograms. The appearance is nonspecific and differential considerations include multiple tumors and multifocal pneumonia. Recommend followup after treatment to assure resolution. 2. No evidence of mediastinal adenopathy. Dominguez Tena MD Physical Exam CONSTITUTIONAL/GENERAL: This is a morbidly obese female patient, in no apparent distress. TUBES/LINES/DRAINS: Old AV fistula in plece w/o any signs of infection SKIN: No jaundice, rashes, or lesions. Skin temperature appropriate. Not diaphoretic. CARDIOVASCULAR: Regular rate and rhythm without murmurs, gallops, or rubs. No JVD. Peripheral pulses symmetric. RESPIRATORY/CHEST: Symmetric, unlabored respirations. Clear to auscultation. Breath sounds equal bilaterally. No wheezes, rales, or rhonchi. GASTROINTESTINAL: Abdomen soft, non-tender, nondistended. No hepato-splenomegaly , or palpable masses. No guarding. Bowel sounds present. MUSCULOSKELETAL: Extremities without clubbing, cyanosis, or edema. No joint tenderness or effusion noted. No calf tenderness. No mottling or clubbing. LYMPHATICS: No palpable cervical or supraclavicular adenopathy. NEUROLOGICAL: Awake and alert. Motor and sensory grossly within normal limits. Follows commands. Cognitively sharp. Moves all extremities. PSYCHIATRIC: No obvious anxiety/depression. no apparent hallucinations or other psychotic thought process. Assessment & Plan Remarks Assessment and Plan Acute febrile illness - resolved PNA - clinical resolution of symptoms, no longer inflitrates present on plain CXR, has infiltrates on CT - nodular lesions Immunosuppressed, sp remnal allograft Mild leukocytosis Creatinine really good now dc cefepime Augmentin up for few more days, can cont up to 7 more days if clincially indicated monitor WBC and for potential compictions of abx therapy (especuiially abd pain and diarrhea) fu CT 2 wks OK to dc home from [facility] Pete Quesada S Wh[place]ote Crossman, Alexandra A. MD Jun 10, 2017 17:41
[2017-06-10 18:06] LABS: BASOPHILS 2 % (0-2); LYMPHOCYTES 13 % (9-44); METAMYELOCYTES 1 % (0-1); MONOCYTES 6 % (0-8); NEUTROPHIL # MANUAL DIFF 8.5 TH/MM3 (1.8-7.7); POLYS (SEG NEUTROPHILS) 76 % (16-70)
[2017-06-10 20:00] VITALS: BP 151/70; PULSE 80; PULSE 84; RESP 18; TEMP 97.3; O2SAT 98
[2017-06-10] MEDS: ATORVASTATIN 40 MG TAB PO SCH (22:50)
[2017-06-10] MEDS: AMOXICILLIN/CLAVULANATE K 500 MG TAB PO SCH ×2 (22:57→23:52)
[2017-06-11] VITALS: BP 140/68; PULSE 82; PULSE 87; RESP 18; TEMP 97.8; O2SAT 96
[2017-06-11] MEDS: HEPARIN SODIUM - SQ 10,000 UNITS/ML VIAL SQ SCH ×2 (00:03→08:50)
[2017-06-11 04:00] VITALS: BP 140/69; PULSE 71; RESP 18; TEMP 97.7; O2SAT 96
[2017-06-11] MEDS: AMOXICILLIN/CLAVULANATE K 500 MG TAB PO SCH ×2 (07:04→12:40)
[2017-06-11 08:00] VITALS: BP 143/67; PULSE 74; RESP 18; TEMP 97.4; O2SAT 98
--- NOTE | 2017-06-11 08:07 | HHI.PR ---
Subjective Remarks Denies any dyspnea, cough, nausea, vomiting, diarrhea, or any other symptomatology Objective Vital Signs Date Time Temp Pulse Resp B/P (MAP) Pulse Ox O2 Delivery O2 Flow Rate FiO2 06/11/17 04:00 97.7 71 18 140/69 (92) 96 06/11/17 04:00 71 06/11/17 04:00 97.7 71 18 140/69 (92) 96 06/11/17 00:00 87 06/11/17 00:00 97.8 82 18 140/68 (92) 96 06/10/17 20:00 97.3 80 18 151/70 (97) 98 06/10/17 20:00 84 06/10/17 17:20 97.9 75 18 140/65 (90) 99 06/10/17 12:26 97.9 68 18 125/64 (84) 97 06/10/17 08:07 97.9 87 19 155/74 (101) 97 I/O 06/10/17 06/10/17 06/10/17 06/11/17 06/11/17 06/11/17 07:00 15:00 23:00 07:00 15:00 23:00 Intake Total 1400 ml 480 ml 240 ml Output Total 1000 ml Balance 400 ml 480 ml 240 ml Intake Oral 1400 ml 480 ml 240 ml Output Urine Total 1000 ml # Voids 2 3 # Bowel Movements 2 Result Diagram: 06/10/17 1635 06/10/17 1635 Objective Remarks Resp-CTAB CV- S1S2 Abd- + BS, soft, NT/ND Ext- Calves soft NT B. No peripheral edema Assessment and Plan Problem List: (1) S/P kidney transplant ICD Codes: Z94.0 - Kidney transplant status Status: Acute (2) Pneumonia ICD Codes: J18.9 - Pneumonia, unspecified organism (3) COPD (chronic obstructive pulmonary disease) ICD Codes: J44.9 - Chronic obstructive pulmonary disease, unspecified Status: Acute Assessment and Plan Patient s/p DDKT on 08/24/2016. Admitted to [facility] on 2017 with fever, chills, and dyspnea, along with some diarrhea and ? abd pain. There was concern for multifocal pneumonia on her imaging studies and she was started on antibiotics. She was also noted to have hyperglycemia, which hasimproved with insulin coverage. She was transferred to our facility last evening. Currently denies any acute c/o. Her CXR and abd/pelvis CT were reviewed with our radiology department, who noted some right basilar infiltrate on the CT scan and some mild pulm congestion on the CXR on the images that were sent with her. Today she has no complaints and clinically looks well. The repeat CT scan does show multiple small areas in the lung of unclear etiology (infiltrates- infectious vs reactive, vs nodules). Reviewed with radiologist. ID spoke with radiologist also. As patient is doing well clinically, considered finishing her current antibiotic regimen tomorrow, then repeating a CT scan in 2 weeks to assess if residual lesions are still present, Will also get input from pulmonology, then decide what our best course of action may be patient doing well. appreciate new vehicle sales consultant's in[put. Home with antibiotics to complete 14 day course. Followup with transplant clinic on 06/21/2017. Will plan to repeat echo in 1-2 months. Problem Qualifiers (1) Pneumonia: Qualified Codes: J18.9 - Pneumonia, unspecified organism (2) COPD (chronic obstructive pulmonary disease): Qualified Codes: J44.9 - Chronic obstructive pulmonary disease, unspecified Henrry Haynes Jr., MD Jun 11, 2017 08:07
--- NOTE | 2017-06-11 08:20 | MB ---
cc: Radha Malhotra MD, William F MD DATE OF CONSULT: 06/10/2017 HISTORY OF PRESENT ILLNESS: Ms. 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 She was admitted to [facility] at the end of last week with fever and chills. She had shortness of breath for 4-6 weeks prior to this, as well as some right upper quadrant pain. She had a chest x-ray, as well as a CT scan, which revealed some basilar changes suggesting multilobar pneumonia. She was begun on vancomycin and Zosyn and then switched to vancomycin, cefepime and Flagyl and that had been continued here. Leading up to this, however, she had no cough or congestion. No purulent sputum. She was a former smoker of probably 20-30 pack years, but she quit smoking over a decade ago. No history of recurrent bronchitis, known COPD or asthma. She became concerned particularly when she began to swell and developed shortness of breath. She was concerned about the function of her transplanted kidney. She had no hemoptysis. No pleuritic chest pain. She had a little increased edema in her legs. ADDITIONAL PAST HISTORY: Diabetes, hypertension, an episode of pancreatitis, thought to be drug related, but not alcohol related, hyperlipidemia and CHF prior to her transplant. No recurrence over the last year. PAST SURGICAL HISTORY: Other than the transplant, she had an AV fistula when she was on dialysis and a in 1993. FAMILY HISTORY: Positive for diabetes, chronic kidney disease and hypertension. SOCIAL HISTORY: In 1988, she quit alcohol and illicit drugs, which she had experimented with prior to that. Also, quit smoking about 2 years prior to that. Said she never used IV drugs and has had no known episodes of septicemia. STUDIES: She did have an echocardiogram while at [facility], but we do not have that, another has been ordered here and that result is pending. IMAGING: CT scan here revealed several small irregular nodules 1-2 cm in size, none of which were cavitary. She had no associated effusion or adenopathy. REVIEW OF SYSTEMS: There is also no history of significant reflux. She has had no recent nausea or vomiting. CONSULTATIONS: Infectious Disease has seen her here and suggest she may have had a viral pneumonia or an atypical pneumonia or no pneumonia at all. ALLERGIES: TAPE. EXPOSURES: No unusual animal exposures. No other sick exposures. No recent travel. PHYSICAL EXAMINATION: VITAL SIGNS: Afebrile, pulse is 70, respirations 16-18, nonlabored at rest, O2 saturation on room air is 97% and her blood pressure is 125/64. GENERAL: Obese. NECK: No adenopathy in the neck. PULMONARY: The chest is entirely clear. No wheezes or rales. No congestion. CARDIOVASCULAR: No harsh murmur. No audible S3. ABDOMEN: Obese, but soft. EXTREMITIES: She has no peripheral edema. LABORATORY DATA: White count is currently 10.9, hemoglobin 12. DISCUSSION AND PLAN: Ms. Hackett presented with a rather longstanding history of dyspnea, then aggravated by fever, really of unclear etiology. Infiltrates in her lung were found on CT scan and we have CT scan here which does reveal some nodular infiltrates in both lungs. Whether or not this represented an infection is unclear. Because of the confusion, a ventilation/perfusion scan was requested and there is no evidence of thrombembolic disease. An echocardiogram was ordered, which appears normal. Apparently there was some prior history of documented pulmonary hypertension, but right ventricle and right atrium on this study are normal. We do not have a pulmonary artery pressure estimate. Her spirometry reveals restriction. Lung volume is in the range of 60%. Ms. Hackett has possibly presented with an atypical pneumonia or a multifocal pneumonia. She is doing very well clinically at present. May have had a response to the broad spectrum antibiotics. However, in light of the uncertainty, I would suggest a followup scan if she is doing well clinically in at least 3-4 weeks to see if these areas are clearing or for that matter progressing. Dr. Haynes will be seeing her back as an outpatient for her transplant and will order that CAT scan. If I can be of further assistance, I would be happy to see her back as an outpatient. Thank you for allowing me to see her with you in consultation. R. MD DANISH Roberson/AVANI , 05:17 PM , 05:54 PM
--- NOTE | 2017-06-11 08:23 | RSPPFT ---
DATE OF PROCEDURE: 06/10/17 COMMENTS: VOLUMES DYNAMIC: FVC and FEV1 mildly reduced. FLOWS: FEV1% and FEF 25-75 normal. IMPRESSION: Mild restrictive ventilatory defect with no significant improvement post-bronchodilator.
[2017-06-11] MEDS: ASPIRIN EC 81 MG TABEC PO SCH (08:48)
[2017-06-11] MEDS: amLODIPine BESYLATE 5 MG TAB PO SCH (08:48)
[2017-06-11] MEDS: MULTIVITAMIN TAB PO SCH (08:48)
[2017-06-11] MEDS: METOPROLOL TARTRATE 100 MG TAB PO SCH (08:49)
[2017-06-11] MEDS: LISINOPRIL 20 MG TAB PO SCH (08:49)
[2017-06-11] MEDS: CINACALCET HYDROCHLORIDE 30 MG TAB PO SCH (08:49)
[2017-06-11] MEDS: GEMFIBROZIL 600 MG TAB PO SCH (08:49)
[2017-06-11] MEDS: SODIUM CHLORIDE 0.9% FLUSH 10 ML FLUSH IV FLUSH SCH (08:51)
[2017-06-11] MEDS: INSULIN ASPART 1,000 UNITS/10 ML VIAL SQ SCH ×2 (08:51→12:40)
[2017-06-11] MEDS: INSULIN ASPART SUPPLEMENTAL SCALE SQ SCH ×2 (08:51→12:41)
[2017-06-11] MEDS: INSULIN DETEMIR 100 UNITS/ML VIAL SQ SCH (08:51)
--- NOTE | 2017-06-11 11:43 | HHI.PR ---
Subjective Remarks Patient has been cleared by all on the case including transplant team Pulmonary and infectious disease Wants to go home can be discharged home today Her primary is in [place] Objective Vitals Vital Signs Date Time Temp Pulse Resp B/P (MAP) Pulse Ox O2 Delivery O2 Flow Rate FiO2 06/11/17 08:00 97.4 74 18 143/67 (92) 98 06/11/17 04:00 97.7 71 18 140/69 (92) 96 06/11/17 04:00 71 06/11/17 04:00 97.7 71 18 140/69 (92) 96 06/11/17 00:00 87 06/11/17 00:00 97.8 82 18 140/68 (92) 96 06/10/17 20:00 97.3 80 18 151/70 (97) 98 06/10/17 20:00 84 06/10/17 17:20 97.9 75 18 140/65 (90) 99 06/10/17 12:26 97.9 68 18 125/64 (84) 97 I/O 06/10/17 06/10/17 06/10/17 06/11/17 06/11/17 06/11/17 07:00 15:00 23:00 07:00 15:00 23:00 Intake Total 1400 ml 480 ml 240 ml Output Total 1000 ml Balance 400 ml 480 ml 240 ml Intake Oral 1400 ml 480 ml 240 ml Output Urine Total 1000 ml # Voids 2 3 # Bowel Movements 2 Result Diagram: 06/10/17 1635 06/10/17 1635 Other Results Laboratory Tests Test 06/09/17 07:36 06/09/17 10:50 06/09/17 18:46 06/10/17 05:31 Blood Urea Nitrogen 21 MG/DL 21 MG/DL 17 MG/DL Creatinine 1.22 MG/DL 1.19 MG/DL 0.95 MG/DL Random Glucose 223 MG/DL 291 MG/DL 171 MG/DL Calcium Level 8.6 MG/DL 8.7 MG/DL 8.1 MG/DL Sodium Level 140 MEQ/L 141 MEQ/L 141 MEQ/L Potassium Level 4.0 MEQ/L 3.8 MEQ/L 4.0 MEQ/L Chloride Level 111 MEQ/L 110 MEQ/L 112 MEQ/L Carbon Dioxide Level 20.5 MEQ/L 22.2 MEQ/L 19.6 MEQ/L Anion Gap 9 MEQ/L 9 MEQ/L 9 MEQ/L Estimat Glomerular Filtration Rate 55 ML/MIN 57 ML/MIN 74 ML/MIN White Blood Count 10.8 TH/MM3 10.9 TH/MM3 Red Blood Count 4.22 MIL/MM3 4.34 MIL/MM3 Hemoglobin 12.7 GM/DL 12.9 GM/DL Hematocrit 37.9 % 39.4 % Mean Corpuscular Volume 90.0 FL 90.9 FL Mean Corpuscular Hemoglobin 30.0 PG 29.7 PG Mean Corpuscular Hemoglobin Concent 33.4 % 32.7 % Red Cell Distribution Width 14.4 % 14.6 % Platelet Count 356 TH/MM3 372 TH/MM3 Mean Platelet Volume 9.4 FL 9.0 FL Neutrophils (%) (Auto) 73.8 % 74.8 % Lymphocytes (%) (Auto) 14.3 % 11.7 % Monocytes (%) (Auto) 8.5 % 9.8 % Eosinophils (%) (Auto) 2.8 % 2.2 % Basophils (%) (Auto) 0.6 % 1.5 % Neutrophils # (Auto) 8.0 TH/MM3 8.1 TH/MM3 Lymphocytes # (Auto) 1.6 TH/MM3 1.3 TH/MM3 Monocytes # (Auto) 0.9 TH/MM3 1.1 TH/MM3 Eosinophils # (Auto) 0.3 TH/MM3 0.2 TH/MM3 Basophils # (Auto) 0.1 TH/MM3 0.2 TH/MM3 CBC Comment AUTO DIFF AUTO DIFF Differential Comment AUTO DIFF CONFIRMED FINAL DIFF MANUAL Phosphorus Level 3.0 MG/DL 3.3 MG/DL Magnesium Level 1.9 MG/DL 1.7 MG/DL Hemoglobin A1c 14.6 % Tacrolimus (Prograf) Level 5.5 NG/ML Differential Total Cells Counted 100 Neutrophils % (Manual) 71 % Band Neutrophils % 2 % Lymphocytes % 12 % Monocytes % 8 % Eosinophils % 2 % Basophils % 1 % Neutrophils # (Manual) 8.4 TH/MM3 Myelocytes 4 % Platelet Estimate NORMAL Platelet Morphology Comment NORMAL Red Cell Morphology Comment NORMAL Test 06/10/17 16:35 White Blood Count 11.1 TH/MM3 Red Blood Count 4.24 MIL/MM3 Hemoglobin 12.8 GM/DL Hematocrit 38.8 % Mean Corpuscular Volume 91.5 FL Mean Corpuscular Hemoglobin 30.1 PG Mean Corpuscular Hemoglobin Concent 32.9 % Red Cell Distribution Width 14.6 % Platelet Count 408 TH/MM3 Mean Platelet Volume 9.2 FL Neutrophils (%) (Auto) 80.8 % Lymphocytes (%) (Auto) 10.2 % Monocytes (%) (Auto) 7.0 % Eosinophils (%) (Auto) 0.9 % Basophils (%) (Auto) 1.1 % Neutrophils # (Auto) 9.0 TH/MM3 Lymphocytes # (Auto) 1.1 TH/MM3 Monocytes # (Auto) 0.8 TH/MM3 Eosinophils # (Auto) 0.1 TH/MM3 Basophils # (Auto) 0.1 TH/MM3 CBC Comment AUTO DIFF Differential Total Cells Counted 100 Neutrophils % (Manual) 76 % Lymphocytes % 13 % Monocytes % 6 % Eosinophils % 2 % Basophils % 2 % Neutrophils # (Manual) 8.5 TH/MM3 Metamyelocytes 1 % Differential Comment FINAL DIFF MANUAL Platelet Estimate NORMAL Platelet Morphology Comment NORMAL Blood Urea Nitrogen 18 MG/DL Creatinine 1.11 MG/DL Random Glucose 265 MG/DL Calcium Level 8.6 MG/DL Phosphorus Level 3.1 MG/DL Magnesium Level 1.7 MG/DL Sodium Level 140 MEQ/L Potassium Level 4.5 MEQ/L Chloride Level 109 MEQ/L Carbon Dioxide Level 23.4 MEQ/L Anion Gap 8 MEQ/L Estimat Glomerular Filtration Rate 62 ML/MIN Imaging Last Impressions Lung Scan-VQ Nuclear Medicine 06/10/17 Signed Impressions: Service Date/Time: June 13:03 - CONCLUSION: Unremarkable VQ scan. This is a low probability for PE. Cam Avendano MD Chest X-Ray 06/10/17 Signed Impressions: Service Date/Time: June 13:37 - CONCLUSION: Mild platelike atelectasis in the midlung bertrand bilaterally. Cam Avendano MD Chest CT 06/08/17 Signed Impressions: Service Date/Time: Thursday, June 08, 2017 17:47 - CONCLUSION: 1. There are multiple masslike opacities in the right lung measuring up to 1.6 cm in size, most of which are devoid of air bronchograms. The appearance is nonspecific and differential considerations include multiple tumors and multifocal pneumonia. Recommend followup after treatment to assure resolution. 2. No evidence of mediastinal adenopathy. Dominguez Tena MD Objective Remarks GENERAL: SKIN: Warm and dry. HEAD: Atraumatic. Normocephalic. EYES: Pupils equal and round. No scleral icterus. No injection or drainage. ENT: No nasal bleeding or discharge. Mucous membranes pink and moist. NECK: Trachea midline. No JVD. CARDIOVASCULAR: Regular rate and rhythm. RESPIRATORY: No accessory muscle use. Clear to auscultation. Breath sounds equal bilaterally. GASTROINTESTINAL: Abdomen soft, non-tender, nondistended. Hepatic and splenic margins not palpable. MUSCULOSKELETAL: Extremities without clubbing, cyanosis, or edema. No obvious deformities. NEUROLOGICAL: Awake and alert. No obvious cranial nerve deficits. Motor grossly within normal limits. Five out of 5 muscle strength in the arms and legs. Normal speech. PSYCHIATRIC: Appropriate mood and affect; insight and judgment normal. Procedures none Medications and IVs Current Medications Sodium Chloride (NS Flush) 2 ml UNSCH PRN IV FLUSH FLUSH AFTER USING IV ACCESS ; Start 06/08/17 at 01:15 Sodium Chloride (NS Flush) 2 ml BID IV FLUSH Last administered on 06/11/17at 08: 51; Start 06/08/17 at 09:00 Acetaminophen (Tylenol) 650 mg Q4H PRN PO TEMP > 100.4; Start 06/08/17 at 01:15 Heparin Sodium (Porcine) (Heparin Inj) 5,000 units Q8H SQ Last administered on 06/11/17at 08:50; Start 06/08/17 at 09:00 Naloxone HCl (Narcan Inj) 0.4 mg UNSCH PRN IV PUSH SEE LABEL COMMENTS; Start at 01:15 Albuterol/ Ipratropium (Duoneb Neb) 1 ampule Q4HR NEB PRN NEB SOB/WHEEZING; Start 06/08/17 at 01:30 Dextrose (D50w (Vial) Inj) 50 ml UNSCH PRN IV PUSH HYPOGLYCEMIA-SEE COMMENTS; Start 06/08/17 at 01:30 Glucagon (Glucagon Inj) 1 mg UNSCH PRN OTHER HYPOGLYCEMIA-SEE COMMENTS; Start 06/08/17 at 01:30 Insulin Aspart (NovoLOG SUPPLEMENTAL SCALE) 1 ACHS SLIDING SCALE SQ Last administered on 06/09/17at 09:33; Start 06/08/17 at 08:00; Stop 06/09/17 at 09:34; Status DC Amlodipine Besylate (Norvasc) 5 mg BID PO Last administered on 06/11/17 08:48; Start 06/08/17 at 09:00 Aspirin (Ecotrin Ec) 81 mg DAILY PO Last administered on 06/11/17 08:48; Start 06/08/17 at 09:00 Atorvastatin Calcium (Lipitor) 40 mg HS PO Last administered on 06/10/17 22:50 ; Start 06/08/17 at 21:00 Cefepime HCl (Maxipime Inj) 2,000 mg Q12H IV ; Start 06/08/17 at 03:00; Status UNV Cinacalcet (Sensipar) 30 mg DAILY PO Last administered on 06/11/17 08:49; Start 06/08/17 at 09:00 Gemfibrozil (Lopid) 600 mg BID PO Last administered on 06/11/17 08:49; Start at 09:00 Insulin Glargine (Lantus Inj) 20 units HS SQ ; Start 06/08/17 at 21:00; Stop 06/08 at 21:00; Status DC Metoprolol Tartrate (Lopressor) 50 mg BID PO Last administered on 06/11/17 08: 49; Start 06/08/17 at 09:00 Metronidazole 500 mg/Metronidazole ml Q8HR IV ; Start 06/08/17 at 06:00; Status UNV Oxycodone/ Acetaminophen (Percocet 5-325 Mg) 1 tab Q6H PRN PO PAIN Last administered on 06/10/17 12:28; Start 06/08/17 at 03:00 Prednisone (Deltasone) 5 mg Q48H PO Last administered on 06/08/17 08:11; Start 06/08/17 at 09:00; Stop 06/09/17 at 22:03; Status DC Lisinopril (Prinivil) 40 mg DAILY PO Last administered on 06/11/17 08:49; Start 06/08/17 at 09:00 Multivitamins (Theragran) 1 tab DAILY PO Last administered on 06/11/17 08:48; Start 06/08/17 at 09:00 Pharmacy Profile Note 0 ml @ 0 mls/hr UNSCH OTHER ; Start 06/08/17 at 03:15; Stop 06/09/17 at 09:32; Status DC Cefepime HCl 2000 mg/Sodium Chloride 100 ml @ 200 mls/hr Q12H IV Last administered on 06/10/17at 04:14; Start 06/08/17 at 04:00; Stop 06/10/17 at 17:43; Status DC Metronidazole 100 ml @ 100 mls/hr Q8H IV Last administered on 06/09/17at 06:25; Start 06/08/17 at 06:00; Stop 06/09/17 at 10:00; Status DC Vancomycin HCl 1750 mg/Sodium Chloride 517.5 ml @ 250 mls/hr ONCE@0700 ONCE IV Last administered on 06/08/17at 05:08; Start 06/08/17 at 07:00; Stop 06/08/17 at 09:04; Status DC Mycophenolate Sodium (Myfortic Dr) 360 mg BID@,18 PO Last administered on 06/09at 17:44; Start 06/08/17 at 18:00; Stop 06/09/17 at 22:02; Status DC Tacrolimus (Prograf) 5 mg DAILY@06,18 PO Last administered on 06/09/17at 06:23; Start 06/08/17 at 18:00; Stop 06/09/17 at 12:39; Status DC Tacrolimus (Prograf) 2 mg DAILY@,18 PO Last administered on 06/09/17at 06:23; Start 06/08/17 at 18:00; Stop 06/09/17 at 12:39; Status DC Pneumococcal Polyvalent Vaccine (Pneumovax-23 Inj) 25 mcg ONCE ONCE IM Last administered on 06/09/17at 09:47; Start 06/09/17 at 10:00; Stop 06/09/17 at 10:01; Status DC Insulin Aspart (NovoLOG INJ) 5 units TIDAC SQ Last administered on 06/08/17at 18: 29; Start 06/08/17 at 12:00; Stop 06/09/17 at 09:31; Status DC Vancomycin HCl 1750 mg/Sodium Chloride 517.5 ml @ 250 mls/hr Q18H IV Last administered on 06/09/17at 01:03; Start 06/09/17 at 00:00; Stop 06/09/17 at 09:32; Status DC Miscellaneous Information SPECIFIC LAB TO BE DRAWN:VANCOMYCIN TROUGH DATE TO... ONCE ONCE .XX ; Start 06/10/17 at 11:45; Stop 06/10/17 at 11:45; Status DC Tacrolimus (Prograf) 5 mg ONCE ONCE PO Last administered on 06/08/17at 11:59; Start 06/08/17 at 12:00; Stop 06/08/17 at 12:01; Status DC Mycophenolate Sodium (Myfortic Dr) 360 mg ONCE ONCE PO Last administered on 06/08/17at 11:59; Start 06/08/17 at 11:45; Stop 06/08/17 at 11:46; Status DC Tacrolimus (Prograf) 2 mg ONCE ONCE PO Last administered on 06/08/17at 11:59; Start 06/08/17 at 12:00; Stop 06/08/17 at 12:01; Status DC Magnesium Sulfate/ Dextrose 100 ml @ 100 mls/hr Q1H IV Last administered on 06/08/17at 14:27; Start 06/08/17 at 13:00; Stop 06/08/17 at 14:59; Status DC Insulin Detemir (Levemir Inj) 10 units Q12HR SQ Last administered on 06/08/17at 22:32; Start 06/08/17 at 21:00; Stop 06/09/17 at 09:31; Status DC Insulin Aspart (NovoLOG INJ) 10 units TIDAC SQ Last administered on 06/10/17at 12 :28; Start 06/09/17 at 12:00; Stop 06/10/17 at 15:20; Status DC Insulin Detemir (Levemir Inj) 17 units Q12HR SQ Last administered on 06/10/17at 08:12; Start 06/09/17 at 21:00; Stop 06/10/17 at 15:20; Status DC Insulin Aspart (NovoLOG SUPPLEMENTAL SCALE) 1 ACHS SLIDING SCALE SQ Last administered on 06/11/17at 08:51; Start 06/09/17 at 12:00 Sodium Chloride 1,000 ml @ 84 mls/hr [id number] IV Last administered on 06/09/17at 13:06; Start 06/09/17 at 12:30; Stop 06/10/17 at 11:12; Status DC Tacrolimus (Prograf) 2 mg DAILY@1100,2300 PO ; Start 06/09/17 at 23:00; Stop 06/09 at 23:00; Status DC Tacrolimus (Prograf) 5 mg DAILY@1100,2300 PO ; Start 06/10/17 at 11:00; Stop 06/10 at 11:00; Status DC Tacrolimus (Prograf) 5 mg BID@1200,2359 PO Last administered on 06/10/17at 22:53 ; Start 06/09/17 at 23:59 Tacrolimus (Prograf) 2 mg BID@1200,2359 PO Last administered on 06/10/17at 22:52 ; Start 06/09/17 at 23:59 Mycophenolate Sodium (Myfortic Dr) 360 mg DAILY@1200 PO Last administered on 06/10/17at 12:28; Start 06/10/17 at 12:00 Mycophenolate Sodium (Myfortic Dr) 360 mg DAILY@2359 PO Last administered on 06/10/17at 22:53; Start 06/10/17 at 00:00 Prednisone (Deltasone) 5 mg DAILY@1200 PO Last administered on 06/10/17at 12:28; Start 06/10/17 at 12:00 Insulin Aspart (NovoLOG INJ) 12 units TIDAC SQ Last administered on 06/11/17 08 :51; Start 06/10/17 at 17:00 Insulin Detemir (Levemir Inj) 20 units Q12HR SQ Last administered on 06/11/17at 08:51; Start 06/10/17 at 21:00 Amoxicillin/ Clavulanate Potassium (Augmentin) 500 mg Q8HR PO Last administered on 06/11/17at 07:04; Start 06/10/17 at 22:00; Stop 06/17/17 at 21:59 A/P Problem List: (1) Pneumonia ICD Code: J18.9 - Pneumonia, unspecified organism (2) S/P kidney transplant ICD Code: Z94.0 - Kidney transplant status Status: Acute Assessment and Plan Mrs. Hackett is a 57-year-old female status post kidney transplant by Dr. Cuenca in August 2016, diabetes mellitus, hypertension, pancreatitis, dyslipidemia, and congestive heart failure who presented to [facility] in [place] for evaluation of fever, shortness of breath, and diarrhea with abdominal pain. She was concerned that her body was rejecting the kidney prompting her emergency room visit. She was found to have right multilobular pneumonia on imaging and was admitted. She was treated with Zosyn and vancomycin initially and changed to cefepime, vancomycin, and Flagyl IV due to concerns regarding nephrotoxicity of combination treatment with Zosyn and vancomycin. She was transferred to [facility] at the request of kidney transplant physician Dr. Haynes for further evaluation and treatment of her pneumonia. Pneumonia -Right lower lobe pneumonia as per documentation. -Recent being treated with IV vancomycin and IV cefepime as well as IV Flagyl and previous hospital. 06/04/2017: Chest x-ray shows unchanged cardiomegaly and no acute cardiopulmonary abnormality on 06/04/2017. 06/04/2017: CT abdomen/pelvis with contrast showed at least 2 irregular shaped lung nodules with a perivascular distribution as well as pleural based area of consolidation in the right lower lobe. There was concern for multifocal infection with possibility of septic emboli with a differential including metastatic disease. There were no acute intra-abdominal or intrapelvic findings. Diverticulosis without diverticulitis. Multiple calcified and noncalcified uterine fibroids. A CT of the chest was recommended for further evaluation but I am unable to locate the results of such a study despite extensive review of the medical records sent from [facility] 06/08 repeat chest x-ray shows no acute cardiopulmonary disease. ID consulted. We'll await recommendations regarding oral antibiotics to be discharge home. 06/09 appreciate ID recommendations. Continue IV cefepime and IV Flagyl, discontinue IV vancomycin. CT of the chest ordered by infectious disease shows multiple masslike opacities in the right lung measuring up to 1.6 cm in size most of which are devoid of air bronchograms. Considerations include multiple tumors multifocal pneumonia. Will discuss it with infectious disease and consider pulmonology consultation. 06/10 pulmonary consulted. Appreciate recommendations. Case was discussed with Dr. Malhotra who states that if echocardiogram and VQ scan are within normal limits and the patient could be discharged to follow-up with his primary care. CT of the chest will need to be done in 2 weeks to follow-up on possible nodules observed on CT of the chest. However, he stated that if CT of the chest is normal repeat CT scan as an outpatient then the patient would not need to follow-up with him. Discussed the case with Dr. Camarillo from infectious disease. Recommended Augmentin to complete a total treatment of antibiotics of 14 days. Continue IV cefepime for now. s/p renal transplant - consult Dr. Haynes - per RN, Dr. Haynes adjusting immunosuppressant therapy - will defer to his expertise 06/08 discussed the case with Dr. Haynes. Tacrolimus level therapeutic at 3.4. Continue tacrolimus and myrbetriq per Dr. Haynes's recommendations. 06/09 sustained a lengthy conversation with Dr. Haynes from transplant surgery. Creatinine went up from 1.0-1.2. We decided to start the patient on gentle maintenance IV fluids with normal saline at 84 mils per hour. Continue to monitor BUN/creatinine. We also discussed dosing the patient's tacrolimus at the time the patient usually gets at home which would be 12 AM and 12 PM. Tacrolimus levels be followed by Dr. Haynes. TB being ruled out per patient, nurses, and paramedics The patient had been originally been placed in epic precautions and negative airflow room. Chest x-ray obtained at this institution on 06/08 did not show any infiltrates or cavitary lesions. Airborne precautions were discontinued. Diabetes Mellitus with hyperglycemia - Accu-Cheks before meals and at bedtime with low-dose NovoLog sliding scale coverage - Hypoglycemia protocol - Monitor trends and blood glucose readings and adjust treatments as indicated -software educator consulted. 06/08 blood sugar still severely elevated in the 300's range. Patient currently on Lantus however patient states that she was using Levemir and would like to switch to Levemir. I will discontinue Lantus and start on Levemir 10 units subcutaneous twice a day. I will also add a prandial insulin 5 units 3 times a day before meals, continue SSI with insulin NovoLog and monitor Accu-Cheks. 06/09 blood sugar still severely elevated in the 300s range. I will increase the dose of Levemir to 17 units subcu twice daily and increase the prandial insulin from 5 units 3 times a day before meals to 10 units 3 times a day before meals. Continue SSI with insulin NovoLog and monitor Accu-Cheks. Check hemoglobin A1c. 06/10 blood sugars with improved control however still elevated the 200s range. Increase Levemir to 20 units subcutaneously twice a day, increase prandial insulin to 12 units 3 times a day before meals. Hemoglobin A1c is 14.6, diabetes is uncontrolled. The patient will need to follow-up with an [facility] as an outpatient. Hypertension Blood pressure seems to be overall stable. Continue metoprolol tartrate 50 mg p.o. twice daily, amlodipine 5 mg p.o. daily, lisinopril 40 mg p.o. daily. Continue to monitor vital signs. DVT prophylaxis - Heparin 5000 subq q8h Discharge Planning Pending complete to the echocardiogram results since the first 1 was limited and did not include pulmonary artery pressures. If echocardiogram is normal the patient may be discharged home to follow-up with Dr. Haynes from transplant surgery and Endocrinology as well as his PCP. Patient will need a follow-up CT scan in 3 weeks with his primary care or Dr. Haynes. If this is normal then the patient does not need to follow-up with pulmonology. Discharge Planning Discharged home today Problem Qualifiers (1) Pneumonia: Qualified Codes: J18.9 - Pneumonia, unspecified organism Saleem Boland DO Jun 11, 2017 11:43
[2017-06-11] MEDS ORDERED: Amoxicil-Clavulanate PO (11:48)
[2017-06-11] MEDS ORDERED: Albuterol-Ipratropium Neb NEB (11:48)
--- NOTE | 2017-06-11 11:50 | HHI.DS ---
Discharge Summary Admission Date Jun 08, 2017 at 00:12 Discharge Date: Jun 11, 2017 Admitting Diagnosis Right multilobular pneumonia . (1) Pneumonia ICD Code: J18.9 - Pneumonia, unspecified organism Diagnosis: Principal (2) S/P kidney transplant ICD Code: Z94.0 - Kidney transplant status Diagnosis: Secondary Status: Acute Procedures none Brief History - From Admission Mrs. Hackett is a 57-year-old female status post kidney transplant by Dr. Cuenca in August 2016, diabetes mellitus, hypertension, pancreatitis, dyslipidemia, and congestive heart failure who presented to [facility] in [place] for evaluation of fever, shortness of breath, and diarrhea with abdominal pain. She was concerned that her body was rejecting the kidney prompting her emergency room visit. She was found to have right multilobular pneumonia on imaging and was admitted. She was treated with Zosyn and vancomycin initially and changed to cefepime, vancomycin, and Flagyl IV due to concerns regarding nephrotoxicity of combination treatment with Zosyn and vancomycin. She was transferred to [facility] at the request of kidney transplant physician Dr. Haynes for further evaluation and treatment of her pneumonia. The patient is seen in her hospital room. She states that she's had some shortness of breath that has been chronic over the past year that seemed to worsen in the past few weeks. She states when she developed fever on , she became concerned and called her kidney transplant physician's office staff who recommended she go to a local emergency room for evaluation. She reports she was also having some diarrhea and abdominal pain which has since resolved. Her last episode of diarrhea occurred 06/06/2017. She states she was being evaluated for tuberculosis at the other hospital but that nobody was reading the test over the weekend and she was unsure what the result was. Currently, she denies chills, fever, chest pain, cough, nausea, vomiting, diarrhea, and abdominal pain. CBC/BMP: 06/10/17 1635 06/10/17 1635 Significant Findings Laboratory Tests Test 06/09/17 07:36 06/09/17 10:50 3/7/18 18:46 06/10/17 05:31 Blood Urea Nitrogen 21 MG/DL (7-18) 21 MG/DL (7-18) Creatinine 1.22 MG/DL (0.50-1.00) 1.19 MG/DL (0.50-1.00) Random Glucose 223 MG/DL (74-106) 291 MG/DL (74-106) 171 MG/DL (74-106) Chloride Level 111 MEQ/L (98-107) 110 MEQ/L (98-107) 112 MEQ/L (98-107) Carbon Dioxide Level 20.5 MEQ/L (21.0-32.0) 19.6 MEQ/L (21.0-32.0) Estimat Glomerular Filtration Rate 55 ML/MIN (>89) 57 ML/MIN (>89) 74 ML/MIN (>89) Neutrophils (%) (Auto) 73.8 % (16.0-70.0) 74.8 % (16.0-70.0) Monocytes (%) (Auto) 8.5 % (0.0-8.0) 9.8 % (0.0-8.0) Neutrophils # (Auto) 8.0 TH/MM3 (1.8-7.7) 8.1 TH/MM3 (1.8-7.7) Hemoglobin A1c 14.6 % (4.3-6.0) Monocytes # (Auto) 1.1 TH/MM3 (0-0.9) Neutrophils % (Manual) 71 % (16-70) Neutrophils # (Manual) 8.4 TH/MM3 (1.8-7.7) Myelocytes 4 % (0-0) Calcium Level 8.1 MG/DL (8.5-10.1) Test 06/10/17 16:35 White Blood Count 11.1 TH/MM3 (4.0-11.0) Neutrophils (%) (Auto) 80.8 % (16.0-70.0) Neutrophils # (Auto) 9.0 TH/MM3 (1.8-7.7) Neutrophils % (Manual) 76 % (16-70) Neutrophils # (Manual) 8.5 TH/MM3 (1.8-7.7) Creatinine 1.11 MG/DL (0.50-1.00) Random Glucose 265 MG/DL (74-106) Chloride Level 109 MEQ/L (98-107) Estimat Glomerular Filtration Rate 62 ML/MIN (>89) Imaging Last Impressions Lung Scan-VQ Nuclear Medicine 06/10/17 Signed Impressions: Service Date/Time: June 13:03 - CONCLUSION: Unremarkable VQ scan. This is a low probability for PE. Cam Avendano MD Chest X-Ray 06/10/17 Signed Impressions: Service Date/Time: June 13:37 - CONCLUSION: Mild platelike atelectasis in the midlung bertrand bilaterally. Cam Avendano MD Chest CT 06/08/17 Signed Impressions: Service Date/Time: Thursday, June 08, 2017 17:47 - CONCLUSION: 1. There are multiple masslike opacities in the right lung measuring up to 1.6 cm in size, most of which are devoid of air bronchograms. The appearance is nonspecific and differential considerations include multiple tumors and multifocal pneumonia. Recommend followup after treatment to assure resolution. 2. No evidence of mediastinal adenopathy. Dominguez Tena MD PE at Discharge GENERAL: SKIN: Warm and dry. HEAD: Atraumatic. Normocephalic. EYES: Pupils equal and round. No scleral icterus. No injection or drainage. ENT: No nasal bleeding or discharge. Mucous membranes pink and moist. NECK: Trachea midline. No JVD. CARDIOVASCULAR: Regular rate and rhythm. RESPIRATORY: No accessory muscle use. Clear to auscultation. Breath sounds equal bilaterally. GASTROINTESTINAL: Abdomen soft, non-tender, nondistended. Hepatic and splenic margins not palpable. MUSCULOSKELETAL: Extremities without clubbing, cyanosis, or edema. No obvious deformities. NEUROLOGICAL: Awake and alert. No obvious cranial nerve deficits. Motor grossly within normal limits. Five out of 5 muscle strength in the arms and legs. Normal speech. PSYCHIATRIC: Appropriate mood and affect; insight and judgment normal. Hospital Course Mrs. Hackett is a 57-year-old female status post kidney transplant by Dr. Cuenca in August 2016, diabetes mellitus, hypertension, pancreatitis, dyslipidemia, and congestive heart failure who presented to [facility] in [place] for evaluation of fever, shortness of breath, and diarrhea with abdominal pain. She was concerned that her body was rejecting the kidney prompting her emergency room visit. She was found to have right multilobular pneumonia on imaging and was admitted. She was treated with Zosyn and vancomycin initially and changed to cefepime, vancomycin, and Flagyl IV due to concerns regarding nephrotoxicity of combination treatment with Zosyn and vancomycin. She was transferred to [facility] at the request of kidney transplant physician Dr. Haynes for further evaluation and treatment of her pneumonia. The patient is seen in her hospital room. She states that she's had some shortness of breath that has been chronic over the past year that seemed to worsen in the past few weeks. She states when she developed fever on , she became concerned and called her kidney transplant physician's office staff who recommended she go to a local emergency room for evaluation. She reports she was also having some diarrhea and abdominal pain which has since resolved. Her last episode of diarrhea occurred 06/06/2017. She states she was being evaluated for tuberculosis at the other hospital but that nobody was reading the test over the weekend and she was unsure what the result was. Currently, she denies chills, fever, chest pain, cough, nausea, vomiting, diarrhea, and abdominal pain. SEEN BY ID AND TRANSPLANT SURGERY AND PULMONARY CAN DC TO HOME ON PO MEDICATIONS THESE HAVE BEEN ADJUSTED DC TO HOME TODAY DM DIET Pt Condition on Discharge: Good Discharge Disposition: Discharge Home Discharge Time: > 30 minutes Discharge Instructions DIET: Follow Instructions for: Heart Healthy Diet, Diabetic Diet Speech Therapy-Diet Recommends: Regular Activities you can perform: Regular-No Restrictions Follow up Referrals: PCP Follow-up - 2 Weeks Surgical - As Per Protocol with Henrry Haynes Jr., MD Needs a CT of the Chest without IV contrast in 3 to 4 weeks New Medications: Insulin Aspart Inj (Novolog Inj) 1,000 Unit/10 Ml Vial 10 UNITS SQ TIDAC for Blood Sugar Management, #1 VIAL 2 Refills Insulin Aspart Inj (Novolog Inj) 1,000 Unit/10 Ml Vial 12 UNITS SQ TIDAC for Blood Sugar Management, #1 VIAL Insulin Detemir Inj (Levemir Inj) 1,000 unit/ 10 ML Vial 17 UNITS SQ Q12HR for Blood Sugar Management, #1 VIAL Do not mix with any other Insulin. Insulin Detemir Inj (Levemir Inj) 1,000 unit/ 10 ML Vial 20 UNITS SQ Q12HR for Blood Sugar Management, #1 VIAL Do not mix with any other Insulin. Prednisone (Prednisone) 5 Mg Tab 5 MG PO DAILY@1200 for Kidney rejection prevention, #31 TAB [Albuterol-Ipratropium Neb] () 1 AMPULE NEBU 1 AMPULE NEB Q4HR NEB PRN for SOB/WHEEZING, #180 AMPULE [Amoxicil-Clavulanate] () 500 MG TAB 500 MG PO Q8HR for Infection, #21 TAB Changed Medications: Insulin Lispro (Human) Inj (Humalog Inj) 1,000 Unit/10 Ml Vial 2-12 UNITS SQ ACHS for Blood Sugar Management, #1 VIAL 0 Refills (Changed from: Max dose at bedtime:( )units; sugars < 70,(0)units; sugars 150-199,(2)units; sugars 200-249,(4)units; sugars 250-299,(7)units; sugars 300-349,(10)units; sugars more than 349,(12)units.) Max dose at bedtime:( 8 )units; sugars < 70,(0)units; sugars 150-199,(2)units; sugars 200-249,(4)units; sugars 250-299,(7)units; sugars 300-349,(10)units; sugars more than 349,(12)units. Mycophenolate (Myfortic) 360 Mg Tab 360 MG PO BID for Immunosuppression, #62 TAB 0 Refills (Medication details modified) Take at 1200 hrs and 2359 hrs Tacrolimus (Prograf) 1 Mg Cap 7 MG PO Q12HR for kidney transplant, #62 CAP 0 Refills (Medication details modified) take at 1200 hrs and 2359 hrs Continued Medications: Amlodipine (Amlodipine) 5 Mg Tab 5 MG PO BID 1200, 0000 for Blood Pressure Management, #30 TAB [address] (Aspirin 81) 81 Mg Tabdr 81 MG PO DAILY, TAB 0 Refills Atorvastatin (Atorvastatin) 40 Mg Tab 40 MG PO HS for Cholesterol Management, #30 TAB 0 Refills Calcium Carbonate (Antacid) (Tums) 500 Mg Chew 500 MG CHEW BID for supplementation, #62 TAB 0 Refills (This prescription has been renewed) Cinacalcet (Sensipar) 30 Mg Tab 30 MG PO DAILY, #30 TAB 0 Refills Docusate Sodium (Colace) 100 Mg Capsule 100 MG PO BID for Constipation, #30 TAB-CAP (This prescription has been renewed) Gemfibrozil (Gemfibrozil) 600 Mg Tab 600 MG PO BID 1200, 0000, TAB 0 Refills Take 30 minutes prior to breakfast and dinner. Lisinopril (Lisinopril) 40 Mg Tab 40 MG PO DAILY for Blood Pressure Management, #30 TAB 0 Refills Magnesium Oxide (Magnesium Oxide) 400 Mg Tab 2 TAB PO BID for supplementation, #30 TAB (This prescription has been renewed) Metoprolol Tartrate (Metoprolol Tartrate) 100 Mg Tab 50 MG PO BID, TAB 0 Refills Multiple Vitamin (Multi Vitamin Daily) 1 Tab Tab 1 TAB PO DAILY Discontinued Medications: Acetaminophen (Mapap) 325 Mg Tab 650 MG PO Q4-6H PRN for FEVER, TAB 0 Refills Calcium Carbonate (Calcium Carbonate) 1,500 Mg Tab 500 MG PO BID for Calcium Supplement, TAB 0 Refills 1,500 mg calcium carbonate (600 mg elemental calcium) Calcium Carbonate (Antacid) (Calcium Carbonate (Antacid)) 500 Mg Chew 500 MG CHEW DAILY PRN for HEARTBURN, TAB 0 Refills Cefepime Inj (Cefepime Inj) 2 Gm/100 Ml Bagp 2 GM IV Q12H for Infection, BAG 0 Refills Hydrocodone-Acetaminophen (Hydrocodone-Acetaminophen) 5-300 Mg Tab 1 TAB Q6HR PRN for PAIN, TAB 0 Refills Insulin Glargine Inj (Lantus Inj) 1,000 Unit/10 Ml Vial 20 UNITS SQ HS for Blood Sugar Management, VIAL 0 Refills Insulin Glargine-Lixisenatide (Soliqua 100/33 100-33 Unt-Mcg/ml) 100 Unit-33 Mcg /Ml (3 Ml) Inj Loperamide (Imodium A-D) 2 Mg Capsule 2 MG PO DIRECTED PRN for DIARRHEA, CAP 0 Refills One capsule after each loose stool. Not to exceed 8 tablets per day. Metoprolol Tartrate (Metoprolol Tartrate) 100 Mg Tab 100 MG PO BID 1200, 0000, #60 TAB 0 Refills Metronidazole/Sodium Chloride (Metro IV 500 mg/100 ml) 500 Mg/100 Ml Piggyback 500 MG IV Q8HR for Infection Omeprazole Magnesium (Prilosec) 20 Mg Tab 2 CAP PO BID Ondansetron (Zofran) 4 Mg Tab 4 MG PO Q6HR PRN for NAUSEA OR VOMITING, TAB 0 Refills Oxybutynin ER 24 HR (Ditropan XL 24 HR) 5 Mg Tab 5 MG PO DAILY, TAB 0 Refills Oxycodone-Acetaminophen (Percocet) 5-325 mg Tab 1 TAB PO Q6H PRN for PAIN, TAB 0 Refills Oxygen (O2) (Oxygen (O2)) Device 2 LITER NORMA.CANULA CONTINUOUS PRN for Prevent Hypoxemia, #2 CYLINDER Oxygen Concentrator Portable Gaseous 2 L/min via Nasal Canula Continuous For 99 months Potassium Phosphate Monobasic (K-Phos) 500 Mg Tab 500 MG PO BID , TAB 0 Refills Prednisone (Prednisone) 5 Mg Tab 5 MG PO q48hr, TAB 0 Refills Sulfamethoxazole-Trimethoprim (Bactrim) 400-80 Mg Tab 1 TAB PO M,W,F, TAB 0 Refills Vancomycin Inj (Vancomycin Inj) 1 Gram Inj 1.25 GM IV DAILY for Infection, BAG 0 Refills [metroni] () Saleem Boland DO Jun 11, 2017 11:50
[2017-06-11] MEDS ORDERED: NEBULIZER1 MI1 (11:51)
[2017-06-11 12:00] VITALS: BP 147/67; PULSE 68; RESP 18; TEMP 97.8; O2SAT 100
[2017-06-11] MEDS: MYCOPHENOLATE SODIUM 360 MG DELAYED RELEASE TAB PO SCH (12:40)
[2017-06-11] MEDS: predniSONE 5 MG TAB PO SCH (12:40)
[2017-06-11] MEDS: TACROLIMUS 5 MG CAP PO SCH (12:40)
[2017-06-11] MEDS: TACROLIMUS 1 MG CAP PO SCH (12:40)
== END 2017-06-11 13:57 | disposition home or self-care (01) | DRG 194 ==
LOC: PREOBSVTOIN 02:29 → UNDOADMOB 06-08 00:12 → INTOOBSV 06-08 00:12 → OBSVTOIN 06-08 00:12 → N05B 06-08 00:12 → N03A 06-08 03:26 → N05A 06-08 04:17
PROVIDERS: ADMIT Hospitalist; ATTEND Hospitalist
DX: J18.9 Pneumonia, unspecified organism (principal); Z94.0 Kidney transplant status; I50.9 Heart failure, unspecified; Z99.81 Dependence on supplemental oxygen; I11.0 Hypertensive heart disease with heart failure; J44.0 Chronic obstructive pulmonary disease with (acute) lower respiratory infection; Z68.41 Body mass index [BMI] 40.0-44.9, adult; E66.01 Morbid (severe) obesity due to excess calories; G47.33 Obstructive sleep apnea (adult) (pediatric); E78.5 Hyperlipidemia, unspecified; K57.90 Diverticulosis of intestine, part unspecified, without perforation or abscess without bleeding; D25.9 Leiomyoma of uterus, unspecified; E11.65 Type 2 diabetes mellitus with hyperglycemia; Z23 Encounter for immunization; Z79.4 Long term (current) use of insulin; Z87.891 Personal history of nicotine dependence; Z95.828 Presence of other vascular implants and grafts
CPT/HCPCS: 71045; 71046; 71250; 78582; 80048; 80053; 80197; 82948; 83036; 83735; 84100; 85007; 85025; 85027; 90732; 93308; 94060; 94618; A9540; A9567; J0692; J1644; J1815; J3370; J3475; J7030; J7040; J7507; J7512; J7518

== ENCOUNTER 2017-08-23 14:25 | Observation (INO) | payer MEDICARE, BC ==
[2017-08-23] VITALS (9 sets, daily range): BP systolic 141–158; BP diastolic 67–82; PULSE 87–94; RESP 16–18; TEMP 97.9–98.7
[~2017-08-23 14:25] MED LIST changes: +Albuterol-Ipratropium Neb NEB; +Amoxicil-Clavulanate PO; -BACT400T PO; +HUMALOG SQ; -INSU0.2I; -K-PHTAB PO; +LEVEMIR SQ; +LISI40TA PO; -LOPE-1 PO; +NEBULIZER1 MI1; +NOVOLOGP2 SQ; -OXYBXL5 PO; -OXYGENDME NAS.CANULA; -PERC5TAB12 PO; -PRIL20TA2 PO; -ZOFR4TAB PO
[2017-08-23] MEDS ORDERED: NALOXONE HCL 0.4 MG/ML AMP IV PUSH PRN (17:30)
[2017-08-23] MEDS ORDERED: BISACODYL 10 MG SUPP RECTAL PRN (17:30)
[2017-08-23] MEDS ORDERED: MAGNESIUM HYDROXIDE SUSP 30 ML CUP PO PRN (17:30)
[2017-08-23] MEDS ORDERED: LACTULOSE SYRUP 20 GM/30 ML CUP PO PRN (17:30)
[2017-08-23] MEDS ORDERED: ZOLPIDEM TARTRATE 5 MG TAB PO PRN (17:30)
[2017-08-23] MEDS ORDERED: SENNOSIDES 8.6 MG TAB PO PRN (17:30)
[2017-08-23] MEDS ORDERED: DEXTROSE 50% IN WATER 50 ML VIAL(D50) IV PUSH PRN (17:30)
[2017-08-23] MEDS ORDERED: GLUCAGON 1 MG/ML VIAL OTHER PRN (17:30)
[2017-08-23] MEDS ORDERED: ACETAMINOPHEN 325 MG TAB PO PRN (17:30)
[2017-08-23] MEDS ORDERED: SODIUM CHLORIDE 0.9% FLUSH 10 ML FLUSH IV FLUSH PRN (17:30)
[2017-08-23] MEDS ORDERED: ONDANSETRON ODT 4 MG TAB PO PRN (17:45)
[2017-08-23] MEDS ORDERED: TACROLIMUS 5 MG CAP PO SCH (18:00)
[2017-08-23] MEDS ORDERED: TACROLIMUS 1 MG CAP PO SCH ×2 (18:00→21:00)
[2017-08-23] MEDS: CINACALCET HYDROCHLORIDE 30 MG TAB PO SCH (18:48)
[2017-08-23] MEDS: GEMFIBROZIL 600 MG TAB PO SCH (18:48)
--- NOTE | 2017-08-23 18:51 | HHI.HP ---
[facility] Service Transplant medicine Primary Care Physician Unknown Admission Diagnosis Acute renal failure dehydration Diagnoses: (1) S/P kidney transplant Diagnosis: Principal (2) Acute renal failure Diagnosis: Principal (3) Diabetes Diagnosis: Secondary (4) Hypertension Diagnosis: Secondary International Travel<30 Days: No Contact w/Intl Traveler<30days: No Known Affected Area: No History of Present Illness Patient is a 57-year-old -Spanish female with history of obesity, diabetes, hypertension status post kidney transplant on 08/24/2016 her postoperative courses complicated by uncontrolled diabetes, weight gain, 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 Patient denies any dysuria or burning or any history of urinary tract infection, there is no history of hematuria. She is having bloating as well and feels tired. Review of Systems Constitutional: COMPLAINS OF: Fatigue Gastrointestinal: COMPLAINS OF: Diarrhea Musculoskeletal: COMPLAINS OF: Joint pain, Muscle aches, Back pain Past Family Social History Past Medical History Diabetes Hypertension ESRD Status post kidney transplant Hyperlipidemia Rheumatoid arthritis GERD Sleep apnea Past Surgical History Kidney transplant on 08/24/16 AV fistula PD catheter placement x 2 in 2013 1993 Reported Medications Reported Meds & Active Scripts Active Novolog Inj (Insulin Aspart) 1,000 Unit/10 Ml Vial 12 Units SQ TIDAC Levemir Inj (Insulin Detemir) 1,000 unit/ 10 ML Vial 20 Units SQ Q12HR Do not mix with any other Insulin. Levemir Inj (Insulin Detemir) 1,000 unit/ 10 ML Vial 17 Units SQ Q12HR Do not mix with any other Insulin. Novolog Inj (Insulin Aspart) 1,000 Unit/10 Ml Vial 10 Units SQ TIDAC Prednisone 5 Mg Tab 5 Mg PO DAILY@1200 Humalog Inj (Insulin Human Lispro) 1,000 Unit/10 Ml Vial 2-12 Units SQ ACHS Max dose at bedtime:( 8 )units; sugars < 70,(0)units; sugars 150-199,(2)units; sugars 200-249,(4)units; sugars 250-299,(7)units; sugars 300-349,(10)units; sugars more than 349,(12)units. Colace (Docusate Sodium) 100 Mg Capsule 100 Mg PO BID Tums (Calcium Carbonate (Antacid)) 500 Mg Chew 500 Mg CHEW BID Magnesium Oxide 400 Mg Tab 2 Tab PO BID Myfortic (Mycophenolate Sodium) 360 Mg Tab 360 Mg PO BID Take at 1200 hrs and 2359 hrs Prograf (Tacrolimus) 1 Mg Cap 7 Mg PO Q12HR take at 1200 hrs and 2359 hrs Reported Lisinopril 40 Mg Tab 40 Mg PO DAILY Sensipar (Cinacalcet) 30 Mg Tab 30 Mg PO DAILY Gemfibrozil 600 Mg Tab 600 Mg PO BID 1200, 0000 Take 30 minutes prior to breakfast and dinner. Atorvastatin (Atorvastatin Calcium) 40 Mg Tab 40 Mg PO HS Aspirin 81 (Aspirin) 81 Mg Tabdr 81 Mg PO DAILY Amlodipine (Amlodipine Besylate) 5 Mg Tab 5 Mg PO BID 1200, 0000 Multi Vitamin Daily (Multiple Vitamin) 1 Tab Tab 1 Tab PO DAILY Metoprolol Tartrate 100 Mg Tab 50 Mg PO BID Allergies: Uncoded Allergies: Tape (Allergy, Unknown, 08/24/16) Active Ordered Medications Current Medications Medications (Trade) Dose Ordered Sig/Lynsey Route Start Time Stop Time Status Last Admin Sodium Chloride 1,000 ml @ 100 mls/hr Q10H IV 08/23/17 17:18 (NS Flush) 2 ml UNSCH PRN IV FLUSH 08/23/17 17:30 (NS Flush) 2 ml BID IV FLUSH 08/23/17 21:00 (Tylenol) 650 mg Q4H PRN PO 08/23/17 17:30 (Zofran Odt) 4 mg Q6H PRN PO 08/23/17 17:45 (Ambien) 5 mg HS PRN PO 08/23/17 17:30 (Narcan Inj) 0.4 mg UNSCH PRN IV PUSH 08/23/17 17:30 (Jaquelin-Colace) 1 tab BID PO 08/23/17 21:00 (Milk Of Magnesia Liq) 30 ml Q12H PRN PO 08/23/17 17:30 (Senokot) 17.2 mg Q12H PRN PO 08/23/17 17:30 (Dulcolax Supp) 10 mg DAILY PRN RECTAL 08/23/17 17:30 (Lactulose Liq) 30 ml DAILY PRN PO 08/23/17 17:30 (Norvasc) 5 mg BID PO 08/23/17 21:00 (Lipitor) 40 mg HS PO 08/23/17 21:00 (Tums Chew) 500 mg BID CHEW 08/23/17 21:00 (Sensipar) 30 mg DAILY PO 08/23/17 17:30 (Lopid) 600 mg BIDPC PO 08/23/17 18:00 (Mag-Ox) 800 mg BID PO 08/23/17 21:00 (Lopressor) 50 mg BID PO 08/23/17 21:00 (Deltasone) 5 mg DAILY@1200 PO 08/24/17 12:00 (Theragran) 1 tab DAILY PO 08/24/17 09:00 (D50w (Vial) Inj) 50 ml UNSCH PRN IV PUSH 08/23/17 17:30 (Glucagon Inj) 1 mg UNSCH PRN OTHER 08/23/17 17:30 (NovoLOG SUPPLEMENTAL SCALE) 1 ACHS SLIDING SCALE SQ 08/23/17 21:00 (Levemir Inj) 36 units HS SQ 08/23/17 21:00 (Prograf) 7 mg DAILY PO 08/24/17 09:00 (Prograf) 5 mg DAILY@18 PO 08/23/17 18:00 (Prograf) 1 mg DAILY@18 PO 08/23/17 18:00 (K-Phos) 500 mg Q12HR PO 08/23/17 21:00 Family History Noncontributory Social History Denies any smoking or alcohol use Physical Exam Vital Signs Vital Signs Date Time Temp Pulse Resp B/P (MAP) Pulse Ox O2 Delivery O2 Flow Rate FiO2 08/23/17 18:00 91 08/23/17 16:30 98.2 94 17 154/70 (98) 08/23/17 16:30 94 Physical Exam GENERAL: This is a well-nourished, well-developed patient, in no apparent distress. SKIN: No rashes, ecchymoses or lesions. Cool and dry. HEAD: Atraumatic. Normocephalic. No temporal or scalp tenderness. EYES: Pupils equal round and reactive. Extraocular motions intact. No scleral icterus. No injection or drainage. ENT: Nose without bleeding, purulent drainage or septal hematoma. Throat without erythema, tonsillar hypertrophy or exudate. Uvula midline. Airway patent. NECK: Trachea midline. No JVD or lymphadenopathy. Supple, nontender, no meningeal signs. CARDIOVASCULAR: Regular rate and rhythm without murmurs, gallops, or rubs. RESPIRATORY: Clear to auscultation. Breath sounds equal bilaterally. No wheezes , rales, or rhonchi. GASTROINTESTINAL: Abdomen soft, non-tender, nondistended. No hepato-splenomegaly , or palpable masses. No guarding. MUSCULOSKELETAL: Extremities without clubbing, cyanosis, or edema. No joint tenderness, effusion, or edema noted. No calf tenderness. Negative Homans sign bilaterally. NEUROLOGICAL: Awake and alert. Cranial nerves II through XII intact. Motor and sensory grossly within normal limits. Five out of 5 muscle strength in all muscle groups. Normal speech. Caprini VTE Risk Assessment Caprini VTE Risk Assessment: No/Low Risk (score <= 1) Caprini Risk Assessment Model Point Value = 1 Point Value = 2 Point Value = 3 Point Value = 5 Age 41-60 Minor surgery BMI > 25 kg/m2 Swollen legs Varicose veins or History of unexplained or recurrent spontaneous Oral contraceptives or hormone replacement Sepsis (< 1 month) Serious lung disease, including pneumonia (< 1 month) Abnormal pulmonary function Acute myocardial infarction Congestive heart failure (< 1 month) History of inflammatory bowel disease Medical patient at bed rest Age 61-74 Arthroscopic surgery Major open surgery (> 45 min) Laparoscopic surgery (> 45 min) Malignancy Confined to bed (> 72 hours) Immobilizing plaster cast Central venous access Age >= 75 History of VTE Family history of VTE Factor V Leiden Prothrombin [id number] Lupus anticoagulant Anticardiolipin antibodies Elevated serum homocysteine Heparin-induced thrombocytopenia Other congenital or acquired thrombophilia Stroke (< 1 month) Elective arthroplasty Hip, pelvis, or leg fracture Acute spinal cord injury (< 1 month) Prophylaxis Regimen Total Risk Factor Score Risk Level Prophylaxis Regimen 0-1 Low Early ambulation 2 Moderate Order ONE of the following: *Sequential Compression Device (SCD) *Heparin 5000 units SQ BID 3-4 Higher Order ONE of the following medications: *Heparin 5000 units SQ TID *Enoxaparin/Lovenox 40 mg SQ daily (WT < 150 kg, CrCl > 30 mL/min) *Enoxaparin/Lovenox 30 mg SQ daily (WT < 150 kg, CrCl > 10-29 mL/min) *Enoxaparin/Lovenox 30 mg SQ BID (WT < 150 kg, CrCl > 30 mL/min) AND/OR *Sequential Compression Device (SCD) 5 or more Highest Order ONE of the following medications: *Heparin 5000 units SQ TID (Preferred with Epidurals) *Enoxaparin/Lovenox 40 mg SQ daily (WT < 150 kg, CrCl > 30 mL/min) *Enoxaparin/Lovenox 30 mg SQ daily (WT < 150 kg, CrCl > 10-29 mL/min) *Enoxaparin/Lovenox 30 mg SQ BID (WT < 150 kg, CrCl > 30 mL/min) AND *Sequential Compression Device (SCD) Assessment and Plan Problem List: (1) Acute renal failure ICD Codes: N17.9 - Acute kidney failure, unspecified Status: Acute Plan: Patient appears to be dehydrated could not keep up with the fluids, she is admitted for overnight hydration Follow-up CMP If creatinine remains elevated she may need kidney biopsy 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 (2) S/P kidney transplant ICD Codes: Z94.0 - Kidney transplant status Status: Acute Plan: Patient has been maintained on Prograf, prednisone and leflunomide (3) Hypertension ICD Codes: I10 - Essential (primary) hypertension Status: Acute Plan: Continue to monitor blood pressure (4) Diabetes ICD Codes: E11.9 - Type 2 diabetes mellitus without complications Status: Acute Plan: Poorly controlled blood sugars continue to monitor Physician Certification 2 Midnight Certification Type: Continued Stay Order for Inpatient Services The services are ordered in accordance with Medicare regulations or non- Medicare payer requirements, as applicable. In the case of services not specified as inpatient-only, they are appropriately provided as inpatient services in accordance with the 2-midnight benchmark. Estimated LOS (days): 2 2 days is the estimated time the patient will need to remain in the hospital, assuming treatment plan goals are met and no additional complications. Post-Hospital Plan: Home Problem Qualifiers (1) Diabetes: Miles Alvarez MD August 23, 2017 18:51
[2017-08-23] MEDS: SODIUM CHLOR 0.9% 1000 ML INJ 1,000 ML IV SCH (18:56)
[2017-08-23] MEDS: SODIUM CHLORIDE 0.9% FLUSH 10 ML FLUSH IV FLUSH SCH (21:00)
[2017-08-23] MEDS: DOCUSATE SODIUM 50 MG/SENNA 8.6 MG TAB PO SCH (21:00)
[2017-08-23] MEDS ORDERED: INSULIN DETEMIR 100 UNITS/ML VIAL SQ SCH (21:00)
[2017-08-23] MEDS ORDERED: ATORVASTATIN 40 MG TAB PO SCH (21:00)
[2017-08-23] MEDS: POTASSIUM PHOSPHATE MONOBASIC 500 MG TAB PO SCH (21:33)
[2017-08-23] MEDS: METOPROLOL TARTRATE 50 MG TAB PO SCH (21:33)
[2017-08-23] MEDS: MAGNESIUM OXIDE 400 MG TAB PO SCH (21:33)
[2017-08-23] MEDS: PANTOPRAZOLE SOD 40 MG DELAYED RELEASE TAB PO SCH (21:33)
[2017-08-23] MEDS: CALCIUM CARBONATE 500 MG CHEWABLE TAB CHEW SCH (21:33)
[2017-08-23] MEDS: INSULIN ASPART SUPPLEMENTAL SCALE SQ SCH (21:34)
[2017-08-23] MEDS: amLODIPine BESYLATE 5 MG TAB PO SCH (21:34)
[2017-08-23 23:33] LABS: BILIRUBIN, URINE NEG (NEG); BLOOD, URINE NEG (NEG); GLUCOSE,URINE 500 mg/dL (NEG); KETONE, URINE NEG (NEG); NITRITE,URINE NEG (NEG); PH, URINE 6.5 (5.0-8.5); URINE COLOR YELLOW (YELLW/STRAW); URINE LEUKOCYTE ESTERASE NEG (NEG)
[2017-08-23 23:59] LABS: SQUAMOUS EPITHELIAL CELL URINE 3 /hpf (0-5); TRANSITIONAL EPI CELLS, URINE <1 /hpf
[2017-08-24] VITALS (16 sets, daily range): BP systolic 149–164; BP diastolic 74–78; PULSE 74–96; RESP 16–18; TEMP 97.7–98.1; O2SAT 97–98
[2017-08-24] MEDS: SODIUM CHLOR 0.9% 1000 ML INJ 1,000 ML IV SCH (04:08)
[2017-08-24 04:47] LABS: AUTOMATED NEUTROPHIL # 4.8 TH/MM3 (1.8-7.7); BASOPHIL # 0.1 TH/MM3 (0-0.2); BASOPHIL % 1.9 % (0.0-2.0); EOSINOPHIL # 0.4 TH/MM3 (0-0.4); EOSINOPHIL % 5.3 % (0.0-4.0); HEMATOCRIT 39.7 % (35.0-46.0); HEMOGLOBIN 12.6 GM/DL (11.6-15.3); LYMPH % 14.6 % (9.0-44.0); MEAN CELL VOLUME 91.4 FL (80.0-100.0); MEAN CORPUSCULAR HEMOGLOBIN 29.1 PG (27.0-34.0); MEAN CORPUSCULAR HGB CONC 31.8 % (32.0-36.0); MEAN PLATELET VOLUME 10.1 FL (7.0-11.0); MONO % 9.2 % (0.0-8.0); MONOCYTE # 0.6 TH/MM3 (0-0.9); PLATELET COUNT 285 TH/MM3 (150-450); RED BLOOD COUNT 4.34 MIL/MM3 (4.00-5.30); RED CELL DISTRIBUTION WIDTH 15.1 % (11.6-17.2)
[2017-08-24 04:57] LABS: PROTHROMBIN TIME - PATIENT 10.4 SEC (9.8-11.6)
[2017-08-24 05:13] LABS: ALBUMIN 3.3 GM/DL (3.4-5.0); AST (GOT) 14 U/L (15-37); BICARBONATE 20.8 MEQ/L (21.0-32.0); BLOOD UREA NITROGEN 22 MG/DL (7-18); CALCIUM 9.1 MG/DL (8.5-10.1); CHLORIDE 108 MEQ/L (98-107); CREATININE 1.26 MG/DL (0.50-1.00); GLOMERULAR FILTRATION RATE 53 ML/MIN (>89); GLUCOSE,RANDOM 190 MG/DL (74-106); SODIUM (NA) 141 MEQ/L (136-145)
[2017-08-24 05:15] LABS: ALT (GPT) 24 U/L (10-53); PHOSPHORUS 3.6 MG/DL (2.5-4.9)
[2017-08-24 05:17] LABS: ALKALINE PHOSPHATASE 104 U/L (45-117); TOTAL BILIRUBIN ADULT 0.2 MG/DL (0.2-1.0); TOTAL PROTEIN 7.3 GM/DL (6.4-8.2)
[2017-08-24] MEDS ORDERED: INSULIN ASPART 1,000 UNITS/10 ML VIAL SQ SCH (08:00)
[2017-08-24] MEDS: INSULIN ASPART SUPPLEMENTAL SCALE SQ SCH ×2 (08:35→11:47)
[2017-08-24] MEDS: METOPROLOL TARTRATE 50 MG TAB PO SCH (08:35)
[2017-08-24] MEDS: GEMFIBROZIL 600 MG TAB PO SCH (08:35)
[2017-08-24] MEDS: CALCIUM CARBONATE 500 MG CHEWABLE TAB CHEW SCH (08:36)
[2017-08-24] MEDS: MAGNESIUM OXIDE 400 MG TAB PO SCH (08:36)
[2017-08-24] MEDS: CINACALCET HYDROCHLORIDE 30 MG TAB PO SCH (08:36)
[2017-08-24] MEDS: POTASSIUM PHOSPHATE MONOBASIC 500 MG TAB PO SCH (08:36)
[2017-08-24] MEDS: amLODIPine BESYLATE 5 MG TAB PO SCH (08:36)
[2017-08-24] MEDS: PANTOPRAZOLE SOD 40 MG DELAYED RELEASE TAB PO SCH (08:36)
[2017-08-24] MEDS: SODIUM CHLORIDE 0.9% FLUSH 10 ML FLUSH IV FLUSH SCH (08:36)
[2017-08-24] MEDS: DOCUSATE SODIUM 50 MG/SENNA 8.6 MG TAB PO SCH (08:37)
[2017-08-24] MEDS ORDERED: LEFLUNOMIDE 20 MG TAB PO SCH (09:00)
[2017-08-24] MEDS ORDERED: MULTIVITAMIN TAB PO SCH (09:00)
[2017-08-24] MEDS ORDERED: TACROLIMUS 1 MG CAP PO SCH (09:00)
[2017-08-24] MEDS ORDERED: NON-FORMULARY DRUG (Lisinopril 40 MG) PO SCH (09:00)
[2017-08-24] MEDS ORDERED: predniSONE 5 MG TAB PO SCH (12:00)
--- NOTE | 2017-08-24 12:08 | HHI.DS ---
Discharge Summary Admission Date August 23, 2017 at 15:15 Admitting Diagnosis Acute renal failure dehydration (1) Acute renal failure Diagnosis: Principal Plan: Patient appears to be dehydrated could not keep up with the fluids, she is admitted for overnight hydration Follow-up CMP If creatinine remains elevated she may need kidney biopsy 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 ICD Codes: N17.9 - Acute kidney failure, unspecified Status: Acute (2) S/P kidney transplant Diagnosis: Secondary Plan: Patient has been maintained on Prograf, prednisone and leflunomide ICD Codes: Z94.0 - Kidney transplant status Status: Acute (3) Hypertension Diagnosis: Secondary Plan: Continue to monitor blood pressure ICD Codes: I10 - Essential (primary) hypertension Status: Acute (4) Diabetes Diagnosis: Secondary Plan: Poorly controlled blood sugars continue to monitor ICD Codes: E11.9 - Type 2 diabetes mellitus without complications Status: Acute Brief History Patient is a 57-year-old -Chinese female with history of obesity, diabetes, hypertension status post kidney transplant on 08/24/2016 her postoperative courses complicated by uncontrolled diabetes, weight gain, 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 Patient denies any dysuria or burning or any history of urinary tract infection, there is no history of hematuria. She is having bloating as well and feels tired. CBC/BMP: 08/24/17 0323 08/24/17 0400 Significant Findings Laboratory Tests Test 08/23/17 21:50 08/24/17 03:23 08/24/17 04:00 Urine Glucose (UA) 500 mg/dL (NEG) Mean Corpuscular Hemoglobin Concent 31.8 % (32.0-36.0) Monocytes (%) (Auto) 9.2 % (0.0-8.0) Eosinophils (%) (Auto) 5.3 % (0.0-4.0) Activated Partial Thromboplast Time 24.1 SEC (24.3-30.1) Blood Urea Nitrogen 22 MG/DL (7-18) Creatinine 1.26 MG/DL (0.50-1.00) Random Glucose 190 MG/DL (74-106) Albumin 3.3 GM/DL (3.4-5.0) Aspartate Amino Transf (AST/SGOT) 14 U/L (15-37) Chloride Level 108 MEQ/L (98-107) Carbon Dioxide Level 20.8 MEQ/L (21.0-32.0) Estimat Glomerular Filtration Rate 53 ML/MIN (>89) PE at Discharge GENERAL: Well-nourished, well-developed patient. SKIN: Warm and dry. HEAD: Normocephalic. EYES: No scleral icterus. No injection or drainage. NECK: Supple, trachea midline. No JVD or lymphadenopathy. CARDIOVASCULAR: Regular rate and rhythm without murmurs, gallops, or rubs. RESPIRATORY: Breath sounds equal bilaterally. No accessory muscle use. GASTROINTESTINAL: Abdomen soft, non-tender, nondistended. EXTREMITIES: No cyanosis, or edema. NEUROLOGICAL: Awake, alert, and oriented x 3. Non-focal. Hospital Course Patient received overnight hydration and creatinine declined to 1.2, she was told to hydrate herself, kidney biopsy cancelled, Blood glucose was higher Lantus Insulin adjusted to 46 units daily, she can re start Lisinopril 40 mg PO daily, she needs to keep an eye on her dier, tripe scraper talked to her and provided more information. Pt Condition on Discharge: Good Discharge Disposition: Discharge Home Discharge Instructions DIET: Follow Instructions for: Diabetic Diet Additional Diet Instructions: drink 2-3 L of fluids a day Eat at regular interval Activities you can perform: Regular-No Restrictions Miles Alvarez MD August 24, 2017 12:08
[2017-08-24] MEDS ORDERED: LISINOPRIL 20 MG TAB PO SCH (12:15)
[2017-08-24] MEDS ORDERED: LEFL20 PO (12:22)
[2017-08-24] MEDS ORDERED: TACR5 PO (12:22)
[2017-08-24] MEDS ORDERED: DULA0.5I SQ (12:22)
[2017-08-24] MEDS ORDERED: TACR1 PO ×2 (12:22)
[2017-08-24] MEDS ORDERED: LEVEMIR SQ (12:22)
--- NOTE | 2017-08-24 13:59 | RADRPT ---
EXAM DATE: 08/24/2017 1:46 PM EDT AGE/SEX: 57 years / Female INDICATIONS: Increased lab values. CLINICAL DATA: This is the patient's sequela encounter. Patient reports that signs and symptoms have been present for 1 day and indicates a pain score of 0/10. MEDICAL/SURGICAL HISTORY: . Hypertension. Hernia, hiatal. Sleep apnea. Renal disease. Diabetes. Anxiety. Thyroid disease. CHF. Hypercholesterol. ESRD. . Renal transplant. section. Cervical ablation. COMPARISON: [facility] [place], 12/31/2016. . MEASUREMENTS: Transplant Kidney:__11.5 x 6.3 x 6.3 cm Location:__Right lower quadrant Arcuate Arteries Resistive Index: Upper - 0.79 Mid - 0.77 Lower - 0.76 Main Renal Artery Velocity:__198 cm/s Main Renal Vein:__Patent External Iliac Artery Velocity:__184 cm/s External Iliac Vein:__Patent FINDINGS: Transplant Kidney: Normal cortical thickness and echotexture. No hydronephrosis, stone, or mass. N o peritransplant fluid collection. Urinary Bladder: Within normal limits given the degree of distension. No significant change compared to the prior study. CONCLUSION: 1. Stable and unremarkable ultrasound of the transplanted kidney. Electronically signed by: Cam Avendano MD 08/24/2017 1:58 PM EDT
[2017-08-24] MEDS ORDERED: INSULIN DETEMIR 100 UNITS/ML VIAL SQ SCH (21:00)
== END 2017-08-24 13:20 | disposition home or self-care (01) ==
LOC: HCPC 15:15 → INTOOBSV 15:15
PROVIDERS: ADMIT Internal Medicine Nephrology; ATTEND Internal Medicine Nephrology
DX: N17.9 Acute kidney failure, unspecified (principal); I12.0 Hypertensive chronic kidney disease with stage 5 chronic kidney disease or end stage renal disease; E11.22 Type 2 diabetes mellitus with diabetic chronic kidney disease; N18.6 End stage renal disease; R14.0 Abdominal distension (gaseous); E86.0 Dehydration; E78.5 Hyperlipidemia, unspecified; G47.30 Sleep apnea, unspecified; K21.9 Gastro-esophageal reflux disease without esophagitis; M06.9 Rheumatoid arthritis, unspecified; Z79.899 Other long term (current) drug therapy; Z79.82 Long term (current) use of aspirin; Z79.52 Long term (current) use of systemic steroids; Z94.0 Kidney transplant status
CPT/HCPCS: 76776; 80053; 80197; 81001; 82948; 84100; 85025; 85610; 85730; 96360; 96361; 96372; G0378; J1815; J7030; J7507; J7512